=== PATIENT | female | born 1945 | race American Indian/Alaskan Native ===

== ENCOUNTER 2016-09-15 14:01 | Inpatient (IN) | payer MEDICARE, OTHER ==
[2016-09-15 14:50] VITALS: BMI 27.8
--- NOTE | 2016-09-15 14:58 | ED PDOC ---
Arrival/HPI - General Time Seen by Provider: 09/15/16 14:54 Historian: Patient, Family - History of Present Illness Narrative History of Present Illness (Text): 09/15/16 14:58 This 71 yo female, pmh including CHF, htn/hypercholestremia/hypothyroidism, on coumadin fro Hx. DVT, nkda, c/o wheezing x 2 months. Patient stated symptoms has worsen within last 2 weeks. Son stated patient appears tired. Patient denies cp, mathew, dizziness, abnormal gait, calf pain, recent travel, or sick contact. Time/Duration: Other (see HPI) Context: Home Past Medical History - Provider Review Nursing Documentation Reviewed: Yes - Infectious Disease Hx of Infectious Diseases: None - Tetanus Immunization Tetanus Immunization: Unknown - Cardiac Hx Pacemaker: No - Pulmonary Hx Respiratory Disorders: Yes Hx Asthma: Yes Hx Pneumonia: Yes Other/Comment: SMOKED CIGARETTES -SOCIALLY IN THE 70'S - Neurological Hx Neurological Disorder: No - HEENT Hx HEENT Disorder: No (WEARS RX GLASSES) - Renal Hx Renal Disorder: No - Endocrine/Metabolic Hx Endocrine Disorders: Yes Hx Diabetes Mellitus Type 2: Yes - Hematological/Oncological Hx Blood Transfusions: No Hx Blood Transfusion Reaction: No - Integumentary Hx Dermatological Disorder: No Hx Basal Cell Carcinoma: No Other/Comment: SPIDER VEINS MAINLY TO LEFT KNEE AREA - Musculoskeletal/Rheumatological Hx Musculoskeletal Disorders: Yes (HERNIATED DISCS) - Gastrointestinal Hx Gastrointestinal Disorders: No - Genitourinary/Gynecological Hx Genitourinary Disorders: Yes Other/Comment: HYSTERECTOMY,OOPHORECTOMY - Psychiatric Hx Emotional Abuse: No Hx Physical Abuse: No Hx Substance Use: No - Surgical History Hx Hysterectomy: Yes Hx Orthopedic Surgery: Yes (BILATERAL KNEE ARTHROSCOPY) Other/Comment: DISKECTOMY,OOPHORECTOMY - Anesthesia Hx Anesthesia: Yes - Suicidal Assessment Feels Threatened In Home Enviroment: No Family/Social History - Physician Review Nursing Documentation Reviewed: Yes Family/Social History: No Known Family HX Smoking Status: Former Smoker Hx Alcohol Use: No Hx Substance Use: No Hx Substance Use Treatment: No Allergies/Home Meds Allergies/Adverse Reactions: Allergies grass pollen Allergy (Verified 09/15/16 14:54) COUGH ASTHMA LIKE SYMPTOMS Home Medications: Home Meds Medication Instructions Recorded Confirmed Labetalol [Trandate] 100 mg PO BID 05/29/15 09/15/16 Nadolol [Corgard] 40 mg PO QAM 05/29/15 09/15/16 Pioglitazone [Actos] 45 mg PO QAM 05/29/15 09/15/16 Simvastatin [Simvastatin] 40 mg PO QAM 05/29/15 09/15/16 Warfarin [Coumadin] 5 mg PO DAILY 05/29/15 09/15/16 Albuterol HFA [Ventolin HFA 90 2 puff IH QID PRN 06/01/15 09/15/16 mcg/actuation (8 g)] Albuterol/Ipratropium [Duoneb 3 3 ml IH Q6 PRN 06/01/15 09/15/16 MG/3 Ml-0.5 MG/3 Ml 3 Ml] Cyanocobalamin [Vitamin B12 1000 1,000 mcg PO DAILY 06/01/15 09/15/16 mcg Tab] Ergocalciferol (Vitamin D2) 50,000 iu PO SUN 06/01/15 09/15/16 [Vitamin D] Furosemide [Lasix] 20 mg PO QAM 06/01/15 09/15/16 Lansoprazole [Prevacid] 30 mg PO QAM 06/01/15 09/15/16 Montelukast [Singulair] 10 mg PO QAM 06/01/15 09/15/16 Pregabalin [Lyrica] 150 mg PO QAM 06/01/15 09/15/16 Valsartan/Hydrochlorothiazide 1 tab PO QAM 06/01/15 09/15/16 [Valsartan and Hydrochlorothiazide 12.5 mg-160] Aspirin [Low Dose Aspirin EC] 81 mg PO DAILY 01/01/16 09/15/16 Ibuprofen [Motrin] 600 mg PO Q6 PRN 01/01/16 09/15/16 Review of Systems - Review of Systems Constitutional: Normal. absent: Fatigue, Weight Change, Fevers Eyes: Normal ENT: Normal Respiratory: SOB, Cough, Wheezing Cardiovascular: Normal. absent: Chest Pain, Palpitations Gastrointestinal: Normal. absent: Abdominal Pain, Nausea, Vomiting Genitourinary Female: Normal. absent: Dysuria, Frequency, Hematuria Musculoskeletal: Normal Skin: Normal Neurological: Normal Endocrine: Normal Hemo/Lymphatic: Normal Psychiatric: Normal Physical Exam Vital Signs Temp Pulse Resp BP Pulse Ox 09/15/16 21:15 128/88 09/15/16 16:43 76 18 125/68 96 09/15/16 15:10 16 09/15/16 15:08 97.9 F 88 16 110/71 95 09/15/16 14:53 97.9 F 88 16 110/71 95 Temperature: Afebrile Blood Pressure: Normal Pulse: Regular Respiratory Rate: Normal Appearance: Positive for: Well-Appearing, Non-Toxic, Comfortable Pain Distress: None Mental Status: Positive for: Alert and Oriented X 3 - Systems Exam Head: Present: Atraumatic, Normocephalic Pupils: Present: PERRL Extroacular Muscles: Present: EOMI Conjunctiva: Present: Normal Mouth: Present: Moist Mucous Membranes Neck: Present: Normal Range of Motion Respiratory/Chest: Present: Wheezes, Decreased Breath Sounds, Rhonchi. No: Respiratory Distress, Accessory Muscle Use, Rales, Retracting, Tachypneic Cardiovascular: Present: Regular Rate and Rhythm, Normal S1, S2. No: Murmurs Abdomen: Present: Normal Bowel Sounds. No: Tenderness, Distention, Peritoneal Signs Back: Present: Normal Inspection. No: CVA Tenderness Upper Extremity: Present: Normal Inspection, Normal ROM, NORMAL PULSES, Neurovascularly Intact, Capillary Refill < 2s. No: Cyanosis, Edema Lower Extremity: Present: Normal Inspection, NORMAL PULSES, Normal ROM, Capillary Refill < 2 s. No: Edema Neurological: Present: GCS=15, CN II-XII Intact, Speech Normal, Motor Func Grossly Intact, Normal Sensory Function, Normal Cerebellar Funct, Gait Normal, Memory Normal Skin: Present: Warm, Dry, Normal Color. No: Rashes Psychiatric: Present: Alert, Oriented x 3, Normal Insight, Normal Concentration Medical Decision Making ED Course and Treatment: 09/15/16 19:00 Patient presents to the emergency department complaining of shortness of breath and wheezing, cough. Patient was treated with Solu-Medrol IVP, DuoNeb. Chest x -ray was no infiltrate. Despite treatment, patient continued with symptoms. Dr. Duarte was contacted, and she agrees with the admission Re-evaluation Time: 19:00 Reassessment Condition: Re-examined, Improving,but remains with symptoms - Lab Interpretations Lab Results: 09/15/16 15:40 09/15/16 16:44 Lab Results 09/15/16 17:02: Urine Color Yellow, Urine Appearance Clear, Urine pH 6.0, Ur Specific [place] 1.010, Urine Protein Negative, Urine Glucose (UA) Negative, Urine Ketones Negative, Urine Blood Negative, Urine Nitrate Negative, Urine Bilirubin Negative, Urine Urobilinogen 0.2, Ur Leukocyte Esterase Negative 09/15/16 16:44: Sodium 139, Chloride 104, Potassium 5.5 H, Carbon Dioxide 28, Anion Gap 13, BUN 44 H, Creatinine 2.5 H, Est GFR ( Amer) 23, Est GFR ( Non-Af Amer) 19, Random Glucose 90, Calcium 9.6, Total Bilirubin 0.6, AST 21, ALT 28, Alkaline Phosphatase 81, Lactate Dehydrogenase 520, Total Creatine Kinase 117, Troponin I 0.03 D, NT-Pro-B Natriuret Pep 442, Total Protein 7.0, Albumin 4.1, Globulin 2.9, Albumin/Globulin Ratio 1.4 09/15/16 15:40: PT 15.7 H, INR 1.45 H, APTT 31.7 H 09/15/16 15:40: pO2 106 H, VBG pH 7.29 L, VBG pCO2 59.0, VBG HCO3 28.4 H, VBG Total CO2 30.2 H, VBG O2 Sat (Calc) 99.2 H, VBG Base Excess 0.5, VBG Potassium 6.0 H, Sodium 139.0, Chloride 107.0, Glucose 91, Lactate 1.1, FiO2 21.0, Venous Blood Potassium 6.0 H 09/15/16 15:40: WBC 6.2, RBC 3.69, Hgb 10.2 L, Hct 33.5 L, MCV 90.8, MCH 27.6, MCHC 30.4 L, RDW 15.7 H, Plt Count 89 L, Gran % 66.0, Lymph % (Auto) 20.5 L, S[place]th % (Auto) 9.0 H, Eos % (Auto) 4.0, Baso % (Auto) 0.5, Gran # 4.08, Lymph # 1.3, Smyth # 0.6, Eos # 0.3, Baso # 0.03 - RAD Interpretation Radiology Orders: 09/15/16 14:57 CHEST TWO VIEWS (PA/LAT) [RAD] Stat 09/15/16 18:56 CHEST W/O CONTRAST [CT] Stat - EKG Interpretation Interpreted by ED Physician: Yes (NSR @ [address] changes. Normal interval ) Type: 12 lead EKG Comparison: No previous EKG avail. - Medication Orders Current Medication Orders: Albuterol/Ipratropium (Duoneb 3 Mg/0.5 Mg (3 Ml) Ud) 3 ml IH Q6 [facility] Last Admin: 09/16/16 13:44 Dose: 3 ml Aspirin (Ecotrin) 81 mg PO DAILY [facility] Last Admin: 09/16/16 09:48 Dose: 81 mg Atorvastatin Calcium (Lipitor) 20 mg PO QAM [facility] Last Admin: 09/16/16 09:48 Dose: 20 mg Enoxaparin Sodium (Lovenox) 80 mg SC Q12H [facility] PRN Reason: Protocol Furosemide (Lasix) 40 mg IVP DAILY [facility] Last Admin: 09/16/16 09:49 Dose: 40 mg Insulin Human Lispro (Humalog High) 0 units SC ACHS [facility] PRN Reason: Protocol Last Admin: 09/16/16 18:07 Dose: Not Given Non-Admin Reason: Patient in Radiology Labetalol HCl (Trandate) 100 mg PO BID [facility] Last Admin: 09/16/16 18:04 Dose: 100 mg Methylprednisolone (Solu-Medrol) 40 mg IV Q12 [facility] Last Admin: 09/16/16 09:49 Dose: 40 mg Montelukast Sodium (Singulair) 10 mg PO QAM [facility] Last Admin: 09/16/16 09:48 Dose: 10 mg Nadolol (Corgard) 40 mg PO QAM [facility] Last Admin: 09/16/16 10:42 Dose: 40 mg Pantoprazole Sodium (Protonix Ec Tab) 40 mg PO 0630 [facility] Last Admin: 09/16/16 05:56 Dose: 40 mg Polyethylene Glycol (Miralax) 17 gm PO DAILY [facility] Last Admin: 09/16/16 16:01 Dose: Pregabalin (Lyrica) 150 mg PO QAM [facility] Last Admin: 09/16/16 09:48 Dose: 150 mg Warfarin Sodium (Coumadin) 5 mg PO 1800 [facility] PRN Reason: Protocol Discontinued Medications Albuterol Sulfate (Albuterol 0.083% Inhal [place] (2.5 Mg/3 Ml) Ud) 5 mg IH STAT STA Stop: 09/15/16 21:00 Last Admin: 09/15/16 21:15 Dose: 5 mg Albuterol Sulfate (Albuterol 0.083% Inhal [place] (2.5 Mg/3 Ml) Ud) 0 mg IH ONCE STA Stop: 09/16/16 14:52 Albuterol Sulfate (Albuterol 0.083% Inhal [place] (2.5 Mg/3 Ml) Ud) 2.5 mg IH ONCE STA Stop: 09/16/16 14:57 Albuterol/Ipratropium (Duoneb 3 Mg/0.5 Mg (3 Ml) Ud) 3 ml IH Q15M [facility] Stop: 09/15/16 15:31 Last Admin: 09/15/16 15:45 Dose: 3 ml Albuterol/Ipratropium (Duoneb 3 Mg/0.5 Mg (3 Ml) Ud) 3 ml IH Q6 PRN PRN Reason: Shortness of Breath Dextrose (Dextrose 50% Inj) 50 ml IVP STAT STA Stop: 09/15/16 21:01 Last Admin: 09/15/16 21:15 Dose: 50 ml Enoxaparin Sodium (Lovenox) 100 mg SC Q24H [facility] PRN Reason: Protocol Last Admin: 09/16/16 18:10 Dose: 100 mg Furosemide (Lasix) 20 mg IVP STAT STA Stop: 09/15/16 21:03 Last Admin: 09/15/16 21:15 Dose: 20 mg Insulin Human Regular (Humulin R) 10 units IVP ONCE ONE Stop: 09/15/16 21:01 Last Admin: 09/15/16 21:15 Dose: 10 units Methylprednisolone (Solu-Medrol) 125 mg IVP STAT STA Stop: 09/15/16 14:57 Last Admin: 09/15/16 15:32 Dose: 125 mg Sodium Polystyrene Sulfonate (Kayexalate Oral Susp) 30 gm PO ONCE ONE Stop: 09/16/16 09:44 Last Admin: 09/16/16 09:51 Dose: 30 gm Sodium Polystyrene Sulfonate (Kayexalate Oral Susp) 30 gm PO STAT STA Stop: 09/16/16 17:20 Last Admin: 09/16/16 18:07 Dose: 30 gm Warfarin Sodium (Coumadin) 5 mg PO DAILY [facility] PRN Reason: Protocol Warfarin Sodium (Coumadin) 10 mg PO STAT [facility] PRN Reason: Protocol Stop: 09/15/16 20:09 Last Admin: 09/15/16 21:22 Dose: 10 mg Warfarin Sodium (Coumadin) 10 mg PO 1800 [facility] PRN Reason: Protocol Stop: 09/16/16 19:28 Disposition/Present on Arrival - Present on Arrival Any Indicators Present on Arrival: No History of DVT/PE: Yes History of Uncontrolled Diabetes: No Urinary Catheter: No History Surgical Site Infection Following: None - Disposition Have Diagnosis and Disposition been Completed?: Yes Diagnosis: Asthma exacerbation Disposition: HOSPITALIZED Disposition Time: 19:04 Patient Plan: Admission Patient Problems: Current Active Problems Problem Status Onset Asthma exacerbation Acute Condition: STABLE
[2016-09-15] MEDS: Albuterol-Ipratrop 3 mg / 0.5 (3 ml) UD IH SCH ×3 (15:12→15:45)
[2016-09-15 15:48] LABS: ADD MANUAL DIFF? NO
[2016-09-15 16:11] LABS: VENOUS BLOOD GAS BASE EXCESS 0.5 mmol/L (0.0-2.0); VENOUS BLOOD PH 7.29 (7.32-7.43)
[2016-09-15 16:12] LABS: BASO # 0.03 K/mm3 (0.0-2.0); BASO % 0.5 % (0.0-3.0); EOS # 0.3 (0.0-0.7); GRAN # 4.08 (1.4-6.5); HEMATOCRIT 33.5 % (36.0-48.0); LYMPH # 1.3 (1.2-3.4); LYMPH % 20.5 % (22.0-35.0); MEAN CELL VOLUME 90.8 fL (80.0-105.0); MEAN CORPUSCULAR HEMOGLOBIN 27.6 pg (25.0-35.0); MEAN CORPUSCULAR HGB CONC 30.4 g/dl (31.0-37.0); MONO # 0.6 (0.1-0.6); PLATELET COUNT 89 10^3/uL (120.0-450.0); RED CELL DISTRIBUTION WIDTH 15.7 % (11.5-14.5); WHITE BLOOD COUNT 6.2 10^3/ul (4.5-11.0)
[2016-09-15 16:19] LABS: INR 1.45 (0.93-1.08); PARTIAL THROMBOPLASTIN TIME 31.7 Seconds (23.7-30.8)
[2016-09-15 16:46] LABS: TROPONIN I 0.03 ng/mL
[2016-09-15 17:01] LABS: ALB/GLOB RATIO 1.4 (1.1-1.8); BILIRUBIN,TOTAL 0.6 mg/dL (0.2-1.3); CALCIUM 9.6 mg/dL (8.4-10.5); POTASSIUM 5.5 mmol/L (3.6-5.0)
[2016-09-15 17:09] LABS: URINE BILIRUBIN NEGATIVE (NEGATIVE); URINE BLOOD NEGATIVE (NEGATIVE); URINE GLUCOSE (UA) NEGATIVE (NEGATIVE); URINE KETONE NEGATIVE (NEGATIVE); URINE LEUKOCYTE ESTERASE NEGATIVE Leu/uL (NEGATIVE); URINE PROTEIN NEGATIVE mg/dL (<30 mg/dL); URINE UROBILINOGEN 0.2 E.U./dL (<1 E.U./dL)
[2016-09-15 17:12] LABS: URINE APPEARANCE CLEAR (CLEAR); URINE COLOR YELLOW (YELLOW)
[2016-09-15] MEDS ORDERED: Albuterol-Ipratrop 3 mg / 0.5 (3 ml) UD IH PRN (20:04)
[2016-09-15] MEDS ORDERED: Albuterol 0.083% Inhal Sol (2.5 mg/3 mL) UD IH STA (20:59)
[2016-09-15] MEDS ORDERED: Insulin Regular 1 UNITS/0.01 ML ML IVP ONE (21:00)
[2016-09-15] MEDS ORDERED: Dextrose 50% SYRINGE Inj (50 ml) IVP STA (21:00)
[2016-09-15] MEDS: MethylPREDNISolone 40 mg Vial IV SCH (22:15)
[2016-09-15] MEDS: Insulin Lispro (HUMAlog) HIGH Coverage SC SCH (22:28)
[2016-09-16] MEDS: Albuterol-Ipratrop 3 mg / 0.5 (3 ml) UD IH SCH ×4 (02:12→20:30)
--- NOTE | 2016-09-16 02:57 | HP ---
HISTORY OF PRESENT ILLNESS: The patient is a 71-year-old known to me from office practice, came to E mergency Room because of increasing shortness of breath. The patient has been having off and on coug h, congestion with audible wheezing. Shortness of breath has gotten worse for the last few days, so sonolena brought her to Emergency Room. The patient has been complaining of generalized weakness. She d oes not have any chest pain; however, complained of feeling tired and easily gets short of breath on minimal exertion and denies any nausea, vomiting, no history of diarrhea. No fever. Does have scant y cough. PAST MEDICAL HISTORY: Significant for: 1. Hypertension. 2. Congestive heart failure. 3. Hyperlipidemia. 4. Hypothyroidism. 5. Coagulopathy, history of DVT in the past. 6. Chronic renal insufficiency. ALLERGIES: SHE IS ALLERGIC TO DUST AND POLLEN. MEDICATIONS AT HOME: She is on nadolol 40 mg daily for esophageal varices. Singulair 10 mg daily. Prevacid 30 mg daily. Labetalol 100 mg twice a day. Lasix 20 mg p.o. daily. B12 and vitamin D. Aspirin 81 daily. Nebulizer treatment as needed. Coumadin 5 mg daily. She is on valsartan 160/12.5 daily. Simvastatin 40 mg daily. Lyrica 150 twice a day. Actos 45 mg daily. SOCIAL HISTORY: Denies smoking or drinking. She used to be a heavy smoker in the past. REVIEW OF SYSTEMS: Significant for increasing shortness of breath and easy fatigability and feeling tired. PHYSICAL EXAMINATION: GENERAL: She appears tired, mild shortness of breath. VITAL SIGNS: She is afebrile, pulse 76, respirations 18, blood pressure 125/68. LUNGS: Bilateral few expiratory rhonchi. HEART: S1, S2 audible. ABDOMEN: Soft, obese, nontender, no rebound, no guarding. NEUROLOGIC: She is awake and alert, communicative. Moves all extremities. +1 bilateral leg edema. LABORATORY DATA: WBC 6.2, hemoglobin 10.4, hematocrit 33.5, platelets of 89. PT 15.7, INR 1.45. He r ABG: pH is 7.09, pO2 106, pCO2 59 and pulse ox 99%. Chemistry: Sodium 139, potassium 5.5, chlori de 104, CO2 of 28, BUN 44, creatinine 2.5, blood sugar of 90. LFTs are within normal limits. Urinal ysis is unremarkable. X-ray of the chest shows mild congestive heart failure changes. ASSESSMENT: 1. Congestive heart failure, acute on chronic systolic exacerbation. 2. Chronic obstructive pulmonary disease exacerbation. 3. Asthmatic bronchitis. 4. Chronic renal insufficiency. 5. Coagulopathy. 6. History of deep venous thrombosis. 7. Non-insulin dependent diabetes. 8. Diastolic dysfunction. 9. Mitral regurgitation. 10. Tricuspid regurgitation. PLAN: The patient will be admitted on telemetry. We will start IV diuretics, IV steroid, nebulizer treatment. CT scan of the chest is ordered. We will monitor blood sugar. Follow up electrolytes in the a.m. Follow up PT/INR. Will give Coumadin 10 mg stat for dose today. Reevaluate the patient i n a.m. Delta Duarte MD cc: [phone] TT: 09/16/2016 02:56:31 an
[2016-09-16] MEDS: Pantoprazole 40 mg EC Tab PO SCH (05:56)
[2016-09-16 07:40] LABS: ADD MANUAL DIFF? NO
[2016-09-16 07:48] LABS: GRAN % 83.1 % (50.0-68.0); HEMATOCRIT 30.8 % (36.0-48.0); LYMPH # 0.8 (1.2-3.4); LYMPH % 11.7 % (22.0-35.0); MEAN CELL VOLUME 89.5 fL (80.0-105.0); MEAN CORPUSCULAR HEMOGLOBIN 27.3 pg (25.0-35.0); MEAN CORPUSCULAR HGB CONC 30.5 g/dl (31.0-37.0); MONO # 0.4 (0.1-0.6); MONO % 5.2 % (1.0-6.0); PLATELET COUNT 81 10^3/uL (120.0-450.0); RED CELL DISTRIBUTION WIDTH 15.4 % (11.5-14.5); WHITE BLOOD COUNT 6.9 10^3/ul (4.5-11.0)
[2016-09-16 07:50] LABS: INR 1.49 (0.93-1.08)
[2016-09-16] MEDS: Insulin Lispro (HUMAlog) HIGH Coverage SC SCH ×4 (08:01→21:27)
[2016-09-16 08:03] LABS: ALB/GLOB RATIO 1.3 (1.1-1.8); BILIRUBIN,TOTAL 0.4 mg/dL (0.2-1.3); CALCIUM 9.5 mg/dL (8.4-10.5); TOTAL PROTEIN 6.7 g/dL (5.8-8.3)
[2016-09-16 09:02] LABS: POTASSIUM 5.6 mmol/L (3.6-5.0)
[2016-09-16] MEDS ORDERED: Sod Polystyrene Sulf 15 gm/60 ml Oral Susp PO ONE (09:43)
[2016-09-16] MEDS: MethylPREDNISolone 40 mg Vial IV SCH ×2 (09:49→21:30)
--- NOTE | 2016-09-16 09:49 | CT ---
PROCEDURE: HISTORY: sob COMPARISON: None TECHNIQUE: Noncontrast FINDINGS: The proximal tracheobronchial tree is patent. There is no significant mediastinal hilar lymphadenopathy. There is a small pericardial effusion. Elevation of the right hemidiaphragm is noted. There is bibasilar discoid/subsegmental atelectasis, right greater than left. The upper abdomen is unremarkable. No suspicious skeletal lesions are observed. IMPRESSION: Small pericardial effusion. Elevated right hemidiaphragm with bibasilar subsegmental discoid atelectasis.
--- NOTE | 2016-09-16 09:53 | RAD ---
HISTORY: wheezing COMPARISON: 05/20/2015 TECHNIQUE: Chest PA and lateral FINDINGS: LUNGS: No active pulmonary disease. PLEURA: No significant pleural effusion identified. No pneumothorax apparent. CARDIOVASCULAR: Normal. OSSEOUS STRUCTURES: No significant abnormalities. VISUALIZED UPPER ABDOMEN: Normal. OTHER FINDINGS: None. IMPRESSION: No active disease.
[2016-09-16] MEDS ORDERED: PREGABALIN 150 MG PO SCH (10:00)
--- NOTE | 2016-09-16 10:30 | CARD ---
APPROVED REPORT EKG Measurement Heart [id number] <Conclusion> Normal sinus rhythm with 1st degree AVB Inferior infarct, old NSSTW changes No change
[2016-09-16] MEDS ORDERED: Albuterol 0.083% Inhal Sol (2.5 mg/3 mL) UD IH STA ×2 (14:51→14:56)
[2016-09-16] MEDS: POLYETHYLENE GLYCOL 3350 17 GM/Dose PACKET PO SCH (16:01)
--- NOTE | 2016-09-16 16:19 | CON ---
DATE: 09/16/2016 REASON FOR CONSULTATION: Hyperkalemia, renal insufficiency. HISTORY OF PRESENTING ILLNESS: A 71-year-old lady previously unknown to me, admitted on 09/15/2016 w ith complaints of increasing cough, shortness of breath. Also, complaining of audible wheezing. The patient denied any fever, chills. She reported increased fatigue. Dyspnea with minimal exertion. No history of nausea, vomiting or diarrhea. In the Emergency Room, the patient is found to be hemody namically stable. She was found to have a potassium of 5.5, BUN of 44 and a creatinine of 2.5. Cons ultation is requested for acute kidney injury superimposed on chronic kidney disease, hyperkalemia. PAST MEDICAL AND SURGICAL HISTORY: NIDDM, hypertension, hyperlipidemia, CHF, DVT in the past, chroni c kidney disease stage III, baseline creatinine around 1.5(?). FAMILY HISTORY: Noncontributory. SOCIAL HISTORY: No smoking, no alcohol use, no IV drug abuse. ALLERGIES: Seasonal. MEDICATIONS AT HOME: Nadolol, Singulair, Prevacid, labetalol 100 b.i.d., Lasix, B12, aspirin, Coumad in, valsartan/hydrochlorothiazide 160/12.5, simvastatin, Lyrica, Actos. REVIEW OF SYSTEMS: All systems reviewed, pertinent positives as mentioned in history of presenting i llness, rest unremarkable. PHYSICAL EXAMINATION: GENERAL: Obese elderly lady sitting in bed in mild respiratory distress. VITAL SIGNS: Blood pressure 120/67, heart rate 89, respiratory rate 19, temperature 98.3. HEENT: Normocephalic, atraumatic, positive pallor. NECK: Supple, no JVD. LUNGS: Bilateral rhonchi. No rales, equal air entry, equal expansion. CARDIAC: S1, S2, regular rate and rhythm, no murmur, no rub. ABDOMEN: Obese, distended, soft, nontender, bowel sounds present. EXTREMITIES: Trace lower extremity edema. INTAKE AND OUTPUT: Not charted. LABORATORY DATA: Sodium 138, potassium 5.6, chloride 106, CO2 24, BUN 49, creatinine 2.4, glucose 11 6, calcium 9.5, total bili 0.4, AST 17, ALT 26, albumin 3.8. WBC 6.9, hemoglobin 9.4, hematocrit 30. 8, platelets 81. INR 1.4. Blood gas done yesterday. ABG: pH 7.2, lactate 1.1. Urinalysis: Yello w, clear, pH 6.0, specific gravity 1.010, protein negative, glucose negative, ketones negative. CT of the chest without contrast: Small pericardial effusion, elevated right hemidiaphragm, bibasilar subsegmental discoid atelectasis. Echocardiogram done last year, in May, showed normal left ventricular size with LVH and mildly d ecreased systolic function, diastolic dysfunction, left atrial enlargement, mild mitral regurgitation , trace tricuspid regurg. Myocardial stress test showed reversible anterior defect probably due to b reast position. EF was 62%. Cardiac catheterization done last year revealed mild intimal irregularit ies towards the coronary tree, no significant CAD. CURRENT MEDICATIONS: Corgard, DuoNeb, Ecotrin, Humalog insulin, Lasix 40 IV daily, Lipitor, Protonix , Singulair, Solu-Medrol, labetalol. ASSESSMENT: A 71-year-old lady with history of [id number] diabetes mellitus, hypertension , diastolic heart failure, reactive airway disease, admitted with cough, shortness of breath, dyspnea on exertion. She is found to have acute kidney injury superimposed on chronic kidney disease stage III. At this time, baseline creatinine is not available for review. Suspect it is around 1.5-1.7. She has acute kidney injury superimposed on her chronic kidney disease. Hyperkalemia secondary to ac [place] kidney injury. The etiology of her acute kidney injury is perhaps cardiorenal. There is no evid ence of proteinuria. Underlying chronic kidney disease is likely secondary to hypertensive nephroscl erosis, although in light of her anemia and renal insufficiency, need to consider and rule out hemogl obinopathy. 1. Acute kidney injury superimposed on chronic kidney disease stage III. 2. Hyperkalemia secondary to acute kidney injury. 3. Diastolic heart failure. 4. Anemia. 5. Thrombocytopenia. PLAN: 1. A 2 gram potassium diet. 2. Continue Lasix. 3. Albuterol 10 mg via nebulizer for hyperkalemia. 4. Stool occults x 3. 5. Check iron stores. 6. Serum protein electrophoresis and urine immunofixation. 7. Renal ultrasound for size and echotexture. Thank you for the courtesy of this consultation. We will follow this patient closely with you. Yulia Allan MD cc: [id number] TT: 09/16/2016 16:18:44 Confirmation # [id number] Dictation # [id number] ln
--- NOTE | 2016-09-16 16:23 | US ---
PROCEDURE: Ultrasound of the Kidneys HISTORY: LUI COMPARISON: None available. TECHNIQUE: Sonogram of the kidneys. FINDINGS: RIGHT KIDNEY: Measures: 4.8 x 9.4 cm. Increased echogenicity compatible with medical renal disease. No stone, solid mass lesion or hydronephrosis visualized. LEFT KIDNEY: Measures: 5.2 x 9.9 cm. Increased echogenicity compatible with medical renal disease. No stone, solid mass lesion or hydronephrosis visualized. OTHER FINDINGS: None. IMPRESSION: No acute findings related to/accounting for the clinical presentation. Findings suggestive of medical renal disease without focal abnormality.
[2016-09-16] MEDS ORDERED: Sod Polystyrene Sulf 15 gm/60 ml Oral Susp PO STA (17:19)
[2016-09-16] MEDS ORDERED: Enoxaparin 100 mg Syringe SC SCH (18:00)
--- NOTE | 2016-09-16 18:58 | PN ---
DATE: 09/16/2016 SUBJECTIVE: The patient is a 71-year-old, seen and examined, sitting in chair, complaining of genera lized weakness. She states her shortness of breath has definitely gotten better. No nausea or vomit ing. Eating and tolerating. PHYSICAL EXAMINATION: VITAL SIGNS: She is afebrile, pulse 69, respirations 19, blood pressure 120/67. LUNGS: Bilateral scattered rhonchi. HEART: S1, S2 audible. ABDOMEN: Soft, nontender, no rebound, no guarding. NEUROLOGIC: The patient is awake and alert, able to communicate. EXTREMITIES: Bilateral leg +1 edema. LABORATORY: WBC 6.9, hemoglobin 9.4, hematocrit 30.8, platelet of 81. PT 16.1, INR 1.49. Chemistry : Sodium 138, potassium 5.6, chloride 106, CO2 24, BUN 49, creatinine 2.4, blood sugar 153. First s et of cardiac enzyme is negative. Urinalysis is unremarkable. She had a renal ultrasound done that shows no acute findings except for medical renal disease and CT scan of the chest shows small pericar dial effusion, elevated right hemidiaphragm with bibasilar subsegmental discoid atelectasis. ASSESSMENT: 1. Chronic obstructive pulmonary disease exacerbation. 2. Diastolic dysfunction. 3. Renal insufficiency. 4. Coagulopathy. 5. Anemia. PLAN: Hyperkalemia. We will give another dose of Kayexalate. Continue diuretics. Continue her on mak roids. Encourage ambulation. Will reevaluate in a.m. Give Coumadin 10 mg today. Follow up PT/INR a nd if patient does not have significant exertional dyspnea or does not desaturate . Delta Duarte MD cc: [phone] TT: 09/16/2016 18:58:05 Confirmation # [id number] Dictation # [id number] ln
--- NOTE | 2016-09-16 21:59 | CON ---
DATE: 09/16/2016 The patient is in room 370, bed 2. REASON FOR CONSULTATION: Shortness of breath, history of hypertension. HISTORY OF PRESENT ILLNESS: The patient being seen at the request of the patient's son and Dr. Harry mcgovern. The patient is a 71-year-old female who has longstanding history of asthma. She has been having shortness of breath for the last several days prior to admission, but gradually got worse, which als o she got very fatigued and tired and she was getting shortness of breath worse. The patient denied any chest pain or palpitation. The patient also was having cough. The patient, as compared to james whipple, is now feeling better. She is lying flat in bed at this moment. PAST MEDICAL HISTORY: Positive for asthma, hypertension, hyperlipidemia, hypothyroidism, coagulopath y, history of DVT in the past, chronic renal insufficiency. She had surgery on both knees. She also had a herniated disk surgery in the back. PERSONAL HISTORY: The patient is an ex-heavy smoker. Denies smoking or drinking now. ALLERGIES: The patient denies any allergies to medication, but she says SHE IS ALLERGIC TO ____ LIK E ____ HOME MEDICATIONS: The patient's home medications consisted of Nadolol 40 mg daily, Singulair 10 josemanuel y, Prevacid 30 daily, labetalol 100 mg twice a day, Zestril 20 daily, aspirin 81 daily, Coumadin 5 mg daily, valsartan 160/12.5 daily, simvastatin 40 daily, Lyrica 150 twice a day, Actos 45 mg daily. REVIEW OF SYSTEMS: All the systems were reviewed, positive mentioned in the history. CARDIAC WORKUP HISTORY: The patient had echo on 05/21/2015 which showed RVSP 44 mmHg, diastolic dysf unction, mild mitral regurgitation, LV ejection fraction around 43%. The patient had a stress test 0 05/28/2015 which was equivocal, following that the patient had cardiac catheterization 06/02/2015, it showed mild intimal irregularities in the coronary arteries, but no distinct blockage was seen, eject ion fraction was normal 60%. PHYSICAL EXAMINATION: VITAL SIGNS: Blood pressure 120/67, respiration 19, pulse 89, temperature 98.3. HEENT: Head is normocephalic. Eyes: Pupils normal. Conjunctivae slightly pale. NECK: JVP low. Carotid equal. THORAX: AP diameter normal. LUNGS: Few expiratory wheezing, no rales. CARDIOVASCULAR: S1, S2. ABDOMEN: Soft, nontender, no organomegaly. EXTREMITIES: No clubbing, no cyanosis. LABORATORY DATA: WBC 6.9, hemoglobin 9.4, hematocrit 30.8, platelet 81. Sodium 138, potassium 5.6, BUN 49, creatinine 2.4, random sugar 153. AST, ALT normal. EKG showed regular sinus rhythm, nonspec ific ST-T changes, Q lead 3 and small Q in the aVF. Chest x-ray clear. CT of the chest showed some small amount of pericardial effusion with bibasilar subsegmental discoid atelectasis. DIAGNOSES: Shortness of breath, exacerbation of asthma, renal dysfunction, hypertension, hyperlipide power, hypothyroidism, coagulopathy, history of deep venous thrombosis, neuropathy. PLAN: The patient is getting albuterol nebulizer therapy, nadolol 40 daily. The patient received wa rfarin 10 mg yesterday, aspirin 81 mg p.o. daily. The patient also received sodium polystyrene sulfo chelsie 30 grams p.o. 1 dose today, furosemide 40 IV daily, Lipitor 20 mg p.o. daily, Lovenox 100 mg sub Q q. 24 hours, Lyrica 150 mg q.a.m., Protonix 40 daily, Singulair 10 mg daily, Solu-Medrol 40 mg IV q. 12 hours, labetalol 100 mg b.i.d. The patient's prothrombin time, INR is still not therapeutic. Will give warfarin 10 mg p.o. today, then daily. We will also order echocardiogram, there is a smal l pericardial effusion seen on the CT scan which is probably nonsignificant and will follow with you. Danyel Hurst MD cc: [id number] TT: 09/16/2016 21:58:14 Confirmation # [id number] Dictation # [id number] sergei
[2016-09-17] MEDS: Albuterol-Ipratrop 3 mg / 0.5 (3 ml) UD IH SCH ×4 (01:11→20:10)
[2016-09-17] MEDS: Pantoprazole 40 mg EC Tab PO SCH (06:29)
[2016-09-17 07:34] LABS: ADD MANUAL DIFF? NO
[2016-09-17 07:42] LABS: GRAN # 5.89 (1.4-6.5); GRAN % 81.8 % (50.0-68.0); HEMATOCRIT 31.7 % (36.0-48.0); LYMPH # 0.9 (1.2-3.4); LYMPH % 12.4 % (22.0-35.0); MEAN CELL VOLUME 88.8 fL (80.0-105.0); MEAN CORPUSCULAR HEMOGLOBIN 27.2 pg (25.0-35.0); MEAN CORPUSCULAR HGB CONC 30.6 g/dl (31.0-37.0); MONO # 0.4 (0.1-0.6); MONO % 5.8 % (1.0-6.0); PLATELET COUNT 95 10^3/uL (120.0-450.0); RED CELL DISTRIBUTION WIDTH 15.3 % (11.5-14.5); WHITE BLOOD COUNT 7.2 10^3/ul (4.5-11.0)
[2016-09-17 07:46] LABS: INR 1.85 (0.93-1.08)
[2016-09-17 07:50] LABS: ALB/GLOB RATIO 1.4 (1.1-1.8); BILIRUBIN,TOTAL 0.5 mg/dL (0.2-1.3); CALCIUM 9.3 mg/dL (8.4-10.5); POTASSIUM 4.1 mmol/L (3.6-5.0); TOTAL PROTEIN 7.1 g/dL (5.8-8.3)
[2016-09-17 08:04] LABS: FREE T4 1.41 ng/dL (0.78-2.19)
[2016-09-17] MEDS: Insulin Lispro (HUMAlog) HIGH Coverage SC SCH ×4 (08:06→21:30)
[2016-09-17 08:18] LABS: THYROID STIMULATING HORMONE 0.12 mIU/mL (0.46-4.68)
[2016-09-17] MEDS: MethylPREDNISolone 40 mg Vial IV SCH ×2 (08:59→22:11)
[2016-09-17] MEDS: POLYETHYLENE GLYCOL 3350 17 GM/Dose PACKET PO SCH (09:00)
[2016-09-17 09:16] LABS: IRON 94 ug/dL (45-180)
--- NOTE | 2016-09-17 09:29 | PN ---
DATE: 09/17/2016 SUBJECTIVE: The patient is currently seen on 3R. She is eating breakfast. No significant lower ext remity edema. She remains on Lasix therapy and steroid therapy. BUN and creatinine remain elevated above her baseline levels. MEDICATIONS: Medication list reviewed. The patient is currently on Corgard, Coumadin, DuoNeb, Ecotr in, insulin, Lasix IV, Lipitor, Lovenox, Lyrica, MiraLax, Protonix, Singulair, Solu-Medrol, and Trand ate. OBJECTIVE: INTAKE AND OUTPUT: Intake 960, output not charted. Weight not done today. VITAL SIGNS: Blood pressure 120/67, temperature 98.3, pulse 89, respiratory rate is 19. HEENT: Shows her to be normocephalic, atraumatic. Conjunctivae are pale. Sclerae are nonicteric. NECK: Supple, no neck vein distention. CHEST: Scattered rhonchi and wheezing. No rales. CARDIOVASCULAR: S1, S2 are normal. MR/TR. No S3, no S4, no rub. ABDOMEN: Soft. Mild obesity. No distention. Bowel sounds are normal. EXTREMITIES: Show trace nonpitting lower extremity edema. No cyanosis, no clubbing. LABORATORY DATA AND IMAGING: Renal ultrasound shows increased echogenicity consistent with chronic m edical renal disease. Otherwise, no focal abnormalities. Echocardiogram done previously showed andres tolic dysfunction. CT of the chest shows small pericardial effusion, elevated right hemidiaphragm, b ibasilar segmental discoid atelectasis. Labs: CBC: White blood cell count 7.2, hemoglobin 9.7 down from 10.2. Platelet count is 95,000. Coags show an INR of 1.85 with a PT of 20. Chemistries show normal electrolytes. BUN 58 with a creatinine of 2.6, her baseline BUN is in the low to mid 40 range with a baseline creatinine in the mid 1 range. Glucose is 153. Liver enzymes are normal. Calcium was 9.3. TSH level was low 0.12. Free T4 level was normal. Urinalysis was completely negative. ASSESSMENT: 1. Prerenal azotemia superimposed on chronic kidney disease stage III. This is in the setting of IV diuretic therapy and IV steroids. Given the fact that the patient requires these medications at thi s time, we will need to accept a mild degree of prerenal azotemia superimposed on chronic kidney dise ase. The patient had been using diuretics at home to prevent lower extremity edema in light of her d iastolic heart dysfunction. 2. Status post hyperkalemia. Potassium level is now normal, down from 5.8, down to 4.1. The patien t presently is not receiving any potassium supplements. 3. Diastolic heart failure. Continue diuretic therapy. 4. Hypertension. Blood pressure controlled on present medical therapy. 5. History of anemia and mild thrombocytopenia. 6. History of chronic obstructive pulmonary disease with mild exacerbation. The patient will contin ue steroid therapy, Singulair and inhalation therapy. PLAN: 1. Follow accurate I's and O's and daily weights. 2. Continue to monitor labs on a daily basis. 3. We will need to accept a mild to moderate degree of prerenal azotemia given the fact that the pat ient requires diuretic therapy and steroid therapy. 4. Cautioned not to over diurese patient. 5. The patient should continue a renal diet. 6. Obtain phosphorus level, PTH level and vitamin D25 hydroxy level. 7. Check iron saturations, supplement iron on a p.r.n. basis and p.r.n. start Aranesp if hemoglobin remains significantly below 10. Usman Bates MD cc: [id number] TT: 09/17/2016 09:28:29 Confirmation # [id number] Dictation # [id number] ga
[2016-09-17] MEDS: Enoxaparin 80 mg Syringe SC SCH ×2 (11:46→22:11)
--- NOTE | 2016-09-17 13:00 | PN ---
DATE: 09/17/2016 SUBJECTIVE: The patient is 71 years old, , seen and examined. Still has shortness of breath, cough and congestion with wheezing. No nausea, vomiting or diarrhea. PHYSICAL EXAMINATION: VITAL SIGNS: She is afebrile, pulse 96, respirations 20, blood pressure 127/86. LUNGS: Bilateral fair airflow, no rhonchi or crackle. HEART: S1 and S2 audible. ABDOMEN: Soft, obese, nontender, no rebound, no guarding. NEUROLOGIC: The patient is awake and alert. Able to communicate. EXTREMITIES: Bilateral leg, no edema. LABORATORY EXAMINATION: WBC 7.2, hemoglobin 9.7, hematocrit 31.7, platelet 95. PT is 20.0, INR 1.85 . Chemistry: Sodium 141, potassium 4.1, chloride 103, CO2 of 27, BUN 58, creatinine 2.6, blood suga r 148. TSH is 0.12. Her VQ scan is pending. Echocardiogram is pending. CT scan of the chest shows small pericardial effusion, elevated right hemidiaphragm. ASSESSMENT: 1. Chronic obstructive pulmonary disease exacerbation. 2. Acute on chronic renal insufficiency. 3. Chronic anemia. 4. Coagulopathy. PLAN: We will continue patient on nebulizer treatment. She will receive Coumadin 10 mg today. Out of bed to chair. Encourage physical therapy. Followup VQ scan. Requested for TCU eval. If patient agrees, can be transferred there. Delta Duarte MD cc: [phone] TT: 09/17/2016 12:59:52 Confirmation # [id number] Dictation # [id number] tn
[2016-09-18] MEDS: Albuterol-Ipratrop 3 mg / 0.5 (3 ml) UD IH SCH ×2 (01:10→07:49)
[2016-09-18] MEDS: Pantoprazole 40 mg EC Tab PO SCH (05:30)
[2016-09-18 07:52] LABS: HEMATOCRIT 31.9 % (36.0-48.0); MEAN CELL VOLUME 88.1 fL (80.0-105.0); MEAN CORPUSCULAR HEMOGLOBIN 27.6 pg (25.0-35.0); MEAN CORPUSCULAR HGB CONC 31.3 g/dl (31.0-37.0); MEAN PLATELET VOLUME 12.9 fl (7.0-11.0); RED CELL DISTRIBUTION WIDTH 15.1 % (11.5-14.5); WHITE BLOOD COUNT 7.1 10^3/ul (4.5-11.0)
[2016-09-18 08:00] LABS: INR 2.17 (0.93-1.08)
[2016-09-18] MEDS: Insulin Lispro (HUMAlog) HIGH Coverage SC SCH ×2 (08:04→12:17)
[2016-09-18 08:06] LABS: ALB/GLOB RATIO 1.4 (1.1-1.8); BILIRUBIN,TOTAL 0.4 mg/dL (0.2-1.3); CALCIUM 9.4 mg/dL (8.4-10.5); MAGNESIUM 1.7 mg/dL (1.7-2.2); PHOSPHOROUS 3.8 mg/dL (2.5-4.5); POTASSIUM 3.9 mmol/L (3.6-5.0); TOTAL PROTEIN 7.1 g/dL (5.8-8.3)
[2016-09-18 08:29] LABS: TOTAL PROTEIN, SERUM 6.7 g/dL (6.1-8.1)
[2016-09-18] MEDS: POLYETHYLENE GLYCOL 3350 17 GM/Dose PACKET PO SCH ×3 (09:44→13:14)
[2016-09-18] MEDS: MethylPREDNISolone 40 mg Vial IV SCH (09:44)
--- NOTE | 2016-09-18 09:53 | PN ---
DATE: 09/18/2016 SUBJECTIVE: The patient is currently seen sitting up in bed, eating breakfast. She continues to com plain of mild shortness of breath. She remains on Lasix therapy and steroid therapy. Her BUN and cr eatinine are above her baseline levels. MEDICATIONS: List reviewed. The patient is currently on Corgard, Coumadin, DuoNeb, Ecotrin, insulin , Lasix, Lipitor, Lovenox, Lyrica, MiraLax, Protonix, Singulair, Solu-Medrol and Trandate. OBJECTIVE: INTAKE AND OUTPUT: Intake 300, output not charted. VITAL SIGNS: Blood pressure 158/89, pulse of 60, temperature 98.1, respiratory rate 20 with a pulse ox of 90%. HEENT: Shows her to be normocephalic, atraumatic. Conjunctivae are pale. Sclerae are nonicteric. NECK: Supple, no neck vein distention. CHEST: Scattered rhonchi and wheezing bilaterally. No rales. CARDIOVASCULAR: S1, S2 are normal. MR/TR. No S3, no S4, no rub. ABDOMEN: Soft. Mild obesity. No distention. Bowel sounds are normal. No rebound, no guarding. EXTREMITIES: Show trace nonpitting lower extremity edema, no cyanosis, no clubbing. LABORATORY DATA AND IMAGING: CBC today, white blood cell count 7.1, hemoglobin stable at 10.0, plate let count is 104,000. Chemistries show normal electrolytes. BUN 63 with a creatinine of 2.6, glucos e 155. Calcium, phosphorus, magnesium are normal. Liver enzymes are normal. Albumin is 4.1. ASSESSMENT: 1. Prerenal azotemia superimposed on chronic kidney disease stage III. This is in the setting of di uretic therapy for diastolic heart dysfunction and IV steroid therapy for exacerbation of her chronic obstructive pulmonary disease. 2. Status post hyperkalemia. Potassium level is now normal. The patient is currently not receiving any potassium supplements. K level was 3.9 today. 3. Diastolic heart failure. Continue diuretic therapy for lower extremity edema prevention and to d ecrease shortness of breath. 3. Hypertension. Blood pressure controlled on present medical therapy. 4. History of anemia and mild thrombocytopenia, currently stable. 5. History of chronic obstructive pulmonary disease with exacerbation. The patient will continue Si ngulair inhalation therapy and IV steroid therapy as per Dr. Duarte. PLAN: 1. Need to monitor accurate I's and O's. This was discussed with staff on 3R. 2. Continue to monitor labs on a daily basis. 3. We will accept a mild to moderate degree of prerenal azotemia as patient remains on diuretic ther apy and steroid therapy. 4. The patient will continue a renal diet. 5. PTH and vitamin D level are pending. 6. Iron saturations are 33%. For any hemoglobin less than 10, patient may start on Aranesp therapy. Usman Bates MD cc: [phone] TT: 09/18/2016 09:52:18 Confirmation # [id number] Dictation # [id number] en
[2016-09-18 09:59] VITALS: O2SAT 93
[2016-09-18 11:07] VITALS: BP 150/86; PULSE 71; RESP 18; TEMP 97.8
--- NOTE | 2016-09-18 18:49 | CARD ---
APPROVED REPORT EXAM: Two-dimensional and M-mode echocardiogram with Doppler and color Doppler. INDICATION 2D DIMENSIONS IVSd1.6 (0.7-1.1cm)LVDd4.3 (3.9-5.9cm) PWd1.3 (0.7-1.1cm)LVDs3.1 (2.5-4.0cm) FS (%) 26.6 %LVEF (%)52.4 (>50%) M-Mode DIMENSIONS Left Atrium (MM)4.10 (2.5-4.0cm)Aortic Root3.60 (2.2-3.7cm) Aortic Cusp Exc.2.20 (1.5-2.0cm) Aortic Valve AoV Peak Pxdhgwht108.0cm/Seth Peak GR.7mmHg Mitral Valve MV E Gpbhpmvc37.8cm/sMV A Cebftnun81.2cm/sE/A ratio0.8 TDI Lateral E' Peak V7.51cm/sMedial E' Peak V5.36cm/sE/Lateral E'10.1 E/Medial E'14.1 Tricuspid Valve TR Peak Cqmnbzne078vi/sRAP [id number] Peak Gr.34mmHg [id number] LEFT VENTRICLE The left ventricle is normal size. There is mild concentric left ventricular hypertrophy. The left ventricular function is normal.EF-55% There is normal LV segmental wall motion. Transmitral Doppler flow pattern is Grade III-reversible restrictive diastolic dysfunction. No left ventricle thrombus noted on this study. There is no ventricular septal defect visualized. There is no left ventricular aneurysm. RIGHT VENTRICLE The right ventricle is normal size. There is normal right ventricular wall thickness. The right ventricular systolic function is normal. ATRIA The left atrium is mildly dilated. The right atrium size is normal. The interatrial septum is intact with no evidence for an atrial septal defect. AORTIC VALVE The aortic valve is thickened but opens well. There is trace aortic regurgitation. There is no aortic valvular stenosis. There is no aortic valvular vegetation. MITRAL VALVE The mitral valve is thickened but opens well. Mitral regurgitation is mild to moderate. There is no mitral valve stenosis. There is no evidence of mitral valve prolapse. TRICUSPID VALVE The tricuspid valve leaflets are thickened , but open well. There is mild tricuspid regurgitation.RVSP-44 mmogf Hg There is no tricuspid valve stenosis. There is no tricuspid valve prolapse or vegetation. PULMONIC VALVE The pulmonary valve is normal in structure. There is trace pulmonic valvular regurgitation. There is no pulmonic valvular stenosis. GREAT VESSELS The aortic root is normal in size. The ascending aorta is normal in size. The pulmonary artery is normal. The IVC is normal in size and collapses >50% with inspiration. PERICARDIAL EFFUSION There is no pleural effusion. There is a trace to small pericardial effusion. <Conclusion> The left ventricle is normal size. There is mild concentric left ventricular hypertrophy. The left ventricular function is normal.EF-55% There is trace aortic regurgitation. Mitral regurgitation is mild to moderate. There is mild tricuspid regurgitation.RVSP-44 mmogf Hg The IVC is normal in size and collapses >50% with inspiration. There is a trace to small pericardial effusion. No vegetation or thrombus noted.
--- NOTE | 2016-09-18 19:40 | DS ---
The patient has no complaints of any chest pain or shortness of breath. No headaches. She says her breathing is better. She initially had come into the hospital because of a COPD exacerbation. The p atient was given nebulizer treatments and her COPD is improved. She has no complaints of any headach es or dizziness. She is going to TCU for rehab. PHYSICAL EXAMINATION: VITAL SIGNS: Temperature is 98.1, pulse of 67, blood pressure 150/89, respirations 20, O2 saturation 90%. GENERAL: The patient comfortable, in no acute distress. HEENT: Anicteric sclerae. Moist mucosa. NECK: No JVD or adenopathy. CARDIAC: S1/S2. No murmurs. No rubs. Regular. RESPIRATORY: Clear to auscultation bilaterally. No wheezes, rales, or rhonchi. Good air entry. ABDOMEN: Bowel sounds are positive, soft, nontender, and nondistended. EXTREMITIES: No edema. Has 1+ pulses. ASSESSMENT: 1. Acute chronic obstructive pulmonary disease. 2. Chronic anemia. 3. Acute kidney injury. 4. Deep venous thrombosis, on anticoagulation. PLAN: The patient is going to be on Coumadin for DVT. The patient is receiving albuterol for nebuli zer treatments. She is on Lasix daily. She is on Lipitor for dyslipidemia. She is on Lovenox. Her INR is therapeutic. I will discontinue the patient's Lovenox. She is on Solu-Medrol for her COPD. She is going to continue with labetalol. Kirby Navarrete MD cc: [id number] TT: 09/18/2016 19:39:22 mo
--- NOTE | 2016-09-18 22:16 | CP.PCM.CON ---
History of Present Illness - History of Present Illness History of Present Illness: Ms. Sams is a 71 year old female , well known to me from office. She developed sudden shortness of breath yesterday. She has history of DVT in lower extremity and has been on coumadin . INR was subtherapeutic today . No pain in legs. No chest pain. CT chest did not show any lesions. She has chronic kidney disease with creatinine in 2.0 s. Review of Systems - Constitutional Constitutional: Fatigue, Malaise, Weakness - EENT Eyes: absent: As Per HPI, Blind Spots, Blurred Vision, Change in Vision, Decreased Night Vision, Diplopia, Discharge, Dry Eye, Exophthalmos, Floaters, Irritation, Itchy Eyes, Loss of Peripheral Vision, Pain, Photophobia, Requires Corrective Lenses, Sees Flashes, Spots in Vision, Tunnel Vision, Other Visual Disturbances, Loss of Vision, Other Ears: absent: As Per HPI, Decreased Hearing, Ear Discharge, Ear Pain, Tinnitus, Abnormal Hearing, Disequilibrium, Dizziness, Other Nose/Mouth/Throat: absent: As Per HPI, Epistaxis, Nasal Congestion, Nasal Discharge, Nasal Obstruction, Nasal Trauma, Nose Pain, Post Nasal Drip, Sinus Pain, Sinus Pressure, Bleeding Gums, Change in Voice, Dental Pain, Dry Mouth, Dysphagia, Halitosis, Hoarsness, Lip Swelling, Mouth Lesions, Mouth Pain, Odynophagia, Sore Throat, Throat Swelling, Tongue Swelling, Facial Pain, Neck Pain, Neck Mass, Other - Breasts Breasts: absent: As Per HPI, Change in Shape, Mass, Pain, Nipple Discharge, Nipple Inversion, Skin Changes, Swelling, Other - Cardiovascular Cardiovascular: absent: As Per HPI, Acrocyanosis, Chest Pain, Chest Pain at Rest , Chest Pain with Activity, Claudication, Diaphoresis, Dyspnea, Dyspnea on Exertion, Edema, Irregular Heart Rhythm, Pain Radiating to Arm/Neck/Jaw, Leg Edema, Leg Ulcers, Lightheadedness, Orthopnea, Palpitations, Paroxysmal Nocturnal Dyspnea, Pedal Edema, Radiating Pain, Rapid Heart Rate, Slow Heart Rate, Syncope, Other - Respiratory Respiratory: Dyspnea - Gastrointestinal Gastrointestinal: absent: As Per HPI, Abdominal Pain, Belching, Bloating, Change in Bowel Habits, Change in Stool Character, Coffee Ground Emesis, Constipation, Cramping, Diarrhea, Dyspepsia, Dysphagia, Early Satiety, Excessive Flatus, Fecal Incontinence, Heartburn, Hematemesis, Hematochezia, Loose Stools, Melena, Nausea, Odynophagia, Temesmus, Vomiting, Other - Genitourinary Genitourinary: absent: As Per HPI, Change in Urinary Stream, Difficulty Urinating, Dysuria, Flank Pain, Hematuria, Pyuria, Nocturia, Urinary Incontinence, Urinary Frequency, Urinary Hesitance, Urinary Urgency, Voiding Freq/Small Amts, Freq UTI, Hx Renal/Bladder Calculi, Hx /Renal Surgery, Bladder Distension, Other - Integumentary Integumentary: absent: As Per HPI, Acne, Alopecia, Bleeding Lesions, Change in Hair, Change in Nails, Change in Pigmentation, Changing Lesions, Dry Skin, Erythema, Furuncle, Hirsutism, Lesions, New Lesions, Non-Healing Lesions, Photosensitivity, Pruritus, Rash, Skin Pain, Skin Ulcer, Sores, Striae, Swelling , Unusual Bruising, Wounds, Jaundice, Other - Neurological Neurological: absent: As Per HPI, Abnormal Gait, Abnormal Hearing, Abnormal Movements, Abnormal Speech, Behavioral Changes, Burning Sensations, Confusion, Convulsions, Disequilibrium, Dizziness, Numbness, Focal Weakness, Frequent Falls , Headaches, Lack of Coordination, Loss of Vision, Memory Loss, Paresthesias, Radicular Pain, Restless Legs, Sensory Deficit, Syncope, Tingling, Tremor, Vertigo, Weakness, Other Visual Disturbances, Other - Psychiatric Psychiatric: As Per HPI - Endocrine Endocrine: absent: As Per HPI, Change in Body Appearance, Change in Libido, Cold Intolorance, Deepening of Voice, Excessive Sweating, Fatigue, Flushing, Heat Intolorance, Increase in Ring/Shoe/Hat Size, Palpitations, Polydipsia, Polyphagia, Polyuria, Other - Hematologic/Lymphatic Hematologic: As Per HPI Past Patient History - Infectious Disease Hx of Infectious Diseases: None - Tetanus Immunizations Tetanus Immunization: Unknown - Past Medical History & Family History Past Medical History?: Yes Past Family History: Reviewed and not pertinent - Past Social History Smoking Status: Former Smoker - CARDIAC Hx Pacemaker: No - PULMONARY Hx Respiratory Disorders: Yes Hx Asthma: Yes Hx Pneumonia: Yes Other/Comment: SMOKED CIGARETTES -SOCIALLY IN THE 70'S - NEUROLOGICAL Hx Neurological Disorder: No - HEENT Hx HEENT Problems: No (WEARS RX GLASSES) - RENAL Hx Chronic Kidney Disease: No - ENDOCRINE/METABOLIC Hx Endocrine Disorders: Yes Hx Diabetes Mellitus Type 2: Yes - HEMATOLOGICAL/ONCOLOGICAL Hx Blood Transfusions: No Hx Blood Transfusion Reaction: No - INTEGUMENTARY Hx Dermatological Problems: No Hx Basil Cell: No Other/Comment: SPIDER VEINS MAINLY TO LEFT KNEE AREA - MUSCULOSKELETAL/RHEUMATOLOGICAL Hx Musculoskeletal Disorders: Yes (HERNIATED DISCS) - GASTROINTESTINAL Hx Gastrointestinal Disorders: No - GENITOURINARY/GYNECOLOGICAL Hx Genitourinary Disorders: Yes Other/Comment: HYSTERECTOMY,OOPHORECTOMY - PSYCHIATRIC Hx Emotional Abuse: No Hx Physical Abuse: No Hx Substance Use: No - SURGICAL HISTORY Hx Hysterectomy: Yes Hx Orthopedic Surgery: Yes (BILATERAL KNEE ARTHROSCOPY) Other/Comment: DISKECTOMY,OOPHORECTOMY - ANESTHESIA Hx Anesthesia: Yes Meds Allergies/Adverse Reactions: Allergies Allergy/AdvReac Type Severity Reaction Status Date / Time grass pollen Allergy COUGH Verified 09/15/16 14:54 - Medications Medications: reviewed. Physical Exam - Constitutional Appears: Non-toxic - Head Exam Head Exam: ATRAUMATIC, NORMAL INSPECTION, NORMOCEPHALIC - Eye Exam Eye Exam: Normal appearance Pupil Exam: NORMAL ACCOMODATION - ENT Exam ENT Exam: Mucous Membranes Moist, Normal Exam - Neck Exam Neck exam: Positive for: Normal Inspection - Respiratory Exam Respiratory Exam: Clear to Auscultation Bilateral, NORMAL BREATHING PATTERN - Cardiovascular Exam Cardiovascular Exam: REGULAR RHYTHM, +S1, +S2 - GI/Abdominal Exam GI & Abdominal Exam: Normal Bowel Sounds, Soft - Extremities Exam Extremities exam: Positive for: normal inspection - Back Exam Back exam: NORMAL INSPECTION - Neurological Exam Neurological exam: Alert, CN II-XII Intact, Normal Gait, Oriented x3, Reflexes Normal - Psychiatric Exam Psychiatric exam: Normal Affect, Normal Mood - Skin Skin Exam: Normal Color, Warm Results - Vital Signs Recent Vital Signs: Last Vital Signs Temp 97.8 F 09/18/16 11:07 Pulse 71 09/18/16 11:07 Resp 18 09/18/16 11:07 BP 150/86 09/18/16 11:07 Pulse Ox 93 L 09/18/16 06:00 - Labs Result Diagrams: 09/18/16 07:05 09/18/16 07:05 Labs: Laboratory Results - last 24 hr 09/17/16 09/18/16 09/18/16 07:30 07:05 07:05 WBC 7.1 RBC 3.62 Hgb 10.0 L Hct 31.9 L MCV 88.1 MCH 27.6 MCHC 31.3 RDW 15.1 H Plt Count 104 L MPV 12.9 H PT INR Sodium 141 Potassium 3.9 Chloride 102 Carbon Dioxide 28 Anion Gap 15 BUN 63 H Creatinine 2.6 H Est GFR ( Amer) 22 Est GFR (Non-Af Amer) 18 POC Glucose (mg/dL) Random Glucose 155 H Calcium 9.4 Phosphorus 3.8 Magnesium 1.7 Total Bilirubin 0.4 AST 23 ALT 33 Alkaline Phosphatase 85 Total Protein 7.1 Total Protein (PEP) 6.7 Albumin 4.1 Globulin 3.0 Albumin/Globulin Ratio 1.4 25-OH Vitamin D Total 09/18/16 09/18/16 09/18/16 07:05 07:05 07:35 WBC RBC Hgb Hct MCV MCH MCHC RDW Plt Count MPV PT 23.4 H INR 2.17 H Sodium Potassium Chloride Carbon Dioxide Anion Gap BUN Creatinine Est GFR ( Amer) Est GFR (Non-Af Amer) POC Glucose (mg/dL) 175 H Random Glucose Calcium Phosphorus Magnesium Total Bilirubin AST ALT Alkaline Phosphatase Total Protein Total Protein (PEP) Albumin Globulin Albumin/Globulin Ratio 25-OH Vitamin D Total 65.6 09/18/16 09/18/16 11:54 17:57 WBC RBC Hgb Hct MCV MCH MCHC RDW Plt Count MPV PT INR Sodium Potassium Chloride Carbon Dioxide Anion Gap BUN Creatinine Est GFR ( Amer) Est GFR (Non-Af Amer) POC Glucose (mg/dL) 137 H 162 H Random Glucose Calcium Phosphorus Magnesium Total Bilirubin AST ALT Alkaline Phosphatase Total Protein Total Protein (PEP) Albumin Globulin Albumin/Globulin Ratio 25-OH Vitamin D Total Assessment & Plan (1) Asthma exacerbation Assessment and Plan: on solumedrol, broncholdilators. SOB improved. Status: Acute (2) Chronic kidney disease stage 3 Assessment and Plan: BUN, creatinine stable. Status: Chronic (3) Deep venous thrombosis of lower extremity Assessment and Plan: Recurrent DVT lower extremity. On coumadin. INR subtherapeutic. Lovenox 80 mg SQ BID. VQ scan ordered urgent to rule out PE. coumadin 7 mg daily. Status: Chronic (4) Diabetes mellitus type 2 Assessment and Plan: mgm as per Dr. Duarte. Status: Chronic
--- NOTE | 2016-09-19 08:43 | CON ---
DATE: 09/16/2016 REASON FOR CONSULTATION: Shortness of breath, history of deep venous thrombosis, hypercoagulable sta te. HISTORY OF PRESENT ILLNESS: The patient is a 71-year-old female who presented to the Emergency Depar tment with wheezing, which has progressively worsened. She was complaining of shortness of breath. She has a history of recurrent DVT in lower extremity and has been on Coumadin. INR has been therape utic. She also has chronic kidney disease stage III, creatinine is around 2. She also had severe ir on deficiency, recently completed 3 doses of IV iron as an outpatient. She is also on erythropoietin stimulating agent; Aranesp 200 mcg once a month. Hemoglobin has been maintained between 9 and 10 g/ dL with . She denies any nausea, vomiting, no chest pain. 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 PAST SURGICAL HISTORY: Hysterectomy, oophorectomy, diskectomy, bilateral knee arthroscopy. ALLERGIES: POLLEN. FAMILY HISTORY: No positive family history in mother or father. PERSONAL HISTORY: Former smoker. No history of alcohol abuse. SOCIAL HISTORY: Lives at home. HOME MEDICATIONS: Labetalol 100 mg b.i.d., nadolol 40 mg daily, Actos 40 mg daily, simvastatin 40 mg daily, Coumadin 5 mg daily, albuterol inhalations, cyanocobalamin 1 mcg daily, vitamin D, Lasix 20 m g daily, Prevacid 30 mg daily, Lyrica 150 mg daily, Losartan 1 tablet daily, aspirin 81 mg daily, Mot rin 600 q.6 hours p.r.n. for joint pain. REVIEW OF SYSTEMS: As per HPI. The rest of the 12-point review of systems is negative. PHYSICAL EXAMINATION: GENERAL: Comfortable, in mild respiratory distress. VITAL SIGNS: Respiratory rate 18 per minute, blood pressure 110/70, heart rate is 95 per minute, tem perature 98.7, heart rate is 88 per minute. HEENT: Pallor positive. The rest are normal. Lymphadenopathy none. CHEST: Air entry present, equal bilateral, rhonchi present, bilateral, crepitations at bases. CARDIOVASCULAR: S1, S2 normal. No murmur, no gallop. ABDOMEN: Soft, nontender, no hepatosplenomegaly. EXTREMITIES: No edema. BACK: Spine nontender. SKIN: No petechia, no rash, intact. CENTRAL NERVOUS SYSTEM: Alert, oriented x 3, no focal sensory or motor deficit. LABORATORY DATA: White count 6.2, hemoglobin 10.2, hematocrit 33.5, platelet count 89. Sodium 139, potassium 5.5, BUN 44, creatinine 2.5, glucose 90. ASSESSMENT: 1. Hypercoagulable state. 2. History of recurrent deep vein thrombosis lower extremity, on anticoagulation with Coumadin. 3. Shortness of breath. Rule out pulmonary embolism, rule out congestive heart failure. 4. Diabetes mellitus type 2. 5. Hypertension. PLAN: INR is 1.4, supratherapeutic. I will start a full dose of anticoagulation with Lovenox 100 mg subcutaneously q.12 hours. Will continue 10 mg of Coumadin daily. A CT chest scan without contrast is negative, no mass lesion identified. There is high suspicion for pulmonary embolism. I will ord er a VQ scan and she cannot get the CT chest with pulmonary embolus protocol because of elevated crea tinine. She has mild anemia. Hemoglobin and hematocrit are stable, now 10.2. She receives Aranesp monthly. She also received recently IV iron 3 doses. Renal functions have been stable, hyperkalemia with potassium of 5.5. Renal consultation requested by Dr. Duarte. Will continue to monitor blood counts and continue to monitor PT/INR. Nayeli Vela MD cc: [id number] TT: 09/16/2016 18:47:14 Confirmation # [id number] Dictation # [id number] ally
[2016-09-19 18:49] LABS: ABNORMAL PROTEIN BAND 1 0.31 g/dL (None Detected); BETA 1 GLOBULIN 0.4 g/dL (0.4-0.6); BETA 2 GLOBULIN 0.3 g/dL (0.2-0.5); GAMMA GLOBULIN 0.9 g/dL (0.8-1.7)
--- NOTE | 2016-09-27 18:58 | NM ---
COMPARISON: 09/15/2016. TECHNIQUE: 38.0 mCi technetium 99-m DTPA aerosol. 4.0 serrano mCI technetium 99-m MAA administered intravenously. FINDINGS: VENTILATION COMPONENT: Heterogeneous ventilation in the right lung in part related to elevation right hemidiaphragm, infiltrates right lower lobe. PERFUSION COMPONENT: Sean for geographic IMPRESSION: Lowprobability ventilation perfusion scan for pulmonary embolism.
== END 2016-09-18 14:01 | DRG 190 ==
LOC: ED 14:01 → ERH 19:01 → 3RSO 23:05
PROVIDERS: ADMIT Internal Medicine; ATTEND Internal Medicine
PROC: 3E0F7GC Introduction of Other Therapeutic Substance into Respiratory Tract, Via Natural or Artificial Opening (ICD-10-PCS; principal; 2016-09-16)
DX: J44.1 Chronic obstructive pulmonary disease with (acute) exacerbation (principal); I50.43 Acute on chronic combined systolic (congestive) and diastolic (congestive) heart failure; N17.9 Acute kidney failure, unspecified; E11.22 Type 2 diabetes mellitus with diabetic chronic kidney disease; I85.00 Esophageal varices without bleeding; N18.3 Chronic kidney disease, stage 3 (moderate); I13.0 Hypertensive heart and chronic kidney disease with heart failure and stage 1 through stage 4 chronic kidney disease, or unspecified chronic kidney disease; E03.9 Hypothyroidism, unspecified; E78.5 Hyperlipidemia, unspecified; D68.59 Other primary thrombophilia; D69.6 Thrombocytopenia, unspecified; E87.5 Hyperkalemia; D64.9 Anemia, unspecified; I08.1 Rheumatic disorders of both mitral and tricuspid valves; Z86.718 Personal history of other venous thrombosis and embolism; Z79.01 Long term (current) use of anticoagulants; Z79.84 Long term (current) use of oral hypoglycemic drugs; Z90.710 Acquired absence of both cervix and uterus; Z87.891 Personal history of nicotine dependence; Z79.82 Long term (current) use of aspirin

== ENCOUNTER 2016-09-18 14:07 | Inpatient (IN) | payer OTHER ==
[2016-09-18 14:48] VITALS: BMI 32.4
[2016-09-18] MEDS: Insulin Lispro (HUMAlog) HIGH Coverage SC SCH ×2 (19:24→22:15)
[2016-09-18] MEDS ORDERED: Albuterol-Ipratrop 3 mg / 0.5 (3 ml) UD IH SCH (20:00)
[2016-09-18] MEDS: Albuterol-Ipratrop 3 mg / 0.5 (3 ml) UD IH SCH (21:30)
[2016-09-18] MEDS ORDERED: MethylPREDNISolone 40 mg Vial IVP SCH (22:00)
[2016-09-18] MEDS: MethylPREDNISolone 40 mg Vial IVP SCH (22:16)
[2016-09-19] MEDS: Albuterol-Ipratrop 3 mg / 0.5 (3 ml) UD IH SCH ×4 (03:00→21:36)
[2016-09-19] MEDS: Pantoprazole 40 mg EC Tab PO SCH (05:35)
[2016-09-19] MEDS ORDERED: Pantoprazole 40 mg EC Tab PO SCH (06:30)
[2016-09-19] MEDS: Insulin Lispro (HUMAlog) HIGH Coverage SC SCH ×3 (06:39→17:47)
[2016-09-19 07:36] LABS: HEMATOCRIT 31.4 % (36.0-48.0); MEAN CELL VOLUME 87.5 fL (80.0-105.0); MEAN CORPUSCULAR HEMOGLOBIN 27.3 pg (25.0-35.0); MEAN CORPUSCULAR HGB CONC 31.2 g/dl (31.0-37.0); PLATELET COUNT 88 10^3/uL (120.0-450.0); RED CELL DISTRIBUTION WIDTH 14.8 % (11.5-14.5); WHITE BLOOD COUNT 7.6 10^3/ul (4.5-11.0)
[2016-09-19 07:41] LABS: ALB/GLOB RATIO 1.3 (1.1-1.8); BILIRUBIN,TOTAL 0.5 mg/dL (0.2-1.3); CALCIUM 9.4 mg/dL (8.4-10.5); MAGNESIUM 1.6 mg/dL (1.7-2.2); PHOSPHOROUS 3.7 mg/dL (2.5-4.5); POTASSIUM 4.5 mmol/L (3.6-5.0); TOTAL PROTEIN 6.8 g/dL (5.8-8.3)
[2016-09-19 07:46] LABS: INR 2.21 (0.93-1.08)
[2016-09-19] MEDS ORDERED: POLYETHYLENE GLYCOL 3350 17 GM/Dose PACKET PO SCH (10:00)
[2016-09-19] MEDS: MethylPREDNISolone 40 mg Vial IVP SCH ×2 (10:01→21:45)
[2016-09-19] MEDS: POLYETHYLENE GLYCOL 3350 17 GM/Dose PACKET PO SCH (10:01)
--- NOTE | 2016-09-19 14:06 | PN ---
DATE: 09/19/2016 SUBJECTIVE: The patient is seen sitting in bed. She is awake, she is alert, she is comfortable. Sh e reports some shortness of breath. She also reports some cough. PHYSICAL EXAMINATION: GENERAL: Elderly lady, sitting in bed. VITAL SIGNS: Blood pressure 147/87, heart rate 69, respiratory rate 16, temperature 97.5. HEENT: Normocephalic, atraumatic. NECK: Supple, no JVD. LUNGS: Bilateral equal air entry, no rales. CARDIAC: S1, S2, regular rate and rhythm, no murmur, no rub. ABDOMEN: Obese, distended, soft, nontender, bowel sounds present. EXTREMITIES: 1+ pitting edema of the lower extremities. INTAKE AND OUTPUT: Not charted. LABORATORY DATA: WBC 7.6, hemoglobin 9.8, hematocrit 31.4, platelets 88. Sodium 138, potassium 4.5, chloride 102, CO2 29, BUN 68, creatinine 2.3, glucose 165, calcium 9.4, phosphorus 3.7, magnesium 1. 6, albumin 3.9. CURRENT MEDICATIONS: Corgard, Coumadin, DuoNeb, Ecotrin, Lasix 40 IV daily, insulin, Lipitor, pregab cristhian, MiraLax, Protonix, Singulair, Solu-Medrol, Trandate. ASSESSMENT: 1. Prerenal azotemia superimposed on chronic kidney disease stage III, resolving acute kidney injury . 2. Resolved hyperkalemia. 3. Diastolic heart failure. 4. Hypertension. 5. Anemia, thrombocytopenia. 6. Chronic obstructive pulmonary disease. PLAN: 1. Continue to monitor daily weights. 2. Avoid nephrotoxins. 3. Continue anticoagulation. 4. Check intact PTH levels. Yulia Allan MD cc: [phone] TT: 09/19/2016 14:05:43 Confirmation # [id number] Dictation # [id number] en
--- NOTE | 2016-09-19 17:49 | HP ---
HISTORY OF PRESENT ILLNESS: The patient is a 71-year-old who was brought in by family because of inc reasing shortness of breath, easy fatigability. They said she was found to have cough, congestion, w heezing. She has been on IV steroids and nebulizer treatment, seems to be improving. Since she was deconditioned she was transferred to TCU for further rehab. PAST MEDICAL HISTORY: She has significant history of: 1. Hypertension. 2. Chronic kidney disease. 3. Chronic anemia. 4. Coagulopathy, history of DVT. 5. 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 ALLERGIES: DUST AND POLLEN. MEDICATIONS AT HOME: She is on: 1. Actos 45 daily. 2. Lyrica 150 twice a day. 3. Simvastatin 40 mg daily. 4. Valsartan 160/12.5 daily. 5. Coumadin 5 mg daily. 6. Nebulizer treatment. 7. Aspirin 81 daily. 8. Lasix 20 mg daily. 9. Labetalol 100 mg twice a day. 10. Prevacid 30 daily. 11. Singulair 10 mg daily. 12. Nadolol 40 mg daily. SOCIAL HISTORY: She is single, lives with her son. Denies smoking or drinking. REVIEW OF SYSTEMS: Significant for generalized weakness and mild shortness of breath. PHYSICAL EXAMINATION: VITAL SIGNS: She is afebrile, pulse 69, respirations 16, blood pressure 147/87. LUNGS: Bilateral few expiratory rhonchi, more so in the back. HEART: S1, S2 audible. ABDOMEN: Soft, nontender, no rebound, no guarding. NEUROLOGIC: The patient is awake and alert, able to communicate and ambulatory with the walker. ASSESSMENT: 1. Asthmatic bronchitis. 2. Coagulopathy. 3. Hypertension. 4. Hyperlipidemia. 5. History of deep venous thrombosis in the remote past. 6. Acute on chronic anemia. PLAN: We will continue patient on current medication including Adderall, Coumadin, nebulizer treatme nt, Lasix, statins, Protonix and . I ordered for incentive spirometry and chest CT. Delta Duarte MD cc: [phone] TT: 09/19/2016 17:48:34 mn
[2016-09-20] MEDS: Insulin Lispro (HUMAlog) HIGH Coverage SC SCH ×5 (00:48→21:44)
[2016-09-20] MEDS: Albuterol-Ipratrop 3 mg / 0.5 (3 ml) UD IH SCH ×4 (03:20→20:38)
[2016-09-20] MEDS: Pantoprazole 40 mg EC Tab PO SCH (05:56)
[2016-09-20 07:26] LABS: ALB/GLOB RATIO 1.3 (1.1-1.8); BILIRUBIN,TOTAL 0.5 mg/dL (0.2-1.3); CALCIUM 9.3 mg/dL (8.4-10.5); MAGNESIUM 1.6 mg/dL (1.7-2.2); PHOSPHOROUS 3.9 mg/dL (2.5-4.5); POTASSIUM 4.4 mmol/L (3.6-5.0); TOTAL PROTEIN 6.6 g/dL (5.8-8.3)
--- NOTE | 2016-09-20 08:13 | CON ---
DATE: 09/19/2016 REASON FOR CONSULTATION: Cardiac evaluation, admitted with shortness of breath. BRIEF CLINICAL HISTORY: This is a 71-year-old female with a past medical history of asthma, admitted with shortness of breath. Denies any chest pain or shortness of breath. PAST MEDICAL HISTORY: Is significant for hypertension, hyperlipidemia, hypothyroidism, coagulopathy, history of DVT, history of renal insufficiency. PAST SURGICAL HISTORY: Is significant for both knee surgery, history of herniated disk. SOCIAL HISTORY: The patient is a heavy smoker, ex-smoker, quit smoking. ALLERGIES: SHELLFISH AND GRASS POLLEN. PREVIOUS CARDIAC WORKUP: The patient had an echo, noninvasive workup. The patient's echo 05/21/2015 that shows ejection fraction 43%, RV systolic pressure 44. The patient had a stress test 05/28/2015 , . Cardiac catheterization on 05/30/2015 that shows no significant CAD, ejection fraction 60%. PHYSICAL EXAMINATION: VITAL SIGNS: Temperature afebrile, heart rate 65, blood pressure 138/86. HEENT: PERRLA. Extraocular muscles intact. NECK: Supple. No carotid bruits. No thyromegaly. CHEST: Clear to auscultation. HEART: S1, S2 regular. ABDOMEN: Soft. EXTREMITIES: Clubbing and cyanosis negative. BLOOD WORKUP: As follows: WBC , hemoglobin , hematocrit 31.4, platelet count 88. Assistant [employer] ry shows sodium 130, potassium , chloride 102, carbon dioxide 29, anion gap of 12, BUN , cr eatinine 2.3. IMPRESSION: Chronic renal insufficiency, hypertension, diabetes, hyperlipidemia, is status post card iac catheterization 06/02/2015, nonobstructive coronary artery by Dr. Berger. Echo 05/21/2015 shows ej ection fraction 43%. A stress test prior to the cath was abnormal. History of DVT, history of PE, h istory of COPD, hypertension, hyperlipidemia, chronic renal insufficiency. RECOMMENDATION: Continue anticoagulation. Goal is to keep INR 2. Continue , continue a torvastatin. Monitor renal function. CV status is stable. No further cardiac workup is planned. W ill follow with you. Thank you, Dr. Duarte, for providing me the opportunity in taking care of the patient. Danyel Steven MD cc: [phone] TT: 09/19/2016 21:32:03 Confirmation # [id number] Dictation # [id number] dn
[2016-09-20] MEDS: POLYETHYLENE GLYCOL 3350 17 GM/Dose PACKET PO SCH (09:58)
[2016-09-20] MEDS: MethylPREDNISolone 40 mg Vial IVP SCH ×2 (09:58→18:54)
[2016-09-20] MEDS ORDERED: MethylPREDNISolone 40 mg Vial IVP SCH (13:05)
--- NOTE | 2016-09-20 13:13 | PN ---
DATE: 09/20/2016 SUBJECTIVE: The patient is currently seen sitting in chair in the TCU. She is not complaining of any shortness of breath. She has no significant lower extremity edema. She remains on IV steroid therapy and IV Lasix with a slowly rising BUN and creatinine. MEDICATIONS: Medication list reviewed. The patient is currently on Corgard, Coumadin, DuoNeb, Ecotrin, insulin, IV Lasix, Lipitor, Lyrica, MiraLax, Protonix , Singulair, Solu-Medrol, and labetalol. OBJECTIVE: VITAL SIGNS: Blood pressure 135/73, pulse of 93, temperature is 98.7. Respiratory rate is 18. HEENT: Shows her to be normocephalic, atraumatic. Conjunctivae are pale. Sclerae are nonicteric. NECK: Supple, no neck vein distention. CHEST: Clear. No rales, no rhonchi or wheezing today. CARDIOVASCULAR: S1, S2 normal. MR/TR. No S3, no S4, no rub. ABDOMEN: Soft. Mild obesity. No distention. Bowel sounds are normal. No rebound, no guarding, no masses. EXTREMITIES: Show no pitting edema. No cyanosis or clubbing. LABORATORY DATA AND IMAGING: CBC from yesterday: White blood cell count 7.6, hemoglobin 9.8 with a platelet count of 88,000. Chemistries: Normal electrolytes. BUN 79 with a creatinine of 2.5. Glucose is 206. Magnesium 1.6 with a phosphorus of 3.9 and calcium of 9.3, albumin is 3.7. ASSESSMENT: 1. Prerenal azotemia superimposed on chronic kidney disease stage III. This is in the setting of diuretic therapy for diastolic heart dysfunction and prevention of lower extremity edema plus IV steroid therapy for exacerbation of chronic obstructive pulmonary disease. 2. Status post hyperkalemia. Potassium levels are now normal. Today's potassium is 4.4. The patient is not receiving any potassium supplements and does remain on diuretic therapy. 3. History of diastolic heart failure with mitral regurgitation/tricuspid regurgitation. The patient will likely need to continue chronic diuretic therapy, but I will change her over to oral Lasix therapy at 40 mg a day. 4. Hypertension. Blood pressure controlled on present medical therapy. 5. History of anemia and mild thrombocytopenia, currently stable. 6. History of chronic obstructive pulmonary disease with exacerbation. I would like to see IV steroid dose decreased as this will likely improve her BUN and creatinine. The patient will continue Singulair therapy and inhalation therapy. PLAN: 1. The patient to continue rehabilitation in the TCU. 2. Continue to monitor labs on a frequent basis in the TCU. I would like to see her BUN and creatinine plateau and fall back toward baseline levels. 3. Elevated PTH noted at 514. This is consistent with secondary hyperparathyroidism. Her vitamin D level is normal. Her phosphorus levels have been normal. The patient will continue a renal diet. 4. Anemia secondary to chronic kidney disease. Iron saturations were normal. P.r.n. start Aranesp therapy for any significant drop in her hemoglobin. Usman Bates MD cc: [phone] TT: 09/20/2016 13:12:44 Confirmation # [id number] Dictation # [id number] tn MTDD
--- NOTE | 2016-09-20 16:21 | PN ---
DATE: 09/20/2016 SUBJECTIVE: The patient is a 71-year-old, seen and examined, sitting in chair. Seems to be comforta ble. Still blood sugar is running high because of steroids. Her breathing is better, wants to go ho me. PHYSICAL EXAMINATION: VITAL SIGNS: She is afebrile, pulse 93, respirations 18, blood pressure 135/73. LUNGS: Bilateral fair airflow, few expiratory rhonchi posteriorly; better than yesterday. HEART: S1, S2 audible. No murmur. ABDOMEN: Soft, nontender, no rebound, no guarding. NEUROLOGIC: The patient is awake and alert, communicative, ambulatory. EXTREMITIES: Bilateral legs, no edema. LABORATORY DATA: PT , INR 2.21. Chemistry: Sodium 138, potassium 4.4, chloride 101, CO2 29, B UN 79, creatinine 2.5, blood sugar of 245. ASSESSMENT AND PLAN: 1. Acute on chronic renal insufficiency. 2. Asthmatic bronchitis. 3. Chronic obstructive pulmonary disease exacerbation. 4. Diastolic dysfunction. 5. History of deep venous thrombosis and pulmonary embolism. 6. Hypertension. PLAN: I will cut down her steroid to 20 twice a day. Monitor blood sugar closely. Will re-evaluate patient in a.m. Delta Duarte MD cc: [phone] TT: 09/20/2016 16:20:17 Confirmation # [id number] Dictation # [id number] dn
[2016-09-21] MEDS: Albuterol-Ipratrop 3 mg / 0.5 (3 ml) UD IH SCH ×4 (02:53→20:00)
[2016-09-21] MEDS: MethylPREDNISolone 40 mg Vial IVP SCH (05:36)
[2016-09-21] MEDS: Pantoprazole 40 mg EC Tab PO SCH (05:36)
[2016-09-21] MEDS: Insulin Lispro (HUMAlog) HIGH Coverage SC SCH ×4 (07:07→21:30)
[2016-09-21 07:13] LABS: HEMATOCRIT 31.5 % (36.0-48.0); MEAN CELL VOLUME 87.5 fL (80.0-105.0); MEAN CORPUSCULAR HEMOGLOBIN 27.5 pg (25.0-35.0); MEAN CORPUSCULAR HGB CONC 31.4 g/dl (31.0-37.0); PLATELET COUNT 107 10^3/uL (120.0-450.0); RED CELL DISTRIBUTION WIDTH 14.9 % (11.5-14.5); WHITE BLOOD COUNT 9.7 10^3/ul (4.5-11.0)
[2016-09-21 07:26] LABS: ALB/GLOB RATIO 1.2 (1.1-1.8); BILIRUBIN,TOTAL 0.4 mg/dL (0.2-1.3); CALCIUM 9.1 mg/dL (8.4-10.5); MAGNESIUM 1.7 mg/dL (1.7-2.2); POTASSIUM 4.2 mmol/L (3.6-5.0); TOTAL PROTEIN 6.4 g/dL (5.8-8.3)
[2016-09-21] MEDS: POLYETHYLENE GLYCOL 3350 17 GM/Dose PACKET PO SCH (11:06)
[2016-09-21] MEDS ORDERED: Darbepoetin Alfa 60 mcg/ml Inj SC ONE (12:10)
--- NOTE | 2016-09-21 14:26 | PN ---
DATE: 09/21/2016 SUBJECTIVE: The patient is seen sitting in bed. She is awake. She is alert. She is comfortable. PHYSICAL EXAMINATION: VITAL SIGNS: Blood pressure 116/68, heart rate 65, respiratory rate 14, temperature 97.9. NECK: Supple. No JVD. LUNGS: Bilateral rhonchi. CARDIAC: S1, S2, regular rate and rhythm. No murmur, no rub. ABDOMEN: Obese, distended, soft, nontender, bowel sounds present. EXTREMITIES: No lower extremity edema. LABORATORY DATA: WBC 9.7, hemoglobin 9.9, hematocrit 32, platelets 107. Sodium 138, potassium 4.2, chloride 101, CO2 of 27. BUN 91, creatinine 2.5. Glucose 200. Calcium 9.1, phosphorus 4.0, magnesi um 1.7. Stool occult negative. Iron 94, saturation 33%, total bili 139, PTH 514, vitamin D 66. CURRENT MEDICATIONS: Corgard, Coumadin, DuoNeb, aspirin, Lasix, Lipitor, pregabalin, MiraLax, Proton ix, Solu-Medrol, Trandate. ASSESSMENT: 1. Acute kidney injury superimposed on chronic kidney disease stage III. 2. Severe anemia, suspect anemia of chronic kidney disease. Iron stores are adequate. 3. Congestive heart failure. 4. Hypertension. 5. Secondary hyperparathyroidism, elevated PTH. 6. Chronic obstructive pulmonary disease. PLAN: 1. Aranesp 60 mcg. 2. Hectorol 0.5 mcg daily. 3. Continue Lasix. 4. We will require close outpatient followup. Yulia Allan MD cc: [phone] TT: 09/21/2016 14:25:02 Confirmation # [id number] Dictation # [id number] sergei
--- NOTE | 2016-09-21 14:55 | PN ---
DATE: 09/21/2016 SUBJECTIVE: The patient is 71 years old, seen and examined, ambulating with minimal shortness of shelbi ath, doing well. PHYSICAL EXAMINATION: VITAL SIGNS: She is afebrile, pulse 65, respirations 14, blood pressure 116/68. LUNGS: Bilateral fair airflow. No rhonchi or crackle. HEART: S1, S2 audible. No murmur. ABDOMEN: Soft, nontender. No rebound, no guarding. NEUROLOGIC: She is awake and alert, communicative. LABORATORY EXAMINATION: Sodium 138, potassium 4.2, chloride 101, CO2 of 27, BUN 91, creatinine 2.5, blood sugar of 216. ASSESSMENT: 1. Exertional dyspnea. 2. Chronic obstructive pulmonary disease exacerbation. 3. Coagulopathy. 4. Non-insulin dependent diabetes. 5. Hypertension. PLAN: We will continue on current medical treatment. All medications are reviewed and found to be a ppropriate. I will discontinue IV steroid and start her on p.o. prednisone. Will reevaluate the pat ient in a.m. Possible discharge on Monday. Delta Duarte MD cc: [phone] TT: 09/21/2016 14:54:49 Confirmation # [id number] Dictation # [id number] sergei
[2016-09-22] MEDS: Albuterol-Ipratrop 3 mg / 0.5 (3 ml) UD IH SCH ×4 (02:40→19:55)
[2016-09-22] MEDS: Pantoprazole 40 mg EC Tab PO SCH (05:54)
[2016-09-22] MEDS: Insulin Lispro (HUMAlog) HIGH Coverage SC SCH ×4 (06:53→21:40)
[2016-09-22 07:16] LABS: HEMATOCRIT 33.5 % (36.0-48.0); MEAN CELL VOLUME 88.2 fL (80.0-105.0); MEAN CORPUSCULAR HEMOGLOBIN 28.2 pg (25.0-35.0); MEAN CORPUSCULAR HGB CONC 31.9 g/dl (31.0-37.0); PLATELET COUNT 111 10^3/uL (120.0-450.0); RED CELL DISTRIBUTION WIDTH 15.1 % (11.5-14.5); WHITE BLOOD COUNT 9.8 10^3/ul (4.5-11.0)
[2016-09-22 07:30] LABS: ALB/GLOB RATIO 1.2 (1.1-1.8); BILIRUBIN,TOTAL 0.5 mg/dL (0.2-1.3); CALCIUM 9.1 mg/dL (8.4-10.5); MAGNESIUM 1.8 mg/dL (1.7-2.2); PHOSPHOROUS 4.1 mg/dL (2.5-4.5); POTASSIUM 4.3 mmol/L (3.6-5.0); TOTAL PROTEIN 6.7 g/dL (5.8-8.3)
[2016-09-22] MEDS: POLYETHYLENE GLYCOL 3350 17 GM/Dose PACKET PO SCH (11:29)
--- NOTE | 2016-09-22 12:42 | PN ---
DATE: 09/22/2016 SUBJECTIVE: The patient is seen sitting in chair. She is awake. She is alert. She is comfortable. PHYSICAL EXAMINATION: GENERAL: Elderly lady sitting in chair. VITAL SIGNS: Blood pressure 113/69, heart rate 74, respiratory rate 16, temperature 97. NECK: Supple, no JVD. LUNGS: Bilateral rhonchi. CARDIAC: S1, S2, regular rate and rhythm, no murmur, no rub. ABDOMEN: Obese, distended, soft, nontender, bowel sounds present. EXTREMITIES: No lower extremity edema. INTAKE AND OUTPUT: Not charted. LABORATORY DATA: Hemoglobin 10.7, sodium 135, potassium 4.3, chloride 102, CO2 24, BUN 99, creatinin e 2.6, glucose 149, calcium 9.1, phosphorus 4.1, magnesium 1.8. Stool occult negative x 1. CURRENT MEDICATIONS: Corgard, Coumadin, DuoNeb, Ecotrin, Hectorol, Lasix 40 p.o. daily, Lipitor, Lyr ica, MiraLax, prednisone, Protonix, labetalol. ASSESSMENT: 1. Non-insulin dependent diabetes mellitus. 2. Hypertension. 3. Chronic kidney disease stage IV. 4. Secondary hyperparathyroidism. 5. Anemia of chronic kidney disease. PLAN: 1. Status post IV Venofer. 2. Hemoglobin acceptable. 3. Status post EFA. 4. Continue Hectorol 0.5. 5. Continue to hold ARB since blood pressure is low. Yulia Allan MD cc: [phone] TT: 09/22/2016 12:42:25 Confirmation # [id number] Dictation # [id number] sergei
--- NOTE | 2016-09-22 13:43 | PN ---
DATE: 09/22/2016 SUBJECTIVE: The patient is a 71-year-old, seen and examined, sitting in chair, seems to be comfortab le. No cough, no congestion. No nausea, vomiting. No diarrhea. Eating and tolerating. PHYSICAL EXAMINATION: VITAL SIGNS: She is afebrile, pulse 74, respirations 16, blood pressure 113/69. LUNGS: Bilateral few ____ expiratory rhonchi. HEART: S1, S2 audible. ABDOMEN: Soft, nontender, no rebound, no guarding. NEUROLOGIC: The patient is awake and alert, able to communicate. LABORATORY: WBC is 9.8, hemoglobin 10.7, hematocrit 33.5, platelet of 111. Chemistry: Sodium 135, potassium 4.3, chloride 124, BUN 99, creatinine 2.6, blood sugar of 149. ASSESSMENT: 1. Chronic obstructive pulmonary disease exacerbation. 2. Worsening renal insufficiency. 3. Chronic anemia. 4. Coagulopathy. PLAN: Continue her on Coumadin 6 mg daily. We will order for PT/INR in a.m. If patient remains sta ble, discharge plan in a.m. and order for PT/INR in a.m. Delta Duarte MD cc: [phone] TT: 09/22/2016 13:43:01 Confirmation # [id number] Dictation # [id number] sergei
[2016-09-23] MEDS: Albuterol-Ipratrop 3 mg / 0.5 (3 ml) UD IH SCH ×3 (01:34→13:09)
[2016-09-23] MEDS: Pantoprazole 40 mg EC Tab PO SCH (05:30)
[2016-09-23] MEDS: Insulin Lispro (HUMAlog) HIGH Coverage SC SCH ×2 (06:41→13:15)
[2016-09-23 07:15] LABS: INR 1.8 (0.93-1.08)
[2016-09-23 10:45] VITALS: RESP 18; TEMP 97; O2SAT 96
[2016-09-23] MEDS: POLYETHYLENE GLYCOL 3350 17 GM/Dose PACKET PO SCH (10:48)
[2016-09-23 10:56] VITALS: BP 131/81; PULSE 63
--- NOTE | 2016-09-23 12:15 | PN ---
DATE: 09/23/2016 SUBJECTIVE: The patient is seen walking in the hallway. She is awake. She is alert. She is comfor table. PHYSICAL EXAMINATION: GENERAL: Elderly lady, walking in the hallway. VITAL SIGNS: Blood pressure 131/81, heart rate 63, respiratory rate 18, temperature 97. HEENT: Normocephalic, atraumatic. NECK: Supple, no JVD. LUNGS: Bilateral equal air entry, no rales. CARDIAC: S1, S2, regular rate and rhythm, no murmur, no rub. ABDOMEN: Obese, distended, soft, nontender, bowel sounds present. EXTREMITIES: Trace lower extremity edema. INTAKE AND OUTPUT: Not charted. LABORATORY DATA: No new labs. CURRENT MEDICATIONS: Corgard, Coumadin, DuoNeb, Ecotrin, Hectorol, Lasix 40 daily, Lipitor, Lyrica, MiraLax, prednisone, Protonix, Singulair and Trandate. ASSESSMENT: 1. Acute kidney injury superimposed on chronic kidney disease stage III. 2. Chronic obstructive pulmonary disease. 3. Non-insulin dependent diabetes mellitus. 4. Hypertension. 5. Secondary hyperparathyroidism. 6. Anemia of chronic kidney disease. PLAN: 1. Continue Hectorol. 2. Status post Aranesp. 3. Status post Venofer. 4. Will need close outpatient followup. 5. We will discontinue inpatient followup at this time. Yulia Allan MD cc: [phone] TT: 09/23/2016 12:14:37 Confirmation # [id number] Dictation # [id number] mn
--- NOTE | 2016-09-23 20:00 | DS ---
HISTORY OF PRESENT ILLNESS: The patient is a 71-year-old who came in with increasing shortness of br eath. She was found to have bilateral wheezing and was started on IV steroid, nebulizer treatment. She also had bilateral leg Doppler negative for DVT. She also had a VQ scan done that was unremarkab le. CT scan of the chest shows bilateral basilar atelectasis. The patient was treated but was still deconditioned, so transferred to TCU for rehab. Seen and examined, doing well. PHYSICAL EXAMINATION: VITAL SIGNS: The patient is afebrile, pulse 60, respirations 18, blood pressure 131/81. LUNGS: Bilateral good airflow, no rhonchi or crackle. HEART: S1, S2 audible. ABDOMEN: Soft, nontender, no rebound, no guarding. NEUROLOGIC: The patient is awake and alert, communicative, ambulatory. EXTREMITIES: Bilateral legs with no edema. LABORATORY EXAMINATION: PT 19.4, INR 1.80. Chemistry: Blood sugar is 151. Stool for Hemoccult is negative. ASSESSMENT: 1. Chronic obstructive pulmonary disease exacerbation. 2. Acute on chronic renal failure. 3. Chronic obstructive pulmonary disease. 4. Non-insulin dependent diabetes. 5. Coagulopathy. 6. Hyperlipidemia. PLAN: The patient is going to be discharged home today on prednisone 20 mg daily for 5 more days. S he has nebulizer machine at home. She will continue that. She will resume her usual medication as p rior to admission that includes Coumadin, valsartan, simvastatin, Lyrica, nadolol, Singulair, Prevaci d, labetalol, aspirin and she will follow up in office in 2 weeks to check her PT/INR. Delta Duarte MD cc: [phone] TT: 09/23/2016 20:00:11 ln
--- NOTE | 2016-09-24 13:38 | PN ---
DATE: 09/23/2016 REASON FOR CONSULTATION AND FOLLOWUP: Continued care in the transitional care unit, shortness of shelbi ath, cardiac evaluation. The patient denies any chest pain, shortness of breath or any palpitation. Wanted to go home today. PHYSICAL EXAMINATION: VITAL SIGNS: Temperature afebrile, heart rate 60, blood pressure 131/81. HEENT: PERRLA. Extraocular muscles intact. NECK: Supple. No carotid bruits. No thyromegaly. CHEST: Clear to auscultation. HEART: S1, S2 regular. ABDOMEN: Soft. EXTREMITIES: Clubbing and cyanosis negative. LABORATORY DATA: Blood workup as follows: WBC , hemoglobin , hematocrit 33.5, platelet co unt 111. Sodium , potassium , chloride , carbon dioxide 24, anion gap of 13, BUN ____ _, creatinine 2.6. IMPRESSION: Chronic renal insufficiency, hypertension, diabetes, hyperlipidemia, is status post card iac catheterization 06/02/2015, nonobstructive coronary artery disease. Echo on 05/21/2014: Ejectio n fraction 43%. was abnormal, history of deep venous thrombosis, history of hypercoagulopathy. RECOMMENDATION: Continue anticoagulation, goal is to keep INR between 2-2.5; today INR is 1.8. Poss ibly the patient could be discharged home today. Will follow. Thank you, Dr. Duarte, for providing me the opportunity in taking care of the patient. Danyel Steven MD cc: [phone] TT: 09/23/2016 18:36:40 Confirmation # [id number] Dictation # [id number] dn
== END 2016-09-23 14:25 | disposition home or self-care (01) | DRG 191 ==
LOC: TRCU 14:07
PROVIDERS: ADMIT Internal Medicine; ATTEND Internal Medicine
PROC: 3E0F7GC Introduction of Other Therapeutic Substance into Respiratory Tract, Via Natural or Artificial Opening (ICD-10-PCS; principal; 2016-09-18)
PROC: F07Z9FZ Gait Training/Functional Ambulation Treatment using Assistive, Adaptive, Supportive or Protective Equipment (ICD-10-PCS; 2016-09-19)
PROC: F08Z4FZ Home Management Treatment using Assistive, Adaptive, Supportive or Protective Equipment (ICD-10-PCS; 2016-09-19)
DX: J44.1 Chronic obstructive pulmonary disease with (acute) exacerbation (principal); N17.9 Acute kidney failure, unspecified; E11.22 Type 2 diabetes mellitus with diabetic chronic kidney disease; N18.4 Chronic kidney disease, stage 4 (severe); D69.6 Thrombocytopenia, unspecified; I50.32 Chronic diastolic (congestive) heart failure; I13.0 Hypertensive heart and chronic kidney disease with heart failure and stage 1 through stage 4 chronic kidney disease, or unspecified chronic kidney disease; N25.81 Secondary hyperparathyroidism of renal origin; E03.9 Hypothyroidism, unspecified; E78.5 Hyperlipidemia, unspecified; D63.1 Anemia in chronic kidney disease; I25.10 Atherosclerotic heart disease of native coronary artery without angina pectoris; I08.1 Rheumatic disorders of both mitral and tricuspid valves; Z86.718 Personal history of other venous thrombosis and embolism; Z79.84 Long term (current) use of oral hypoglycemic drugs; Z79.01 Long term (current) use of anticoagulants; Z86.711 Personal history of pulmonary embolism; Z79.82 Long term (current) use of aspirin; Z79.899 Other long term (current) drug therapy; Z87.891 Personal history of nicotine dependence

== ENCOUNTER 2017-10-13 06:32 | Emergency (ER) | payer MEDICARE, OTHER ==
[2017-10-13 06:32] VITALS: BMI 32.4
[2017-10-13] MEDS ORDERED: Albuterol-Ipratrop 3 mg / 0.5 (3 ml) UD ONE (06:43)
[2017-10-13] MEDS ORDERED: Albuterol-Ipratrop 3 mg / 0.5 (3 ml) UD IH STA ×3 (07:09→07:11)
--- NOTE | 2017-10-13 07:18 | ED PDOC ---
Arrival/HPI - General Chief Complaint: Shortness Of Breath Time Seen by Provider: 10/13/17 07:03 Historian: Patient - History of Present Illness Narrative History of Present Illness (Text): 10/13/17 07:10 72 year old female, whose PMH includes CHF, COPD, hypothyroidism, renal failure , DVT, and anemia, who presents to the emergency department complaining of intermittent wheezing for a couple of days. Patient reports she has been having difficulty breathing due to weather changes and associates the symptom with cough, phlegm, and chest congestion. Patient denies fever, chest pain, chills, nausea, vomiting, diarrhea, abdominal pain, or other complaints. PMD: Dr. Duarte Time/Duration: < week Symptom Onset: Sudden Symptom Course: Unchanged Context: Home Past Medical History - Provider Review Nursing Documentation Reviewed: Yes - Infectious Disease Hx of Infectious Diseases: None - Tetanus Immunization Tetanus Immunization: Unknown - Cardiac Hx Congestive Heart Failure: Yes - Pulmonary Hx Chronic Obstructive Pulmonary Disease (COPD): Yes - Neurological Hx Neurological Disorder: No - HEENT Hx HEENT Disorder: No (WEARS RX GLASSES) - Renal Hx Renal Failure: Yes (LUI) - Endocrine/Metabolic Hx Hypothyroidism: Yes - Hematological/Oncological Hx Blood Transfusions: No Hx Blood Transfusion Reaction: No - Integumentary Hx Dermatological Disorder: No Hx Basal Cell Carcinoma: No Other/Comment: SPIDER VEINS MAINLY TO LEFT KNEE AREA - Musculoskeletal/Rheumatological Hx Musculoskeletal Disorders: Yes (HERNIATED DISCS) - Gastrointestinal Hx Gastrointestinal Disorders: No - Genitourinary/Gynecological Hx Genitourinary Disorders: Yes Other/Comment: HYSTERECTOMY,OOPHORECTOMY - Psychiatric Hx Emotional Abuse: No Hx Physical Abuse: No Hx Substance Use: No - Surgical History Hx Hysterectomy: Yes Hx Orthopedic Surgery: Yes (BILATERAL KNEE ARTHROSCOPY) Other/Comment: DISKECTOMY,OOPHORECTOMY - Anesthesia Hx Anesthesia: Yes - Suicidal Assessment Feels Threatened In Home Enviroment: No Family/Social History - Physician Review Nursing Documentation Reviewed: Yes Family/Social History: Unknown Family HX Smoking Status: Never Smoked Hx Alcohol Use: No Hx Substance Use: No Hx Substance Use Treatment: No Allergies/Home Meds Allergies/Adverse Reactions: Allergies grass pollen Allergy (Verified 09/15/16 14:54) COUGH ASTHMA LIKE SYMPTOMS Penicillins Allergy (Verified 10/13/17 06:40) RASH Home Medications: Home Meds Medication Instructions Recorded Confirmed Simvastatin 40 mg PO QAM 05/29/15 10/13/17 Albuterol HFA [Ventolin HFA 90 2 puff IH QID PRN 06/01/15 10/13/17 mcg/actuation (8 g)] Albuterol/Ipratropium [Duoneb 3 3 ml IH Q6 PRN 06/01/15 10/13/17 mg/0.5 mg (3 ml) UD] Ergocalciferol (Vitamin D2) 50,000 iu PO SUN 06/01/15 10/13/17 [Vitamin D2] Furosemide [Lasix] 20 mg PO QAM 06/01/15 10/13/17 Lansoprazole [Prevacid] 30 mg PO QAM 06/01/15 10/13/17 Montelukast [Singulair] 10 mg PO QAM 06/01/15 10/13/17 Pregabalin [Lyrica] 150 mg PO QAM 06/01/15 10/13/17 Valsartan/Hydrochlorothiazide 1 tab PO QAM 06/01/15 10/13/17 [Valsartan-Hctz 160-12.5 mg Tab] Aranesp 300 mcg SQ Q30D 11/15/16 10/13/17 Warfarin [Coumadin] 9 mg PO DAILY 11/15/16 10/13/17 Review of Systems - Review of Systems Constitutional: absent: Fevers ENT: Sinus Congestion Respiratory: Cough, Sputum, Wheezing Cardiovascular: absent: Chest Pain Gastrointestinal: absent: Abdominal Pain, Vomiting Genitourinary Female: absent: Dysuria Musculoskeletal: absent: Back Pain Skin: absent: Rash Neurological: absent: Headache Endocrine: absent: Diaphoresis Physical Exam Vital Signs Reviewed: Yes Vital Signs Temp Pulse Resp BP Pulse Ox 10/13/17 09:31 97.6 F 112 H 19 144/76 97 10/13/17 07:50 115 H 18 148/75 95 10/13/17 07:05 20 95 10/13/17 06:42 98.7 F 124 H 19 154/85 H 95 Temperature: Afebrile Blood Pressure: Hypertensive Pulse: Tachycardic Respiratory Rate: Normal Appearance: Positive for: Well-Appearing, Non-Toxic, Comfortable Pain Distress: None Mental Status: Positive for: Alert and Oriented X 3 - Systems Exam Head: Present: Atraumatic, Normocephalic Pupils: Present: PERRL Extroacular Muscles: Present: EOMI Conjunctiva: Present: Normal Mouth: Present: Moist Mucous Membranes Respiratory/Chest: Present: Wheezes (trace wheezing), Rhonchi (bilateral). No: Clear to Auscultation, Good Air Exchange, Respiratory Distress, Accessory Muscle Use, Retracting Cardiovascular: Present: Tachycardic. No: Regular Rate and Rhythm, Murmurs Abdomen: Present: Normal Bowel Sounds. No: Tenderness, Distention, Peritoneal Signs, Rebound, Guarding Lower Extremity: Present: Edema, NORMAL PULSES, Normal ROM, Neurovascularly Intact. No: Deformity Neurological: Present: GCS=15, CN II-XII Intact, Speech Normal Skin: Present: Warm, Dry, Normal Color. No: Rashes Psychiatric: Present: Alert, Oriented x 3, Normal Insight, Normal Concentration Medical Decision Making ED Course and Treatment: 10/13/17 Impression: 72 year old female with trace wheezing, bilateral rhonchi, tachycardia, and lower extremity edema complaining of wheezing with cough. Differential Diagnosis included but are not limited to: asthma exacerbation r/ o pneumonia Plan: -- EKG -- Chest X-ray -- Labs -- Duoneb and Solumedrol -- Urinalysis -- Reassess and disposition Progress Notes: 10/13/17 08:07 EKG: Ordered, reviewed, and independently interpreted the EKG. Rate : 117 BPM Rhythm : sinus tachycardia Interpretation : LVH. Q wave. No ST-segment elevations or depressions, no T- wave inversions, normal intervals. No changes from previous Comparison : 09/18/2016 10/13/17 08:50 Chest X-ray: Creator : Joseph Cabello MD COMPARISON: 09/15/2016 FINDINGS: LUNGS: There is bibasilar linear scar/ atelectasis. No acute infiltrate. PLEURA: No significant pleural effusion identified, no pneumothorax apparent. CARDIOVASCULAR: Normal. OSSEOUS STRUCTURES: No significant abnormalities. VISUALIZED UPPER ABDOMEN: Normal. OTHER FINDINGS: None. IMPRESSION: Bibasilar linear scar/ atelectasis. Otherwise unremarkable. 10/13/17 09:34 On reevaluation, patient is feels much better. She no longer feels short of breathe. She is able to stand up and walk without shortness of breathe. Her lungs are clear. No w/r/r. CXR reviewed. Will treat with Azithromycin considering some atelectasis and symptoms. Explained to patient that she needs to make an appt to follow up with Dr. duarte in 1-2days and return to the ED if symptoms worsen or any other concern. Her prescriptions were explained to her as well. - Lab Interpretations Lab Results: 10/13/17 07:19 10/13/17 07:19 Lab Results 10/13/17 07:19: Sodium 141, Chloride 104, Potassium 4.0, Carbon Dioxide 27, Anion Gap 14, BUN 41 H, Creatinine 2.2 H, Est GFR ( Amer) 27, Est GFR ( Non-Af Amer) 22, Random Glucose 125 H, Calcium 9.9, Magnesium 1.8, Lactate Dehydrogenase 639, Total Creatine Kinase 196, Troponin I < 0.01 D, NT-Pro-B Natriuret Pep 314 10/13/17 07:19: pO2 146 H, VBG pH 7.38, VBG pCO2 49.0, VBG HCO3 29.0 H, VBG Total CO2 30.5 H, VBG O2 Sat (Calc) 100.4 H, VBG Base Excess 3.0 H, VBG Potassium 3.7, Sodium 140.0, Chloride 107.0, Glucose 127 H, Lactate 0.8, FiO2 21.0, Venous Blood Potassium 3.7 10/13/17 07:19: PT 17.1 H, INR 1.48 H, APTT 27.2 10/13/17 07:19: WBC 7.9, RBC 3.94, Hgb 10.8 L, Hct 34.1 L, MCV 86.5, MCH 27.4, MCHC 31.7, RDW 14.8 H, Plt Count 159, MPV 11.0, Gran % 61.5, Lymph % (Auto) 23.8 , Cataño % (Auto) 8.9 H, Eos % (Auto) 5.2 H, Baso % (Auto) 0.6, Gran # 4.88, Lymph # (Auto) 1.9, Cataño # (Auto) 0.7 H, Eos # (Auto) 0.4, Baso # (Auto) 0.05 I have reviewed the lab results: Yes - RAD Interpretation Radiology Orders: 10/13/17 07:10 CHEST PORTABLE [RAD] Stat Poundmaster: Radiologist - EKG Interpretation Interpreted by ED Physician: Yes Type: 12 lead EKG - Medication Orders Current Medication Orders: Discontinued Medications Albuterol/Ipratropium (Duoneb 3 Mg/0.5 Mg (3 Ml) Ud) 3 ml IH STAT STA Stop: 10/13/17 07:10 Last Admin: 10/13/17 07:18 Dose: Albuterol/Ipratropium (Duoneb 3 Mg/0.5 Mg (3 Ml) Ud) 3 ml IH STAT STA Stop: 10/13/17 07:12 Last Admin: 10/13/17 07:39 Dose: 3 ml Albuterol/Ipratropium (Duoneb 3 Mg/0.5 Mg (3 Ml) Ud) 3 ml IH STAT STA Stop: 10/13/17 07:12 Last Admin: 10/13/17 07:24 Dose: 3 ml Azithromycin (Zithromax) 500 mg PO STAT STA PRN Reason: Protocol Stop: 10/13/17 09:02 Last Admin: 10/13/17 09:27 Dose: 500 mg Methylprednisolone (Solu-Medrol) 125 mg IVP STAT STA Stop: 10/13/17 07:10 Last Admin: 10/13/17 07:35 Dose: 125 mg IVP Administration Document 10/13/17 07:35 [email or web address] (Rec: 10/13/17 07:39 [email or web address] [id number]) Charges for Administration # of IVP Administrations 1 - Scribe Statement The provider has reviewed the documentation as recorded by the Veronicaibolena Lutz Provider Scribe Attestation: All medical record entries made by the Scribe were at my direction and personally dictated by me. I have reviewed the chart and agree that the record accurately reflects my personal performance of the history, physical exam, medical decision making, and the department course for this patient. I have also personally directed, reviewed, and agree with the discharge instructions and disposition. Disposition/Present on Arrival - Present on Arrival Any Indicators Present on Arrival: Yes History of DVT/PE: Yes History of Uncontrolled Diabetes: No Urinary Catheter: No History of Decub. Ulcer: No History Surgical Site Infection Following: None - Disposition Have Diagnosis and Disposition been Completed?: Yes Diagnosis: Asthma exacerbation Disposition: HOME/ ROUTINE Disposition Time: 09:36 Patient Plan: Discharge Patient Problems: Current Active Problems Problem Status Onset Asthma exacerbation Acute Condition: IMPROVED Discharge Instructions (ExitCare): Asthma, Adult (DC) Additional Instructions: EMILY DONOVAN, thank you for letting us take care of you today. Your provider was Mikael Esquivel DO and you were treated for Asthma. The emergency medical care you received today was directed at your acute symptoms. If you were prescribed any medication, please fill it and take as directed. It may take several days for your symptoms to resolve. Return to the Emergency Department if your symptoms worsen, do not improve, or if you have any other problems. Please contact your doctor or call one of the physicians/clinics you have been referred to that are listed on the Patient Visit Information form that is included in your discharge packet. Bring any paperwork you were given at discharge with you along with any medications you are taking to your follow up visit. Our treatment cannot replace ongoing medical care by a primary care provider outside of the emergency department. Thank you for allowing the [facility] team to be part of your care today. If you had an X-Ray or CT scan: A Radiologist will review the ED reading if any change in treatment is needed we will contact you. If you had a blood, urine, or wound culture: It will take several days for the results, if any change in treatment is needed we will contact you. If you had an STI test: It will take 48 hours for the results. Please call after 1 week if you have not heard back. Prescriptions: Albuterol HFA [Ventolin HFA 90 mcg/actuation (8 g)] 2 puff IH Q4 #1 puff Azithromycin [Z-Luther] 250 mg PO DAILY #4 tab predniSONE [predniSONE Tab] 40 mg PO DAILY #8 tab Referrals: Delta Duarte MD [Primary Care Provider] - Follow up with primary Forms: [employer] (Jamaican)
[2017-10-13 07:48] LABS: VENOUS BLOOD GAS PO2 146 mm/Hg (30-55); VENOUS BLOOD PH 7.38 (7.32-7.43)
[2017-10-13 07:51] LABS: BASO # 0.05 K/mm3 (0.0-2.0); BASO % 0.6 % (0.0-3.0); EOS # 0.4 (0.0-0.7); EOS % 5.2 % (1.5-5.0); GRAN # 4.88 (1.4-6.5); GRAN % 61.5 % (50.0-68.0); HEMOGLOBIN 10.8 g/dL (12.0-16.0); LYMPH # 1.9 (1.2-3.4); LYMPH % 23.8 % (22.0-35.0); MEAN CELL VOLUME 86.5 fl (80.0-105.0); MEAN CORPUSCULAR HEMOGLOBIN 27.4 pg (25.0-35.0); MEAN CORPUSCULAR HGB CONC 31.7 g/dl (31.0-37.0); MONO # 0.7 (0.1-0.6); MONO % 8.9 % (1.0-6.0); RBC 3.94 10^6/uL (3.5-6.1); RED CELL DISTRIBUTION WIDTH 14.8 % (11.5-14.5); WHITE BLOOD COUNT 7.9 10^3/ul (4.5-11.0)
[2017-10-13 08:03] LABS: CALCIUM 9.9 mg/dL (8.4-10.5); GFR AFRICAN-AMERICAN 27; GFR NON-AFRICAN AMERICAN 22
[2017-10-13 08:04] LABS: INR 1.48 (0.93-1.08); PARTIAL THROMBOPLASTIN TIME 27.2 Seconds (25.1-36.5); PROTHROMBIN TIME 17.1 SECONDS (9.4-12.5)
[2017-10-13 08:15] LABS: B-TYPE NATRIURETIC PEPTIDE 314 pg/mL (0-450); TROPONIN I < 0.01 ng/mL
[2017-10-13 08:26] LABS: BLOOD UREA NITROGEN 41 mg/dL (7-21)
--- NOTE | 2017-10-13 08:50 | RAD ---
HISTORY: cough r/o pna COMPARISON: 09/15/2016 09/15/2016 FINDINGS: LUNGS: There is bibasilar linear scar/ atelectasis. No acute infiltrate. PLEURA: No significant pleural effusion identified, no pneumothorax apparent. CARDIOVASCULAR: Normal. OSSEOUS STRUCTURES: No significant abnormalities. VISUALIZED UPPER ABDOMEN: Normal. OTHER FINDINGS: None. IMPRESSION: Bibasilar linear scar/ atelectasis. Otherwise unremarkable.
[2017-10-13 09:32] VITALS: BP 144/76; O2SAT 97
--- NOTE | 2017-10-13 09:35 | CARD ---
APPROVED REPORT EKG Measurement Heart [id number] <Conclusion> Sinus tachycardia Moderate voltage criteria for LVH, may be normal variant Inferior infarct, old NSSTW changes No change
[2017-10-13 09:49] VITALS: PULSE 105; RESP 18; TEMP 97.8
[2017-10-13 10:08] LABS: PH,URINE 5.5 (4.7-8.0); URINE APPEARANCE CLEAR (CLEAR); URINE BILIRUBIN NEGATIVE (NEGATIVE); URINE BLOOD TRACE-INTACT (NEGATIVE); URINE COLOR YELLOW (YELLOW); URINE GLUCOSE (UA) NEGATIVE (NEGATIVE); URINE LEUKOCYTE ESTERASE LARGE Leu/uL (NEGATIVE); URINE PROTEIN NEGATIVE mg/dL (<30 mg/dL); URINE UROBILINOGEN 0.2 E.U./dL (<1 E.U./dL)
[2017-10-13 10:49] LABS: URINE BACTERIA MANY (NEG); URINE WBC TNTC /hpf (0-6)
== END 2017-10-13 09:49 | disposition home or self-care (01) ==
LOC: ED 06:32
DX: J45.901 Unspecified asthma with (acute) exacerbation (principal); E03.9 Hypothyroidism, unspecified; I50.9 Heart failure, unspecified
CPT/HCPCS: 71045; 80048; 81001; 82550; 82803; 83615; 83735; 83880; 84484; 85025; 85610; 85730; 87040; 87086; 87181; 93005; 96374; 99284; J2930

== ENCOUNTER 2018-04-16 00:22 | Inpatient (IN) | payer MEDICARE, OTHER ==
[2018-04-16] MEDS ORDERED: Albuterol-Ipratrop 3 mg / 0.5 (3 ml) UD ONE (00:45)
[2018-04-16] MEDS ORDERED: Albuterol 0.5% Inhal Sol (2.5 mg/0.5 ml) UD IH STA (00:59)
[2018-04-16] MEDS ORDERED: Magnesium Sulfate 2 gm/50 ml 2 GM/50 ML BAG IVPB ONE (00:59)
[2018-04-16] MEDS ORDERED: Albuterol 0.083% Inhal Sol (2.5 mg/3 mL) UD INH STA ×2 (01:01→02:48)
--- NOTE | 2018-04-16 01:07 | ED PDOC ---
Arrival/HPI - General Chief Complaint: Shortness Of Breath Time Seen by Provider: 04/16/18 00:23 Historian: Patient, Family (son) - History of Present Illness Narrative History of Present Illness (Text): 04/16/18 01:04 A 73 year old female, whose past medical history includes asthma, CHF (takes Warfarin), COPD, hypothyroidism, renal failure, DVT, and anemia, presents to the emergency department complaining of persistent cough and worsening shortness of breath. Per son, patient has had a persistent cough with yellow phlegm since September 2017. Shortness of breath has not gotten any better. States patient uses nebulizer treatment 3 times daily, which she receives no relief from, and at night uses pump. Mentions patient has become weaker and has not been herself, as well as experiencing chills and weight loss. Patient reports she last saw personnel coordinator Dr. Berger when she was last admitted here. Patient denies any fever, abdominal pain, vomiting, or any other complaints at this time. Patient has gotten flu shot, however has not gotten pneumococcal shot. Past Medical History - Provider Review Nursing Documentation Reviewed: Yes - Infectious Disease Hx of Infectious Diseases: None - Tetanus Immunization Tetanus Immunization: Unknown - Cardiac Hx Congestive Heart Failure: Yes - Pulmonary Hx Chronic Obstructive Pulmonary Disease (COPD): Yes - Neurological Hx Neurological Disorder: No - HEENT Hx HEENT Disorder: No (WEARS RX GLASSES) - Renal Hx Renal Failure: Yes (LUI) - Endocrine/Metabolic Hx Hypothyroidism: Yes - Hematological/Oncological Hx Blood Transfusions: No Hx Blood Transfusion Reaction: No - Integumentary Hx Dermatological Disorder: No Hx Basal Cell Carcinoma: No Other/Comment: SPIDER VEINS MAINLY TO LEFT KNEE AREA - Musculoskeletal/Rheumatological Hx Musculoskeletal Disorders: Yes (HERNIATED DISCS) - Gastrointestinal Hx Gastrointestinal Disorders: No - Genitourinary/Gynecological Hx Genitourinary Disorders: Yes Other/Comment: HYSTERECTOMY,OOPHORECTOMY - Psychiatric Hx Emotional Abuse: No Hx Physical Abuse: No Hx Substance Use: No - Surgical History Hx Hysterectomy: Yes Hx Orthopedic Surgery: Yes (BILATERAL KNEE ARTHROSCOPY) Other/Comment: DISKECTOMY,OOPHORECTOMY - Anesthesia Hx Anesthesia: Yes - Suicidal Assessment Feels Threatened In Home Enviroment: No Family/Social History - Physician Review Nursing Documentation Reviewed: Yes Family/Social History: No Known Family HX Smoking Status: Never Smoked Hx Alcohol Use: No Hx Substance Use: No Hx Substance Use Treatment: No Allergies/Home Meds Allergies/Adverse Reactions: Allergies grass pollen Allergy (Verified 09/15/16 14:54) COUGH ASTHMA LIKE SYMPTOMS Penicillins Allergy (Verified 10/13/17 06:40) RASH Home Medications: Home Meds Medication Instructions Recorded Confirmed Simvastatin 40 mg PO QAM 05/29/15 10/13/17 Albuterol HFA [Ventolin HFA 90 2 puff IH QID PRN 06/01/15 10/13/17 mcg/actuation (8 g)] Albuterol/Ipratropium [Duoneb 3 3 ml IH Q6 PRN 06/01/15 10/13/17 mg/0.5 mg (3 ml) UD] Ergocalciferol (Vitamin D2) 50,000 iu PO SUN 06/01/15 10/13/17 [Vitamin D2] Furosemide [Lasix] 20 mg PO QAM 06/01/15 10/13/17 Lansoprazole [Prevacid] 30 mg PO QAM 06/01/15 10/13/17 Montelukast [Singulair] 10 mg PO QAM 06/01/15 10/13/17 Pregabalin [Lyrica] 150 mg PO QAM 06/01/15 10/13/17 Valsartan/Hydrochlorothiazide 1 tab PO QAM 06/01/15 10/13/17 [Valsartan-Hctz 160-12.5 mg Tab] Aranesp 300 mcg SQ Q30D 11/15/16 10/13/17 Warfarin [Coumadin] 9 mg PO DAILY 11/15/16 10/13/17 Review of Systems - Physician Review All systems were reviewed & negative as marked: Yes - Review of Systems Constitutional: Weight Change (weight loss), Night Sweats, Other (weakness). absent: Fevers Respiratory: SOB (worsening), Cough (persistent cough with yellow phlegm) Gastrointestinal: absent: Abdominal Pain, Vomiting Physical Exam Vital Signs Reviewed: Yes Vital Signs Temp Pulse Resp BP Pulse Ox 04/16/18 00:37 98 F 114 H 30 H 135/83 100 Temperature: Afebrile Blood Pressure: Normal Pulse: Tachycardic Respiratory Rate: Tachypneic Appearance: Positive for: Well-Appearing, Non-Toxic, Comfortable Pain Distress: None Mental Status: Positive for: Alert and Oriented X 3 - Systems Exam Head: Present: Atraumatic, Normocephalic Pupils: Present: PERRL Extroacular Muscles: Present: EOMI Conjunctiva: Present: Normal Mouth: Present: Moist Mucous Membranes Neck: Present: Normal Range of Motion Respiratory/Chest: Present: Clear to Auscultation, Good Air Exchange, Wheezes (wheezing to anterior lung mayer), Rales, Tachypneic. No: Respiratory Distress, Accessory Muscle Use Cardiovascular: Present: Normal S1, S2, Tachycardic. No: Murmurs Abdomen: No: Tenderness, Distention, Peritoneal Signs Back: Present: Normal Inspection Upper Extremity: Present: Normal Inspection. No: Cyanosis, Edema Lower Extremity: Present: Edema (+1 pitting edema bilaterally) Neurological: Present: GCS=15, CN II-XII Intact, Speech Normal Skin: Present: Warm, Dry, Normal Color. No: Rashes Psychiatric: Present: Alert, Oriented x 3, Normal Insight, Normal Concentration Medical Decision Making ED Course and Treatment: 04/16/18 01:06 Impression: 73 year female with persistent cough and worsening shortness of breath. Plan: -- Venous Blood Gas -- Chest X-ray -- Labs -- Albuterol -- SOLU-Medrol -- Magnesium Sulfate Fluids -- Nasal Cannula O2 -- Rapid Flu A/B Influenza Test -- Reassess and disposition Prior Visits: Patient was last here in the emergency department on 10/13/2017 for intermittent wheezing. Patient was discharged. Progress Notes: - RAD Interpretation Radiology Orders: 04/16/18 01:00 CHEST PORTABLE [RAD] Stat - Medication Orders Current Medication Orders: Albuterol Sulfate (Albuterol 0.5% Inhal [place] (2.5 Mg/0.5 Ml) Ud) 2.5 mg IH STAT STA Stop: 04/16/18 01:00 Albuterol Sulfate (Albuterol 0.083% Inhal [place] (2.5 Mg/3 Ml) Ud) 2.5 mg INH STAT STA Stop: 04/16/18 01:02 Magnesium Sulfate 2 gm/ Sodium (Chloride) 104 mls @ 102 mls/hr IVPB ONCE ONE Stop: 04/16/18 02:00 Methylprednisolone (Solu-Medrol) 125 mg IVP STAT STA Stop: 04/16/18 01:00 - Scribe Statement The provider has reviewed the documentation as recorded by the Faina Feldman Provider Scribe Attestation: All medical record entries made by the Veronicaibolena were at my direction and personally dictated by me. I have reviewed the chart and agree that the record accurately reflects my personal performance of the history, physical exam, medical decision making, and the department course for this patient. I have also personally directed, reviewed, and agree with the discharge instructions and disposition. Disposition/Present on Arrival - Present on Arrival History of DVT/PE: Yes History of Uncontrolled Diabetes: No Urinary Catheter: No History of Decub. Ulcer: No History Surgical Site Infection Following: None - Disposition Forms: Hot Potato (Czech)
[2018-04-16 01:45] LABS: VENOUS BLOOD GAS BASE EXCESS 3.1 mmol/L (0.0-2.0); VENOUS BLOOD GAS PO2 122 mm/Hg (30-55); VENOUS BLOOD PH 7.37 (7.32-7.43)
[2018-04-16 01:52] LABS: ALB/GLOB RATIO 1.3 (1.1-1.8); ALBUMIN 4.5 g/dL (3.0-4.8); ALT/SGPT 28 U/L (7-56); AST/SGOT 40 U/L (14-36); BLOOD UREA NITROGEN 47 mg/dL (7-21); CALCIUM 9.5 mg/dL (8.4-10.5); GFR NON-AFRICAN AMERICAN 23
[2018-04-16 02:00] LABS: B-TYPE NATRIURETIC PEPTIDE 1200 pg/mL (0-450)
[2018-04-16 02:10] LABS: BASO # 0.07 K/mm3 (0.0-2.0); BASO % 0.5 % (0.0-3.0); EOS # 1.2 (0.0-0.7); EOS % 8.3 % (1.5-5.0); GRAN # 10.17 (1.4-6.5); GRAN % 68.3 % (50.0-68.0); HEMOGLOBIN 10.9 g/dL (12.0-16.0); LYMPH # 2.1 (1.2-3.4); LYMPH % 14.2 % (22.0-35.0); MEAN CELL VOLUME 87.3 fl (80.0-105.0); MEAN PLATELET VOLUME 11.8 fl (7.0-11.0); MONO # 1.3 (0.1-0.6); MONO % 8.7 % (1.0-6.0); RBC 4.03 10^6/uL (3.5-6.1); WHITE BLOOD COUNT 14.9 10^3/uL (4.5-11.0)
[2018-04-16 02:13] LABS: INR 1.83; PARTIAL THROMBOPLASTIN TIME 42.6 Seconds (25.1-36.5); PROTHROMBIN TIME 21.1 SECONDS (9.4-12.5)
[2018-04-16 03:10] LABS: TROPONIN I < 0.01 ng/mL
[2018-04-16] MEDS ORDERED: Azithromycin 500MG/NS 250ml 500 MG/250 ML BAG IVPB STA (03:20)
[2018-04-16] MEDS ORDERED: levoFLOXacin 500 mg in D5W 500 MG/100 ML BAG IVPB STA (03:20)
[2018-04-16 05:29] LABS: URINE BILIRUBIN NEGATIVE (NEGATIVE); URINE BLOOD NEGATIVE (NEGATIVE); URINE GLUCOSE (UA) NEGATIVE (NEGATIVE); URINE LEUKOCYTE ESTERASE NEGATIVE Leu/uL (NEGATIVE); URINE PROTEIN TRACE mg/dL (<30 mg/dL); URINE UROBILINOGEN 0.2 E.U./dL (<1 E.U./dL)
[2018-04-16 05:33] LABS: URINE APPEARANCE CLEAR (CLEAR); URINE COLOR YELLOW (YELLOW)
[2018-04-16] MEDS ORDERED: Albuterol-Ipratrop 3 mg / 0.5 (3 ml) UD IH PRN ×2 (05:46→07:21)
[2018-04-16 05:56] LABS: URINE EPITHELIAL CELLS 0 - 2 /hpf (0-5); URINE RBC 0 - 2 /hpf (0-2); URINE WBC 0 - 2 /hpf (0-6)
[2018-04-16] MEDS: Insulin Lispro (HUMAlog) HIGH Coverage SC SCH ×3 (08:00→18:09)
[2018-04-16] MEDS: Albuterol-Ipratrop 3 mg / 0.5 (3 ml) UD IH SCH ×3 (08:23→19:40)
--- NOTE | 2018-04-16 09:20 | CT ---
Date of service: 04/16/2018 PROCEDURE: CT Chest without contrast HISTORY: sob COMPARISON: None available. TECHNIQUE: Contiguous axial images were obtained through the chest without intravenous contrast enhancement. Sagittal and coronal reconstructions were performed. Radiation dose: Total exam DLP = 489.68 mGy-cm. This CT exam was performed using one or more of the following dose reduction techniques: Automated exposure control, adjustment of the mA and/or kV according to patient size, and/or use of iterative reconstruction technique. FINDINGS: LUNGS: Mild bilateral basilar linear fibrosis. MEDIASTINUM: Unremarkable thoracic aorta. No aneurysm. Normal sized heart. Main pulmonary artery unremarkable. No vascular congestion. No lymphadenopathy. No aortic atherosclerotic calcification. PLEURA: No pleural fluid. No pneumothorax. BONES: No fracture. No destructive lesion. UPPER ABDOMEN: Extensive colonic distension. OTHER FINDINGS: None. IMPRESSION: No acute pathology in chest. Extensive colonic distention.
--- NOTE | 2018-04-16 09:27 | RAD ---
Date of service: 04/16/2018 HISTORY: SOB COMPARISON: 10/13/2017 FINDINGS: LUNGS: No active pulmonary disease. PLEURA: No significant pleural effusion identified, no pneumothorax apparent. CARDIOVASCULAR: No aortic atherosclerotic calcification present. Normal cardiac size. No pulmonary vascular congestion. OSSEOUS STRUCTURES: No significant abnormalities. VISUALIZED UPPER ABDOMEN: Normal. OTHER FINDINGS: None. IMPRESSION: No active disease.
[2018-04-16] MEDS: MethylPREDNISolone 40 mg Vial IVP SCH ×2 (11:09→21:52)
--- NOTE | 2018-04-16 13:44 | CARD ---
APPROVED REPORT Date of service: 04/16/2018 EKG Measurement Heart [id number] <Conclusion> Sinus tachycardia with short runs of SVT and premature atrial/ventricular complexes Inferior infarct, age undetermined Nonspecific ST and T wave abnormality Abnormal ECG
--- NOTE | 2018-04-16 17:22 | CON ---
DATE: 04/16/2018 CARDIOLOGY CONSULTATION HISTORY: The patient is a 73-year-old woman, who presents with dyspnea as well as progressive cough. PAST MEDICAL HISTORY: The patient's past medical history is notable for chronic atrial fibrillation, for which the patient is on Coumadin. In addition, she suffers from hypertension, hypercholesterolemia. The patient denies previous myocardial infarction. No angina. Cardiac catheterization 2 years ago revealed nonobstructive CAD. SOCIAL HISTORY: The patient denies smoking. REVIEW OF SYSTEMS: Fourteen-point review of systems is noted. The patient complains of cough with progressive dyspnea. PHYSICAL EXAMINATION: VITAL SIGNS: Blood pressure is 138/83, heart rate is atrial fibrillation at 100. NECK: Negative JVD. LUNGS: Bilateral rhonchi. HEART: Reveals S1, S2. EXTREMITIES: Without edema. LABORATORY DATA: Laboratories include a CT scan, which revealed no lung pathology; however, the colon was noted to be dilated. The INR is 1.83. Chemistries, BUN and creatinine are 47 and 2.1 with a glucose of 245. Hemoglobin is 10 with a white count of 14.9. IMPRESSION: 1. Cough secondary to bronchitis. 2. Rule out viral syndrome. 3. Chronic atrial fibrillation. 4. Anemia. 5. Nonobstructive coronary artery disease. 6. Hypertension. 7. Diabetes mellitus. 8. Hypercholesterolemia. PLAN: Given these findings, we will continue her on her Coumadin. We will add Cardizem to help control her heart rate. Joseph Berger MD
[2018-04-17] MEDS: Albuterol-Ipratrop 3 mg / 0.5 (3 ml) UD IH SCH ×4 (01:15→19:37)
[2018-04-17] MEDS: Insulin Lispro (HUMAlog) HIGH Coverage SC SCH ×4 (07:36→21:25)
[2018-04-17 08:23] LABS: GRAN # 10.33 (1.4-6.5); GRAN % 90.4 % (50.0-68.0); HEMOGLOBIN 11.1 g/dL (12.0-16.0); LYMPH # 0.7 (1.2-3.4); LYMPH % 5.8 % (22.0-35.0); MEAN CELL VOLUME 88.1 fl (80.0-105.0); MEAN CORPUSCULAR HGB CONC 30.7 g/dl (31.0-37.0); MONO # 0.4 (0.1-0.6); MONO % 3.8 % (1.0-6.0); PLATELET COUNT 177 10^3/uL (120.0-450.0); RBC 4.11 10^6/uL (3.5-6.1); RED CELL DISTRIBUTION WIDTH 14.8 % (11.5-14.5); WHITE BLOOD COUNT 11.4 10^3/uL (4.5-11.0)
[2018-04-17 08:34] LABS: INR 2.06
[2018-04-17 08:40] LABS: ALB/GLOB RATIO 1.3 (1.1-1.8); ALBUMIN 4.2 g/dL (3.0-4.8); CALCIUM 10.3 mg/dL (8.4-10.5)
[2018-04-17 09:13] LABS: LYMPHOCYTE 3 % (22.0-35.0); MONOCYTE 4 % (1.0-6.0); NEUTROPHIL 93 % (50.0-70.0); PLATELET ESTIMATE NORMAL (NORMAL)
[2018-04-17] MEDS: MethylPREDNISolone 40 mg Vial IVP SCH ×2 (09:39→21:17)
--- NOTE | 2018-04-17 11:03 | CP.PCM.APN ---
Subjective - Date & Time of Evaluation Date of Evaluation: 04/17/18 Time of Evaluation: 10:10 - Subjective Subjective: Pt seen and examined at bedside. States that her cough is on and off. Shortness of breath improved. Denies chest pain. Objective - Vital Signs/Intake and Output Vital Signs (last 24 hours): Temp Pulse Resp BP Pulse Ox 98.1 F 99 H 18 120/85 100 04/17/18 06:00 04/17/18 09:40 04/17/18 06:00 04/17/18 09:40 04/17/18 06:00 Intake and Output: 04/17/18 04/17/18 06:59 18:59 Intake Total 600 Balance 600 - Medications Medications: Current Medications Albuterol/Ipratropium (Duoneb 3 Mg/0.5 Mg (3 Ml) Ud) 3 ml IH Q2H PRN PRN Reason: Shortness of Breath Last Admin: 04/16/18 09:27 Dose: 3 ml Albuterol/Ipratropium (Duoneb 3 Mg/0.5 Mg (3 Ml) Ud) 3 ml IH Q2H PRN PRN Reason: Shortness of Breath Albuterol/Ipratropium (Duoneb 3 Mg/0.5 Mg (3 Ml) Ud) 3 ml IH [id number] [facility] Last Admin: 04/17/18 08:24 Dose: 3 ml Atorvastatin Calcium (Lipitor) 20 mg PO DIN [facility] Last Admin: 04/16/18 18:09 Dose: 20 mg Diltiazem HCl (Cardizem) 60 mg PO TID [facility] Last Admin: 04/17/18 09:40 Dose: 60 mg Glipizide (Glucotrol) 5 mg PO ACBD [facility] Last Admin: 04/17/18 09:40 Dose: 5 mg Doxycycline Hyclate 100 mg/ (Sodium Chloride) 100 mls @ 100 mls/hr IVPB Q12 [facility]; Protocol Last Admin: 04/17/18 09:42 Dose: 100 mls/hr Insulin Human Lispro (Humalog High) 0 units SC ACHS [facility]; Protocol Last Admin: 04/17/18 07:36 Dose: Not Given Methylprednisolone (Solu-Medrol) 30 mg IVP Q12 [facility] Last Admin: 04/17/18 09:39 Dose: 30 mg Montelukast Sodium (Singulair) 10 mg PO QAM [facility] Last Admin: 04/17/18 09:40 Dose: 10 mg Pregabalin (Lyrica) 150 mg PO QAM [facility] Last Admin: 04/17/18 09:40 Dose: 150 mg Warfarin Sodium (Coumadin) 9 mg PO 1800 [facility]; Protocol Last Admin: 04/16/18 18:08 Dose: 9 mg - Labs Labs: 04/17/18 07:40 04/17/18 07:40 PT 24.0 SECONDS (9.4-12.5) H 04/17/18 07:40 INR 2.06 04/17/18 07:40 APTT 42.6 Seconds (25.1-36.5) H 04/16/18 01:20 - Constitutional Appears: Well, No Acute Distress - Head Exam Head Exam: ATRAUMATIC - Eye Exam Eye Exam: Normal appearance - ENT Exam ENT Exam: Normal Exam - Neck Exam Neck Exam: Full ROM - Respiratory Exam Respiratory Exam: Clear to Ausculation Bilateral, NORMAL BREATHING PATTERN - Cardiovascular Exam Cardiovascular Exam: Tachycardia, +S1, +S2 - GI/Abdominal Exam GI & Abdominal Exam: Soft, Normal Bowel Sounds - Rectal Exam Rectal Exam: Deferred - Extremities Exam Extremities Exam: Normal Inspection - Neurological Exam Neurological Exam: Alert, Awake, Oriented x3 Assessment and Plan - Assessment and Plan (Free Text) Assessment: Pt is a 73 y.o. female with pmhx of afib on coumadin, HTN, hypercholesterolemia, COPD, hypothyroid, renal failure, DVT, and anemia who presented in ED for pers istent cough and worsening shortness of breath. ITS Impressions Chest X-Ray 04/16/18 01:00 IMPRESSION: No active disease. Chest CT 04/16/18 07:19 IMPRESSION: No acute pathology in chest. Extensive colonic distention. Plan: On Doxy IV/Solumedrol 30 q12h Cardio on consult ECHO pending Physical therapy pending Meds per MAR Will continue to follow
--- NOTE | 2018-04-17 15:41 | PN ---
DATE: 04/17/2018 SUBJECTIVE: The patient's breathing is somewhat better. No chest pain noted. PHYSICAL EXAMINATION: VITAL SIGNS: Blood pressure 137/74, heart rate in the 80s. NECK: Negative JVD. LUNGS: Decreased breath sounds. HEART: Reveal S1, S2. EXTREMITIES: Without edema. LABORATORY: BUN and creatinine is 42 and 2.0, hemoglobin is 11. Preliminary echocardiogram reveals an ejection fraction of approximately 40%. IMPRESSION: 1. Upper respiratory infection. 2. Diabetes mellitus. 3. Cardiomyopathy of questionable etiology. 4. Dyspnea. 5. Mild congestive heart failure by elevated ProBNP. 6. Renal insufficiency. Given these findings, we will give the patient a trial of a dose of Lasix to see whether this improves her breathing. I have discussed with the patient's family. We will arrange for an outpatient stress test to evaluate coronary disease as a cause of her cardiomyopathy. We will do this after her upper respiratory infection is improved. Joseph Berger MD
--- NOTE | 2018-04-17 15:57 | HP ---
HISTORY OF PRESENT ILLNESS: The patient is 73-year-old black female, known to me from office , came to the emergency room because of increasing cough, congestion, shortness of breath. States she was unable to catch of breath and that has been going on for more than a week. Denies any fever at home. Does have shortness of breath and cough. No bloody sputum. No history of nausea or vomiting. No diarrhea. No fever, no chills. Complains of chest tightness, but no chest pain. PAST MEDICAL HISTORY: Significant for, 1. Hypertension. 2. Chronic kidney disease. 3. Chronic anemia. 4. History of coagulopathy. 5. History of DVT on anticoagulant. 6. Cavernous sinus clot while she was under the care in [facility]. ALLERGIES: SHE IS ALLERGIC TO DUST AND POLLEN. MEDICATIONS: At home she is on, 1. Coumadin 9 mg daily. 2. Simvastatin 40 mg daily. 3. Lyrica 150 daily. 4. Singulair 10 mg daily. 5. Prednisone 40 mg daily. 6. Valsartan 160 daily. 7. Lansoprazole 30 mg daily. 8. Lasix 20 mg daily. 9. Zithromax 250 daily. 10. She is on nebulizer treatment. SOCIAL HISTORY: She lives with her son. Denies smoking or drinking. PHYSICAL EXAMINATION: GENERAL: She is awake, alert, oriented, able to communicate. She states she feels little better today. VITAL SIGNS: She is afebrile, pulse 110, respirations 18, and blood pressure 138/83. LUNGS: Bilateral fair airflow. No rhonchi or crackle. HEART: S1 and S2 audible. ABDOMEN: Soft, nontender. No rebound, no guarding. NEUROLOGIC: The patient is awake, alert, oriented, able to communicate. EXTREMITIES: Bilateral legs +1 edema. LABORATORY EXAM: WBC 14.9, hemoglobin 10.9, hematocrit 35.2, and platelets 193. PT 21.1, INR 1.83. Chemistry; sodium 138, potassium 3.9, chloride 99, CO2 of 29, BUN 47, creatinine 2.1, and blood sugar 278. CT scan of the chest done. There is no acute pathology; however, extensive colonic distension is noted. X-ray chest is negative. ASSESSMENT: 1. Asthma exacerbation. 2. Bronchitis. 3. Chronic kidney disease. 4. Hypertension. 5. Hyperlipidemia. 6. Leukocytosis, etiology unclear. 7. Coagulopathy. 8. Chronic anemia. PLAN: We will continue the patient on IV steroid, nebulizer treatment. Coumadin has been ordered. Continue doxycycline. Resume her usual medication. Delta Duarte MD
--- NOTE | 2018-04-17 15:59 | CARD ---
APPROVED REPORT Date of service: 04/17/2018 EXAM: Two-dimensional and M-mode echocardiogram with Doppler and color Doppler. INDICATION Atrial Fibrillation 2D DIMENSIONS Left Atrium (2D)4.8 (1.6-4.0cm)IVSd1.2 (0.7-1.1cm) LVDd3.9 (3.9-5.9cm)PWd1.4 (0.7-1.1cm) M-Mode DIMENSIONS Aortic Root3.70 (2.2-3.7cm)Aortic Cusp Exc.1.90 (1.5-2.0cm) Aortic Valve AoV Peak Peykejmm484.0cm/Seth Peak GR.8mmHg Mitral Valve MV E Yqmmeznc24.7cm/sMV A Rftiwjqm582.0cm/sE/A ratio0.7 TDI Lateral E' Peak V11.70cm/sMedial E' Peak V4.58cm/sE/Lateral E'7.5 E/Medial E'19.1 Pulmonary Valve PV Peak Zjurwmag57.1cm/sPV Peak Grad.2mmHg Tricuspid Valve TR Peak [id number]/sRAP KDEBYHPF86ewRhVD Peak Gr.30mmHg [id number] LEFT VENTRICLE The left ventricle is normal size. There is mild concentric left ventricular hypertrophy. The systolic function is mildly impaired. Septal hypokinesis RIGHT VENTRICLE The right ventricle is normal size. There is normal right ventricular wall thickness. The right ventricular systolic function is normal. ATRIA The left atrium is moderately dilated. The right atrium size is normal. AORTIC VALVE The aortic valve is not well visualized. There is trace to mild aortic regurgitation. There is no aortic valvular stenosis. MITRAL VALVE The mitral valve is normal in structure. Mitral regurgitation is mild. There is no mitral valve stenosis. TRICUSPID VALVE There is trace tricuspid regurgitation. There is mild pulmonary hypertension. PULMONIC VALVE There is trace pulmonic valvular regurgitation. GREAT VESSELS The aortic root is normal in size. The IVC is normal in size and collapses >50% with inspiration. PERICARDIAL EFFUSION There is no pericardial effusion. <Conclusion> There is mild concentric left ventricular hypertrophy. The systolic function is mildly impaired. Septal hypokinesis The left atrium is moderately dilated. There is trace to mild aortic regurgitation. Mitral regurgitation is mild. There is mild pulmonary hypertension.
--- NOTE | 2018-04-17 22:07 | PN ---
DATE: 04/17/2018 SUBJECTIVE: The patient is 73-year-old, seen and examined. She states she is feeling a lot better. Cough and congestion is better. PHYSICAL EXAMINATION: VITAL SIGNS: She is afebrile, pulse 99, respirations 20, and blood pressure 152/95. LUNGS: Bilateral fair airflow. No rhonchi or crackles. HEART: S1 and S2 audible. ABDOMEN: Soft, obese, and nontender. No rebound. No guarding. NEUROLOGIC: Patient is awake, alert, and oriented,able to communicate. EXTREMITIES: Bilateral leg, no edema. LABORATORY DATA: WBC is 11.4, hemoglobin 11, hematocrit 36, and platelet 177. PT 2.06. Chemistry; sodium 140, potassium 4.2, chloride 103, CO2 of 28, BUN 42, creatinine 2.0, and blood sugar of 69. ASSESSMENT: 1. Chronic obstructive pulmonary disease exacerbation. 2. Mild renal insufficiency. 3. Hypertension. 4. Dzy-iiswylp-rcegnhhxg diabetes. 5. Chronic kidney disease. PLAN: Currently, the patient is on IV steroids. She is on IV antibiotics. We will taper down her steroids. She will receive 9 mg of Coumadin today. We will request Dr. Allan for evaluation to monitor her kidney function. We will follow her kidney function in the a.m. and then CBC in the a.m. Delta Duarte MD
[2018-04-18] MEDS: Albuterol-Ipratrop 3 mg / 0.5 (3 ml) UD IH SCH ×3 (01:01→13:46)
[2018-04-18 06:58] LABS: GRAN # 11.44 (1.4-6.5); GRAN % 92.2 % (50.0-68.0); HEMOGLOBIN 11.4 g/dL (12.0-16.0); LYMPH # 0.7 (1.2-3.4); MEAN CELL VOLUME 87.2 fl (80.0-105.0); MEAN PLATELET VOLUME 11.3 fl (7.0-11.0); MONO # 0.2 (0.1-0.6); MONO % 1.8 % (1.0-6.0); RBC 4.22 10^6/uL (3.5-6.1); RED CELL DISTRIBUTION WIDTH 15.2 % (11.5-14.5); WHITE BLOOD COUNT 12.4 10^3/uL (4.5-11.0)
[2018-04-18 07:43] LABS: ALB/GLOB RATIO 1.2 (1.1-1.8); ALBUMIN 3.9 g/dL (3.0-4.8); CALCIUM 10.2 mg/dL (8.4-10.5)
[2018-04-18] MEDS: Insulin Lispro (HUMAlog) HIGH Coverage SC SCH ×2 (07:57→11:26)
[2018-04-18] MEDS: MethylPREDNISolone 40 mg Vial IVP SCH (09:59)
--- NOTE | 2018-04-18 12:56 | PN ---
DATE: 04/18/2018 CARDIOLOGY FOLLOWUP SUBJECTIVE: The patient's breathing is stable. No shortness of breath noted. PHYSICAL EXAMINATION: VITAL SIGNS: Blood pressure 135/90, and heart rates in the 90s. NECK: Negative JVD. LUNGS: No rales noted. HEART: Reveal S1 and S2. EXTREMITIES: Without edema. LABORATORY DATA: Hemoglobin is 11.4. Chemistries, BUN and creatinine is 52 and 2.1. IMPRESSION: 1. Bronchitis. 2. Renal insufficiency. 3. Diabetes mellitus. 4. Hypertension. 5. Dilated cardiomyopathy. 6. Need to rule out coronary artery disease. Given these findings, I have discussed the findings on echocardiogram with the patient as well as the patient's son. We will need to rule out coronary artery disease. We will plan on doing a stress test next week once her upper respiratory infection is resolved. Joseph Berger MD
[2018-04-18 14:59] VITALS: BP 148/87; PULSE 100; RESP 20; TEMP 97.1; O2SAT 97
--- NOTE | 2018-04-18 19:43 | DS ---
HISTORY OF PRESENT ILLNESS: The patient is a 73-year-old came in because of cough, congestion, shortness of breath. The patient was given IV steroids, IV antibiotics and nebulizer treatment. She started to improve with the above mentioned treatment. The patient was also seen by Dr. Berger. The patient had echocardiogram, slight LV dysfunction, was given dose of Lasix with some improvement. The patient was seen and examined today, doing well. She states cough and congestion are much better. PHYSICAL EXAMINATION: VITAL SIGNS: She is afebrile, pulse 100, respirations 20, blood pressure 148/87. LUNGS: Bilateral few expiratory rhonchi. HEART: S1 and S2 audible. ABDOMEN: Soft, nontender. No rebound. No guarding. NEUROLOGIC: She is awake, alert, oriented, communicative, ambulatory. LABORATORY EXAM: WBC is 12.4, hemoglobin 11.4, hematocrit 36.8, platelet 200. PT 24, INR 2.06. Chemistry; sodium 141, potassium 4.2, chloride 106, CO2 of 28, BUN 52, creatinine 2.1, blood sugar of 64. CT scan of the chest negative for pneumonia. ASSESSMENT: 1. Chronic obstructive pulmonary disease exacerbation. 2. Mild congestive heart failure, acute systolic. 3. Chronic kidney disease. 4. Hypertension. 5. Ehd-qipynif-waqyrgtdy diabetes. PLAN: The patient will be discharged home today. We will give her doxycycline 100 twice a day. She will be given prednisone 20 mg twice a day for 5 days. She will resume her usual medications that include carvedilol, Uloric, simvastatin, Singulair, Lasix 40 twice a day. She is on Lyrica. We will follow up this patient as outpatient and she will get stress test done on Monday by Dr. Berger. Delta Duarte MD
--- NOTE | 2018-04-19 03:57 | CON ---
DATE: 04/18/2018 REASON FOR CONSULTATION: Acute kidney injury superimposed on chronic kidney disease, stage III/IV. HISTORY OF PRESENTING ILLNESS: A 73-year-old lady known to me from outpatient followup. The patient was admitted on 04/16/2018, with complaints of progressive shortness of breath, difficulty breathing, cough, congestion, increased dyspnea on exertion. No history of any fever. No history of nausea or vomiting. No history of any abdominal pain. Chest x-ray was negative. CT scan showed no acute pathology. The patient was thought to have asthma exacerbation along with bronchitis. The patient is being treated with IV steroids, nebulizer treatment. Also started on empiric antibiotics, doxycycline. Her creatinine was found to be 2.1. It is pretty much her baseline. Consultation is requested for management of her chronic kidney disease. PAST MEDICAL AND SURGICAL HISTORY: Hypertension; chronic kidney disease, stage III/IV; CHF; anemia of chronic kidney disease; coagulopathy; DVT; anticoagulation. FAMILY HISTORY: Noncontributory. SOCIAL HISTORY: No smoking, no alcohol use, no IV drug abuse. ALLERGIES: POLLEN. MEDICATIONS AT HOME: Coumadin, simvastatin, Lyrica, Singulair, valsartan hydrochlorothiazide, Procardia XL 90, Coreg CR 10 mg daily, Lasix 40 mg daily. REVIEW OF SYSTEMS: All systems are reviewed, pertinent positives as mentioned in the history of presenting illness, rest unremarkable. PHYSICAL EXAMINATION GENERAL: Elderly lady lying in bed. She is awake, she is alert, and she is comfortable. She reports feeling much better. VITAL SIGNS: Blood pressure 148/87, heart rate 100, respiratory rate 20, temperature 97.1. HEENT: Normocephalic, atraumatic, positive pallor. NECK: Supple, no JVD. LUNGS: Bilateral equal air entry, bilaterally equal expansion, no rales, no rhonchi. CARDIAC: S1 and S2, regular rate and rhythm, no murmur, no rub. ABDOMEN: Soft, nondistended, nontender, bowel sounds present. EXTREMITIES: No lower extremity edema. LABORATORY DATA: WBC 12, hemoglobin 11.4, hematocrit 37, platelets 200. Sodium 141, potassium 4.2, chloride 106, CO2 of 28, BUN 52, creatinine 2.1, glucose , calcium 10.2, AST 28, ALT 29, albumin 3.9. Urinalysis: Yellow, clear, pH 6.0, specific gravity 1.020, protein trace, glucose negative, ketones negative, blood negative. INR 2.0. Cultures negative. Echocardiogram showing mild left ventricular hypertrophy, mild pulmonary hypertension. ASSESSMENT 1. Stable chronic kidney disease stage III/IV. 2. Bronchitis. 3. Hypertension, uncontrolled. 4. Chronic anemia. 5. Leukocytosis. PLAN 1. Continue empiric antibiotics. 2. Continue Lasix 40 mg daily. 3. Avoid nephrotoxins. 4. The patient is advised to follow up in the office in 2 weeks. 5. The patient is advised to bring all her medications to next visit. Yulia Allan MD
--- NOTE | 2018-04-19 17:18 | PQF ---
PROVIDER RESPONSE TEXT: Mild intermittent, stage 3 kidney diseae REVIEWER QUERY TEXT: Asthma Specificity and Type Asthma is documented in the Medical Record. Please specify the type and severity of asthma and indic ate if this is associated with exacerbation or status asthmaticus. Such as: -- Mild intermittent -- Mild persistent -- Moderate persistent -- Severe persistent -- Exercise induced bronchospasm -- Cough variant asthma -- Other, please specify The patient's Clinical Indicators include: Please see query. Thank you. Query created by: Shaista Cummings on 04/19/2018 11:36 AM Electronically signed by: Delta Duarte MD 04/19/2018 5:15 PM
== END 2018-04-18 18:09 | disposition home or self-care (01) | DRG 190 ==
LOC: ED 00:22 → ERH 03:21 → 5RSO 05:19
PROVIDERS: ADMIT Internal Medicine; ATTEND Internal Medicine
DX: J44.1 Chronic obstructive pulmonary disease with (acute) exacerbation (principal); I50.21 Acute systolic (congestive) heart failure; I13.0 Hypertensive heart and chronic kidney disease with heart failure and stage 1 through stage 4 chronic kidney disease, or unspecified chronic kidney disease; I42.9 Cardiomyopathy, unspecified; D68.9 Coagulation defect, unspecified; I42.0 Dilated cardiomyopathy; N17.9 Acute kidney failure, unspecified; J45.21 Mild intermittent asthma with (acute) exacerbation; N18.3 Chronic kidney disease, stage 3 (moderate); J06.9 Acute upper respiratory infection, unspecified; E03.9 Hypothyroidism, unspecified; I48.2 Chronic atrial fibrillation; I25.10 Atherosclerotic heart disease of native coronary artery without angina pectoris; Z79.01 Long term (current) use of anticoagulants; E11.22 Type 2 diabetes mellitus with diabetic chronic kidney disease; Z86.718 Personal history of other venous thrombosis and embolism; D63.1 Anemia in chronic kidney disease; E78.00 Pure hypercholesterolemia, unspecified; E78.5 Hyperlipidemia, unspecified; Z90.710 Acquired absence of both cervix and uterus

== ENCOUNTER 2018-04-23 06:40 | Outpatient (CLI) | payer MEDICARE, OTHER | END 2018-04-23 06:41 | disposition home or self-care (01) | LOC: CARDIO 06:40 | DX: R06.02 Shortness of breath (principal) ==

== ENCOUNTER 2018-05-10 22:19 | Inpatient (IN) | payer MEDICARE, OTHER ==
[2018-05-10 22:19] VITALS: BMI 25.7
--- NOTE | 2018-05-10 22:42 | ED PDOC ---
Arrival/HPI - General Chief Complaint: Lower Extremity Problem/Injury Time Seen by Provider: 05/10/18 22:20 Historian: Patient - History of Present Illness Narrative History of Present Illness (Text): 05/10/18 22:39 73 year old female, whose past medical history includes asthma, CHF (takes Warfarin), COPD, hypothyroidism, renal failure, DVT, and anemia, presents to the emergency department complaining of leg swelling, for over a week. Patient informs it may be chronic, but is unsure. Patient states she has some shortness of breath when laying down. Patient denies any fevers, chills, headache, dizziness, chest pain, cough, abdominal pain, nausea, vomiting, diarrhea, back pain, neck pain, or any other complaint. PMD: Perveen Time/Duration: < month Symptom Onset: Gradual Symptom Course: Unchanged Activities at Onset: Light, Sleeping Context: Home Past Medical History - Provider Review Nursing Documentation Reviewed: Yes - Infectious Disease Hx of Infectious Diseases: None - Tetanus Immunization Tetanus Immunization: Unknown - Cardiac Hx Cardiac Disorders: Yes Hx Hypertension: Yes - Pulmonary Hx Respiratory Disorders: Yes Hx Chronic Obstructive Pulmonary Disease (COPD): Yes - Neurological Hx Neurological Disorder: No - HEENT Hx HEENT Disorder: No (WEARS RX GLASSES) - Renal Hx Renal Failure: Yes (LUI) - Endocrine/Metabolic Hx Endocrine Disorders: Yes Hx Diabetes Mellitus Type 2: Yes Hx Hypothyroidism: Yes - Hematological/Oncological Hx Blood Transfusions: No Hx Blood Transfusion Reaction: No - Integumentary Hx Dermatological Disorder: No Hx Basal Cell Carcinoma: No Other/Comment: SPIDER VEINS MAINLY TO LEFT KNEE AREA - Musculoskeletal/Rheumatological Hx Musculoskeletal Disorders: Yes (HERNIATED DISCS) - Gastrointestinal Hx Gastrointestinal Disorders: No - Genitourinary/Gynecological Hx Genitourinary Disorders: Yes Other/Comment: HYSTERECTOMY,OOPHORECTOMY - Psychiatric Hx Emotional Abuse: No Hx Physical Abuse: No Hx Substance Use: No - Surgical History Hx Hysterectomy: Yes Hx Orthopedic Surgery: Yes (BILATERAL KNEE ARTHROSCOPY) Other/Comment: DISKECTOMY,OOPHORECTOMY - Anesthesia Hx Anesthesia: Yes - Suicidal Assessment Feels Threatened In Home Enviroment: No Family/Social History - Physician Review Nursing Documentation Reviewed: Yes Family/Social History: No Known Family HX Smoking Status: Former Smoker Hx Alcohol Use: Yes Hx Substance Use: No Hx Substance Use Treatment: No Allergies/Home Meds Allergies/Adverse Reactions: Allergies grass pollen Allergy (Verified 09/15/16 14:54) COUGH ASTHMA LIKE SYMPTOMS Penicillins Allergy (Verified 10/13/17 06:40) RASH Home Medications: Home Meds Medication Instructions Recorded Confirmed RX: Lansoprazole [Prevacid] 30 mg PO QAM 06/01/15 05/11/18 RX: Montelukast [Singulair] 10 mg PO DAILY 06/01/15 05/10/18 RX: Warfarin [Coumadin] 9 mg PO DAILY 11/15/16 05/10/18 Carvedilol [Coreg CR] 10 mg PO DAILY 04/18/18 05/10/18 Febuxostat [Uloric] 40 mg PO DAILY 04/18/18 05/10/18 Furosemide [Lasix] 40 mg PO BID 04/18/18 05/10/18 Pregabalin [Lyrica] 50 mg PO BID 04/18/18 05/10/18 Simvastatin [Zocor] 40 mg PO DIN 04/18/18 05/10/18 Review of Systems - Physician Review All systems were reviewed & negative as marked: Yes - Review of Systems Constitutional: absent: Fevers, Night Sweats Respiratory: SOB. absent: Cough Cardiovascular: absent: Chest Pain Musculoskeletal: absent: Back Pain, Neck Pain Skin: Other (edema) Neurological: absent: Headache, Dizziness Physical Exam Vital Signs Reviewed: Yes Temperature: Afebrile Blood Pressure: Normal Pulse: Regular Respiratory Rate: Normal Appearance: Positive for: Well-Appearing, Non-Toxic, Comfortable Pain Distress: None Mental Status: Positive for: Alert and Oriented X 3 - Systems Exam Head: Present: Atraumatic, Normocephalic Pupils: Present: PERRL Extroacular Muscles: Present: EOMI Conjunctiva: Present: Normal Mouth: Present: Moist Mucous Membranes Neck: Present: Normal Range of Motion Respiratory/Chest: Present: Good Air Exchange, Rhonchi. No: Respiratory Distress, Accessory Muscle Use Cardiovascular: Present: Regular Rate and Rhythm, Normal S1, S2. No: Murmurs Abdomen: No: Tenderness, Distention, Peritoneal Signs Back: Present: Normal Inspection Upper Extremity: Present: Normal Inspection. No: Cyanosis, Edema Lower Extremity: Present: Edema (3+ to 4+ pitting lower leg edema) Neurological: Present: GCS=15, CN II-XII Intact, Speech Normal, Motor Func Gr ossly Intact, Normal Sensory Function Skin: Present: Warm, Dry, Normal Color. No: Rashes Psychiatric: Present: Alert, Oriented x 3, Normal Insight, Normal Concentration Medical Decision Making ED Course and Treatment: 05/10/18 22:57 Impression: 73 year old female presents with leg swelling Plan: -- EKG -- Cardiac iso, CMP, BNP -- CBC, Platelets -- Chest X-ray -- US lower ext -- Reassess and disposition Prior Visits: Notes and results from previous visits were reviewed. Progress Notes: 05/11/18 00:34 Venous Doppler lower extr.-Negative for DVT 05/11/18 00:[address] Duarte who accepts patient on consult. 05/11/18 00:30 EKG Reviewed by me, shows: Normal sinus rhythm @ 82bpm First degree AV block LVH,lateral infarct 05/11/18 01:41 CR Chest, 1 View. CLINICAL HISTORY: Leg edema/orthopnea COMPARISON: DX\SD - CHEST PORTABLE - 04/16/2018 01:26 AM EST FINDINGS: LUNGS: Platelike airspace opacity is now seen in the right midlung, most probably atelectasis. Less likely possibility includes early consolidation. Please correlate clinically. PLEURAL SPACES: No evidence of pleural effusion or pneumothorax. MEDIASTINUM: Cardiac size and mediastinal contours within normal limits. BONES: No aggressive appearing osseous lesion seen. MISCELLANEOUS: There is again elevation of both hemidiaphragms, similar to prior. Please cor relate clinically. Again seen are prominent gas filled loops of bowel underneath both hemidiaphragms. IMPRESSION: 1. There is again elevation of both hemidiaphragms, similar to prior. Please correlate clinically. 2. Again seen are prominent gas filled loops of bowel underneath both hemidiaphragms. 3. Platelike airspace opacity is now seen in the right midlung, most probably atelectasis. Less likely possibility includes early consolidation. Please correlate clinically. - Scribe Statement The provider has reviewed the documentation as recorded by the Veronicaibolena Lopez Provider Scribe Attestation: All medical record entries made by the Scribe were at my direction and personally dictated by me. I have reviewed the chart and agree that the record accurately reflects my personal performance of the history, physical exam, medical decision making, and the department course for this patient. I have also personally directed, reviewed, and agree with the discharge instructions and disposition. Disposition/Present on Arrival - Present on Arrival Any Indicators Present on Arrival: No History of DVT/PE: Yes History of Uncontrolled Diabetes: No Urinary Catheter: No History of Decub. Ulcer: No History Surgical Site Infection Following: None - Disposition Have Diagnosis and Disposition been Completed?: Yes Diagnosis: CHF (congestive heart failure), Elevated INR Disposition: HOSPITALIZED Disposition Time: 00:36 Patient Problems: Current Active Problems Problem Status Onset CHF (congestive heart failure) Acute Elevated INR Acute Condition: STABLE
[2018-05-10] MEDS ORDERED: Albuterol-Ipratrop 3 mg / 0.5 (3 ml) UD IH STA (23:38)
[2018-05-10] MEDS ORDERED: Albuterol-Ipratrop 3 mg / 0.5 (3 ml) UD ONE (23:39)
[2018-05-10 23:43] LABS: MEAN CORPUSCULAR HEMOGLOBIN 26.7 pg (25.0-35.0); MEAN CORPUSCULAR HGB CONC 31.9 g/dl (31.0-37.0); MEAN PLATELET VOLUME 11.4 fl (7.0-11.0); RBC 3.44 10^6/uL (3.5-6.1); RED CELL DISTRIBUTION WIDTH 15.7 % (11.5-14.5); WHITE BLOOD COUNT 7.2 10^3/uL (4.5-11.0)
[2018-05-10 23:51] LABS: PARTIAL THROMBOPLASTIN TIME 66.6 Seconds (26.9-38.3)
[2018-05-10 23:58] LABS: ALB/GLOB RATIO 1.3 (1.1-1.8); ALBUMIN 4.2 g/dL (3.0-4.8); ALT/SGPT 44 U/L (7-56); AST/SGOT 37 U/L (14-36); BLOOD UREA NITROGEN 103 mg/dL (7-21); CALCIUM 9.1 mg/dL (8.4-10.5); GFR NON-AFRICAN AMERICAN 9
[2018-05-10 23:59] LABS: B-TYPE NATRIURETIC PEPTIDE 7960 pg/mL (0-450); HEMOGLOBIN 9.2 g/dL (12.0-16.0); TROPONIN I < 0.01 ng/mL
[2018-05-11] LABS: MEAN CELL VOLUME 83.7 fl (80.0-105.0)
[2018-05-11 00:02] LABS: INR 9.57; PROTHROMBIN TIME 106.2 SECONDS (9.4-12.5)
[2018-05-11] MEDS ORDERED: Insulin Regular 1 UNITS/0.01 ML ML SC STA (01:51)
[2018-05-11] MEDS ORDERED: Insulin Regular 1 UNITS/0.01 ML ML ONE (02:00)
[2018-05-11] MEDS ORDERED: Levalbuterol 0.63 MG/3 ML Inhal Soln UD IH PRN (09:36)
[2018-05-11] MEDS ORDERED: CARVEDILOL 10 MG PO SCH (10:00)
[2018-05-11] MEDS: diltiaZEM 180 mg/24 Hours CD Cap PO SCH (10:05)
--- NOTE | 2018-05-11 10:48 | CP.PCM.APN ---
Subjective - Date & Time of Evaluation Date of Evaluation: 05/11/18 Time of Evaluation: 09:00 - Subjective Subjective: pt seen and examined at bedside, pt reports sob Review of Systems - Respiratory Additional comments: shortness of breath Objective - Vital Signs/Intake and Output Vital Signs (last 24 hours): Temp Pulse Resp BP Pulse Ox 97.8 F 99 H 20 124/65 98 05/11/18 06:00 05/11/18 10:05 05/11/18 06:00 05/11/18 10:05 05/11/18 06:00 Intake and Output: 05/11/18 05/11/18 06:59 18:59 Intake Total 120 Output Total 0 Balance 120 - Medications Medications: Current Medications Arformoterol Tartrate (Brovana) 15 mcg IH [id number] [facility] Carvedilol (Coreg) 3.125 mg PO BID [facility] Last Admin: 05/11/18 10:04 Dose: 3.125 mg Diltiazem HCl (Cardizem Cd) 180 mg PO DAILY [facility] Last Admin: 05/11/18 10:05 Dose: 180 mg Insulin Human Regular (Humulin R Low) 0 units SC [facility]; Protocol Levalbuterol HCl (Xopenex) 0.63 mg IH [id number] [facility] Montelukast Sodium (Singulair) 10 mg PO DAILY [facility] Last Admin: 05/11/18 10:05 Dose: 10 mg Pregabalin (Lyrica) 50 mg PO BID [facility] Last Admin: 05/11/18 10:04 Dose: 50 mg Sitagliptin Phosphate (Januvia) 50 mg PO DAILY [facility] Last Admin: 05/11/18 10:04 Dose: 50 mg - Labs Labs: 05/10/18 23:06 05/10/18 23:06 PT 106.2 SECONDS (9.4-12.5) H 05/10/18 23:06 INR 9.57 H* 05/10/18 23:06 APTT 66.6 Seconds (26.9-38.3) H 05/10/18 23:06 - Constitutional Appears: No Acute Distress, Chronically Ill - Eye Exam Eye Exam: Normal appearance - ENT Exam ENT Exam: Normal Exam - Respiratory Exam Respiratory Exam: Decreased Breath Sounds, Wheezes - Cardiovascular Exam Cardiovascular Exam: Irregular Rhythm, +S1, +S2 - GI/Abdominal Exam GI & Abdominal Exam: Normal Bowel Sounds - Extremities Exam Extremities Exam: Normal Capillary Refill, Pedal Edema - Neurological Exam Neurological Exam: Alert, Awake - Psychiatric Exam Psychiatric exam: Normal Affect - Skin Skin Exam: Dry, Intact Assessment and Plan - Assessment and Plan (Free Text) Plan: 73 yr old with pmh sig for chronic afib,worsening renal failure, copd, anemia admitted with worsening LE edema found to have elevated bnP of 7960, na 130, iNR 9.56 now admitted for further mgmt coalgulopathy Dr Vela consulted s/p vit k daily inr stool for OB LUI on CKD urine studies ordered Renal consult pending strict I/O ordered may need HD ? LE edema ? chf Elevated Bnp last stress and echo noted, EF 65% per stress test Copd brovana and inhaler therapy prescribed DM ISS regimen and januvia ordered discuss plan of care [facility] PMD and Dr Berger will continue to monitor addendum: called by radiology dr cole re ? loops of large bowel on xray concerning for ileus, will order decubitis films of abd left and right as recommended by radiologist Jaimie Garay
--- NOTE | 2018-05-11 10:56 | RAD ---
Date of service: 05/10/2018 HISTORY: Leg edema and orthopnea. COMPARISON: Comparison made with chest radiograph and CT chest both dated 04/16/2017. FINDINGS: LUNGS: Compressive type atelectatic changes are felt to be present in both lung bases. PLEURA: No significant pleural effusion identified, no pneumothorax apparent. CARDIOVASCULAR: Mild aortic atherosclerotic calcification present. Heart is mildly enlarged OSSEOUS STRUCTURES: No significant abnormalities. VISUALIZED UPPER ABDOMEN: Apparent markedly distended air-filled large bowel and distended loops of small bowel. Findings may represent ileus however the possibility of an obstruction not excluded. Note also that free intraperitoneal air under the right hemidiaphragmatic surface cannot be excluded. Recommend decubitus films of the abdomen. OTHER FINDINGS: None. IMPRESSION: Compressive type atelectatic changes are felt to be present in both lung bases. Markedly distended air-filled large bowel. Questionable free intraperitoneal air under the diaphragmatic surfaces versus bowel related artifact. Followup decubitus films of the abdomen recommended.. There is also distention the small bowel. Findings discussed with nurse practitioner Lino at approximately 10:52 a.m. with written down and read back verification.
--- NOTE | 2018-05-11 11:27 | CARD ---
APPROVED REPORT Date of service: 05/10/2018 EKG Measurement Heart [id number] <Conclusion> Sinus rhythm with 1st degree AV block Left ventricular hypertrophy with repolarization abnormality Lateral infarct, age Old? Abnormal ECG
[2018-05-11] MEDS: Insulin Reg-LOW-Coverage SC SCH ×2 (11:37→22:03)
--- NOTE | 2018-05-11 11:48 | CON ---
DATE: 05/11/2018 CARDIOLOGY CONSULTATION HISTORY: The patient is a 73-year-old woman, who presents with shortness of breath. She has had progressive renal insufficiency and looking at her creatinine, it has gone from 1.3 in 2016 to progressively increased in the 2's and presents this time with a creatinine of 4.8. She denies angina. PAST MEDICAL HISTORY: The patient's past medical history includes a cardiac workup that showed a normal ejection fraction of 60% with mild pulmonary hypertension. She does suffer from diabetes mellitus. In addition, the patient is on Coumadin for previous DVTs and paroxysmal atrial fibrillation. Currently, the patient is dyspneic without chest pain. REVIEW OF SYSTEMS: Review of systems is dominated by pedal edema as well as shortness of breath. PHYSICAL EXAMINATION: VITAL SIGNS: Blood pressure is 124/65, heart rate is in the 90s. NECK: Negative JVD. LUNGS: Decreased breath sounds bilaterally. HEART: Revealed S1, S2. EXTREMITIES: 2+ edema. LABORATORY DATA: EKG shows normal sinus rhythm with nonspecific ST-T changes. BUN is 103, creatinine is 4.8. Hemoglobin is 9.2. Her INR is greater than 9. IMPRESSION: 1. Acute diastolic congestive heart failure. 2. End-stage renal disease. 3. Coagulopathy secondary to her Coumadin. 4. Good left ventricular function. 5. Diabetes mellitus. PLAN: Given these findings, Renal consult has been called. The patient will need dialysis. We will give vitamin K today to correct her coagulopathy. Joseph Berger MD
[2018-05-11 11:59] LABS: PROTHROMBIN TIME 127.7 SECONDS (9.4-12.5)
[2018-05-11 12:04] LABS: INR 11.3
[2018-05-11 12:42] LABS: HEMOGLOBIN 8.7 g/dL (12.0-16.0); MEAN CELL VOLUME 83.7 fl (80.0-105.0); MEAN CORPUSCULAR HEMOGLOBIN 26.8 pg (25.0-35.0); MEAN PLATELET VOLUME 10.5 fl (7.0-11.0); RBC 3.25 10^6/uL (3.5-6.1); RED CELL DISTRIBUTION WIDTH 15.8 % (11.5-14.5)
--- NOTE | 2018-05-11 12:46 | CP.PCM.CON ---
<CarltonGabriele brofroilan - Last Filed: 05/11/18 13:22> History of Present Illness - History of Present Illness History of Present Illness: Olvin Brady, PGY1 ICU Consult Note ICU Consult Reason: SOB This is a 73 year old female with PMH of CHF (EF 65%) , asthma, renal failure, afib on coumadin, hypothyroidism, COPD, Hx of DVT, coagulopathy, and anemia who presented to the hospital for one week history of leg swelling and ICU team was consulted for labored breathing. Patient is poor historian at this time and response to questioning is limited. BNP on presentation noted to be 7960, INR 9.5 elevated to 11.3 today, BUN/Cr 103/4.8, LDH 751, and sodium of 130. CXR today showed elevation of both hemidiaphragms, similar to prior, prominent gas filled loops of bowel underneath both hemidiaphragms. Platelike airspace opacity is now seen in the right midlung, most probably atelectasis. 12 point ROS limited at this time due to patient status. PMD: Dr. Duarte PMH: CHF (EF 65%) , asthma, renal failure, afib on coumadin, hypothyroidism, COPD, Hx of DVT, coagulopathy, and anemia Al: PCN, pollen SH: lives with son Past Patient History - Infectious Disease Hx of Infectious Diseases: None - Tetanus Immunizations Tetanus Immunization: Unknown - Past Social History Smoking Status: Former Smoker - CARDIAC Hx Cardiac Disorders: Yes Hx Hypertension: Yes - PULMONARY Hx Respiratory Disorders: Yes Hx Chronic Obstructive Pulmonary Disease (COPD): Yes - NEUROLOGICAL Hx Neurological Disorder: No - HEENT Hx HEENT Problems: No (WEARS RX GLASSES) - RENAL Hx Renal Failure: Yes (LUI) - ENDOCRINE/METABOLIC Hx Endocrine Disorders: Yes Hx Diabetes Mellitus Type 2: Yes Hx Hypothyroidism: Yes - HEMATOLOGICAL/ONCOLOGICAL Hx Blood Transfusions: No Hx Blood Transfusion Reaction: No - INTEGUMENTARY Hx Dermatological Problems: No Hx Basil Cell: No Other/Comment: SPIDER VEINS MAINLY TO LEFT KNEE AREA - MUSCULOSKELETAL/RHEUMATOLOGICAL Hx Musculoskeletal Disorders: Yes (HERNIATED DISCS) - GASTROINTESTINAL Hx Gastrointestinal Disorders: No - GENITOURINARY/GYNECOLOGICAL Hx Genitourinary Disorders: Yes Other/Comment: HYSTERECTOMY,OOPHORECTOMY - PSYCHIATRIC Hx Emotional Abuse: No Hx Physical Abuse: No Hx Substance Use: No - SURGICAL HISTORY Hx Hysterectomy: Yes Hx Orthopedic Surgery: Yes (BILATERAL KNEE ARTHROSCOPY) Other/Comment: DISKECTOMY,OOPHORECTOMY - ANESTHESIA Hx Anesthesia: Yes Meds Allergies/Adverse Reactions: Allergies Allergy/AdvReac Type Severity Reaction Status Date / Time grass pollen Allergy COUGH Verified 09/15/16 14:54 Penicillins Allergy RASH Verified 10/13/17 06:40 - Medications Medications: Current Medications Arformoterol Tartrate (Brovana) 15 mcg IH [id number] [facility] Carvedilol (Coreg) 3.125 mg PO BID [facility] Last Admin: 05/11/18 10:04 Dose: 3.125 mg Diltiazem HCl (Cardizem Cd) 180 mg PO DAILY [facility] Last Admin: 05/11/18 10:05 Dose: 180 mg Insulin Human Regular (Humulin R Low) 0 units SC [facility]; Protocol Last Admin: 05/11/18 11:37 Dose: Not Given Levalbuterol HCl (Xopenex) 0.63 mg IH [id number] [facility] Montelukast Sodium (Singulair) 10 mg PO DAILY [facility] Last Admin: 05/11/18 10:05 Dose: 10 mg Pregabalin (Lyrica) 50 mg PO BID [facility] Last Admin: 05/11/18 10:04 Dose: 50 mg Sitagliptin Phosphate (Januvia) 50 mg PO DAILY [facility] Last Admin: 05/11/18 10:04 Dose: 50 mg Physical Exam - Constitutional Appears: No Acute Distress - Head Exam Head Exam: ATRAUMATIC, NORMAL INSPECTION - Eye Exam Eye Exam: EOMI, PERRL - ENT Exam ENT Exam: Mucous Membranes Moist - Respiratory Exam Respiratory Exam: absent: Accessory Muscle Use, Wheezes, Respiratory Distress Additional comments: decreased breath sounds in right lung base - Cardiovascular Exam Cardiovascular Exam: Irregular Rhythm, +S1, +S2 - GI/Abdominal Exam GI & Abdominal Exam: Normal Bowel Sounds, Soft. absent: Firm, Guarding, Tenderness - Extremities Exam Extremities exam: Positive for: pedal pulses present. Negative for: calf tenderness, tenderness Additional comments: +1 pitting edema B/L - Neurological Exam Neurological exam: Alert Additional comments: Patient is lethargic, does not follow commands and does not speak coherently. She moves his limbs spontaneously past midline B/L - Skin Skin Exam: Dry, Normal Color, Warm Results - Vital Signs Recent Vital Signs: Last Vital Signs Temp 97.8 F 05/11/18 06:00 Pulse 99 H 05/11/18 10:05 Resp 20 05/11/18 06:00 BP 124/65 05/11/18 10:05 Pulse Ox 98 05/11/18 06:00 - Labs Result Diagrams: 05/11/18 12:30 05/11/18 12:30 Labs: Laboratory Results - last 24 hr 05/10/18 05/10/18 05/10/18 23:06 23:06 23:06 WBC 7.2 D RBC 3.44 L Hgb 9.2 L D Hct 28.8 L MCV 83.7 D MCH 26.7 MCHC 31.9 RDW 15.7 H Plt Count 215 MPV 11.4 H PT 106.2 H INR 9.57 H* APTT 66.6 H Sodium 130 L Potassium 4.0 Chloride 92 L Carbon Dioxide 19 L Anion Gap 23 H BUN 103 H Creatinine 4.8 H Est GFR ( Amer) 11 Est GFR (Non-Af Amer) 9 POC Glucose (mg/dL) Random Glucose 321 H* D Calcium 9.1 Total Bilirubin 0.9 AST 37 H D ALT 44 Alkaline Phosphatase 99 Lactate Dehydrogenase 751 H Total Creatine Kinase 69 Troponin I < 0.01 NT-Pro-B Natriuret Pep 7960 H Total Protein 7.4 Albumin 4.2 Globulin 3.1 Albumin/Globulin Ratio 1.3 BBK History Checked 05/11/18 05/11/18 05/11/18 08:00 11:02 11:25 WBC RBC Hgb Hct MCV MCH MCHC RDW Plt Count MPV PT INR APTT Sodium Potassium Chloride Carbon Dioxide Anion Gap BUN Creatinine Est GFR ( Amer) Est GFR (Non-Af Amer) POC Glucose (mg/dL) 202 H 213 H Random Glucose Calcium Total Bilirubin AST ALT Alkaline Phosphatase Lactate Dehydrogenase Total Creatine Kinase Troponin I NT-Pro-B Natriuret Pep Total Protein Albumin Globulin Albumin/Globulin Ratio BBK History Checked No verified bt 05/11/18 05/11/18 11:30 12:30 WBC 7.0 RBC 3.25 L Hgb 8.7 L Hct 27.2 L MCV 83.7 MCH 26.8 MCHC 32.0 RDW 15.8 H Plt Count 187 MPV 10.5 PT 127.7 H INR 11.30 H* APTT Sodium Potassium Chloride Carbon Dioxide Anion Gap BUN Creatinine Est GFR ( Amer) Est GFR (Non-Af Amer) POC Glucose (mg/dL) Random Glucose Calcium Total Bilirubin AST ALT Alkaline Phosphatase Lactate Dehydrogenase Total Creatine Kinase Troponin I NT-Pro-B Natriuret Pep Total Protein Albumin Globulin Albumin/Globulin Ratio BBK History Checked Assessment & Plan - Assessment and Plan (Free Text) Assessment: This is a 73 year old female with PMH of CHF (EF 65%), asthma, renal failure, afib on coumadin, hypothyroidism, COPD, Hx of DVT, coagulopathy, and anemia who presented to the hospital for one week history of leg swelling and ICU team was consulted for labored breathing. ABG pending. CXR showed possible free air under diaphragm. Abd xray pending - general surgery on consult. May need hemodialysis. Plan: Neuro: -maintain normothermia -Alet, not oriented to person, place or time. Moving extremities spontaneously past midline Cardio/Heme Hx of afib on coumadin -supratherapeutic INR today -consent for FFP given by son, 2 units FFP ordered -will monitor INR -maintain MAP>65 -will monitor vitals including HR and BP closely -Hemoglobin is 8.7 from 9.2, will monitor -LE dopplers negative B/L for DVT -DVT ppx with SCD Hx of diastolic CHF -BNP elevated on admission -received lasix, did not seem to help with diuresis. Will await hemodialysis recommendations -continue cardizem 180mg PO, coreg 3.125mg PO BID -Cardiology on consult, Dr. Berger Hx of coagulopathy -Heme/onc on consult, Dr. Vela Lungs: Hx of COPD -SaO2 >90% -supplementary O2 PRN -CXR 05/11 showed elevation of both hemidiaphragms, similar to prior. prominent gas filled loops of bowel underneath both hemidiaphragms. Platelike airspace opacity is now seen in the right midlung, most probably atelectasis. -ABG pending -continue melchor arvizu xopenex GI: Free air under diaphragm -Abd flat plate pending -Gen surgery on consult, Dr. Leary -NPO for now -GI prophylaxis Renal: LUI on CKD -nephrology consult, Dr. Allan -BUN/Cr worsened today, may need hemodialysis. Awaiting nephrology recommendations -poor urine output -maintain euvolemia -avoid nephrotoxic agents, hypochloremia -replace electrolytes as needed -Na is 132 from 130 Endo: Hx of DM -continue insulin ACHS, januvia -maintain euglycemia ID: -WBC is WNL today, afebrile Patient seen and case discussed with attending, Dr. Reeves <Shu Reeves - Last Filed: 05/11/18 14:26> Meds - Medications Medications: Current Medications Arformoterol Tartrate (Brovana) 15 mcg IH [id number] [facility] Carvedilol (Coreg) 3.125 mg PO BID [facility] Last Admin: 05/11/18 10:04 Dose: 3.125 mg Diltiazem HCl (Cardizem Cd) 180 mg PO DAILY [facility] Last Admin: 05/11/18 10:05 Dose: 180 mg Insulin Human Regular (Humulin R Low) 0 units SC ACHS [facility]; Protocol Last Admin: 05/11/18 11:37 Dose: Not Given Levalbuterol HCl (Xopenex) 0.63 mg IH [id number] [facility] Last Admin: 05/11/18 14:22 Dose: 0.63 mg Montelukast Sodium (Singulair) 10 mg PO DAILY [facility] Last Admin: 05/11/18 10:05 Dose: 10 mg Pregabalin (Lyrica) 50 mg PO BID [facility] Last Admin: 05/11/18 10:04 Dose: 50 mg Sitagliptin Phosphate (Januvia) 50 mg PO DAILY [facility] Last Admin: 05/11/18 10:04 Dose: 50 mg Results - Vital Signs Recent Vital Signs: Last Vital Signs Temp 97.8 F 05/11/18 06:00 Pulse 99 H 05/11/18 10:05 Resp 20 05/11/18 06:00 BP 124/65 05/11/18 10:05 Pulse Ox 98 05/11/18 06:00 - Labs Result Diagrams: 05/11/18 12:30 05/11/18 12:30 Labs: Laboratory Results - last 24 hr 05/10/18 05/10/18 05/10/18 23:06 23:06 23:06 WBC 7.2 D RBC 3.44 L Hgb 9.2 L D Hct 28.8 L MCV 83.7 D MCH 26.7 MCHC 31.9 RDW 15.7 H Plt Count 215 MPV 11.4 H Neut % (Auto) Lymph % (Auto) [place] % (Auto) Eos % (Auto) Baso % (Auto) Lymph # (Auto) [place] # (Auto) Eos # (Auto) Baso # (Auto) Absolute Neuts (auto) ESR PT 106.2 H INR 9.57 H* APTT 66.6 H pCO2 pO2 HCO3 ABG pH ABG Total CO2 ABG O2 Saturation ABG Base Excess ABG Potassium Glucose Lactate FiO2 Sodium 130 L Potassium 4.0 Chloride 92 L Carbon Dioxide 19 L Anion Gap 23 H BUN 103 H Creatinine 4.8 H Est GFR ( Amer) 11 Est GFR (Non-Af Amer) 9 POC Glucose (mg/dL) Random Glucose 321 H* D Calcium 9.1 Phosphorus Magnesium Total Bilirubin 0.9 AST 37 H D ALT 44 Alkaline Phosphatase 99 Lactate Dehydrogenase 751 H Total Creatine Kinase 69 Troponin I < 0.01 NT-Pro-B Natriuret Pep 7960 H Total Protein 7.4 Albumin 4.2 Globulin 3.1 Albumin/Globulin Ratio 1.3 Arterial Blood Potassium Urine Osmolality Ur Random Sodium Blood Type Blood Type Confirm Antibody Screen BBK History Checked 05/11/18 05/11/18 05/11/18 08:00 11:02 11:25 WBC RBC Hgb Hct MCV MCH MCHC RDW Plt Count MPV Neut % (Auto) Lymph % (Auto) [place] % (Auto) Eos % (Auto) Baso % (Auto) Lymph # (Auto) [place] # (Auto) Eos # (Auto) Baso # (Auto) Absolute Neuts (auto) ESR PT INR APTT pCO2 pO2 HCO3 ABG pH ABG Total CO2 ABG O2 Saturation ABG Base Excess ABG Potassium Glucose Lactate FiO2 Sodium Potassium Chloride Carbon Dioxide Anion Gap BUN Creatinine Est GFR ( Amer) Est GFR (Non-Af Amer) POC Glucose (mg/dL) 202 H 213 H Random Glucose Calcium Phosphorus Magnesium Total Bilirubin AST ALT Alkaline Phosphatase Lactate Dehydrogenase Total Creatine Kinase Troponin I NT-Pro-B Natriuret Pep Total Protein Albumin Globulin Albumin/Globulin Ratio Arterial Blood Potassium Urine Osmolality Ur Random Sodium Blood Type B POSITIVE Blood Type Confirm Antibody Screen Negative BBK History Checked No verified bt 05/11/18 05/11/18 05/11/18 11:30 12:30 12:30 WBC 7.0 RBC 3.25 L Hgb 8.7 L Hct 27.2 L MCV 83.7 MCH 26.8 MCHC 32.0 RDW 15.8 H Plt Count 187 MPV 10.5 Neut % (Auto) 77.4 H Lymph % (Auto) 18.4 L [place] % (Auto) 4.1 Eos % (Auto) 0.0 L Baso % (Auto) 0.1 Lymph # (Auto) 1.3 [place] # (Auto) 0.3 Eos # (Auto) 0.0 Baso # (Auto) 0.01 Absolute Neuts (auto) 5.30 ESR 32 H PT 127.7 H INR 11.30 H* APTT pCO2 pO2 HCO3 ABG pH ABG Total CO2 ABG O2 Saturation ABG Base Excess ABG Potassium Glucose Lactate FiO2 Sodium 132 Potassium 4.2 Chloride 95 L Carbon Dioxide 23 Anion Gap 18 BUN 113 H Creatinine 4.7 H Est GFR ( Amer) 11 Est GFR (Non-Af Amer) 9 POC Glucose (mg/dL) Random Glucose 211 H Calcium 9.0 Phosphorus 6.0 H Magnesium 2.5 H Total Bilirubin 0.8 AST 34 ALT 35 Alkaline Phosphatase 90 Lactate Dehydrogenase Total Creatine Kinase Troponin I NT-Pro-B Natriuret Pep Total Protein 6.6 Albumin 3.7 Globulin 2.9 Albumin/Globulin Ratio 1.3 Arterial Blood Potassium Urine Osmolality Ur Random Sodium Blood Type Blood Type Confirm Antibody Screen BBK History Checked 05/11/18 05/11/18 05/11/18 13:00 13:49 13:49 WBC RBC Hgb Hct MCV MCH MCHC RDW Plt Count MPV Neut % (Auto) Lymph % (Auto) [place] % (Auto) Eos % (Auto) Baso % (Auto) Lymph # (Auto) [place] # (Auto) Eos # (Auto) Baso # (Auto) Absolute Neuts (auto) ESR PT INR APTT pCO2 pO2 HCO3 ABG pH ABG Total CO2 ABG O2 Saturation ABG Base Excess ABG Potassium Glucose Lactate FiO2 Sodium Potassium Chloride Carbon Dioxide Anion Gap BUN Creatinine Est GFR ( Amer) Est GFR (Non-Af Amer) POC Glucose (mg/dL) Random Glucose Calcium Phosphorus Magnesium Total Bilirubin AST ALT Alkaline Phosphatase Lactate Dehydrogenase Total Creatine Kinase Troponin I NT-Pro-B Natriuret Pep Total Protein Albumin Globulin Albumin/Globulin Ratio Arterial Blood Potassium Urine Osmolality 340 Ur Random Sodium < 5 Blood Type Blood Type Confirm B POSITIVE Antibody Screen BBK History Checked 05/11/18 13:55 WBC RBC Hgb Hct MCV MCH MCHC RDW Plt Count MPV Neut % (Auto) Lymph % (Auto) [place] % (Auto) Eos % (Auto) Baso % (Auto) Lymph # (Auto) [place] # (Auto) Eos # (Auto) Baso # (Auto) Absolute Neuts (auto) ESR PT INR APTT pCO2 39 pO2 74.0 L HCO3 22.5 ABG pH 7.37 ABG Total CO2 23.7 ABG O2 Saturation 96.9 ABG Base Excess -2.5 L ABG Potassium 3.9 Glucose 205 H Lactate 1.0 FiO2 32.0 Sodium 132.0 Potassium Chloride 98.0 Carbon Dioxide Anion Gap BUN Creatinine Est GFR ( Amer) Est GFR (Non-Af Amer) POC Glucose (mg/dL) Random Glucose Calcium Phosphorus Magnesium Total Bilirubin AST ALT Alkaline Phosphatase Lactate Dehydrogenase Total Creatine Kinase Troponin I NT-Pro-B Natriuret Pep Total Protein Albumin Globulin Albumin/Globulin Ratio Arterial Blood Potassium 3.9 Urine Osmolality Ur Random Sodium Blood Type Blood Type Confirm Antibody Screen BBK History Checked Addendum Addendum: 05/11/18 14:23 MICU Attending Addendum Patient seen and examined w/housestaff. Agree with nte above with the following add/exceptions: 73 F with PMH of CHF (EF 65%), asthma, renal failure, afib on coumadin, hypothyroidism, COPD, Hx of DVT admited yesteday night wit leg swelling now f ound to be in worsening renal failure, anuric, supratherpeutic INR and SOB. Unclear why her real function is worse but I question her ability to take in adequate nutrition given her bowel findings on XR. Her CXR does not look as fluid overloaded as I would expect as her BNP is slightly lower than 3 weeks ago. She may need a fluid challenge but will await nephro input. Overall her renal dysfuction needs to be addressed as she may require dialysis. Awaiting nephro consult to given recs on HD then patient will need temp HD catherter. INR supra therpeutic and will need to be decreased as well to safely insert if needed. -2 units FFP and repeat INR Her SOB is likely mechanical from her bowels pushing up on her diaphrams restricting her lungs. Does not look fluid overloaded on film lesser component of volume. I think it is likely bowel instead of free air noted underneath the right hemidiaphram however abd XR ordered to evaluate and surgery consulted. Transfer to ICU Repeat labs including coags reverse INR f/u nephro recs IR for HD catheter placement if indicated Rest of care as above Shu Reeves MD MICU Attending 05/11/18 14:26
[2018-05-11 12:51] LABS: ALB/GLOB RATIO 1.3 (1.1-1.8); ALBUMIN 3.7 g/dL (3.0-4.8)
[2018-05-11 14:00] LABS: ARTERIAL BLOOD GAS HCO3 22.5 mmol/L (21-28); ARTERIAL BLOOD GAS O2 SAT 96.9 % (95-98); ARTERIAL BLOOD GAS PCO2 39 mm/Hg (35-45); ARTERIAL BLOOD GAS PH 7.37 (7.35-7.45); ARTERIAL BLOOD GAS TCO2 23.7 mmol.L (22-28)
[2018-05-11 14:04] LABS: BASO # 0.01 K/mm3 (0.0-2.0); BASO % 0.1 % (0.0-3.0); LYMPH # 1.3 (1.2-3.4); LYMPH % 18.4 % (22.0-35.0); MONO # 0.3 (0.1-0.6); MONO % 4.1 % (1.0-6.0)
--- NOTE | 2018-05-11 14:16 | CP.PCM.CON ---
<Diana Steinberg - Last Filed: 05/11/18 15:07> History of Present Illness - History of Present Illness History of Present Illness: Resident Consult Note for Surgery: Dr. Leary Patient is a 73 year old female with past medical history CHF, asthma, COPD, afib on coumadin, DVT, hypothyroidism, CKD who was admitted for shortness of breath and bilateral leg swelling which began over a week prior. Patient was noted to be increasingly altered with worsening shortness of breath, renal failure, supratherapeutic INR and was admitted to ICU. Surgery was consulted for evaluation of possible free air under the diaphragm. History was obtained from prior records as patient is a poor historian due to altered mental status. Patient responds to painful stimuli but does not follow verbal commands. PMH: CHF (EF 65%), asthma, COPD, afib on coumadin, DVT, hypothyroidism, CKD PSH: hysterectomy, oophorectomy, bilateral knee arthroscopy, discectomy SHx: lives with son, previous tobacco and alcohol use, denies illicit drug use Allergies: penicillin, pollen PMD: Dr. Duarte Review of Systems - Review of Systems Systems not reviewed;Unavailable: Altered Mental Status Past Patient History - Infectious Disease Hx of Infectious Diseases: None - Tetanus Immunizations Tetanus Immunization: Unknown - Past Social History Smoking Status: Former Smoker - CARDIAC Hx Cardiac Disorders: Yes Hx Hypertension: Yes - PULMONARY Hx Respiratory Disorders: Yes Hx Chronic Obstructive Pulmonary Disease (COPD): Yes - NEUROLOGICAL Hx Neurological Disorder: No - HEENT Hx HEENT Problems: No (WEARS RX GLASSES) - RENAL Hx Renal Failure: Yes (LUI) - ENDOCRINE/METABOLIC Hx Endocrine Disorders: Yes Hx Diabetes Mellitus Type 2: Yes Hx Hypothyroidism: Yes - HEMATOLOGICAL/ONCOLOGICAL Hx Blood Transfusions: No Hx Blood Transfusion Reaction: No - INTEGUMENTARY Hx Dermatological Problems: No Hx Basil Cell: No Other/Comment: SPIDER VEINS MAINLY TO LEFT KNEE AREA - MUSCULOSKELETAL/RHEUMATOLOGICAL Hx Musculoskeletal Disorders: Yes (HERNIATED DISCS) - GASTROINTESTINAL Hx Gastrointestinal Disorders: No - GENITOURINARY/GYNECOLOGICAL Hx Genitourinary Disorders: Yes Other/Comment: HYSTERECTOMY,OOPHORECTOMY - PSYCHIATRIC Hx Emotional Abuse: No Hx Physical Abuse: No Hx Substance Use: No - SURGICAL HISTORY Hx Hysterectomy: Yes Hx Orthopedic Surgery: Yes (BILATERAL KNEE ARTHROSCOPY) Other/Comment: DISKECTOMY,OOPHORECTOMY - ANESTHESIA Hx Anesthesia: Yes Meds Allergies/Adverse Reactions: Allergies Allergy/AdvReac Type Severity Reaction Status Date / Time grass pollen Allergy COUGH Verified 09/15/16 14:54 Penicillins Allergy RASH Verified 10/13/17 06:40 - Medications Medications: Current Medications Arformoterol Tartrate (Brovana) 15 mcg [facility] [id number] [facility] Carvedilol (Coreg) 3.125 mg PO BID [facility] Last Admin: 05/11/18 10:04 Dose: 3.125 mg Diltiazem HCl (Cardizem Cd) 180 mg PO DAILY [facility] Last Admin: 05/11/18 10:05 Dose: 180 mg Insulin Human Regular (Humulin R Low) 0 units SC [facility]; Protocol Last Admin: 05/11/18 11:37 Dose: Not Given Levalbuterol HCl (Xopenex) 0.63 mg IH [id number] [facility] Montelukast Sodium (Singulair) 10 mg PO DAILY [facility] Last Admin: 05/11/18 10:05 Dose: 10 mg Pregabalin (Lyrica) 50 mg PO BID [facility] Last Admin: 05/11/18 10:04 Dose: 50 mg Sitagliptin Phosphate (Januvia) 50 mg PO DAILY [facility] Last Admin: 05/11/18 10:04 Dose: 50 mg Physical Exam - Constitutional Appears: No Acute Distress - Head Exam Head Exam: ATRAUMATIC, NORMOCEPHALIC - Eye Exam Eye Exam: EOMI, Normal appearance - Respiratory Exam Respiratory Exam: NORMAL BREATHING PATTERN. absent: Accessory Muscle Use, Respiratory Distress - Cardiovascular Exam Cardiovascular Exam: REGULAR RHYTHM, +S1, +S2 - GI/Abdominal Exam GI & Abdominal Exam: Distended, Soft, Tenderness. absent: Firm, Guarding, Rebound, Rigid - Extremities Exam Additional comments: +2 pitting edema lower extremities bilaterally - Neurological Exam Additional comments: moves all extremities spontaneously - Skin Skin Exam: Dry, Intact Results - Vital Signs Recent Vital Signs: Last Vital Signs Temp 97.8 F 05/11/18 06:00 Pulse 99 H 05/11/18 10:05 Resp 20 05/11/18 06:00 BP 124/65 05/11/18 10:05 Pulse Ox 98 05/11/18 06:00 - Labs Result Diagrams: 05/11/18 12:30 05/11/18 12:30 Labs: Laboratory Results - last 24 hr 05/10/18 05/10/18 05/10/18 23:06 23:06 23:06 WBC 7.2 D RBC 3.44 L Hgb 9.2 L D Hct 28.8 L MCV 83.7 D MCH 26.7 MCHC 31.9 RDW 15.7 H Plt Count 215 MPV 11.4 H Neut % (Auto) Lymph % (Auto) [place] % (Auto) Eos % (Auto) Baso % (Auto) Lymph # (Auto) [place] # (Auto) Eos # (Auto) Baso # (Auto) Absolute Neuts (auto) ESR PT 106.2 H INR 9.57 H* APTT 66.6 H pCO2 pO2 HCO3 ABG pH ABG Total CO2 ABG O2 Saturation ABG Base Excess ABG Potassium Glucose Lactate FiO2 Sodium 130 L Potassium 4.0 Chloride 92 L Carbon Dioxide 19 L Anion Gap 23 H BUN 103 H Creatinine 4.8 H Est GFR ( Amer) 11 Est GFR (Non-Af Amer) 9 POC Glucose (mg/dL) Random Glucose 321 H* D Calcium 9.1 Phosphorus Magnesium Total Bilirubin 0.9 AST 37 H D ALT 44 Alkaline Phosphatase 99 Lactate Dehydrogenase 751 H Total Creatine Kinase 69 Troponin I < 0.01 NT-Pro-B Natriuret Pep 7960 H Total Protein 7.4 Albumin 4.2 Globulin 3.1 Albumin/Globulin Ratio 1.3 Arterial Blood Potassium Urine Osmolality Blood Type Blood Type Confirm Antibody Screen BBK History Checked 05/11/18 05/11/18 05/11/18 08:00 11:02 11:25 WBC RBC Hgb Hct MCV MCH MCHC RDW Plt Count MPV Neut % (Auto) Lymph % (Auto) [place] % (Auto) Eos % (Auto) Baso % (Auto) Lymph # (Auto) [place] # (Auto) Eos # (Auto) Baso # (Auto) Absolute Neuts (auto) ESR PT INR APTT pCO2 pO2 HCO3 ABG pH ABG Total CO2 ABG O2 Saturation ABG Base Excess ABG Potassium Glucose Lactate FiO2 Sodium Potassium Chloride Carbon Dioxide Anion Gap BUN Creatinine Est GFR ( Amer) Est GFR (Non-Af Amer) POC Glucose (mg/dL) 202 H 213 H Random Glucose Calcium Phosphorus Magnesium Total Bilirubin AST ALT Alkaline Phosphatase Lactate Dehydrogenase Total Creatine Kinase Troponin I NT-Pro-B Natriuret Pep Total Protein Albumin Globulin Albumin/Globulin Ratio Arterial Blood Potassium Urine Osmolality Blood Type B POSITIVE Blood Type Confirm Antibody Screen Negative BBK History Checked No verified bt 05/11/18 05/11/18 05/11/18 11:30 12:30 12:30 WBC 7.0 RBC 3.25 L Hgb 8.7 L Hct 27.2 L MCV 83.7 MCH 26.8 MCHC 32.0 RDW 15.8 H Plt Count 187 MPV 10.5 Neut % (Auto) 77.4 H Lymph % (Auto) 18.[address] [place] % (Auto) 4.1 Eos % (Auto) 0.0 L Baso % (Auto) 0.1 Lymph # (Auto) 1.3 [place] # (Auto) 0.3 Eos # (Auto) 0.0 Baso # (Auto) 0.01 Absolute Neuts (auto) 5.30 ESR 32 H PT 127.7 H INR 11.30 H* APTT pCO2 pO2 HCO3 ABG pH ABG Total CO2 ABG O2 Saturation ABG Base Excess ABG Potassium Glucose Lactate FiO2 Sodium 132 Potassium 4.2 Chloride 95 L Carbon Dioxide 23 Anion Gap 18 BUN 113 H Creatinine 4.7 H Est GFR ( Amer) 11 Est GFR (Non-Af Amer) 9 POC Glucose (mg/dL) Random Glucose 211 H Calcium 9.0 Phosphorus 6.0 H Magnesium 2.5 H Total Bilirubin 0.8 AST 34 ALT 35 Alkaline Phosphatase 90 Lactate Dehydrogenase Total Creatine Kinase Troponin I NT-Pro-B Natriuret Pep Total Protein 6.6 Albumin 3.7 Globulin 2.9 Albumin/Globulin Ratio 1.3 Arterial Blood Potassium Urine Osmolality Blood Type Blood Type Confirm Antibody Screen BBK History Checked 05/11/18 05/11/18 05/11/18 13:00 13:49 13:55 WBC RBC Hgb Hct MCV MCH MCHC RDW Plt Count MPV Neut % (Auto) Lymph % (Auto) [place] % (Auto) Eos % (Auto) Baso % (Auto) Lymph # (Auto) [place] # (Auto) Eos # (Auto) Baso # (Auto) Absolute Neuts (auto) ESR PT INR APTT pCO2 39 pO2 74.0 L HCO3 22.5 ABG pH 7.37 ABG Total CO2 23.7 ABG O2 Saturation 96.9 ABG Base Excess -2.5 L ABG Potassium 3.9 Glucose 205 H Lactate 1.0 FiO2 32.0 Sodium 132.0 Potassium Chloride 98.0 Carbon Dioxide Anion Gap BUN Creatinine Est GFR ( Amer) Est GFR (Non-Af Amer) POC Glucose (mg/dL) Random Glucose Calcium Phosphorus Magnesium Total Bilirubin AST ALT Alkaline Phosphatase Lactate Dehydrogenase Total Creatine Kinase Troponin I NT-Pro-B Natriuret Pep Total Protein Albumin Globulin Albumin/Globulin Ratio Arterial Blood Potassium 3.9 Urine Osmolality 340 Blood Type Blood Type Confirm B POSITIVE Antibody Screen BBK History Checked Assessment & Plan - Assessment and Plan (Free Text) Assessment: Patient is a 73 year old female with past medical history CHF, asthma, COPD, af ib on coumadin, DVT, hypothyroidism, anemia who was admitted for shortness of breath and bilateral leg swelling, now admitted to ICU. Plan: - hemodynamically stable - xray show dilated loops of bowel - followup CT abd pelvis with PO contrast - further management per ICU - further recommendations per Dr. Gibran Steinberg PGY-1 - Date & Time Date: 05/11/18 Time: 14:54 <Jaswant Leary - Last Filed: 05/12/18 11:13> Meds - Medications Medications: Current Medications Albuterol/Ipratropium (Duoneb 3 Mg/0.5 Mg (3 Ml) Ud) 3 ml [facility] [id number] [facility] Last Admin: 05/12/18 08:01 Dose: 3 ml Carvedilol (Coreg) 3.125 mg PO BID [facility] Last Admin: 05/12/18 10:20 Dose: Not Given Diltiazem HCl (Cardizem Cd) 180 mg PO DAILY [facility] Last Admin: 05/12/18 10:17 Dose: Not Given Sodium Chloride (Sodium Chloride 0.45%) 1,000 mls @ 125 mls/hr IV .Q8H [facility] Potassium Chloride (Potassium Chloride 10 Meq/100 Ml) 10 meq in 100 mls @ 50 mls/hr IVPB Q2H [facility] Stop: 05/12/18 13:14 Last Admin: 05/12/18 10:23 Dose: 50 mls/hr Insulin Human Regular (Humulin R Low) 0 units SC [facility]; Protocol Last Admin: 05/12/18 08:21 Dose: Not Given Montelukast Sodium (Singulair) 10 mg PO DAILY [facility] Last Admin: 05/12/18 10:20 Dose: Not Given Pregabalin (Lyrica) 50 mg PO BID [facility] Last Admin: 05/12/18 10:20 Dose: Not Given Sitagliptin Phosphate (Januvia) 50 mg PO DAILY [facility] Last Admin: 05/12/18 10:20 Dose: Not Given Vitamin A (Vitamin A & D Oint Ud Foilpak) 1 ea TOP Q6H PRN PRN Reason: Dry skin Results - Vital Signs Recent Vital Signs: Last Vital Signs Temp 97.6 F 05/12/18 04:00 Pulse 82 05/12/18 10:20 Resp 17 05/12/18 06:40 BP 113/57 L 05/12/18 10:20 Pulse Ox 97 05/12/18 06:40 - Labs Result Diagrams: 05/12/18 05:30 05/12/18 05:30 Labs: Laboratory Results - last 24 hr 05/11/18 05/11/18 05/11/18 11:02 11:25 11:30 WBC RBC Hgb Hct MCV MCH MCHC RDW Plt Count MPV Neut % (Auto) Lymph % (Auto) [place] % (Auto) Eos % (Auto) Baso % (Auto) Lymph # (Auto) [place] # (Auto) Eos # (Auto) Baso # (Auto) Absolute Neuts (auto) ESR PT 127.7 H INR 11.30 H* APTT pCO2 pO2 HCO3 ABG pH ABG Total CO2 ABG O2 Saturation ABG Base Excess ABG Potassium Glucose Lactate FiO2 Sodium Potassium Chloride Carbon Dioxide Anion Gap BUN Creatinine Est GFR ( Amer) Est GFR (Non-Af Amer) POC Glucose (mg/dL) 213 H Random Glucose Lactic Acid Calcium Phosphorus Magnesium Iron TIBC % Saturation Ferritin Total Bilirubin AST ALT Alkaline Phosphatase Total Protein Albumin Globulin Albumin/Globulin Ratio Arterial Blood Potassium Urine Color Urine Appearance Urine pH Ur Specific [place] Urine Protein Urine Glucose (UA) Urine Ketones Urine Blood Urine Nitrate Urine Bilirubin Urine Urobilinogen Ur Leukocyte Esterase Urine Osmolality Ur Random Sodium Stool Occult Blood Blood Type B POSITIVE Blood Type Confirm Antibody Screen Negative Crossmatch See Detail BBK History Checked No verified bt 05/11/18 05/11/18 05/11/18 12:30 12:30 13:00 WBC 7.0 RBC 3.25 L Hgb 8.7 L Hct 27.2 L MCV 83.7 MCH 26.8 MCHC 32.0 RDW 15.8 H Plt Count 187 MPV 10.5 Neut % (Auto) 77.4 H Lymph % (Auto) 18.[address] [place] % (Auto) 4.1 Eos % (Auto) 0.0 L Baso % (Auto) 0.1 Lymph # (Auto) 1.3 [place] # (Auto) 0.3 Eos # (Auto) 0.0 Baso # (Auto) 0.01 Absolute Neuts (auto) 5.30 ESR 32 H PT INR APTT pCO2 pO2 HCO3 ABG pH ABG Total CO2 ABG O2 Saturation ABG Base Excess ABG Potassium Glucose Lactate FiO2 Sodium 132 Potassium 4.2 Chloride 95 L Carbon Dioxide 23 Anion Gap 18 BUN 113 H Creatinine 4.7 H Est GFR ( Amer) 11 Est GFR (Non-Af Amer) 9 POC Glucose (mg/dL) Random Glucose 211 H Lactic Acid Calcium 9.0 Phosphorus 6.0 H Magnesium 2.5 H Iron TIBC % Saturation Ferritin Total Bilirubin 0.8 AST 34 ALT 35 Alkaline Phosphatase 90 Total Protein 6.6 Albumin 3.7 Globulin 2.9 Albumin/Globulin Ratio 1.3 Arterial Blood Potassium Urine Color Urine Appearance Urine pH Ur Specific [place] Urine Protein Urine Glucose (UA) Urine Ketones Urine Blood Urine Nitrate Urine Bilirubin Urine Urobilinogen Ur Leukocyte Esterase Urine Osmolality Ur Random Sodium Stool Occult Blood Blood Type Blood Type Confirm B POSITIVE Antibody Screen Crossmatch BBK History Checked 05/11/18 05/11/18 05/11/18 13:49 13:49 13:55 WBC RBC Hgb Hct MCV MCH MCHC RDW Plt Count MPV Neut % (Auto) Lymph % (Auto) [place] % (Auto) Eos % (Auto) Baso % (Auto) Lymph # (Auto) [place] # (Auto) Eos # (Auto) Baso # (Auto) Absolute Neuts (auto) ESR PT INR APTT pCO2 39 pO2 74.0 L HCO3 22.5 ABG pH 7.37 ABG Total CO2 23.7 ABG O2 Saturation 96.9 ABG Base Excess -2.5 L ABG Potassium 3.9 Glucose 205 H Lactate 1.0 FiO2 32.0 Sodium 132.0 Potassium Chloride 98.0 Carbon Dioxide Anion Gap BUN Creatinine Est GFR ( Amer) Est GFR (Non-Af Amer) POC Glucose (mg/dL) Random Glucose Lactic Acid Calcium Phosphorus Magnesium Iron TIBC % Saturation Ferritin Total Bilirubin AST ALT Alkaline Phosphatase Total Protein Albumin Globulin Albumin/Globulin Ratio Arterial Blood Potassium 3.9 Urine Color Urine Appearance Urine pH Ur Specific [place] Urine Protein Urine Glucose (UA) Urine Ketones Urine Blood Urine Nitrate Urine Bilirubin Urine Urobilinogen Ur Leukocyte Esterase Urine Osmolality 340 Ur Random Sodium < 5 Stool Occult Blood Blood Type Blood Type Confirm Antibody Screen Crossmatch BBK History Checked 05/11/18 05/11/18 05/11/18 14:36 15:00 15:23 WBC RBC Hgb Hct MCV MCH MCHC RDW Plt Count MPV Neut % (Auto) Lymph % (Auto) [place] % (Auto) Eos % (Auto) Baso % (Auto) Lymph # (Auto) [place] # (Auto) Eos # (Auto) Baso # (Auto) Absolute Neuts (auto) ESR PT INR APTT pCO2 pO2 HCO3 ABG pH ABG Total CO2 ABG O2 Saturation ABG Base Excess ABG Potassium Glucose Lactate FiO2 Sodium Potassium Chloride Carbon Dioxide Anion Gap BUN Creatinine Est GFR ( Amer) Est GFR (Non-Af Amer) POC Glucose (mg/dL) Random Glucose Lactic Acid Calcium Phosphorus Magnesium Iron TIBC % Saturation Ferritin 48.1 Total Bilirubin AST ALT Alkaline Phosphatase Total Protein Albumin Globulin Albumin/Globulin Ratio Arterial Blood Potassium Urine Color Yellow Urine Appearance Clear Urine pH 5.5 Ur Specific [place] 1.020 Urine Protein Negative Urine Glucose (UA) Negative Urine Ketones Negative Urine Blood Negative Urine Nitrate Negative Urine Bilirubin Negative Urine Urobilinogen 0.2 Ur Leukocyte Esterase Negative Urine Osmolality Ur Random Sodium Stool Occult Blood Positive H Blood Type Blood Type Confirm Antibody Screen Crossmatch BBK History Checked 05/11/18 05/11/18 05/11/18 16:55 16:55 16:55 WBC 7.0 RBC 3.01 L Hgb 8.1 L Hct 25.1 L MCV 83.4 MCH 26.9 MCHC 32.3 RDW 16.1 H Plt Count 189 MPV 10.6 Neut % (Auto) 77.9 H Lymph % (Auto) 15.[address] [place] % (Auto) 6.6 H Eos % (Auto) 0.0 L Baso % (Auto) 0.0 Lymph # (Auto) 1.[address] [place] # (Auto) 0.5 Eos # (Auto) 0.0 Baso # (Auto) 0.00 Absolute Neuts (auto) 5.41 ESR PT 49.5 H INR 4.46 H* APTT pCO2 pO2 HCO3 ABG pH ABG Total CO2 ABG O2 Saturation ABG Base Excess ABG Potassium Glucose Lactate FiO2 Sodium Potassium Chloride Carbon Dioxide Anion Gap BUN Creatinine Est GFR ( Amer) Est GFR (Non-Af Amer) POC Glucose (mg/dL) Random Glucose Lactic Acid Calcium Phosphorus Magnesium Iron 32 L TIBC 327 % Saturation 10 L Ferritin Total Bilirubin AST ALT Alkaline Phosphatase Total Protein Albumin Globulin Albumin/Globulin Ratio Arterial Blood Potassium Urine Color Urine Appearance Urine pH Ur Specific [place] Urine Protein Urine Glucose (UA) Urine Ketones Urine Blood Urine Nitrate Urine Bilirubin Urine Urobilinogen Ur Leukocyte Esterase Urine Osmolality Ur Random Sodium Stool Occult Blood Blood Type Blood Type Confirm Antibody Screen Crossmatch BBK History Checked 05/11/18 05/11/18 05/11/18 16:55 19:30 19:30 WBC 6.9 RBC 2.89 L Hgb 7.8 L Hct 24.2 L MCV 83.7 MCH 27.0 MCHC 32.2 RDW 16.1 H Plt Count 195 MPV 10.8 Neut % (Auto) 77.8 H Lymph % (Auto) 7.[address] [place] % (Auto) 14.4 H Eos % (Auto) 0.0 L Baso % (Auto) 0.0 Lymph # (Auto) 0.[address] [place] # (Auto) 1.0 H Eos # (Auto) 0.0 Baso # (Auto) 0.00 Absolute Neuts (auto) 5.39 ESR PT INR APTT pCO2 pO2 HCO3 ABG pH ABG Total CO2 ABG O2 Saturation ABG Base Excess ABG Potassium Glucose Lactate FiO2 Sodium 132 Potassium 4.1 Chloride 95 L Carbon Dioxide 23 Anion Gap 17 BUN 113 H Creatinine 4.6 H Est GFR ( Amer) 11 Est GFR (Non-Af Amer) 9 POC Glucose (mg/dL) Random Glucose 206 H Lactic Acid 1.0 Calcium 8.9 Phosphorus Magnesium Iron TIBC % Saturation Ferritin Total Bilirubin 0.9 AST 35 ALT 49 Alkaline Phosphatase 89 Total Protein 6.2 Albumin 3.7 Globulin 2.5 Albumin/Globulin Ratio 1.5 Arterial Blood Potassium Urine Color Urine Appearance Urine pH Ur Specific [place] Urine Protein Urine Glucose (UA) Urine Ketones Urine Blood Urine Nitrate Urine Bilirubin Urine Urobilinogen Ur Leukocyte Esterase Urine Osmolality Ur Random Sodium Stool Occult Blood Blood Type Blood Type Confirm Antibody Screen Crossmatch BBK History Checked 05/11/18 05/11/18 05/12/18 22:00 22:00 05:30 WBC RBC Hgb Hct MCV MCH MCHC RDW Plt Count MPV Neut % (Auto) Lymph % (Auto) [place] % (Auto) Eos % (Auto) Baso % (Auto) Lymph # (Auto) [place] # (Auto) Eos # (Auto) Baso # (Auto) Absolute Neuts (auto) ESR PT 29.6 H INR 2.67 APTT pCO2 pO2 HCO3 ABG pH ABG Total CO2 ABG O2 Saturation ABG Base Excess ABG Potassium Glucose Lactate FiO2 Sodium 136 Potassium 3.4 L Chloride 98 Carbon Dioxide 29 Anion Gap 12 BUN 117 H Creatinine 4.6 H Est GFR ( Amer) 11 Est GFR (Non-Af Amer) 9 POC Glucose (mg/dL) 208 H Random Glucose 143 H Lactic Acid Calcium 8.9 Phosphorus 5.7 H Magnesium 2.6 H Iron TIBC % Saturation Ferritin Total Bilirubin 1.0 AST 43 H D ALT 45 Alkaline Phosphatase 86 Total Protein 6.2 Albumin 3.5 Globulin 2.7 Albumin/Globulin Ratio 1.3 Arterial Blood Potassium Urine Color Urine Appearance Urine pH Ur Specific [place] Urine Protein Urine Glucose (UA) Urine Ketones Urine Blood Urine Nitrate Urine Bilirubin Urine Urobilinogen Ur Leukocyte Esterase Urine Osmolality Ur Random Sodium Stool Occult Blood Blood Type Blood Type Confirm Antibody Screen Crossmatch BBK History Checked 05/12/18 05/12/18 05/12/18 05:30 05:30 08:15 WBC 6.6 RBC 2.80 L Hgb 7.3 L Hct 23.5 L MCV 83.9 MCH 26.1 MCHC 31.1 RDW 16.3 H Plt Count 202 MPV 11.8 H Neut % (Auto) Lymph % (Auto) [place] % (Auto) Eos % (Auto) Baso % (Auto) Lymph # (Auto) [place] # (Auto) Eos # (Auto) Baso # (Auto) Absolute Neuts (auto) ESR PT 28.3 H INR 2.50 APTT 39.4 H pCO2 pO2 HCO3 ABG pH ABG Total CO2 ABG O2 Saturation ABG Base Excess ABG Potassium Glucose Lactate FiO2 Sodium Potassium Chloride Carbon Dioxide Anion Gap BUN Creatinine Est GFR ( Amer) Est GFR (Non-Af Amer) POC Glucose (mg/dL) 170 H Random Glucose Lactic Acid Calcium Phosphorus Magnesium Iron TIBC % Saturation Ferritin Total Bilirubin AST ALT Alkaline Phosphatase Total Protein Albumin Globulin Albumin/Globulin Ratio Arterial Blood Potassium Urine Color Urine Appearance Urine pH Ur Specific [place] Urine Protein Urine Glucose (UA) Urine Ketones Urine Blood Urine Nitrate Urine Bilirubin Urine Urobilinogen Ur Leukocyte Esterase Urine Osmolality Ur Random Sodium Stool Occult Blood Blood Type Blood Type Confirm Antibody Screen Crossmatch BBK History Checked Assessment & Plan - Assessment and Plan (Free Text) Plan: Dx Overanticoagulated/Chr Renal FAILURE/CHF/R/O PERF COLON Needs FFP/NGT-NPO/CT r/o freeair(Neg 05/11/2018) No surgery recommended -? dialysis catheter needed This consult done under my direct supervisirvingon Felice Leary MD FACS
[2018-05-11] MEDS: Levalbuterol 0.63 MG/3 ML Inhal Soln UD IH SCH ×2 (14:22→19:40)
[2018-05-11] MEDS ORDERED: Sodium Chloride 0.9% 500 ML IV STA (14:35)
[2018-05-11] MEDS ORDERED: Barium Sulfate Susp 2.1% w/v, 2.0% w/w 450 mL Bottle PO ONE (14:36)
[2018-05-11] MEDS ORDERED: Darbepoetin Alfa 100 mcg/ml Inj SC ONE (15:20)
[2018-05-11 15:30] LABS: PH,URINE 5.5 (4.7-8.0); URINE BILIRUBIN NEGATIVE (NEGATIVE); URINE BLOOD NEGATIVE (NEGATIVE); URINE GLUCOSE (UA) NEGATIVE (NEGATIVE); URINE LEUKOCYTE ESTERASE NEGATIVE Leu/uL (NEGATIVE); URINE PROTEIN NEGATIVE mg/dL (<30 mg/dL); URINE UROBILINOGEN 0.2 E.U./dL (<1 E.U./dL)
[2018-05-11 15:33] LABS: URINE APPEARANCE CLEAR (CLEAR); URINE COLOR YELLOW (YELLOW)
--- NOTE | 2018-05-11 16:25 | RAD ---
Date of service: 05/11/2018 HISTORY: ? loops of large bowel ? ileus COMPARISON: With the chest radiograph obtained earlier same day FINDINGS: BOWEL: Distended air-filled loops of large and to a lesser degree small bowel however no evidence of free intraperitoneal air. BONES: Normal. OTHER FINDINGS: None. IMPRESSION: Distended air-filled loops of large and to a lesser degree small bowel however no evidence of free intraperitoneal air
[2018-05-11 17:08] LABS: HEMOGLOBIN 8.1 g/dL (12.0-16.0); LYMPH # 1.1 (1.2-3.4); LYMPH % 15.5 % (22.0-35.0); MEAN CELL VOLUME 83.4 fl (80.0-105.0); MEAN CORPUSCULAR HEMOGLOBIN 26.9 pg (25.0-35.0); MEAN CORPUSCULAR HGB CONC 32.3 g/dl (31.0-37.0); MEAN PLATELET VOLUME 10.6 fl (7.0-11.0); MONO # 0.5 (0.1-0.6); MONO % 6.6 % (1.0-6.0); RBC 3.01 10^6/uL (3.5-6.1); RED CELL DISTRIBUTION WIDTH 16.1 % (11.5-14.5)
[2018-05-11] MEDS ORDERED: Phytonadione 10 mg/ml Inj (Adult) SC ONE (17:10)
--- NOTE | 2018-05-11 17:11 | CT ---
Date of service: 05/11/2018 PROCEDURE: CT Abdomen and Pelvis. HISTORY: Abdominal pain; questionable free air COMPARISON: Comparison made with plain film radiographs of the abdomen obtained earlier same day TECHNIQUE: Contiguous axial images of the abdomen and pelvis. Oral contrast was administered. No IV contrast given. Coronal and Sagittal reformats generated. Radiation dose: Total exam DLP = 1337.97 mGy-cm. This CT exam was performed using one or more of the following dose reduction techniques: Automated exposure control, adjustment of the mA and/or kV according to patient size, and/or use of iterative reconstruction technique. FINDINGS: This examination is limited due to the lack of oral and intravenous contrast material. Study is further limited by streak and beam hardening artifact arising from the lower extremities which have not been moved from the field of view and motion artifact. LOWER THORAX: Study is further there are patchy bilateral ground-glass opacities seen upper and lower lobes bilaterally. Additionally, more dense atelectatic changes with air bronchograms seen in both lung bases right greater than left. Heart size is borderline/mildly enlarged. No significant pericardial effusion. Ascending thoracic aorta measures approximately 3.0 cm and descending thoracic aorta measures approximately 2.45 cm. Pulmonary trunk is dilated measuring nearly 3.6 cm; rule out underlying pulmonary arterial hypertension. The trachea is midline and patent with no large central endoluminal lesions. There is in situ and T2 with tip in the gastric lumen. LIVER: Liver exhibits normal size and attenuation pattern without mass collection or calcification.. No evidence of pneumobilia or portal venous air GALLBLADDER AND BILE DUCTS: Gallbladder is physiologically distended. No evidence of intraluminal gallbladder calculi. PANCREAS: Pancreas is poorly seen due to aforementioned technical factors SPLEEN: Spleen is diminutive in size. ADRENALS: No gross adrenal masses KIDNEYS AND URETERS: Kidneys demonstrate relatively symmetric size. No evidence of nephrolithiasis hydronephrosis. BLADDER: The urinary bladder is collapsed about an in situ unclamped Molina catheter which in part accounts for thick-walled appearance. There is small amount of air present within the urinary bladder felt to be due to recent instrumentation. Note that the possibility of concomitant cystitis not excluded. Clinical correlation recommended. REPRODUCTIVE: Hysterectomy. APPENDIX: Appendix is not seen with complete certainty on this study BOWEL: Evaluation of the bowel is limited due to the lack of oral contrast material. Stomach contains debris liquid and air. Multiple distended fluid-filled loops of small bowel present consistent with ileus. The right colon is distended with air and fluid with adherent stool about the periphery. Findings are not felt to represent pneumatosis coli. Distended air-filled transverse and proximal descending colon present. PERITONEUM: Unremarkable. No fluid collection. No free air. LYMPH NODES: Unremarkable. No enlarged lymph nodes. VASCULATURE: Unremarkable. No aortic aneurysm. Minor aortic atherosclerotic calcification or mural plaque present. BONES: Mild multilevel degenerative spondylosis of the thoracic and lumbar spine. Very slight anterior subluxation L4 over L5. OTHER FINDINGS: None. IMPRESSION: Limited study as described. There is a distended air-filled right colon containing air and fluid with peripheral adherent stool along the huffman. Findings are not felt to represent pneumatosis coli. No evidence of portal venous air The transverse and proximal descending colon are also distended with air. Multiple mildly distended fluid-filled loops of small bowel present suggesting ileus. There are patchy ground-glass opacities seen throughout the upper and lower lobes. More dense consolidation/atelectatic changes present both lung bases left larger than right. Dilated pulmonary trunk; rule out underlying pulmonary arterial hypertension.
[2018-05-11 17:35] LABS: PROTHROMBIN TIME 49.5 SECONDS (9.4-12.5)
[2018-05-11 17:39] LABS: INR 4.46
[2018-05-11 18:01] LABS: IRON 32 ug/dL (45-180)
[2018-05-11 18:06] LABS: ALB/GLOB RATIO 1.5 (1.1-1.8); ALBUMIN 3.7 g/dL (3.0-4.8); CALCIUM 8.9 mg/dL (8.4-10.5)
[2018-05-11 18:10] LABS: % IRON SATURATION 10 % (20-55); TOTAL IRON BINDING CAPACITY 327 ug/dL (265-497)
--- NOTE | 2018-05-11 18:10 | CP.PCM.PCO ---
Physician Communication Note - Physician Communication Note Physician Communication Note: Severe renal failure(needs Dialysis)/No surgery needed now
[2018-05-11] MEDS ORDERED: Lactated Ringer's 1,000 ML IV SCH (19:00)
[2018-05-11] MEDS: Arformoterol 15 mcg/2 ml Inh Sol IH SCH (19:39)
[2018-05-11 19:44] LABS: HEMOGLOBIN 7.8 g/dL (12.0-16.0); LYMPH # 0.5 (1.2-3.4); LYMPH % 7.8 % (22.0-35.0); MEAN CELL VOLUME 83.7 fl (80.0-105.0); MEAN CORPUSCULAR HGB CONC 32.2 g/dl (31.0-37.0); MEAN PLATELET VOLUME 10.8 fl (7.0-11.0); MONO % 14.4 % (1.0-6.0); RBC 2.89 10^6/uL (3.5-6.1); RED CELL DISTRIBUTION WIDTH 16.1 % (11.5-14.5); WHITE BLOOD COUNT 6.9 10^3/uL (4.5-11.0)
--- NOTE | 2018-05-11 20:46 | HP ---
DATE OF EXAM: 05/11/2018 HISTORY OF PRESENT ILLNESS: The patient is a 73-year-old black female who was brought to emergency room because of confusion and because of increasing shortness of breath. The patient was recently admitted, had CHF, was diuresed, and also was found to have bronchitis, so she was given antibiotics. Since her discharge on 04/16/2018, she has been well, but she was brought in after family called ambulance because of increasing confusion and shortness of breath. They also noted her legs have been swollen. No history of fever or chills noted at home. Upon examination, the patient seems to be somewhat confused. PAST MEDICAL HISTORY: Significant for: 1. Hypertension. 2. Congestive heart failure. 3. History of COPD. 4. Hypothyroidism. 5. Ndw-iitifyk-pliikjfjg diabetes. 6. Chronic kidney disease. 7. History of DVT. 8. History of cavernous sinus thrombosis and coagulopathy. ALLERGIES: SHE IS ALLERGIC TO , POLLEN, AND PENICILLIN. MEDICATIONS AT HOME: She is on: 1. Prevacid 30 mg daily. 2. Coumadin 9 mg daily. 3. Singulair 10 mg daily. 4. Cardizem 180 daily. 5. Zocor 40 mg daily. 6. Januvia 50 mg daily. 7. Lyrica 50 mg twice a day. 8. Prednisone 20 mg daily for five days was given. 9. Lasix 40 twice a day. 10. Uloric 40 mg daily. 11. Carvedilol 10 mg daily. SOCIAL HISTORY: She lives with her and used to be heavy smoker in the past. PHYSICAL EXAMINATION: GENERAL: She seem to be confused and short of breath. VITAL SIGNS: She is afebrile, pulse 77, respirations 20, and blood pressure 124/65. LUNGS: Bilateral decreased breath sounds at bases. HEART: S1 and S2 audible. ABDOMEN: Soft and nontender. No rebound. No guarding. NEUROLOGIC: The patient is confused, disoriented, and agitated. EXTREMITIES: Bilateral leg +2 edema. LABORATORY DATA: WBC 7.2, hemoglobin 9.2, hematocrit 28.8, and platelet 215. PT 106 and INR 9.57. Chemistry; sodium 130, potassium 4, chloride 92, CO2 of 19, BUN 103, creatinine 4.8, and blood sugar of 321. BNP 7960. X-ray of chest shows compressive atelectasis in both lung markedly distended air-filled bowel, questionable free intraperitoneal air in the diaphragm versus bowel related artifact. ASSESSMENT: 1. Congestive heart failure exacerbation, altered mental status secondary to acute renal failure especially free air in the diaphragm. 2. Coagulopathy. 3. Hxc-kblyahu-punceidcv diabetes. PLAN: Currently, the patient is on nebulizer treatment. She is being given FFP. She is being transferred to ICU and monitor her blood sugar. Consult surgical team to evaluate for questionable visceral perforation. We will monitor her electrolyte, blood sugar, and followup. Delta Duarte MD
--- NOTE | 2018-05-11 20:57 | US ---
HISTORY: Leg pain and swelling. Evaluate for DVT PHYSICIAN(S): Joseph Espinoza MD. TECHNIQUE: Duplex sonography and color-flow Doppler with graded compression were used to evaluate the deep venous systems of both lower extremities. The exam is somewhat limited by body habitus and edema FINDINGS: The visualized deep venous systems of both lower extremities are sonographically normal and compressible. Normal wave forms and augmentation are seen. There is no sonographic evidence for deep venous thrombosis in the visualized segments of both lower extremities. IMPRESSION: No sonographic evidence for deep venous thrombosis in the visualized segments of both lower extremities.
[2018-05-11 22:20] LABS: INR 2.67; PROTHROMBIN TIME 29.6 SECONDS (9.4-12.5)
[2018-05-12] MEDS: Levalbuterol 0.63 MG/3 ML Inhal Soln UD IH SCH (01:27)
[2018-05-12 06:05] LABS: ALB/GLOB RATIO 1.3 (1.1-1.8); ALBUMIN 3.5 g/dL (3.0-4.8); CALCIUM 8.9 mg/dL (8.4-10.5)
[2018-05-12 06:15] LABS: INR 2.5; PARTIAL THROMBOPLASTIN TIME 39.4 Seconds (26.9-38.3); PROTHROMBIN TIME 28.3 SECONDS (9.4-12.5)
[2018-05-12 07:24] LABS: HEMOGLOBIN 7.3 g/dL (12.0-16.0); MEAN CELL VOLUME 83.9 fl (80.0-105.0); MEAN CORPUSCULAR HEMOGLOBIN 26.1 pg (25.0-35.0); MEAN CORPUSCULAR HGB CONC 31.1 g/dl (31.0-37.0); MEAN PLATELET VOLUME 11.8 fl (7.0-11.0); RBC 2.8 10^6/uL (3.5-6.1); RED CELL DISTRIBUTION WIDTH 16.3 % (11.5-14.5); WHITE BLOOD COUNT 6.6 10^3/uL (4.5-11.0)
[2018-05-12] MEDS: Arformoterol 15 mcg/2 ml Inh Sol IH SCH (08:01)
[2018-05-12] MEDS: Albuterol-Ipratrop 3 mg / 0.5 (3 ml) UD IH SCH ×2 (08:01→13:43)
[2018-05-12] MEDS: Insulin Reg-LOW-Coverage SC SCH ×4 (08:21→22:25)
--- NOTE | 2018-05-12 08:27 | CP.PCM.PCO ---
Physician Communication Note - Physician Communication Note Physician Communication Note: Needs Dialysis catheter/More FFP/.PRBC?
--- NOTE | 2018-05-12 09:04 | PN ---
DATE: 05/12/2018 SUBJECTIVE: The patient is currently seen in ICU bed 6. She is not responding to verbal communication. She does remain comfortable. She has an NG tube in place. She is having diarrhea. Her stools have been quite positive. She has had received 4 units of FFP for correction of her coagulopathy. She has red blood cells available for transfusion as necessary. The patient is mildly hypokalemic this morning, she is not acidotic. Her BUN and creatinine are two times her baseline levels. MEDICATIONS: Medication list reviewed. The patient is currently on Brovana, Cardizem, Coreg, DuoNeb, sliding scale insulin, Januvia, Lyrica, and Singulair. The patient received IV Lasix yesterday x1 dose. She had received Aranesp yesterday 100 mcg. Her iron saturations are low at 10%. OBJECTIVE: INTAKE AND OUTPUT. Intake 1409, output 1950. VITAL SIGNS: Blood pressure is 118/58 with a pulse of 91, respiratory rate of 17, pulse ox of 97% on 2 liters of oxygen. HEENT: Shows her eyes to be closed. NG tube is in place. NECK: Supple. No neck vein distention. CHEST: Scattered rhonchi bilaterally. No rales or wheezing. CARDIOVASCULAR: Shows a regular rate and rhythm with no S3, no S4, no rub. Positive AI/MR/TR. ABDOMEN: Soft. Bowel sounds normal. No rebound, guarding, or masses. BACK: No CVAT. No spinal tenderness. EXTREMITIES: Show trace to 1+ pitting lower extremity edema. No cyanosis or clubbing. Diminished lower extremity pulses bilaterally. NEUROLOGIC: Difficult to assess as the patient's eyes are closed and she is unresponsive to verbal stimuli. LABORATORY DATA AND IMAGING STUDIES: Admitting chest x-ray showed no acute pulmonary disease. Admitting abdominal CT scan show no abnormalities with the kidneys positive ileus. Labs; CBC, white blood cell count 6.6, hemoglobin is down from 9.2-7.3. The patient should be transfused appropriately. Platelet count is 202,000. Coags; INR was 9.57 on admission, it is currently 2.5, status post FFP and Vitamin K. Blood gas yesterday showed a pH of 7.37 with a pO2 of 74 and pCO2 of 39. Chemistries; potassium this morning is 3.4. This should be supplemented. BUN 170 with a creatinine of 4.6. This is similar to yesterday's values and as twice her baseline. Glucose 170. Lactic acid 1.0. Iron saturations were 10%. Calcium 8.9 with a phosphorus of 5.7, magnesium of 2.6. Mild elevation of her AST of 43. Albumin level is 3.5. Urine showed a fractional excretion of sodium of less than 1% with a urine sodium of less than 5 indicative of renal hypoperfusion. Stool occult blood is positive. Microbiology, no cultures available for comment. Urine eosinophil stain is pending. ASSESSMENT: 1. Acute renal failure superimposed on chronic kidney disease stage IV. This is in the setting of gastrointestinal bleed and renal hypoperfusion. Patient's fractional excretion of sodium was less than 1%. It is unlikely that she has acute interstitial nephritis and there is no evidence for obstructive uropathy. The patient received one dose of IV Lasix yesterday with excellent urine output. The patient should be started on IV fluid hydration cautiously. Her echocardiogram from previous time showed an ejection fraction of 52% with septal hypokinesis. She should be able to tolerate IV fluid hydration. 2. History of hypertension. Blood pressure is in the low normal range. The patient is currently on Cardizem and Coreg. 3. History of hypothyroidism. Check her T4 and TSH. 4. Gastrointestinal bleed. Ileus seen on CT scan. Positive diarrhea. Stool for Clostridium difficile is pending. Suggest gastrointestinal evaluation. 5. History of non-insulin dependent diabetes mellitus. The patient remains on oral agents and sliding scale insulin. 6. History of deep venous thrombosis with cavernous sinus thrombosis and a coagulopathy. With FFP her coagulopathy has improved. 7. History of mild to moderate pulmonary hypertension appears to be stable. History of chronic obstructive pulmonary disease appears to be stable on inhalation therapy. 8. Mild hypokalemia suggest cautiously supplementing potassium. 9. Elevated phosphorus level secondary to acute renal failure. Once the patient starts a diet binder therapy should be started. PLAN: 1. Discussed with ICU, house staff, and nursing staff. No plans for any dialysis today. The patient should cautiously be started on IV fluid hydration. The patient should receive blood transfusions to keep her hemoglobin in the 9-10 range, as she is having GI bleeding. Iron supplements may be started afterwards. 2. In light of her hypothyroidism, check her thyroid levels. 3. Await urine Lucius stain, but this is likely not to be positive as the patient has no white blood cells in her urine. 4. We would hold further Lasix therapy at this point in time though she does have mild lower extremity edema. 5. If the patient's BUN and creatinine continue to rise and she does not respond to conservative therapy, dialysis can be considered. Greater than 35 minutes spent in the care of this patient. Usman Bates MD
--- NOTE | 2018-05-12 09:06 | CP.PCM.PN ---
Subjective - Date & Time of Evaluation Date of Evaluation: 05/12/18 Time of Evaluation: 09:04 - Subjective Subjective: Surgery PT seen and examined. No acute events. FOBT showed occult blood. Per nursing had regular BM. NGT in place: gastric contents. Objective - Vital Signs/Intake and Output Vital Signs (last 24 hours): Temp Pulse Resp BP Pulse Ox 97.6 F 91 H 17 118/58 L 97 05/12/18 04:00 05/12/18 06:40 05/12/18 06:40 05/12/18 06:00 05/12/18 06:40 Intake and Output: 05/12/18 05/12/18 06:59 18:59 Intake Total 609 Output Total 1150 Balance -541 - Medications Medications: Current Medications Albuterol/Ipratropium (Duoneb 3 Mg/0.5 Mg (3 Ml) Ud) 3 ml IH [id number] [facility] Last Admin: 05/12/18 08:01 Dose: 3 ml Carvedilol (Coreg) 3.125 mg PO BID [facility] Last Admin: 05/11/18 10:04 Dose: 3.125 mg Diltiazem HCl (Cardizem Cd) 180 mg PO DAILY [facility] Last Admin: 05/11/18 10:05 Dose: 180 mg Sodium Chloride (Sodium Chloride 0.45%) 1,000 mls @ 125 mls/hr IV .Q8H [facility] Potassium Chloride (Potassium Chloride 10 Meq/100 Ml) 10 meq in 100 mls @ 50 mls/hr IVPB Q2H [facility] Stop: 05/12/18 13:14 Insulin Human Regular (Humulin R Low) 0 units SC [facility]; Protocol Last Admin: 05/12/18 08:21 Dose: Not Given Montelukast Sodium (Singulair) 10 mg PO DAILY [facility] Last Admin: 05/11/18 10:05 Dose: 10 mg Pregabalin (Lyrica) 50 mg PO BID [facility] Last Admin: 05/11/18 10:04 Dose: 50 mg Sitagliptin Phosphate (Januvia) 50 mg PO DAILY [facility] Last Admin: 05/11/18 10:04 Dose: 50 mg - Labs Labs: 05/12/18 05:30 05/12/18 05:30 PT 28.3 SECONDS (9.4-12.5) H 05/12/18 05:30 INR 2.50 05/12/18 05:30 APTT 39.4 Seconds (26.9-38.3) H 05/12/18 05:30 - Constitutional Appears: Non-toxic - Head Exam Head Exam: ATRAUMATIC, NORMAL INSPECTION, NORMOCEPHALIC - Eye Exam Eye Exam: EOMI, Normal appearance, PERRL Pupil Exam: NORMAL ACCOMODATION, PERRL - ENT Exam ENT Exam: Mucous Membranes Moist, Normal Exam - Neck Exam Neck Exam: Normal Inspection - Respiratory Exam Respiratory Exam: NORMAL BREATHING PATTERN - Cardiovascular Exam Cardiovascular Exam: Irregular Rhythm. absent: Tachycardia - GI/Abdominal Exam GI & Abdominal Exam: Soft, Tenderness. absent: Distended, Firm, Guarding, Rigid, Hernia Additional comments: R abd TTP - Exam Exam: NORMAL INSPECTION - Extremities Exam Extremities Exam: Normal Inspection - Back Exam Back Exam: NORMAL INSPECTION - Neurological Exam Neurological Exam: Awake - Psychiatric Exam Psychiatric exam: Normal Mood - Skin Skin Exam: Dry, Intact, Normal Color, Warm Assessment and Plan - Assessment and Plan (Free Text) Assessment: Patient is a 73 year old female with past medical history CHF, asthma, COPD, afib on coumadin, DVT, hypothyroidism, anemia who was admitted for AMS, shortness of breath and bilateral leg swelling, now admitted to ICU. Abd pain possibly 2/2 mesenteric ischemia w h/o Afib - xray show dilated loops of bowel -CT shows possible ileus , no free air , Possible pneumatosis coli but difficult to see bc non contrast study. With h/o COPD pneumatosis coli is not uncommon finding. -Lactate 1 Acute Anemia FOBT + INR 11--> 2.5 s/p 4 FFP and Vit K Acute on chronic kidney disease Cr 4.5 hemodynamically stable Plan: -Will likely need HD -Will place HD catheter when INR below 2 -Transfuse PRN -CTA A/P w PO contrast would be helpful to r/o mesenteric ischemia, however with LUI, recommend pre-hydrtion and getting HD immediately after IV contrast administration. - further management per ICU - further recommendations per Dr. Leary
[2018-05-12] MEDS: diltiaZEM 180 mg/24 Hours CD Cap PO SCH (10:17)
[2018-05-12] MEDS ORDERED: Vitamins A & D Oint UD Foilpak TOP PRN ×2 (10:30→10:37)
[2018-05-12] MEDS ORDERED: Sodium Chloride 0.45% 1,000 ML IV SCH ×2 (11:00→13:02)
[2018-05-12 11:43] LABS: ARTERIAL BLOOD GAS HCO3 26.6 mmol/L (21-28); ARTERIAL BLOOD GAS O2 SAT 91.2 % (95-98); ARTERIAL BLOOD GAS PCO2 42 mm/Hg (35-45); ARTERIAL BLOOD GAS PH 7.41 (7.35-7.45); ARTERIAL BLOOD GAS TCO2 27.9 mmol.L (22-28)
[2018-05-12] MEDS ORDERED: Vancomycin 2 GM in Sodium Chloride 0.9% 500 ML IVPB ONE (12:58)
[2018-05-12 13:05] LABS: HEMOGLOBIN 8.7 g/dL (12.0-16.0); MEAN CELL VOLUME 84.7 fl (80.0-105.0); MEAN CORPUSCULAR HEMOGLOBIN 26.7 pg (25.0-35.0); MEAN CORPUSCULAR HGB CONC 31.5 g/dl (31.0-37.0); MEAN PLATELET VOLUME 11.2 fl (7.0-11.0); RBC 3.26 10^6/uL (3.5-6.1); RED CELL DISTRIBUTION WIDTH 16.1 % (11.5-14.5); WHITE BLOOD COUNT 6.9 10^3/uL (4.5-11.0)
[2018-05-12] MEDS ORDERED: Aztreonam 1 Gm in NS 100mL 100 ML IVPB SCH (14:00)
[2018-05-12] MEDS: metroNIDAZOLE IV 500 mg/100 ml 500 MG/100 ML BAG IVPB SCH ×2 (14:17→22:23)
--- NOTE | 2018-05-12 14:24 | CP.PCM.PN ---
Subjective - Date & Time of Evaluation Date of Evaluation: 05/12/18 Time of Evaluation: 08:45 - Subjective Subjective: Patient seen and examined, remains lethargic. Objective - Vital Signs/Intake and Output Vital Signs (last 24 hours): Temp Pulse Resp BP Pulse Ox 97.5 F L 94 H 14 118/55 L 97 05/12/18 12:00 05/12/18 13:40 05/12/18 13:40 05/12/18 13:30 05/12/18 13:40 Intake and Output: 05/12/18 05/12/18 06:59 18:59 Intake Total 609 Output Total 1150 Balance -541 - Medications Medications: Current Medications Albuterol/Ipratropium (Duoneb 3 Mg/0.5 Mg (3 Ml) Ud) 3 ml IH [id number] [facility] Last Admin: 05/12/18 13:43 Dose: 3 ml Carvedilol (Coreg) 3.125 mg PO BID [facility] Last Admin: 05/12/18 10:20 Dose: Not Given Diltiazem HCl (Cardizem Cd) 180 mg PO DAILY [facility] Last Admin: 05/12/18 10:17 Dose: Not Given Aztreonam (Azactam 1 Gm) 100 mls @ 100 mls/hr IVPB Q12 [facility]; Protocol Stop: 05/19/18 22:01 Metronidazole (Flagyl) 500 mg in 100 mls @ 100 mls/hr IVPB Q8 [facility]; Protocol Vancomycin HCl 2 gm/ Sodium (Chloride) 500 mls @ 170 mls/hr IVPB ONCE ONE; Protocol Stop: 05/12/18 15:54 Sodium Chloride (Sodium Chloride 0.45%) 1,000 mls @ 60 mls/hr IV .[id number] [facility] Insulin Human Regular (Humulin R Low) 0 units SC ACHS [facility]; Protocol Last Admin: 05/12/18 13:10 Dose: Not Given Montelukast Sodium (Singulair) 10 mg PO DAILY [facility] Last Admin: 05/12/18 10:20 Dose: Not Given Pantoprazole Sodium (Protonix Inj) 40 mg IVP Q12 [facility] Pregabalin (Lyrica) 50 mg PO BID [facility] Last Admin: 05/12/18 10:20 Dose: Not Given Sitagliptin Phosphate (Januvia) 50 mg PO DAILY [facility] Last Admin: 05/12/18 10:20 Dose: Not Given Vitamin A (Vitamin A & D Oint Ud Foilpak) 1 ea TOP Q6H PRN PRN Reason: Dry skin - Labs Labs: 05/12/18 12:30 05/12/18 05:30 PT 28.3 SECONDS (9.4-12.5) H 05/12/18 05:30 INR 2.50 05/12/18 05:30 APTT 39.4 Seconds (26.9-38.3) H 05/12/18 05:30 - Constitutional Appears: Toxic, No Acute Distress, Older Than Stated Age, Chronically Ill - Head Exam Head Exam: NORMAL INSPECTION - Eye Exam Eye Exam: Normal appearance - Respiratory Exam Respiratory Exam: Clear to Ausculation Bilateral, NORMAL BREATHING PATTERN - Cardiovascular Exam Cardiovascular Exam: REGULAR RHYTHM, +S1, +S2 - GI/Abdominal Exam GI & Abdominal Exam: Soft, Normal Bowel Sounds - Extremities Exam Extremities Exam: Pedal Edema - Neurological Exam Neurological Exam: Altered - Skin Skin Exam: Normal Color, Warm Assessment and Plan - Assessment and Plan (Free Text) Assessment: Patient is 73yo female with PMHx CHF (EF 65%) , asthma, renal failure, afib on coumadin, hypothyroidism, COPD, Hx of DVT, coagulopathy, and anemia anemia a/w coagulopathy, worsening renal function, GIB, and SOB, and abd pneumatosis - currently afebrile, BP stable, comfortable, yet lethargic, ABG don with no evidence of CO2 retention, or acedemia - adequate UOP, renal following, no plans for HD as of now - CT ABD Pelvis done, results noted, surgery following - appropriate response of HH post 1u PRBC Recommend: - supp o2 as needed, duonebs PRN, IS - Abx as per ID< follow up ID, and cultures - follow up surgery - NPO - transfuse HH>9 - GI consult - PPI - Monitor I/Os, Cr, K+ - HD as per renal, if needed - would give VitK 5mg IV x 1 - GI ppx - DVT ppx - Monitor in MICU FULL CODE Patient remains at high risk for morbidity and mortality Critical care time 35 minutes
--- NOTE | 2018-05-12 15:03 | CP.PCM.CON ---
History of Present Illness - History of Present Illness History of Present Illness: 73 year old female with PMH of chronic CHF, COPD, chronic atrial fibrillation on anticoagulation, DVT, hypothyroidism, chronic renal failure not on dialysis, S/P hysterectomy and oophorectomy, bilateral knee arthroscopy, S/P disectomy was brought in to [facility] because of worsening shortness of breath and lethargy. She was noted to have worsening renal failure in the ED as well as coagulopathy. Further work up was done such as CXR which showed possible air under the diaphragm and possible patchy opacities. CT A/P is possibly suggesting intra-abdominal infection. Infectious diseases consult is requested to further evaluate and manage. There is no note of fevers or chills, no diarrhea but patient occasionally coughs. Full review of systems is unobtainable because the patient is lethargic. Review of Systems - Review of Systems All systems: reviewed and no additional remarkable complaints except (as per HPI) Past Patient History - Infectious Disease Hx of Infectious Diseases: None - Tetanus Immunizations Tetanus Immunization: Unknown - Past Social History Smoking Status: Former Smoker - CARDIAC Hx Cardiac Disorders: Yes Hx Hypertension: Yes - PULMONARY Hx Respiratory Disorders: Yes Hx Chronic Obstructive Pulmonary Disease (COPD): Yes - NEUROLOGICAL Hx Neurological Disorder: No - HEENT Hx HEENT Problems: No (WEARS RX GLASSES) - RENAL Hx Renal Failure: Yes (LUI) - ENDOCRINE/METABOLIC Hx Endocrine Disorders: Yes Hx Diabetes Mellitus Type 2: Yes Hx Hypothyroidism: Yes - HEMATOLOGICAL/ONCOLOGICAL Hx Blood Transfusions: No Hx Blood Transfusion Reaction: No - INTEGUMENTARY Hx Dermatological Problems: No Hx Basil Cell: No Other/Comment: SPIDER VEINS MAINLY TO LEFT KNEE AREA - MUSCULOSKELETAL/RHEUMATOLOGICAL Hx Musculoskeletal Disorders: Yes (HERNIATED DISCS) - GASTROINTESTINAL Hx Gastrointestinal Disorders: No - GENITOURINARY/GYNECOLOGICAL Hx Genitourinary Disorders: Yes Other/Comment: HYSTERECTOMY,OOPHORECTOMY - PSYCHIATRIC Hx Emotional Abuse: No Hx Physical Abuse: No Hx Substance Use: No - SURGICAL HISTORY Hx Hysterectomy: Yes Hx Orthopedic Surgery: Yes (BILATERAL KNEE ARTHROSCOPY) Other/Comment: DISKECTOMY,OOPHORECTOMY - ANESTHESIA Hx Anesthesia: Yes Meds Allergies/Adverse Reactions: Allergies Allergy/AdvReac Type Severity Reaction Status Date / Time grass pollen Allergy COUGH Verified 09/15/16 14:54 Penicillins Allergy RASH Verified 10/13/17 06:40 - Medications Medications: Current Medications Albuterol/Ipratropium (Duoneb 3 Mg/0.5 Mg (3 Ml) Ud) 3 ml IH [id number] [facility] Last Admin: 05/12/18 08:01 Dose: 3 ml Carvedilol (Coreg) 3.125 mg PO BID [facility] Last Admin: 05/12/18 10:20 Dose: Not Given Diltiazem HCl (Cardizem Cd) 180 mg PO DAILY [facility] Last Admin: 05/12/18 10:17 Dose: Not Given Sodium Chloride (Sodium Chloride 0.45%) 1,000 mls @ 125 mls/hr IV .Q8H [facility] Potassium Chloride (Potassium Chloride 10 Meq/100 Ml) 10 meq in 100 mls @ 50 mls/hr IVPB Q2H [facility] Stop: 05/12/18 13:14 Last Admin: 05/12/18 10:23 Dose: 50 mls/hr Aztreonam (Azactam 1 Gm) 100 mls @ 100 mls/hr IVPB Q8 [facility]; Protocol Stop: 05/12/18 22:59 Insulin Human Regular (Humulin R Low) 0 units SC ACHS [facility]; Protocol Last Admin: 05/12/18 08:21 Dose: Not Given Montelukast Sodium (Singulair) 10 mg PO DAILY [facility] Last Admin: 05/12/18 10:20 Dose: Not Given Pregabalin (Lyrica) 50 mg PO BID [facility] Last Admin: 05/12/18 10:20 Dose: Not Given Sitagliptin Phosphate (Januvia) 50 mg PO DAILY [facility] Last Admin: 05/12/18 10:20 Dose: Not Given Vitamin A (Vitamin A & D Oint Ud Foilpak) 1 ea TOP Q6H PRN PRN Reason: Dry skin Physical Exam - Constitutional Appears: Chronically Ill, Other (lethargic) - Head Exam Head Exam: NORMAL INSPECTION - ENT Exam Additional comments: NGT in place - Respiratory Exam Respiratory Exam: Decreased Breath Sounds - Cardiovascular Exam Cardiovascular Exam: +S1, +S2 - GI/Abdominal Exam GI & Abdominal Exam: Soft. absent: Tenderness Results - Vital Signs Recent Vital Signs: Last Vital Signs Temp 97.6 F 05/12/18 04:00 Pulse 82 05/12/18 10:20 Resp 17 05/12/18 06:40 BP 113/57 L 05/12/18 10:20 Pulse Ox 97 05/12/18 06:40 - Labs Result Diagrams: 05/12/18 12:30 05/12/18 05:30 Labs: Laboratory Results - last 24 hr 05/11/18 05/11/18 05/11/18 11:25 12:30 13:00 WBC 7.0 RBC 3.25 L Hgb 8.7 L Hct 27.2 L MCV 83.7 MCH 26.8 MCHC 32.0 RDW 15.8 H Plt Count 187 MPV 10.5 Neut % (Auto) 77.4 H Lymph % (Auto) 18.4 L Lamar % (Auto) 4.1 Eos % (Auto) 0.0 L Baso % (Auto) 0.1 Lymph # (Auto) 1.3 Lamar # (Auto) 0.3 Eos # (Auto) 0.0 Baso # (Auto) 0.01 Absolute Neuts (auto) 5.30 ESR 32 H PT INR APTT pCO2 pO2 HCO3 ABG pH ABG Total CO2 ABG O2 Saturation ABG Base Excess ABG Potassium Sodium Chloride Glucose Lactate FiO2 Potassium Carbon Dioxide Anion Gap BUN Creatinine Est GFR ( Amer) Est GFR (Non-Af Amer) POC Glucose (mg/dL) Random Glucose Lactic Acid Calcium Phosphorus Magnesium Iron TIBC % Saturation Ferritin Total Bilirubin AST ALT Alkaline Phosphatase Total Protein Albumin Globulin Albumin/Globulin Ratio Arterial Blood Potassium Urine Color Urine Appearance Urine pH Ur Specific Harwood Urine Protein Urine Glucose (UA) Urine Ketones Urine Blood Urine Nitrate Urine Bilirubin Urine Urobilinogen Ur Leukocyte Esterase Urine Osmolality Ur Random Sodium Stool Occult Blood Blood Type B POSITIVE Blood Type Confirm B POSITIVE Antibody Screen Negative Crossmatch See Detail BBK History Checked No verified bt 05/11/18 05/11/18 05/11/18 13:49 13:49 13:55 WBC RBC Hgb Hct MCV MCH MCHC RDW Plt Count MPV Neut % (Auto) Lymph % (Auto) Lamar % (Auto) Eos % (Auto) Baso % (Auto) Lymph # (Auto) Lamar # (Auto) Eos # (Auto) Baso # (Auto) Absolute Neuts (auto) ESR PT INR APTT pCO2 39 pO2 74.0 L HCO3 22.5 ABG pH 7.37 ABG Total CO2 23.7 ABG O2 Saturation 96.9 ABG Base Excess -2.5 L ABG Potassium 3.9 Sodium 132.0 Chloride 98.0 Glucose 205 H Lactate 1.0 FiO2 32.0 Potassium Carbon Dioxide Anion Gap BUN Creatinine Est GFR ( Amer) Est GFR (Non-Af Amer) POC Glucose (mg/dL) Random Glucose Lactic Acid Calcium Phosphorus Magnesium Iron TIBC % Saturation Ferritin Total Bilirubin AST ALT Alkaline Phosphatase Total Protein Albumin Globulin Albumin/Globulin Ratio Arterial Blood Potassium 3.9 Urine Color Urine Appearance Urine pH Ur Specific Harwood Urine Protein Urine Glucose (UA) Urine Ketones Urine Blood Urine Nitrate Urine Bilirubin Urine Urobilinogen Ur Leukocyte Esterase Urine Osmolality 340 Ur Random Sodium < 5 Stool Occult Blood Blood Type Blood Type Confirm Antibody Screen Crossmatch BBK History Checked 05/11/18 05/11/18 05/11/18 14:36 15:00 15:23 WBC RBC Hgb Hct MCV MCH MCHC RDW Plt Count MPV Neut % (Auto) Lymph % (Auto) Lamar % (Auto) Eos % (Auto) Baso % (Auto) Lymph # (Auto) Lamar # (Auto) Eos # (Auto) Baso # (Auto) Absolute Neuts (auto) ESR PT INR APTT pCO2 pO2 HCO3 ABG pH ABG Total CO2 ABG O2 Saturation ABG Base Excess ABG Potassium Sodium Chloride Glucose Lactate FiO2 Potassium Carbon Dioxide Anion Gap BUN Creatinine Est GFR ( Amer) Est GFR (Non-Af Amer) POC Glucose (mg/dL) Random Glucose Lactic Acid Calcium Phosphorus Magnesium Iron TIBC % Saturation Ferritin 48.1 Total Bilirubin AST ALT Alkaline Phosphatase Total Protein Albumin Globulin Albumin/Globulin Ratio Arterial Blood Potassium Urine Color Yellow Urine Appearance Clear Urine pH 5.5 Ur Specific Harwood 1.020 Urine Protein Negative Urine Glucose (UA) Negative Urine Ketones Negative Urine Blood Negative Urine Nitrate Negative Urine Bilirubin Negative Urine Urobilinogen 0.2 Ur Leukocyte Esterase Negative Urine Osmolality Ur Random Sodium Stool Occult Blood Positive H Blood Type Blood Type Confirm Antibody Screen Crossmatch BBK History Checked 05/11/18 05/11/18 05/11/18 16:55 16:55 16:55 WBC 7.0 RBC 3.01 L Hgb 8.1 L Hct 25.1 L MCV 83.4 MCH 26.9 MCHC 32.3 RDW 16.1 H Plt Count 189 MPV 10.6 Neut % (Auto) 77.9 H Lymph % (Auto) 15.5 L Lamar % (Auto) 6.6 H Eos % (Auto) 0.0 L Baso % (Auto) 0.0 Lymph # (Auto) 1.1 L Lamar # (Auto) 0.5 Eos # (Auto) 0.0 Baso # (Auto) 0.00 Absolute Neuts (auto) 5.41 ESR PT 49.5 H INR 4.46 H* APTT pCO2 pO2 HCO3 ABG pH ABG Total CO2 ABG O2 Saturation ABG Base Excess ABG Potassium Sodium Chloride Glucose Lactate FiO2 Potassium Carbon Dioxide Anion Gap BUN Creatinine Est GFR ( Amer) Est GFR (Non-Af Amer) POC Glucose (mg/dL) Random Glucose Lactic Acid Calcium Phosphorus Magnesium Iron 32 L TIBC 327 % Saturation 10 L Ferritin Total Bilirubin AST ALT Alkaline Phosphatase Total Protein Albumin Globulin Albumin/Globulin Ratio Arterial Blood Potassium Urine Color Urine Appearance Urine pH Ur Specific Harwood Urine Protein Urine Glucose (UA) Urine Ketones Urine Blood Urine Nitrate Urine Bilirubin Urine Urobilinogen Ur Leukocyte Esterase Urine Osmolality Ur Random Sodium Stool Occult Blood Blood Type Blood Type Confirm Antibody Screen Crossmatch BBK History Checked 05/11/18 05/11/18 05/11/18 16:55 19:30 19:30 WBC 6.9 RBC 2.89 L Hgb 7.8 L Hct 24.2 L MCV 83.7 MCH 27.0 MCHC 32.2 RDW 16.1 H Plt Count 195 MPV 10.8 Neut % (Auto) 77.8 H Lymph % (Auto) 7.8 L Lamar % (Auto) 14.4 H Eos % (Auto) 0.0 L Baso % (Auto) 0.0 Lymph # (Auto) 0.5 L Lamar # (Auto) 1.0 H Eos # (Auto) 0.0 Baso # (Auto) 0.00 Absolute Neuts (auto) 5.39 ESR PT INR APTT pCO2 pO2 HCO3 ABG pH ABG Total CO2 ABG O2 Saturation ABG Base Excess ABG Potassium Sodium 132 Chloride 95 L Glucose Lactate FiO2 Potassium 4.1 Carbon Dioxide 23 Anion Gap 17 BUN 113 H Creatinine 4.6 H Est GFR ( Amer) 11 Est GFR (Non-Af Amer) 9 POC Glucose (mg/dL) Random Glucose 206 H Lactic Acid 1.0 Calcium 8.9 Phosphorus Magnesium Iron TIBC % Saturation Ferritin Total Bilirubin 0.9 AST 35 ALT 49 Alkaline Phosphatase 89 Total Protein 6.2 Albumin 3.7 Globulin 2.5 Albumin/Globulin Ratio 1.5 Arterial Blood Potassium Urine Color Urine Appearance Urine pH Ur Specific Harwood Urine Protein Urine Glucose (UA) Urine Ketones Urine Blood Urine Nitrate Urine Bilirubin Urine Urobilinogen Ur Leukocyte Esterase Urine Osmolality Ur Random Sodium Stool Occult Blood Blood Type Blood Type Confirm Antibody Screen Crossmatch BBK History Checked 05/11/18 05/11/18 05/12/18 22:00 22:00 05:30 WBC RBC Hgb Hct MCV MCH MCHC RDW Plt Count MPV Neut % (Auto) Lymph % (Auto) Lamar % (Auto) Eos % (Auto) Baso % (Auto) Lymph # (Auto) Lamar # (Auto) Eos # (Auto) Baso # (Auto) Absolute Neuts (auto) ESR PT 29.6 H INR 2.67 APTT pCO2 pO2 HCO3 ABG pH ABG Total CO2 ABG O2 Saturation ABG Base Excess ABG Potassium Sodium 136 Chloride 98 Glucose Lactate FiO2 Potassium 3.4 L Carbon Dioxide 29 Anion Gap 12 BUN 117 H Creatinine 4.6 H Est GFR ( Amer) 11 Est GFR (Non-Af Amer) 9 POC Glucose (mg/dL) 208 H Random Glucose 143 H Lactic Acid Calcium 8.9 Phosphorus 5.7 H Magnesium 2.6 H Iron TIBC % Saturation Ferritin Total Bilirubin 1.0 AST 43 H D ALT 45 Alkaline Phosphatase 86 Total Protein 6.2 Albumin 3.5 Globulin 2.7 Albumin/Globulin Ratio 1.3 Arterial Blood Potassium Urine Color Urine Appearance Urine pH Ur Specific Harwood Urine Protein Urine Glucose (UA) Urine Ketones Urine Blood Urine Nitrate Urine Bilirubin Urine Urobilinogen Ur Leukocyte Esterase Urine Osmolality Ur Random Sodium Stool Occult Blood Blood Type Blood Type Confirm Antibody Screen Crossmatch BBK History Checked 05/12/18 05/12/18 05/12/18 05:30 05:30 08:15 WBC 6.6 RBC 2.80 L Hgb 7.3 L Hct 23.5 L MCV 83.9 MCH 26.1 MCHC 31.1 RDW 16.3 H Plt Count 202 MPV 11.8 H Neut % (Auto) Lymph % (Auto) Lamar % (Auto) Eos % (Auto) Baso % (Auto) Lymph # (Auto) Lamar # (Auto) Eos # (Auto) Baso # (Auto) Absolute Neuts (auto) ESR PT 28.3 H INR 2.50 APTT 39.4 H pCO2 pO2 HCO3 ABG pH ABG Total CO2 ABG O2 Saturation ABG Base Excess ABG Potassium Sodium Chloride Glucose Lactate FiO2 Potassium Carbon Dioxide Anion Gap BUN Creatinine Est GFR ( Amer) Est GFR (Non-Af Amer) POC Glucose (mg/dL) 170 H Random Glucose Lactic Acid Calcium Phosphorus Magnesium Iron TIBC % Saturation Ferritin Total Bilirubin AST ALT Alkaline Phosphatase Total Protein Albumin Globulin Albumin/Globulin Ratio Arterial Blood Potassium Urine Color Urine Appearance Urine pH Ur Specific [place] Urine Protein Urine Glucose (UA) Urine Ketones Urine Blood Urine Nitrate Urine Bilirubin Urine Urobilinogen Ur Leukocyte Esterase Urine Osmolality Ur Random Sodium Stool Occult Blood Blood Type Blood Type Confirm Antibody Screen Crossmatch BBK History Checked 05/12/18 05/12/18 11:00 11:35 WBC RBC Hgb Hct MCV MCH MCHC RDW Plt Count MPV Neut % (Auto) Lymph % (Auto) Lamar % (Auto) Eos % (Auto) Baso % (Auto) Lymph # (Auto) Lamar # (Auto) Eos # (Auto) Baso # (Auto) Absolute Neuts (auto) ESR PT INR APTT pCO2 42 pO2 51.0 L HCO3 26.6 ABG pH 7.41 ABG Total CO2 27.9 ABG O2 Saturation 91.2 L ABG Base Excess 1.7 ABG Potassium 3.0 L Sodium 137.0 Chloride 102.0 Glucose 170 H Lactate 0.7 FiO2 28.0 Potassium Carbon Dioxide Anion Gap BUN Creatinine Est GFR ( Amer) Est GFR (Non-Af Amer) POC Glucose (mg/dL) 188 H Random Glucose Lactic Acid Calcium Phosphorus Magnesium Iron TIBC % Saturation Ferritin Total Bilirubin AST ALT Alkaline Phosphatase Total Protein Albumin Globulin Albumin/Globulin Ratio Arterial Blood Potassium 3.0 L Urine Color Urine Appearance Urine pH Ur Specific Harwood Urine Protein Urine Glucose (UA) Urine Ketones Urine Blood Urine Nitrate Urine Bilirubin Urine Urobilinogen Ur Leukocyte Esterase Urine Osmolality Ur Random Sodium Stool Occult Blood Blood Type Blood Type Confirm Antibody Screen Crossmatch BBK History Checked Assessment & Plan - Assessment and Plan (Free Text) Plan: Assessment consider severe sepsis with acute on chronic renal failure due to bilateral HCAP R/O intra-abdominal infection consider uremic encephalopathy chronic CHF COPD chronic atrial fibrillation on anticoagulation DVT hypothyroidism chronic renal failure not on dialysis S/P hysterectomy and oophorectomy bilateral knee arthroscopy S/P disectomy Plan started with a dose of IV Vancomycin, started Azactam, Flagyl and Doxycycline pending blood cx, urine Legionella Ag, PCT; reviewed CXR and CT A/P follow up further plans of Surgery follow up further plans of Renal in terms of dialysis which the patient may need will continue to monitor clinically discussed with family at bedside
--- NOTE | 2018-05-12 16:53 | PN ---
DATE: 05/12/2018 SUBJECTIVE: The patient is 73 years old, seen and examined, seemed to be minimally responsive, short of breath, nasogastric suction in place, draining greenish bile blood tinge. PHYSICAL EXAMINATION: VITAL SIGNS: She is afebrile. Pulse 82, respirations 17, blood pressure 113/57. LUNGS: Bilateral fair airflow. Shows soft crackle in upper lung region. HEART: S1 and S2, audible and tachycardic. ABDOMEN: Soft and nontender. No rebound. No guarding. NEUROLOGIC: The patient is lethargic and minimal responsive. EXTREMITIES: Bilateral legs, +1 edema. LABORATORY DATA: WBC 6.6, hemoglobin 7.3, hematocrit 23.5, platelet 202. PT 28.3, INR 2.50. Chemistry: Sodium 136, potassium 3.4, chloride 98, CO2 of 29, BUN 117, creatinine 4.6, blood sugar 188. Stool Hemoccult is positive. Urine cultures are negative. ASSESSMENT: 1. Acute renal failure. 2. Coagulopathy. 3. Anemia. 4. Bilateral consolidative process in the lungs. PLAN: We will continue the patient on IV fluids. She is on Cardizem. She is on carvedilol. Her electrolyte is being monitored. We will keep her NPO. I will request for ID evaluation. We will follow up electrolyte and CBC in a.m. Discussed with the patient's sister, Yoli by the bedside. Delta Duarte MD
--- NOTE | 2018-05-12 18:18 | RAD ---
Date of service: 05/12/2018 HISTORY: Abd pain. ?Pneumatosis COMPARISON: Comparison made with prior plain film radiographs of the abdomen and CT scan abdomen pelvis 05/11/2018 FINDINGS: BOWEL: Interval improvement previously noted distended air-filled large and to a lesser degree small bowel. Moderate amount of stool felt to be present within the right colon BONES: Normal. OTHER FINDINGS: None. IMPRESSION: Interval improvement previously noted distended air-filled loops of large and to a lesser degree small bowel. Moderate amount stool felt to be present within the right colon. No gross free intraperitoneal air seen under the diaphragmatic surfaces
[2018-05-12] MEDS: Aztreonam 1 Gm in NS 100mL 100 ML IVPB SCH (22:23)
[2018-05-13] MEDS ORDERED: Morphine 2 mg/ml ISec IVP STA (04:36)
[2018-05-13] MEDS ORDERED: Levalbuterol 1.25 MG/3 ML Inhal Soln UD IH ONE (04:45)
[2018-05-13] MEDS ORDERED: Nitroglycerin 2% Ointment Foilpak UD TOP STA (04:50)
[2018-05-13 04:59] LABS: ARTERIAL BLOOD GAS HCO3 24.1 mmol/L (21-28); ARTERIAL BLOOD GAS HEMOGLOBIN 10.6 g/dL (11.7-17.4); ARTERIAL BLOOD GAS O2 CAPACITY 14.3 mL/dl (16-24); ARTERIAL BLOOD GAS O2 CONTENT 12.7 ML/dl (15-23); ARTERIAL BLOOD GAS O2 SAT 88.8 % (95-98); ARTERIAL BLOOD GAS PCO2 38 mm/Hg (35-45); ARTERIAL BLOOD GAS PH 7.41 (7.35-7.45); ARTERIAL BLOOD GAS TCO2 25.3 mmol.L (22-28)
[2018-05-13 05:00] LABS: BASO # 0.01 K/mm3 (0.0-2.0); BASO % 0.1 % (0.0-3.0); EOS % 0.2 % (1.5-5.0); HEMOGLOBIN 11.4 g/dL (12.0-16.0); LYMPH # 1.2 (1.2-3.4); LYMPH % 12.4 % (22.0-35.0); MEAN CELL VOLUME 85.1 fl (80.0-105.0); MEAN CORPUSCULAR HEMOGLOBIN 27.4 pg (25.0-35.0); MEAN CORPUSCULAR HGB CONC 32.2 g/dl (31.0-37.0); MEAN PLATELET VOLUME 11.1 fl (7.0-11.0); MONO # 0.4 (0.1-0.6); MONO % 3.9 % (1.0-6.0); RBC 4.16 10^6/uL (3.5-6.1); RED CELL DISTRIBUTION WIDTH 16.2 % (11.5-14.5); WHITE BLOOD COUNT 9.6 10^3/uL (4.5-11.0)
[2018-05-13 05:01] LABS: INR 1.7; PROTHROMBIN TIME 18.9 SECONDS (9.4-12.5)
[2018-05-13] MEDS ORDERED: Morphine 4 mg/ml ISec IVP STA (05:03)
[2018-05-13 05:43] LABS: ALB/GLOB RATIO 1.2 (1.1-1.8); ALBUMIN 3.8 g/dL (3.0-4.8); CALCIUM 8.6 mg/dL (8.4-10.5)
[2018-05-13] MEDS ORDERED: Propofol 10 mg/ml Inj (20 ML) IVP ONE (07:17)
[2018-05-13] MEDS ORDERED: Etomidate 20 mg/10ml Inj IVP STA (07:17)
[2018-05-13] MEDS ORDERED: Etomidate 20 mg/10ml Inj IV ONE (07:23)
[2018-05-13] MEDS ORDERED: Propofol 10 mg/ml 1,000 MG/100 ML VIAL ONE (07:24)
[2018-05-13] MEDS: metroNIDAZOLE IV 500 mg/100 ml 500 MG/100 ML BAG IVPB SCH ×3 (08:00→21:46)
[2018-05-13] MEDS: Propofol 10 mg/ml 1,000 MG/100 ML VIAL IV PRN ×4 (08:01→21:49)
[2018-05-13] MEDS: Albuterol-Ipratrop 3 mg / 0.5 (3 ml) UD IH SCH ×3 (08:02→20:15)
[2018-05-13 08:27] LABS: URINE BILIRUBIN NEGATIVE (NEGATIVE); URINE BLOOD LARGE (NEGATIVE); URINE GLUCOSE (UA) NEGATIVE (NEGATIVE); URINE LEUKOCYTE ESTERASE TRACE Leu/uL (NEGATIVE); URINE PROTEIN NEGATIVE mg/dL (<30 mg/dL); URINE UROBILINOGEN 0.2 E.U./dL (<1 E.U./dL)
[2018-05-13 08:29] LABS: URINE APPEARANCE CLEAR (CLEAR); URINE COLOR YELLOW (YELLOW)
[2018-05-13 08:36] LABS: URINE AMORPHOUS SEDIMENT FEW /hpf; URINE BACTERIA MANY /hpf; URINE FINE GRANULAR CAST 0 - 2 /hpf; URINE RBC 25 - 30 /hpf (0-2)
[2018-05-13] MEDS: Insulin Reg-LOW-Coverage SC SCH ×4 (08:46→23:55)
[2018-05-13 08:56] LABS: ARTERIAL BLOOD GAS HCO3 24.3 mmol/L (21-28); ARTERIAL BLOOD GAS O2 SAT 94.1 % (95-98); ARTERIAL BLOOD GAS PCO2 45 mm/Hg (35-45); ARTERIAL BLOOD GAS PH 7.34 (7.35-7.45); ARTERIAL BLOOD GAS TCO2 25.7 mmol.L (22-28)
[2018-05-13] MEDS: Aztreonam 1 Gm in NS 100mL 100 ML IVPB SCH ×2 (09:22→21:46)
[2018-05-13] MEDS: diltiaZEM 180 mg/24 Hours CD Cap PO SCH (09:39)
--- NOTE | 2018-05-13 11:28 | PN ---
DATE: 05/13/2018 SUBJECTIVE: The patient is currently seen in ICU bed 6. The patient apparently had possible difficulty with respirations earlier this morning with the thought that she might not be able to protector her airway because of her altered mental status and she was intubated. The patient currently remains intubated and sedated. Her BUN and creatinine remained stable. Her urine output is excellent. Her potassium level is low and she is receiving potassium supplements. She had received 2 units of blood yesterday. Hemoglobin is stable at 11.4 despite guaiac positive stools and possible GI bleeding. MEDICATIONS: Medications reviewed; the patient is on Azactam, Cardizem, Coreg, Diprivan, DuoNeb, Flagyl, insulin, Januvia, Lyrica, IV fluids with potassium chloride, Rashmi Ciel riders, Protonix, Singulair, vitamin A and D ointment. OBJECTIVE: INTAKE/OUTPUT: Intake is 1400, output is 3120. VITAL SIGNS: Blood pressure 134/64, heart rate of 110, temperature of 97.4, respiratory rate of 18. Oxygen saturation is 96%. HEENT: Shows her eyes to be closed. NG tube is in place. The patient is intubated. NECK: No neck vein distention. CHEST: Scattered rhonchi and wheezes bilaterally. Decreased breath sounds at the bases. No rales. CARDIOVASCULAR: Shows a regular rate and rhythm with no S3, no S4, no rub. Positive AI/MR/TR. ABDOMEN: Soft. Bowel sounds normal. No rebound, guarding or masses. BACK: No appreciable edema. EXTREMITIES: Show trace to 1+ lower extremity edema. No cyanosis or clubbing. Diminished lower extremity pulses. NEUROLOGIC: Difficult to assess as the patient is intubated and sedated on the ventilator. LABORATORY DATA AND IMAGING: CBC; white blood cell count today 9.6, hemoglobin 11.4 with a platelet count of 205,000. Coags; PT of 18.0 with an INR of 1.7. Blood gas today; pH 7.34, pO2 of 62 with a pCO2 of 45 and a bicarbonate level of 24.3. She does not have a metabolic acidosis. Chemistries show potassium level low at 2.9, perhaps secondary to diuresis. Electrolytes otherwise normal. BUN stable at 114 with a creatinine of 4.0, it is twice her baseline levels. Glucose is 207. Calcium 8.6. Last phosphorus level was 5.7 with a magnesium level of 2.4. Bilirubin mildly elevated at 1.7. Albumin level is 3.8. Urine show red blood cells and white blood cells. Bacteria. Urine eosinophils were negative. Fractional secretion of sodium was less than 1% indicative of renal hypoperfusion. Stools were positive for blood x1. Chest x-ray done today shows an under penetrated film with bilateral interstitial markings. Cannot rule out pneumonia. Cannot rule out CHF. Perhaps atelectasis from elevated diaphragms bilaterally. Her admitting abdominal CT scan showed no abnormalities of the kidneys and possible ileus. Microbiology; stools are negative for C. diff, urine cultures were negative. ASSESSMENT: 1. Acute renal failure superimposed on chronic kidney disease stage IV. Her BUN and creatinine are twice her baseline levels. No evidence for acute interstitial nephritis. No evidence for obstructive uropathy. Positive renal hypoperfusion as evidenced by low fractional secretion of sodium. The patient is responding nicely to IV Lasix therapy with excellent urine output. The patient's previous echocardiogram showed ejection fraction of 52% with septal hypokinesis. The patient remains on low-volume IV fluid hydration. There is question about whether or not dialysis needs to be initiated in this patient. From an absolute standpoint, she is not hyperkalemic of anything, she is hypokalemic, she is not acidotic, she is not volume overloaded. She does have some mild gastrointestinal bleeding. It is unclear whether this is uremic in nature. Perhaps a Gastroenterology evaluation. The patient's mental status was also altered. Perhaps in Neuro evaluation. No head CT scans were done. If it is felt that she has uremic encephalopathy then dialysis can be initiated. I would not do it for any other reason. 2. History of hypertension. Blood pressure is in the acceptable range. Patient remains on Cardizem and Coreg. 3. History of hypothyroidism. Her TSH level was low at 0.18. Her T4 level was normal at 6.0. She is not hypothyroid. 4. History of gastrointestinal bleed, possible ileus ? Pneumocystis coli seen on CT scan. The patient had mild diarrhea. She has a rectal tube in place. Stool for Clostridium difficile is negative. I do suggest a Gastroenterology evaluation. 5. History of non-insulin dependent diabetes mellitus. The patient remains on oral agents sliding scale insulin. Glucose control is acceptable. 6. 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 7. History of mild to moderate pulmonary hypertension appears to be stable. History of chronic obstructive pulmonary disease appears to be stable on inhalation therapy. 8. Acute respiratory distress. The patient was intubated earlier this morning for protection of her airway. 9. Hypokalemia. Agree with cautious replacement of potassium. Would hold any IV diuretic therapy until potassium level was corrected. 10. Elevated phosphorus level secondary to secondary hyperparathyroidism secondary to acute renal failure superimposed on chronic kidney disease. PLAN: 1. Discussed with ICU nursing staff and house staff. From my standpoint, if a central line is being placed, we cannot place a Trialysis catheter. This would allow us the opportunity to initiate dialysis when appropriate. I do suggest a Neuro evaluation for assessment of her mental status. I do suggest a GI evaluation for her GI bleeding. 2. There is no absolute indication for doing dialysis today. Will follow the patient over the next 24-48 hours. I will make a decision about dialysis tomorrow, should it be felt that she has uremic encephalopathy or should her BUN and creatinine significantly rise. 3. No further blood transfusions necessary as her hemoglobin appears to be appropriately stable at 11.4, so unlikely that she has any acute active GI bleeding at this point in time. Greater than 35 minutes spent the care of this patient. Usman Bates MD MTDRim[facility]
[2018-05-13] MEDS ORDERED: Vancomycin 1gm in NS 250ml 1 GM/250 ML BAG IVPB STA (12:27)
--- NOTE | 2018-05-13 12:51 | RAD ---
Date of service: 05/13/2018 HISTORY: confirm placement of central line and et tube COMPARISON: No prior. FINDINGS: In situ ETT, tip of which lies approximately 5 cm above vira. NGT is present tip of which remains in good position in the region of the fundus of the stomach LUNGS: Mild central pulmonary vascular congestive changes with bilateral atelectatic and or infiltrates. Bilateral effusions right greater than left PLEURA: No significant pleural effusion identified, no pneumothorax apparent. CARDIOVASCULAR: . Mild aortic atherosclerotic calcification present. Heart size unchanged. OSSEOUS STRUCTURES: No significant abnormalities. VISUALIZED UPPER ABDOMEN: Normal. OTHER FINDINGS: None. IMPRESSION: ETT and NGT as above. Mild central pulmonary vascular congestive changes with bilateral atelectatic and or infiltrates. Bilateral effusions right greater than left
--- NOTE | 2018-05-13 13:03 | CP.PCM.PN ---
Subjective - Date & Time of Evaluation Date of Evaluation: 05/13/18 Time of Evaluation: 07:35 - Subjective Subjective: Pt seen and examined, intubated this morning for worsening mental status. HD catheter placed, R femoral. Objective - Vital Signs/Intake and Output Vital Signs (last 24 hours): Temp Pulse Resp BP Pulse Ox 97.4 F L 98 H 18 134/64 96 05/12/18 18:00 05/13/18 11:01 05/13/18 08:17 05/13/18 09:40 05/13/18 08:17 Intake and Output: 05/13/18 05/13/18 06:59 18:59 Intake Total 1000 100 Output Total 1960 Balance -960 100 - Medications Medications: Current Medications Albuterol/Ipratropium (Duoneb 3 Mg/0.5 Mg (3 Ml) Ud) 3 ml IH [id number] [facility] Last Admin: 05/13/18 08:02 Dose: 3 ml Carvedilol (Coreg) 3.125 mg PO BID [facility] Last Admin: 05/13/18 09:40 Dose: 3.125 mg Diltiazem HCl (Cardizem Cd) 180 mg PO DAILY [facility] Last Admin: 05/13/18 09:39 Dose: 180 mg Aztreonam (Azactam 1 Gm) 100 mls @ 100 mls/hr IVPB Q12 [facility]; Protocol Stop: 05/19/18 22:01 Last Admin: 05/13/18 09:22 Dose: 100 mls/hr Metronidazole (Flagyl) 500 mg in 100 mls @ 100 mls/hr IVPB Q8 [facility]; Protocol Last Admin: 05/13/18 08:00 Dose: 100 mls/hr Potassium Chloride (Potassium Chloride 10 Meq/100 Ml) 10 meq in 100 mls @ 50 mls/hr IVPB Q2H [facility] Stop: 05/13/18 13:44 Last Admin: 05/13/18 12:13 Dose: Not Given Propofol (Diprivan) 1,000 mg in 100 mls @ 2.844 mls/hr IV .Q24H PRN; Protocol PRN Reason: TITRATE PER MD ORDER Last Admin: 05/13/18 12:14 Dose: 35 mcg/kg/min, 19.908 mls/hr Doxycycline Hyclate 100 mg/ (Sodium Chloride) 100 mls @ 100 mls/hr IVPB Q12 [facility]; Protocol Stop: 05/22/18 12:31 Vancomycin HCl (Vancomycin 1gm) 1 gm in 250 mls @ 167 mls/hr IVPB STAT STA; Protocol Stop: 05/13/18 13:56 Insulin Human Regular (Humulin R Low) 0 units SC ACHS [facility]; Protocol Last Admin: 05/13/18 08:46 Dose: 2 u Montelukast Sodium (Singulair) 10 mg PO DAILY [facility] Last Admin: 05/13/18 09:40 Dose: 10 mg Pantoprazole Sodium (Protonix Inj) 40 mg IVP Q12 [facility] Last Admin: 05/13/18 09:22 Dose: 40 mg Pregabalin (Lyrica) 50 mg PO BID [facility] Last Admin: 05/13/18 09:40 Dose: 50 mg Sitagliptin Phosphate (Januvia) 50 mg PO DAILY [facility] Last Admin: 05/13/18 09:40 Dose: 50 mg Vitamin A (Vitamin A & D Oint Ud Foilpak) 1 ea TOP Q6H PRN PRN Reason: Dry skin - Labs Labs: 05/13/18 04:45 05/13/18 04:45 PT 18.9 SECONDS (9.4-12.5) H 05/13/18 04:45 INR 1.70 05/13/18 04:45 APTT 39.4 Seconds (26.9-38.3) H 05/12/18 05:30 - Constitutional Appears: Non-toxic, Toxic, Older Than Stated Age, Chronically Ill - Head Exam Head Exam: NORMAL INSPECTION - Eye Exam Eye Exam: Normal appearance - ENT Exam ENT Exam: Mucous Membranes Moist - Respiratory Exam Respiratory Exam: Decreased Breath Sounds, NORMAL BREATHING PATTERN - Cardiovascular Exam Cardiovascular Exam: REGULAR RHYTHM, +S1, +S2 - GI/Abdominal Exam GI & Abdominal Exam: Soft, Normal Bowel Sounds - Extremities Exam Extremities Exam: Normal Inspection - Neurological Exam Neurological Exam: Altered - Skin Skin Exam: Normal Color, Warm Assessment and Plan - Assessment and Plan (Free Text) Assessment: Patient is 73yo female with PMHx CHF (EF 65%) , asthma, renal failure, afib on coumadin, hypothyroidism, COPD, Hx of DVT, coagulopathy, and anemia anemia a/w coagulopathy, worsening renal function, GIB, and SOB, and abd pneumatosis - this morning patient noted to have worsening mental status, unable to protect airway, subsequently intubated for airway protection, NGT replaced - currently afebrile, BP stable, comfortable, intubated, sedated, ABG done with no evidence of CO2 retention, or acedemia - adequate UOP, renal following, no plans for HD as of now; HD catheter placed - CT ABD Pelvis done, results noted, surgery following - appropriate response of HH, stable Recommend: - scont with vent support, low tidal vol ventilation, daily sedation vacation, DUonebs - Abx as per ID, follow up ID, and cultures - follow up surgery - NPO - transfuse HH>9 - GI consult - PPI - NGT to suction - Monitor I/Os, Cr, K+ - HD as per renal, HD catheter placed; no plans for HD right now, possibly tomorrow - obtain ammonia level, CT head, VEEG - GI ppx - DVT ppx - Monitor in MICU FULL CODE Patient remains at high risk for morbidity and mortality Critical care time 55 minutes
--- NOTE | 2018-05-13 13:24 | RAD ---
Date of service: 05/13/2018 HISTORY: abnormal lung sounds COMPARISON: Comparison chest dated 05/10/2018. Comparison also made with CT scan abdomen pelvis dated 05/11/2018 which image the lung bases. FINDINGS: In situ NGT, tip of which lies left parasagittal upper/mid abdomen LUNGS: Bibasilar atelectasis and/or infiltrates. Questionable small bilateral effusions PLEURA: No significant pleural effusion identified, no pneumothorax apparent. CARDIOVASCULAR: No aortic atherosclerotic calcification present. Normal cardiac size. No pulmonary vascular congestion. OSSEOUS STRUCTURES: No significant abnormalities. VISUALIZED UPPER ABDOMEN: Normal. OTHER FINDINGS: None. IMPRESSION: Bibasilar atelectasis and/or infiltrates with questionable small bilateral effusions.
--- NOTE | 2018-05-13 13:43 | CP.PCM.PN ---
<Rick Gonzalez - Last Filed: 05/13/18 13:39> Subjective - Date & Time of Evaluation Date of Evaluation: 05/13/18 Time of Evaluation: 13:39 - Subjective Subjective: General Surgery Progress Note for Dr. Leary This 73F was seen and examined this AM at bedside. No acute events reported overnight. Pt this AM with stable vitals however appears lethargic, not following commands, labored breathing. Objective - Vital Signs/Intake and Output Vital Signs (last 24 hours): Temp Pulse Resp BP Pulse Ox 97.4 F L 98 H 18 134/64 96 05/12/18 18:00 05/13/18 11:01 05/13/18 08:17 05/13/18 09:40 05/13/18 08:17 Intake and Output: 05/13/18 05/13/18 06:59 18:59 Intake Total 1000 100 Output Total 1960 Balance -960 100 - Medications Medications: Current Medications Albuterol/Ipratropium (Duoneb 3 Mg/0.5 Mg (3 Ml) Ud) 3 ml IH [id number] [facility] Last Admin: 05/13/18 13:18 Dose: 3 ml Carvedilol (Coreg) 3.125 mg PO BID [facility] Last Admin: 05/13/18 09:40 Dose: 3.125 mg Diltiazem HCl (Cardizem Cd) 180 mg PO DAILY [facility] Last Admin: 05/13/18 09:39 Dose: 180 mg Aztreonam (Azactam 1 Gm) 100 mls @ 100 mls/hr IVPB Q12 [facility]; Protocol Stop: 05/19/18 22:01 Last Admin: 05/13/18 09:22 Dose: 100 mls/hr Metronidazole (Flagyl) 500 mg in 100 mls @ 100 mls/hr IVPB Q8 [facility]; Protocol Last Admin: 05/13/18 13:16 Dose: 100 mls/hr Potassium Chloride (Potassium Chloride 10 Meq/100 Ml) 10 meq in 100 mls @ 50 mls/hr IVPB Q2H [facility] Stop: 05/13/18 13:44 Last Admin: 05/13/18 12:13 Dose: Not Given Propofol (Diprivan) 1,000 mg in 100 mls @ 2.844 mls/hr IV .Q24H PRN; Protocol PRN Reason: TITRATE PER MD ORDER Last Admin: 05/13/18 12:14 Dose: 35 mcg/kg/min, 19.908 mls/hr Doxycycline Hyclate 100 mg/ (Sodium Chloride) 100 mls @ 100 mls/hr IVPB Q12 [facility]; Protocol Stop: 05/22/18 12:31 Last Admin: 05/13/18 13:26 Dose: 100 mls/hr Vancomycin HCl (Vancomycin 1gm) 1 gm in 250 mls @ 167 mls/hr IVPB STAT STA; Protocol Stop: 05/13/18 13:56 Last Admin: 05/13/18 13:21 Dose: 167 mls/hr Insulin Human Regular (Humulin R Low) 0 units SC ACHS [facility]; Protocol Last Admin: 05/13/18 13:14 Dose: 1 u Montelukast Sodium (Singulair) 10 mg PO DAILY [facility] Last Admin: 05/13/18 09:40 Dose: 10 mg Pantoprazole Sodium (Protonix Inj) 40 mg IVP Q12 [facility] Last Admin: 05/13/18 09:22 Dose: 40 mg Pregabalin (Lyrica) 50 mg PO BID [facility] Last Admin: 05/13/18 09:40 Dose: 50 mg Sitagliptin Phosphate (Januvia) 50 mg PO DAILY [facility] Last Admin: 05/13/18 09:40 Dose: 50 mg Vitamin A (Vitamin A & D Oint Ud Foilpak) 1 ea TOP Q6H PRN PRN Reason: Dry skin - Labs Labs: 05/13/18 04:45 05/13/18 04:45 PT 18.9 SECONDS (9.4-12.5) H 05/13/18 04:45 INR 1.70 05/13/18 04:45 APTT 39.4 Seconds (26.9-38.3) H 05/12/18 05:30 - Constitutional Appears: Toxic - Head Exam Head Exam: ATRAUMATIC, NORMOCEPHALIC - Eye Exam Eye Exam: EOMI - ENT Exam ENT Exam: Mucous Membranes Moist - Respiratory Exam Respiratory Exam: Accessory Muscle Use. absent: Wheezes, NORMAL BREATHING PAT TERN - Cardiovascular Exam Cardiovascular Exam: absent: +S1, +S2 - GI/Abdominal Exam GI & Abdominal Exam: Distended, Soft - Neurological Exam Neurological Exam: Altered - Skin Skin Exam: Dry, Intact Assessment and Plan - Assessment and Plan (Free Text) Assessment: Patient is a 73 year old female with past medical history CHF, asthma, COPD, afib on coumadin, DVT, hypothyroidism, anemia who was admitted for AMS, shortness of breath and bilateral leg swelling, now admitted to ICU. CT: No pnumatosis Abdomen softer Urin output improved further recommendations per Dr. Leary [phone] <Jaswant Leary - Last Filed: 05/14/18 06:58> Objective - Vital Signs/Intake and Output Vital Signs (last 24 hours): Temp Pulse Resp BP Pulse Ox 98.4 F 105 H 18 123/68 100 05/14/18 05:00 05/14/18 05:00 05/13/18 08:17 05/14/18 05:00 05/14/18 05:00 Intake and Output: 05/13/18 05/14/18 18:59 06:59 Intake Total 200 2478 Output Total 3630 Balance 200 -1152 - Medications Medications: Current Medications Albuterol/Ipratropium (Duoneb 3 Mg/0.5 Mg (3 Ml) Ud) 3 ml IH [id number] [facility] Last Admin: 05/13/18 20:15 Dose: 3 ml Carvedilol (Coreg) 3.125 mg PO BID [facility] Last Admin: 05/13/18 18:43 Dose: 3.125 mg Diltiazem HCl (Cardizem Cd) 180 mg PO DAILY [facility] Last Admin: 05/13/18 09:39 Dose: 180 mg Aztreonam (Azactam 1 Gm) 100 mls @ 100 mls/hr IVPB Q12 [facility]; Protocol Stop: 05/19/18 22:01 Last Admin: 05/13/18 21:46 Dose: 100 mls/hr Metronidazole (Flagyl) 500 mg in 100 mls @ 100 mls/hr IVPB Q8 [facility]; Protocol Last Admin: 05/14/18 05:28 Dose: 100 mls/hr Propofol (Diprivan) 1,000 mg in 100 mls @ 2.844 mls/hr IV .Q24H PRN; Protocol PRN Reason: TITRATE PER MD ORDER Last Admin: 05/14/18 06:34 Dose: 35 mcg/kg/min, 19.908 mls/hr Doxycycline Hyclate 100 mg/ (Sodium Chloride) 100 mls @ 100 mls/hr IVPB Q12 [facility]; Protocol Stop: 05/22/18 12:31 Last Admin: 05/13/18 21:47 Dose: 100 mls/hr Insulin Human Regular (Humulin R Low) 0 units SC ACHS [facility]; Protocol Last Admin: 05/13/18 23:55 Dose: Not Given Montelukast Sodium (Singulair) 10 mg PO DAILY [facility] Last Admin: 05/13/18 09:40 Dose: 10 mg Pantoprazole Sodium (Protonix Inj) 40 mg IVP Q12 [facility] Last Admin: 05/13/18 21:46 Dose: 40 mg Pregabalin (Lyrica) 50 mg PO BID [facility] Last Admin: 05/13/18 18:43 Dose: 50 mg Sitagliptin Phosphate (Januvia) 50 mg PO DAILY [facility] Last Admin: 05/13/18 09:40 Dose: 50 mg Vitamin A (Vitamin A & D Oint Ud Foilpak) 1 ea TOP Q6H PRN PRN Reason: Dry skin - Labs Labs: 05/13/18 04:45 05/13/18 18:58 PT 18.9 SECONDS (9.4-12.5) H 05/13/18 04:45 INR 1.70 05/13/18 04:45 APTT 39.4 Seconds (26.9-38.3) H 05/12/18 05:30 Assessment and Plan - Assessment and Plan (Free Text) Plan: Pt intubated 2/3 am Renal -cardiac functions improving Sister aware of continuing critical state Prognosis George Leary MD FACS
--- NOTE | 2018-05-13 13:47 | PCM.PROC ---
Procedures Attestation:: I certify that I have explained the specified Operation(s) or Procedure(s), risks, benefits and reasonable alternatives to the Patient and/or other person responsible. The opportunity was given to ask questions and all questions answered - Intubation Time Out Performed: Yes Sedative: Etomidate, Other Laryngoscope: Tonya ET Tube Size: 7.5 ET Tube Secured at Depth: 22 ET Tube Secured Locarion: Teeth ET Tube Placement Confirmation: Visualized Passing Through Cords, Breath Sounds Equal Bilaterally, No Breath Sounds Over Epigastrum, Confirmation w/Capnometry Patient Tolerated Procedure: Well Procedure Immediate Complications: None Additional comments: INTUBATED AT 730AM
--- NOTE | 2018-05-13 17:11 | PN ---
DATE: 05/13/2018 SUBJECTIVE: The patient is in bed in 128 bed 6. The patient was seen earlier this morning. The patient intubated on a ventilator. No fevers reported. PHYSICAL EXAMINATION: VITAL SIGNS: Temperature is 97, heart rate of 110, respiratory rate on the vent. HEENT: Reveals the ET tube is in place. NECK: Supple. LUNGS: Decreased breath sounds. HEART: Normal S1, S2. ABDOMEN: Soft and nontender. LABORATORY DATA: Reveals the white count of 9.6, hemoglobin of 11, platelets of 205. Chemistry reveals the BUN of 114, creatinine of 4, BMP 7410. Urinalysis is noted. Microbiology; the stool C. diff is negative antigen and toxin. Urine cultures no growth. MRSA not detected. Review of orders reveals the patient to be on aztreonam, Flagyl, and intermittent vancomycin. The patient had a chest x-ray today results are not available. ASSESSMENT AND PLAN: This is a 73-year-old female seen earlier today in 128, bed 6 with chronic congestive heart failure, chronic obstructive lung disease, chronic atrial fibrillation, anticoagulation, deep venous thrombosis, hypothyroidism, renal failure, history of hysterectomy, oophorectomy with severe sepsis, acute on chronic renal failure, bilateral healthcare-associated pneumonia, respiratory failure, intubated on a ventilator with chronic congestive heart failure, chronic obstructive lung disease on vancomycin, Azactam, Flagyl, doxycycline. Blood cultures are pending. Urine legionella is pending. Review of orders . The patient is currently not on doxycycline. We will give a order of vancomycin and we will start doxycycline. We will order a Vanco random level for a.m. and we will follow closely with you, overall prognosis is quite poor. We will check on the Vanco random level in a.m. Gavin Alvarez MD
--- NOTE | 2018-05-13 17:33 | PCM.PROC ---
Procedures Attestation:: I certify that I have explained the specified Operation(s) or Procedure(s), risks, benefits and reasonable alternatives to the Patient and/or other person responsible. The opportunity was given to ask questions and all questions answered - Central Line Placement Right Femoral Hemodialysis Access Aseptic technique was employed throughout the procedure: Hand Hygiene done prior to procedure, Full sterile barriers (mask, hair cover, sterile gown, sterile gloves), Full body sterile drape, Chloraprep Antiseptic: 2 minute prep for Femoral CVP Time Out Performed: Yes Pt. Placed on Pulse Ox Monitor: Yes Central Line Prep: Chlorhexidine-Alcohol Combination Ultrasound Used for Placement: Yes Central Line Lumen Inserted: triple Central Line Length: 16 cm Post Procedure: Sutured in Place, Good Blood Return, All Ports Aspirated, Flushed, Capped, Sterile Dressing Applied Secured by: Securement device Post procedure dressing: Clear vapor permeable, Chlorhexidine disc (Biopatch) Patient Tolerated Procedure: Well, No Complications Immediate Complications: None Additional Comments: Assisted by Dr. Catina Mercado D.O. PGY-1
[2018-05-13 19:14] LABS: ALB/GLOB RATIO 1.1 (1.1-1.8); ALBUMIN 3.2 g/dL (3.0-4.8); CALCIUM 8.7 mg/dL (8.4-10.5)
--- NOTE | 2018-05-13 19:20 | CP.PCM.CON ---
History of Present Illness - History of Present Illness History of Present Illness: Patient is a 73 year old female, well known to me from office. She presented with altered mental status, acute on chronic renal failure. B/L lung infiltrates. 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 her baseline creatinine has been between 2-3 . She has required procrit for an emia related to CKD for a short period of time about a year ago. her hemoglobin has been around 11 gm/dl for past one year,being monitored in office. CT abdomen showed dilated colon. INR is supratherapeutic. Stool occult blood positive. Sensorium is altered. Her sister Ms. Flores called me asking for update on her medical status. Review of Systems - Constitutional Constitutional: As Per HPI - EENT Eyes: absent: As Per HPI, Blind Spots, Blurred Vision, Change in Vision, Decreased Night Vision, Diplopia, Discharge, Dry Eye, Exophthalmos, Floaters, Irritation, Itchy Eyes, Loss of Peripheral Vision, Pain, Photophobia, Requires Corrective Lenses, Sees Flashes, Spots in Vision, Tunnel Vision, Other Visual Disturbances, Loss of Vision, Other Nose/Mouth/Throat: absent: As Per HPI, Epistaxis, Nasal Congestion, Nasal Discharge, Nasal Obstruction, Nasal Trauma, Nose Pain, Post Nasal Drip, Sinus Pain, Sinus Pressure, Bleeding Gums, Change in Voice, Dental Pain, Dry Mouth, Dysphagia, Halitosis, Hoarsness, Lip Swelling, Mouth Lesions, Mouth Pain, Odynophagia, Sore Throat, Throat Swelling, Tongue Swelling, Facial Pain, Neck Pain, Neck Mass, Other - Breasts Breasts: absent: As Per HPI, Change in Shape, Mass, Pain, Nipple Discharge, Nipple Inversion, Skin Changes, Swelling, Other - Cardiovascular Cardiovascular: absent: As Per HPI, Acrocyanosis, Chest Pain, Chest Pain at Rest, Chest Pain with Activity, Claudication, Diaphoresis, Dyspnea, Dyspnea on Exertion, Edema, Irregular Heart Rhythm, Pain Radiating to Arm/Neck/Jaw, Leg Edema, Leg Ulcers, Lightheadedness, Orthopnea, Palpitations, Paroxysmal Nocturnal Dyspnea, Pedal Edema, Radiating Pain, Rapid Heart Rate, Slow Heart Ra te, Syncope, Other - Respiratory Respiratory: As Per HPI - Gastrointestinal Gastrointestinal: As Per HPI - Genitourinary Genitourinary: As Per HPI - Musculoskeletal Musculoskeletal: absent: As Per HPI, Abnormal Gait, Arthralgias, Atrophy, Back Pain, Deformity, Joint Swelling, Limited Range of Motion, Loss of Height, Muscle Cramps, Muscle Weakness, Myalgias, Neck Pain, Numbness, Radiating Pain into Limb, Stiffness, Tingling, Other - Neurological Neurological: As Per HPI - Endocrine Endocrine: absent: As Per HPI, Change in Body Appearance, Change in Libido, Cold Intolorance, Deepening of Voice, Excessive Sweating, Fatigue, Flushing, Heat Intolorance, Increase in Ring/Shoe/Hat Size, Palpitations, Polydipsia, Polyphagia, Polyuria, Other - Hematologic/Lymphatic Hematologic: As Per HPI Past Patient History - Infectious Disease Hx of Infectious Diseases: None - Tetanus Immunizations Tetanus Immunization: Unknown - Past Social History Smoking Status: Former Smoker - CARDIAC Hx Cardiac Disorders: Yes Hx Hypertension: Yes - PULMONARY Hx Respiratory Disorders: Yes Hx Chronic Obstructive Pulmonary Disease (COPD): Yes - NEUROLOGICAL Hx Neurological Disorder: No - HEENT Hx HEENT Problems: No (WEARS RX GLASSES) - RENAL Hx Renal Failure: Yes (LUI) - ENDOCRINE/METABOLIC Hx Endocrine Disorders: Yes Hx Diabetes Mellitus Type 2: Yes Hx Hypothyroidism: Yes - HEMATOLOGICAL/ONCOLOGICAL Hx Blood Transfusions: No Hx Blood Transfusion Reaction: No - INTEGUMENTARY Hx Dermatological Problems: No Hx Basil Cell: No Other/Comment: SPIDER VEINS MAINLY TO LEFT KNEE AREA - MUSCULOSKELETAL/RHEUMATOLOGICAL Hx Musculoskeletal Disorders: Yes (HERNIATED DISCS) - GASTROINTESTINAL Hx Gastrointestinal Disorders: No - GENITOURINARY/GYNECOLOGICAL Hx Genitourinary Disorders: Yes Other/Comment: HYSTERECTOMY,OOPHORECTOMY - PSYCHIATRIC Hx Emotional Abuse: No Hx Physical Abuse: No Hx Substance Use: No - SURGICAL HISTORY Hx Hysterectomy: Yes Hx Orthopedic Surgery: Yes (BILATERAL KNEE ARTHROSCOPY) Other/Comment: DISKECTOMY,OOPHORECTOMY - ANESTHESIA Hx Anesthesia: Yes Meds Allergies/Adverse Reactions: Allergies Allergy/AdvReac Type Severity Reaction Status Date / Time grass pollen Allergy COUGH Verified 09/15/16 14:54 Penicillins Allergy RASH Verified 10/13/17 06:40 - Medications Medications: Current Medications Albuterol/Ipratropium (Duoneb 3 Mg/0.5 Mg (3 Ml) Ud) 3 ml [id number] Last Admin: 05/13/18 13:18 Dose: 3 ml Carvedilol (Coreg) 3.125 mg PO BID [facility] Last Admin: 05/13/18 18:43 Dose: 3.125 mg Diltiazem HCl (Cardizem Cd) 180 mg PO DAILY [facility] Last Admin: 05/13/18 09:39 Dose: 180 mg Aztreonam (Azactam 1 Gm) 100 mls @ 100 mls/hr IVPB Q12 [facility]; Protocol Stop: 05/19/18 22:01 Last Admin: 05/13/18 09:22 Dose: 100 mls/hr Metronidazole (Flagyl) 500 mg in 100 mls @ 100 mls/hr IVPB Q8 [facility]; Protocol Last Admin: 05/13/18 13:16 Dose: 100 mls/hr Propofol (Diprivan) 1,000 mg in 100 mls @ 2.844 mls/hr IV .Q24H PRN; Protocol PRN Reason: TITRATE PER MD ORDER Last Admin: 05/13/18 16:15 Dose: 35 mcg/kg/min, 19.908 mls/hr Doxycycline Hyclate 100 mg/ (Sodium Chloride) 100 mls @ 100 mls/hr IVPB Q12 [facility]; Protocol Stop: 05/22/18 12:31 Last Admin: 05/13/18 13:26 Dose: 100 mls/hr Insulin Human Regular (Humulin R Low) 0 units SC ACHS [facility]; Protocol Last Admin: 05/13/18 18:15 Dose: Not Given Montelukast Sodium (Singulair) 10 mg PO DAILY [facility] Last Admin: 05/13/18 09:40 Dose: 10 mg Pantoprazole Sodium (Protonix Inj) 40 mg IVP Q12 [facility] Last Admin: 05/13/18 09:22 Dose: 40 mg Pregabalin (Lyrica) 50 mg PO BID [facility] Last Admin: 05/13/18 18:43 Dose: 50 mg Sitagliptin Phosphate (Januvia) 50 mg PO DAILY [facility] Last Admin: 05/13/18 09:40 Dose: 50 mg Vitamin A (Vitamin A & D Oint Ud Foilpak) 1 ea TOP Q6H PRN PRN Reason: Dry skin Physical Exam - Constitutional Appears: Confused - Head Exam Head Exam: ATRAUMATIC, NORMAL INSPECTION, NORMOCEPHALIC - Eye Exam Eye Exam: Normal appearance, PERRL Pupil Exam: NORMAL ACCOMODATION - ENT Exam ENT Exam: Mucous Membranes Moist, Normal Exam - Neck Exam Neck exam: Positive for: Normal Inspection - Respiratory Exam Respiratory Exam: Decreased Breath Sounds, Clear to Auscultation Bilateral - Cardiovascular Exam Cardiovascular Exam: Tachycardia, REGULAR RHYTHM, +S1, +S2 - GI/Abdominal Exam GI & Abdominal Exam: Hypoactive Bowel Sounds, Soft - Extremities Exam Extremities exam: Positive for: pedal edema - Neurological Exam Neurological exam: Altered, CN II-XII Intact - Skin Skin Exam: Pallor, Warm Results - Vital Signs Recent Vital Signs: Last Vital Signs Temp 96.6 F L 05/13/18 16:00 Pulse 102 H 05/13/18 18:43 Resp 18 05/13/18 08:17 BP 122/67 05/13/18 18:43 Pulse Ox 100 05/13/18 16:00 - Labs Result Diagrams: 05/13/18 04:45 05/13/18 04:45 Labs: Laboratory Results - last 24 hr 05/11/18 05/12/18 05/12/18 11:25 15:07 22:05 WBC RBC Hgb Hct MCV MCH MCHC RDW Plt Count MPV Neut % (Auto) Lymph % (Auto) [place] % (Auto) Eos % (Auto) Baso % (Auto) Lymph # (Auto) [place] # (Auto) Eos # (Auto) Baso # (Auto) Absolute Neuts (auto) PT INR pCO2 pO2 HCO3 ABG pH ABG Total CO2 ABG O2 Saturation ABG O2 Content ABG Base Excess ABG Hemoglobin ABG Carboxyhemoglobin POC ABG HHb (Measured) ABG Methemoglobin ABG O2 Capacity ABG Potassium Hgb O2 Saturation Glucose Lactate Mechanical Rate FiO2 Tidal Volume PEEP Sodium Potassium Chloride Carbon Dioxide Anion Gap BUN Creatinine Est GFR ( Amer) Est GFR (Non-Af Amer) POC Glucose (mg/dL) 173 H Random Glucose Calcium Magnesium Total Bilirubin AST ALT Alkaline Phosphatase Ammonia NT-Pro-B Natriuret Pep Total Protein Albumin Globulin Albumin/Globulin Ratio Procalcitonin 0.78 H Arterial Blood Potassium Urine Color Urine Appearance Urine pH Ur Specific [place] Urine Protein Urine Glucose (UA) Urine Ketones Urine Blood Urine Nitrate Urine Bilirubin Urine Urobilinogen Ur Leukocyte Esterase Urine RBC Urine WBC Ur Epithelial Cells Amorphous Sediment Urine Bacteria Fine Granular Casts Urine Eosinophils Ur L.pneumophila Ag Blood Type B POSITIVE Antibody Screen Negative Crossmatch See Detail BBK History Checked No verified bt 05/13/18 05/13/18 05/13/18 04:45 04:45 04:45 WBC 9.6 D RBC 4.16 Hgb 11.4 L D Hct 35.4 L MCV 85.1 MCH 27.4 MCHC 32.2 RDW 16.2 H Plt Count 205 MPV 11.1 H Neut % (Auto) 83.4 H Lymph % (Auto) 12.4 L [place] % (Auto) 3.9 Eos % (Auto) 0.2 L Baso % (Auto) 0.1 Lymph # (Auto) 1.2 [place] # (Auto) 0.4 Eos # (Auto) 0.0 Baso # (Auto) 0.01 Absolute Neuts (auto) 8.01 H PT 18.9 H INR 1.70 pCO2 pO2 HCO3 ABG pH ABG Total CO2 ABG O2 Saturation ABG O2 Content ABG Base Excess ABG Hemoglobin ABG Carboxyhemoglobin POC ABG HHb (Measured) ABG Methemoglobin ABG O2 Capacity ABG Potassium Hgb O2 Saturation Glucose Lactate Mechanical Rate FiO2 Tidal Volume PEEP Sodium 139 Potassium 2.9 L* Chloride 100 Carbon Dioxide 25 Anion Gap 18 BUN 114 H Creatinine 4.0 H Est GFR ( Amer) 13 Est GFR (Non-Af Amer) 11 POC Glucose (mg/dL) Random Glucose 166 H Calcium 8.6 Magnesium Total Bilirubin 1.7 H AST 41 H ALT 37 Alkaline Phosphatase 92 Ammonia NT-Pro-B Natriuret Pep 7410 H Total Protein 7.0 Albumin 3.8 Globulin 3.2 Albumin/Globulin Ratio 1.2 Procalcitonin Arterial Blood Potassium Urine Color Urine Appearance Urine pH Ur Specific [place] Urine Protein Urine Glucose (UA) Urine Ketones Urine Blood Urine Nitrate Urine Bilirubin Urine Urobilinogen Ur Leukocyte Esterase Urine RBC Urine WBC Ur Epithelial Cells Amorphous Sediment Urine Bacteria Fine Granular Casts Urine Eosinophils Ur L.pneumophila Ag Blood Type Antibody Screen Crossmatch BBK History Checked 05/13/18 05/13/18 05/13/18 04:50 07:05 07:05 WBC RBC Hgb Hct MCV MCH MCHC RDW Plt Count MPV Neut % (Auto) Lymph % (Auto) [place] % (Auto) Eos % (Auto) Baso % (Auto) Lymph # (Auto) [place] # (Auto) Eos # (Auto) Baso # (Auto) Absolute Neuts (auto) PT INR pCO2 38 pO2 49.0 L HCO3 24.1 ABG pH 7.41 ABG Total CO2 25.3 ABG O2 Saturation 88.8 L ABG O2 Content 12.7 L ABG Base Excess -0.4 ABG Hemoglobin 10.6 L ABG Carboxyhemoglobin 3.2 H POC ABG HHb (Measured) 10.7 H ABG Methemoglobin 1.1 ABG O2 Capacity 14.3 L ABG Potassium Hgb O2 Saturation 85.1 L Glucose Lactate Mechanical Rate FiO2 32.0 Tidal Volume PEEP Sodium Potassium Chloride Carbon Dioxide Anion Gap BUN Creatinine Est GFR ( Amer) Est GFR (Non-Af Amer) POC Glucose (mg/dL) Random Glucose Calcium Magnesium Total Bilirubin AST ALT Alkaline Phosphatase Ammonia NT-Pro-B Natriuret Pep Total Protein Albumin Globulin Albumin/Globulin Ratio Procalcitonin Arterial Blood Potassium Urine Color Yellow Urine Appearance Clear Urine pH 5.0 Ur Specific [place] 1.015 Urine Protein Negative Urine Glucose (UA) Negative Urine Ketones Negative Urine Blood Large H Urine Nitrate Negative Urine Bilirubin Negative Urine Urobilinogen 0.2 Ur Leukocyte Esterase Trace H Urine RBC 25 - 30 H Urine WBC 5 - 10 H Ur Epithelial Cells 3 - 4 Amorphous Sediment Few Urine Bacteria Many Fine Granular Casts 0 - 2 Urine Eosinophils Negative Ur L.pneumophila Ag Blood Type Antibody Screen Crossmatch BBK History Checked 05/13/18 05/13/18 05/13/18 07:05 08:24 08:50 WBC RBC Hgb Hct MCV MCH MCHC RDW Plt Count MPV Neut % (Auto) Lymph % (Auto) [place] % (Auto) Eos % (Auto) Baso % (Auto) Lymph # (Auto) [place] # (Auto) Eos # (Auto) Baso # (Auto) Absolute Neuts (auto) PT INR pCO2 45 pO2 62.0 L HCO3 24.3 ABG pH 7.34 L ABG Total CO2 25.7 ABG O2 Saturation 94.1 L ABG O2 Content ABG Base Excess -1.7 ABG Hemoglobin ABG Carboxyhemoglobin POC ABG HHb (Measured) ABG Methemoglobin ABG O2 Capacity ABG Potassium 2.7 L Hgb O2 Saturation Glucose 183 H Lactate 0.8 Mechanical Rate 16 FiO2 50.0 Tidal Volume 450 PEEP 5 Sodium 141.0 Potassium Chloride 105.0 Carbon Dioxide Anion Gap BUN Creatinine Est GFR ( Amer) Est GFR (Non-Af Amer) POC Glucose (mg/dL) 207 H Random Glucose Calcium Magnesium Total Bilirubin AST ALT Alkaline Phosphatase Ammonia NT-Pro-B Natriuret Pep Total Protein Albumin Globulin Albumin/Globulin Ratio Procalcitonin Arterial Blood Potassium 2.7 L Urine Color Urine Appearance Urine pH Ur Specific [place] Urine Protein Urine Glucose (UA) Urine Ketones Urine Blood Urine Nitrate Urine Bilirubin Urine Urobilinogen Ur Leukocyte Esterase Urine RBC Urine WBC Ur Epithelial Cells Amorphous Sediment Urine Bacteria Fine Granular Casts Urine Eosinophils Ur L.pneumophila Ag Negative Blood Type Antibody Screen Crossmatch BBK History Checked 05/13/18 05/13/18 05/13/18 09:29 12:00 12:23 WBC RBC Hgb Hct MCV MCH MCHC RDW Plt Count MPV Neut % (Auto) Lymph % (Auto) [place] % (Auto) Eos % (Auto) Baso % (Auto) Lymph # (Auto) [place] # (Auto) Eos # (Auto) Baso # (Auto) Absolute Neuts (auto) PT INR pCO2 pO2 HCO3 ABG pH ABG Total CO2 ABG O2 Saturation ABG O2 Content ABG Base Excess ABG Hemoglobin ABG Carboxyhemoglobin POC ABG HHb (Measured) ABG Methemoglobin ABG O2 Capacity ABG Potassium Hgb O2 Saturation Glucose Lactate Mechanical Rate FiO2 Tidal Volume PEEP Sodium Potassium Chloride Carbon Dioxide Anion Gap BUN Creatinine Est GFR ( Amer) Est GFR (Non-Af Amer) POC Glucose (mg/dL) 179 H Random Glucose Calcium Magnesium 2.4 H Total Bilirubin AST ALT Alkaline Phosphatase Ammonia < 9 L NT-Pro-B Natriuret Pep Total Protein Albumin Globulin Albumin/Globulin Ratio Procalcitonin Arterial Blood Potassium Urine Color Urine Appearance Urine pH Ur Specific [place] Urine Protein Urine Glucose (UA) Urine Ketones Urine Blood Urine Nitrate Urine Bilirubin Urine Urobilinogen Ur Leukocyte Esterase Urine RBC Urine WBC Ur Epithelial Cells Amorphous Sediment Urine Bacteria Fine Granular Casts Urine Eosinophils Ur L.pneumophila Ag Blood Type Antibody Screen Crossmatch BBK History Checked Assessment & Plan - Assessment and Plan (Free Text) Assessment: 1. Coagulopathy : INR elevated to more than 10. Coumadin on hold. I unit of FFP. 10 mg SQ Vit K stat. Discussed with staff nurse. vice president quality improvement bedside. Discussed with them plan. She might need surgery for dilated colon. etiology uncertain. If INR still elevated after FFP and Vit k then second Unit of FFP to be given. PT, INR after first unit of FFP ordered. H/O of PE, DVT. hypercoaguable state. 2. anemia : related to CKD, acute renal failure, possible GI bleed. Her baseline Hb is 11 gm/dl. PRBC transfusion if Hb declined below 8 gm/dl . 3. acute on chronic renal failure : She sees Jerrell tirado in office. Consult requested. 4. Sepsis : ID consulted. 5. altered sensorium. multifactorial. Discussed with surgery team, Discussed with staff Nurse. Discussed with the sister Ms. Kent. Family is well known to me from office. Explained critical condition. - Date & Time Date: 05/11/18 Time: 18:00
--- NOTE | 2018-05-13 20:25 | PN ---
DATE: 05/13/2018 SUBJECTIVE: The patient is 73 years old. Seen and examined. Got into bed this morning because of respiratory difficulty. She is on vent. Had a lot of suction done. taking care of the patient, states she was suctioned three times. PHYSICAL EXAMINATION: GENERAL: She looks more comfortable. She is on vent. VITAL SIGNS: She is afebrile. Pulse 90, respirations 20, blood pressure 134/64. LUNGS: Bilateral air flow. Still has bilateral soft crackles in the upper lung region. HEART: S1 and S2, audible. ABDOMEN: Soft and nontender. No rebound. No guarding. NEUROLOGIC: She is sedated, on vent. EXTREMITIES: Bilateral legs, +2 edema. LABORATORY EXAMINATION: WBC is 9.6, hemoglobin 11.4, hematocrit 35.4, platelets 204. PT 18.9, INR 1.7. Sodium 139, potassium 2.9, chloride 100, CO2 of 25, BUN 114, creatinine 4, blood sugar 179. Stool Hemoccult is positive. ASSESSMENT: 1. Respiratory failure. 2. Acute renal failure. 3. Bilateral infiltrates. 4. Coagulopathy. 5. History of cavernous sinus thrombosis. 6. Fluid overload. PLAN: Continue vent support. She is on GI prophylaxis. She is on Azactam. She is on Coreg. She is on doxycycline. She is on nebulizer treatment. She is given vancomycin. We will follow up the patient in the a.m. Delta Duarte MD
[2018-05-13] MEDS ORDERED: Potassium Chloride 20 mEq ER Tab PO STA ×2 (20:56)
[2018-05-14] MEDS: Propofol 10 mg/ml 1,000 MG/100 ML VIAL IV PRN ×2 (01:41→06:34)
[2018-05-14] MEDS: Albuterol-Ipratrop 3 mg / 0.5 (3 ml) UD IH SCH ×5 (01:50→20:00)
[2018-05-14] MEDS: metroNIDAZOLE IV 500 mg/100 ml 500 MG/100 ML BAG IVPB SCH ×3 (05:28→22:37)
[2018-05-14 07:12] LABS: ARTERIAL BLOOD GAS HCO3 26.5 mmol/L (21-28); ARTERIAL BLOOD GAS O2 CAPACITY 16.3 mL/dl (16-24); ARTERIAL BLOOD GAS O2 CONTENT 15.4 ML/dl (15-23); ARTERIAL BLOOD GAS O2 SAT 94.6 % (95-98); ARTERIAL BLOOD GAS PCO2 39 mm/Hg (35-45); ARTERIAL BLOOD GAS PH 7.44 (7.35-7.45); ARTERIAL BLOOD GAS TCO2 27.7 mmol.L (22-28)
[2018-05-14 07:20] LABS: HEMOGLOBIN 9.9 g/dL (12.0-16.0); MEAN CELL VOLUME 86.6 fl (80.0-105.0); MEAN CORPUSCULAR HGB CONC 31.2 g/dl (31.0-37.0); MEAN PLATELET VOLUME 10.9 fl (7.0-11.0); RBC 3.66 10^6/uL (3.5-6.1); RED CELL DISTRIBUTION WIDTH 16.9 % (11.5-14.5); WHITE BLOOD COUNT 9.4 10^3/uL (4.5-11.0)
[2018-05-14 07:42] LABS: ALBUMIN 2.8 g/dL (3.0-4.8); CALCIUM 8.6 mg/dL (8.4-10.5)
--- NOTE | 2018-05-14 08:40 | CT ---
Date of service: 05/14/2018 PROCEDURE: CT HEAD WITHOUT CONTRAST. HISTORY: altered mental status COMPARISON: None available. TECHNIQUE: Axial computed tomography images were obtained through the head/brain without intravenous contrast. Radiation dose: Total exam DLP = 955.66 mGy-cm. This CT exam was performed using one or more of the following dose reduction techniques: Automated exposure control, adjustment of the mA and/or kV according to patient size, and/or use of iterative reconstruction technique. FINDINGS: HEMORRHAGE: No intracranial hemorrhage. BRAIN: No mass effect or edema. Chronic microvascular ischemic changes. VENTRICLES: Unremarkable. No hydrocephalus. CALVARIUM: Unremarkable. PARANASAL SINUSES: Unremarkable as visualized. No significant inflammatory changes. MASTOID AIR CELLS: Unremarkable as visualized. No inflammatory changes. OTHER FINDINGS: OG tube in place. IMPRESSION: No intracranial hemorrhage..
--- NOTE | 2018-05-14 09:19 | CP.PCM.PN ---
Subjective - Date & Time of Evaluation Date of Evaluation: 05/14/18 Time of Evaluation: 06:45 - Subjective Subjective: Surgery Progress note. Dr. Leary Pt seen and examined at bedside. Right HD access placed by ICU team yesterday. Patient was intubated yesterday to protect airway. Currently intubated and sedated on propofol. Opens eyes to command. Objective - Vital Signs/Intake and Output Vital Signs (last 24 hours): Temp Pulse Resp BP Pulse Ox 98.4 F 105 H 18 123/68 100 05/14/18 05:00 05/14/18 05:00 05/13/18 08:17 05/14/18 05:00 05/14/18 05:00 Intake and Output: 05/14/18 05/14/18 06:59 18:59 Intake Total 2478 Output Total 3630 Balance -1152 - Medications Medications: Current Medications Albuterol/Ipratropium (Duoneb 3 Mg/0.5 Mg (3 Ml) Ud) 3 ml IH [id number] [facility] Last Admin: 05/14/18 07:20 Dose: 3 ml Carvedilol (Coreg) 3.125 mg PO BID [facility] Last Admin: 05/13/18 18:43 Dose: 3.125 mg Diltiazem HCl (Cardizem Cd) 180 mg PO DAILY [facility] Last Admin: 05/13/18 09:39 Dose: 180 mg Aztreonam (Azactam 1 Gm) 100 mls @ 100 mls/hr IVPB Q12 [facility]; Protocol Stop: 05/19/18 22:01 Last Admin: 05/13/18 21:46 Dose: 100 mls/hr Metronidazole (Flagyl) 500 mg in 100 mls @ 100 mls/hr IVPB Q8 [facility]; Protocol Last Admin: 05/14/18 05:28 Dose: 100 mls/hr Propofol (Diprivan) 1,000 mg in 100 mls @ 2.844 mls/hr IV .Q24H PRN; Protocol PRN Reason: TITRATE PER MD ORDER Last Admin: 05/14/18 06:34 Dose: 35 mcg/kg/min, 19.908 mls/hr Doxycycline Hyclate 100 mg/ (Sodium Chloride) 100 mls @ 100 mls/hr IVPB Q12 [facility]; Protocol Stop: 05/22/18 12:31 Last Admin: 05/13/18 21:47 Dose: 100 mls/hr Insulin Human Regular (Humulin R Low) 0 units SC ACHS [facility]; Protocol Last Admin: 05/13/18 23:55 Dose: Not Given Montelukast Sodium (Singulair) 10 mg PO DAILY [facility] Last Admin: 05/13/18 09:40 Dose: 10 mg Pantoprazole Sodium (Protonix Inj) 40 mg IVP Q12 [facility] Last Admin: 05/13/18 21:46 Dose: 40 mg Pregabalin (Lyrica) 50 mg PO BID [facility] Last Admin: 05/13/18 18:43 Dose: 50 mg Sitagliptin Phosphate (Januvia) 50 mg PO DAILY [facility] Last Admin: 05/13/18 09:40 Dose: 50 mg Vitamin A (Vitamin A & D Oint Ud Foilpak) 1 ea TOP Q6H PRN PRN Reason: Dry skin - Labs Labs: 05/14/18 06:30 05/14/18 06:30 PT 18.9 SECONDS (9.4-12.5) H 05/13/18 04:45 INR 1.70 05/13/18 04:45 APTT 39.4 Seconds (26.9-38.3) H 05/12/18 05:30 - Constitutional Appears: Older Than Stated Age - Head Exam Head Exam: ATRAUMATIC, NORMAL INSPECTION, NORMOCEPHALIC - Eye Exam Eye Exam: EOMI, Normal appearance. absent: Scleral icterus - ENT Exam ENT Exam: Mucous Membranes Moist - Respiratory Exam Additional comments: Intubated and sedated - Cardiovascular Exam Cardiovascular Exam: absent: JVD - GI/Abdominal Exam GI & Abdominal Exam: absent: Distended, Firm, Guarding, Rigid, Soft, Rebound - Extremities Exam Extremities Exam: Normal Inspection. absent: Calf Tenderness - Neurological Exam Additional comments: Opens eyes to verbal command. Intubated and sedated - Psychiatric Exam Psychiatric exam: Normal Affect, Normal Mood - Skin Skin Exam: Dry, Intact, Normal Color, Warm Assessment and Plan - Assessment and Plan (Free Text) Assessment: 73yo F w CHF, asthma, COPD, afib on coumadin, DVT, hypothyroidism, anemia; Admitted to ICU for AMS, shortness of breath and bilateral leg swelling. Surgery consulted for possible abdominal pain. Plan: - CT scan with no evidence of pneumatosis - Medical management as per ICU team - Urine Output Improved. Consider HD decision as per Nephrology team - No surgical intervention warranted at this time - f/u GI recs Further recs as per Dr. Gibran Vee PGY2 surgery
--- NOTE | 2018-05-14 09:50 | PN ---
DATE: 05/14/2018 SUBJECTIVE: She is intubated and sedated. She has dialysis catheter placed. She came with coagulopathy status post FFP transfusion and vitamin K. INR was 1.7 yesterday. She has history of bilateral PE and history of DVT, hypercoagulable state. Currently on IV antibiotics for sepsis. system could not be obtained, sedated and intubated. PHYSICAL EXAMINATION: GENERAL: Comfortable in bed. VITAL SIGNS: Heart rate is 105, temperature 98.4, blood pressure 123/68, and oxygen saturation 100% on ventilation. HEENT: No lymphadenopathy. CHEST: Bilateral conducted sound. CARDIOVASCULAR: Tachycardia present. S1 and S2 normal. ABDOMEN: Soft and nontender. No hepatosplenomegaly. EXTREMITIES: No edema. CENTRAL NERVOUS SYSTEM: Sedated and intubated. MEDICATIONS: DuoNeb every 6 hours p.r.n., Azactam every 12 hours, Coreg 3.125 mg p.o. twice a day, diltiazem 180 mg daily, doxycycline, insulin, Flagyl every 8 hours, Singulair 10 mg daily, Protonix 40 mg every 12 hours, Lyrica 50 mg p.o. twice a day, propofol, Januvia, and vitamin A. ASSESSMENT AND PLAN: 1. Hypercoagulable state, coagulopathy on admission. Currently INR normalized, 1.7 as of yesterday. Coumadin was on hold. Would recommend starting prophylactic heparin 5000 twice a day. Acute abdomen issue resolved; she is stable. 2. Anemia related to chronic kidney disease. Hemoglobin 9.9, it was 11.4 yesterday. One dose of Aranesp given on 05/11/2018. We will continue Aranesp 100 mcg subcu weekly. 3. Acute on chronic renal failure. Nephrology following. Has a dialysis catheter in place. Sepsis followed by Infectious Disease currently on IV antibiotics; Azactam, doxycycline, and Flagyl. 4. Acute abdomen, resolving. Surgery, Dr. Leary following. Thank you Dr. Duarte for allowing us to participate in Ms. Hunt's care. Discussed with the staff nurse; discussed with Dr. Fermin. Nayeli Vela MD
[2018-05-14] MEDS: Insulin Reg-LOW-Coverage SC SCH ×4 (10:03→22:37)
[2018-05-14] MEDS: Aztreonam 1 Gm in NS 100mL 100 ML IVPB SCH ×2 (10:05→22:36)
[2018-05-14] MEDS: diltiaZEM 180 mg/24 Hours CD Cap PO SCH (10:09)
--- NOTE | 2018-05-14 10:17 | PN ---
DATE: 05/13/2018 CARDIOLOGY FOLLOWUP SUBJECTIVE: The patient is now intubated. Although she is making urine, her uremia is persistent. PHYSICAL EXAMINATION: VITAL SIGNS: Blood pressure is 134/64, heart rate is atrial fibrillation in the 120. NECK: Negative JVD. LUNGS: Decreased breath sounds. HEART: S1, S2. EXTREMITIES: Without change. LABORATORY DATA: Hemoglobin is 11.4. Chemistries: BUN and creatinine 114 and 4, glucose is 166. IMPRESSION: 1. Respiratory failure. 2. End-stage renal disease. 3. Preserved left ventricular function. 4. Diabetes mellitus. 5. Atrial fibrillation. Given these findings, the patient needs to be on dialysis to help uremia. Still awaiting for Renal to consider dialysis on the patient. Joseph Berger MD
--- NOTE | 2018-05-14 10:23 | CP.CCUPN ---
<Olvin Brady - Last Filed: 05/14/18 11:45> CCU Subjective - Physician Review Subjective (Free Text): 05/14/18 10:23 Olvin Brady PGY1 Critical Care Progress Note Patient seen and examined at bedside this morning. No acute events reported overnight. S/p intubation on 05/13/18 due to inability to protect airway and currently sedated on propofol. HD catheter placed yesterday. Patient unresponsive at time of examination and 12 point ROS unobtainable. Will try sedation vacation. CCU Objective - Vital Signs / Intake & Output Vital Signs (Last 4 hours): Vital Signs Pulse BP 05/14/18 10:10 100 H 125/72 05/14/18 10:09 100 H 125/72 Intake and Output (Last 8hrs): Intake & Output 05/13/18 05/14/18 05/14/18 22:59 06:59 14:59 Intake Total 1678 900 Output Total 2330 1300 Balance -652 -400 Intake: IV 1278 900 Left Forearm 700 Right Upper arm 1078 Oral 400 0 Output: Gastric Amount 0 Right Nares 0 Urine 2100 1200 Urethral ([place]) 2100 1200 Urine, Voided 0 Stool 230 100 - Physical Exam Head: Positive for: Atraumatic, Normocephalic Pupils: Positive for: PERRL Extroacular Muscles: Positive for: EOMI Conjunctiva: Positive for: Normal Mouth: Positive for: Moist Mucous Membranes Neck: Positive for: Normal Range of Motion Respiratory/Chest: Positive for: Rhonchi, Other (intubated ). Negative for: Respiratory Distress, Accessory Muscle Use Cardiovascular: Positive for: Regular Rate and Rhythm, Normal S1, S2. Negative for: Murmurs Abdomen: Positive for: Normal Bowel Sounds. Negative for: Tenderness, Distention, Peritoneal Signs Back: Positive for: Normal Inspection Upper Extremity: Positive for: Normal Inspection. Negative for: Cyanosis, Edema Lower Extremity: Positive for: Edema (3+ to 4+ pitting lower leg edema) Neurological: Positive for: Other (intubated and sedated ) Skin: Positive for: Warm, Dry, Normal Color. Negative for: Rashes - Medications Active Medications: Active Medications Generic Name Dose Route Start Last Admin Trade Name Freq PRN Reason Stop Dose Admin Albuterol/Ipratropium 3 ml 05/12/18 02:00 05/14/18 07:20 Duoneb 3 Mg/0.5 Mg (3 Ml) Ud IH 3 ml [id number] ADRIANA Administration Carvedilol 3.125 mg 05/11/18 10:00 05/14/18 10:10 Coreg PO 3.125 mg BID ADRIANA Administration Diltiazem HCl 180 mg 05/11/18 10:00 05/14/18 10:09 Cardizem Cd PO 180 mg DAILY ADRIANA Administration Aztreonam 100 mls @ 100 mls/hr 05/12/18 22:00 05/14/18 10:05 Azactam 1 Gm IVPB 05/19/18 22:01 100 mls/hr Q12 ADRIANA Administration Protocol Metronidazole 500 mg in 100 mls @ 100 mls/hr 05/12/18 14:00 05/14/18 05:28 Flagyl IVPB 100 mls/hr Q8 ADRIANA Administration Protocol Propofol 1,000 mg in 100 mls @ 2.844 mls/hr 05/13/18 07:17 05/14/18 06:34 Diprivan IV 35 mcg/kg/min .Q24H PRN 19.908 mls/hr TITRATE PER MD ORDER Administration Protocol 5 MCG/KG/MIN Doxycycline Hyclate 100 mg/ 100 mls @ 100 mls/hr 05/13/18 12:30 05/14/18 10:11 Sodium Chloride IVPB 05/22/18 12:31 100 mls/hr Q12 ADRIANA Administration Protocol Insulin Human Regular 0 units 05/11/18 11:30 05/14/18 10:03 Humulin R Low SC Not Given ACHS ADRIANA Protocol Montelukast Sodium 10 mg 05/11/18 10:00 05/14/18 10:09 Singulair PO 10 mg DAILY ADRIANA Administration Pantoprazole Sodium 40 mg 05/12/18 14:00 05/14/18 10:11 Protonix Inj IVP 40 mg Q12 ADRIANA Administration Pregabalin 50 mg 05/11/18 10:00 05/14/18 10:20 Lyrica PO 50 mg BID ADRIANA Administration Sitagliptin Phosphate 50 mg 05/11/18 10:00 05/14/18 10:11 Januvia PO Not Given DAILY ADRIANA Vancomycin HCl 500 mg 05/14/18 10:00 Vancomycin Inj NV QID ADRIANA Protocol Vitamin A 1 ea 05/12/18 10:37 Vitamin A & D Oint Ud Foilpak TOP Q6H PRN Dry skin - Patient Studies Lab Studies: Microbiology Studies 05/12/18 12:30 Blood Culture - Preliminary Blood-Venous NO GROWTH AFTER 24 HOURS 05/12/18 12:00 Blood Culture - Preliminary Blood-Venous NO GROWTH AFTER 24 HOURS Lab Studies 05/14/18 05/14/18 05/14/18 Range/Units 07:00 06:30 06:30 WBC 9.4 (4.5-11.0) 10^3/uL RBC 3.66 (3.5-6.1) 10^6/uL Hgb 9.9 L (12.0-16.0) g/dL Hct 31.7 L (36.0-48.0) % MCV 86.6 (80.0-105.0) fl MCH 27.0 (25.0-35.0) pg MCHC 31.2 (31.0-37.0) g/dl RDW 16.9 H (11.5-14.5) % Plt Count 165 (120.0-450.0) 10^3/uL MPV 10.9 (7.0-11.0) fl pCO2 39 (35-45) mm/Hg pO2 64.0 L (80-100) mm/Hg HCO3 26.5 (21-28) mmol/L ABG pH 7.44 (7.35-7.45) ABG Total CO2 27.7 (22-28) mmol.L ABG O2 Saturation 94.6 L (95-98) % ABG O2 Content 15.4 (15-23) ML/dl ABG Base Excess 2.2 (-2.0-3.0) mmol/L ABG Hemoglobin 12.0 (11.7-17.4) g/dL ABG Carboxyhemoglobin 2.7 H (0.5-1.5) % POC ABG HHb (Measured) 5.2 H (0-5) % ABG Methemoglobin 1.1 (0.0-3.0) % ABG O2 Capacity 16.3 (16-24) mL/dl Hgb O2 Saturation 91.0 L (95.0-98.0) % FiO2 50.0 % Sodium (132-148) mmol/L Potassium (3.6-5.0) mmol/L Chloride (98-107) mmol/L Carbon Dioxide (21-33) mmol/L Anion Gap (10-20) BUN (7-21) mg/dL Creatinine (0.7-1.2) mg/dl Est GFR ( Amer) Est GFR (Non-Af Amer) POC Glucose (mg/dL) (65-110) mg/dL Random Glucose (70-110) mg/dL Calcium (8.4-10.5) mg/dL Phosphorus (2.5-4.5) mg/dL Magnesium (1.7-2.2) mg/dL Total Bilirubin (0.2-1.3) mg/dL AST (14-36) U/L ALT (7-56) U/L Alkaline Phosphatase (38-126) U/L Ammonia (9-33) umol/L Total Protein (5.8-8.3) g/dL Albumin (3.0-4.8) g/dL Globulin gm/dL Albumin/Globulin Ratio (1.1-1.8) Random Vancomycin 19.3 ug/mL Ur L.pneumophila Ag (NEGATIVE) 05/14/18 05/13/18 05/13/18 Range/Units 06:30 22:15 18:58 WBC (4.5-11.0) 10^3/uL RBC (3.5-6.1) 10^6/uL Hgb (12.0-16.0) g/dL Hct (36.0-48.0) % MCV (80.0-105.0) fl MCH (25.0-35.0) pg MCHC (31.0-37.0) g/dl RDW (11.5-14.5) % Plt Count (120.0-450.0) 10^3/uL MPV (7.0-11.0) fl pCO2 (35-45) mm/Hg pO2 (80-100) mm/Hg HCO3 (21-28) mmol/L ABG pH (7.35-7.45) ABG Total CO2 (22-28) mmol.L ABG O2 Saturation (95-98) % ABG O2 Content (15-23) ML/dl ABG Base Excess (-2.0-3.0) mmol/L ABG Hemoglobin (11.7-17.4) g/dL ABG Carboxyhemoglobin (0.5-1.5) % POC ABG HHb (Measured) (0-5) % ABG Methemoglobin (0.0-3.0) % ABG O2 Capacity (16-24) mL/dl Hgb O2 Saturation (95.0-98.0) % FiO2 % Sodium 141 137 (132-148) mmol/L Potassium 3.7 3.1 L (3.6-5.0) mmol/L Chloride 105 101 (98-107) mmol/L Carbon Dioxide 30 31 (21-33) mmol/L Anion Gap 10 8 L (10-20) BUN 108 H 116 H (7-21) mg/dL Creatinine 3.1 H 3.1 H (0.7-1.2) mg/dl Est GFR ( Amer) 18 18 Est GFR (Non-Af Amer) 15 15 POC Glucose (mg/dL) 103 (65-110) mg/dL Random Glucose 93 96 (70-110) mg/dL Calcium 8.6 8.7 (8.4-10.5) mg/dL Phosphorus 3.0 (2.5-4.5) mg/dL Magnesium 2.1 (1.7-2.2) mg/dL Total Bilirubin 1.0 1.3 (0.2-1.3) mg/dL AST 34 46 H (14-36) U/L ALT 31 31 (7-56) U/L Alkaline Phosphatase 72 71 (38-126) U/L Ammonia (9-33) umol/L Total Protein 5.5 L 6.0 (5.8-8.3) g/dL Albumin 2.8 L 3.2 (3.0-4.8) g/dL Globulin 2.7 2.8 gm/dL Albumin/Globulin Ratio 1.0 L 1.1 (1.1-1.8) Random Vancomycin ug/mL Ur L.pneumophila Ag (NEGATIVE) 05/13/18 05/13/18 05/13/18 Range/Units 16:31 12:23 12:00 WBC (4.5-11.0) 10^3/uL RBC (3.5-6.1) 10^6/uL Hgb (12.0-16.0) g/dL Hct (36.0-48.0) % MCV (80.0-105.0) fl MCH (25.0-35.0) pg MCHC (31.0-37.0) g/dl RDW (11.5-14.5) % Plt Count (120.0-450.0) 10^3/uL MPV (7.0-11.0) fl pCO2 (35-45) mm/Hg pO2 (80-100) mm/Hg HCO3 (21-28) mmol/L ABG pH (7.35-7.45) ABG Total CO2 (22-28) mmol.L ABG O2 Saturation (95-98) % ABG O2 Content (15-23) ML/dl ABG Base Excess (-2.0-3.0) mmol/L ABG Hemoglobin (11.7-17.4) g/dL ABG Carboxyhemoglobin (0.5-1.5) % POC ABG HHb (Measured) (0-5) % ABG Methemoglobin (0.0-3.0) % ABG O2 Capacity (16-24) mL/dl Hgb O2 Saturation (95.0-98.0) % FiO2 % Sodium (132-148) mmol/L Potassium (3.6-5.0) mmol/L Chloride (98-107) mmol/L Carbon Dioxide (21-33) mmol/L Anion Gap (10-20) BUN (7-21) mg/dL Creatinine (0.7-1.2) mg/dl Est GFR ( Amer) Est GFR (Non-Af Amer) POC Glucose (mg/dL) 124 H 179 H (65-110) mg/dL Random Glucose (70-110) mg/dL Calcium (8.4-10.5) mg/dL Phosphorus (2.5-4.5) mg/dL Magnesium (1.7-2.2) mg/dL Total Bilirubin (0.2-1.3) mg/dL AST (14-36) U/L ALT (7-56) U/L Alkaline Phosphatase (38-126) U/L Ammonia < 9 L (9-33) umol/L Total Protein (5.8-8.3) g/dL Albumin (3.0-4.8) g/dL Globulin gm/dL Albumin/Globulin Ratio (1.1-1.8) Random Vancomycin ug/mL Ur L.pneumophila Ag (NEGATIVE) 05/13/18 Range/Units 07:05 WBC (4.5-11.0) 10^3/uL RBC (3.5-6.1) 10^6/uL Hgb (12.0-16.0) g/dL Hct (36.0-48.0) % MCV (80.0-105.0) fl MCH (25.0-35.0) pg MCHC (31.0-37.0) g/dl RDW (11.5-14.5) % Plt Count (120.0-450.0) 10^3/uL MPV (7.0-11.0) fl pCO2 (35-45) mm/Hg pO2 (80-100) mm/Hg HCO3 (21-28) mmol/L ABG pH (7.35-7.45) ABG Total CO2 (22-28) mmol.L ABG O2 Saturation (95-98) % ABG O2 Content (15-23) ML/dl ABG Base Excess (-2.0-3.0) mmol/L ABG Hemoglobin (11.7-17.4) g/dL ABG Carboxyhemoglobin (0.5-1.5) % POC ABG HHb (Measured) (0-5) % ABG Methemoglobin (0.0-3.0) % ABG O2 Capacity (16-24) mL/dl Hgb O2 Saturation (95.0-98.0) % FiO2 % Sodium (132-148) mmol/L Potassium (3.6-5.0) mmol/L Chloride (98-107) mmol/L Carbon Dioxide (21-33) mmol/L Anion Gap (10-20) BUN (7-21) mg/dL Creatinine (0.7-1.2) mg/dl Est GFR ( Amer) Est GFR (Non-Af Amer) POC Glucose (mg/dL) (65-110) mg/dL Random Glucose (70-110) mg/dL Calcium (8.4-10.5) mg/dL Phosphorus (2.5-4.5) mg/dL Magnesium (1.7-2.2) mg/dL Total Bilirubin (0.2-1.3) mg/dL AST (14-36) U/L ALT (7-56) U/L Alkaline Phosphatase (38-126) U/L Ammonia (9-33) umol/L Total Protein (5.8-8.3) g/dL Albumin (3.0-4.8) g/dL Globulin gm/dL Albumin/Globulin Ratio (1.1-1.8) Random Vancomycin ug/mL Ur L.pneumophila Ag Negative (NEGATIVE) Laboratory Results - last 24 hr 05/13/18 05/13/18 05/13/18 07:05 12:00 12:23 WBC RBC Hgb Hct MCV MCH MCHC RDW Plt Count MPV pCO2 pO2 HCO3 ABG pH ABG Total CO2 ABG O2 Saturation ABG O2 Content ABG Base Excess ABG Hemoglobin ABG Carboxyhemoglobin POC ABG HHb (Measured) ABG Methemoglobin ABG O2 Capacity Hgb O2 Saturation FiO2 Sodium Potassium Chloride Carbon Dioxide Anion Gap BUN Creatinine Est GFR ( Amer) Est GFR (Non-Af Amer) POC Glucose (mg/dL) 179 H Random Glucose Calcium Phosphorus Magnesium Total Bilirubin AST ALT Alkaline Phosphatase Ammonia < 9 L Total Protein Albumin Globulin Albumin/Globulin Ratio Random Vancomycin Ur L.pneumophila Ag Negative 05/13/18 05/13/18 05/13/18 16:31 18:58 22:15 WBC RBC Hgb Hct MCV MCH MCHC RDW Plt Count MPV pCO2 pO2 HCO3 ABG pH ABG Total CO2 ABG O2 Saturation ABG O2 Content ABG Base Excess ABG Hemoglobin ABG Carboxyhemoglobin POC ABG HHb (Measured) ABG Methemoglobin ABG O2 Capacity Hgb O2 Saturation FiO2 Sodium 137 Potassium 3.1 L Chloride 101 Carbon Dioxide 31 Anion Gap 8 L BUN 116 H Creatinine 3.1 H Est GFR ( Amer) 18 Est GFR (Non-Af Amer) 15 POC Glucose (mg/dL) 124 H 103 Random Glucose 96 Calcium 8.7 Phosphorus Magnesium Total Bilirubin 1.3 AST 46 H ALT 31 Alkaline Phosphatase 71 Ammonia Total Protein 6.0 Albumin 3.2 Globulin 2.8 Albumin/Globulin Ratio 1.1 Random Vancomycin Ur L.pneumophila Ag 05/14/18 05/14/18 05/14/18 06:30 06:30 06:30 WBC 9.4 RBC 3.66 Hgb 9.9 L Hct 31.7 L MCV 86.6 MCH 27.0 MCHC 31.2 RDW 16.9 H Plt Count 165 MPV 10.9 pCO2 pO2 HCO3 ABG pH ABG Total CO2 ABG O2 Saturation ABG O2 Content ABG Base Excess ABG Hemoglobin ABG Carboxyhemoglobin POC ABG HHb (Measured) ABG Methemoglobin ABG O2 Capacity Hgb O2 Saturation FiO2 Sodium 141 Potassium 3.7 Chloride 105 Carbon Dioxide 30 Anion Gap 10 BUN 108 H Creatinine 3.1 H Est GFR ( Amer) 18 Est GFR (Non-Af Amer) 15 POC Glucose (mg/dL) Random Glucose 93 Calcium 8.6 Phosphorus 3.0 Magnesium 2.1 Total Bilirubin 1.0 AST 34 ALT 31 Alkaline Phosphatase 72 Ammonia Total Protein 5.5 L Albumin 2.8 L Globulin 2.7 Albumin/Globulin Ratio 1.0 L Random Vancomycin 19.3 Ur L.pneumophila Ag 05/14/18 07:00 WBC RBC Hgb Hct MCV MCH MCHC RDW Plt Count MPV pCO2 39 pO2 64.0 L HCO3 26.5 ABG pH 7.44 ABG Total CO2 27.7 ABG O2 Saturation 94.6 L ABG O2 Content 15.4 ABG Base Excess 2.2 ABG Hemoglobin 12.0 ABG Carboxyhemoglobin 2.7 H POC ABG HHb (Measured) 5.2 H ABG Methemoglobin 1.1 ABG O2 Capacity 16.3 Hgb O2 Saturation 91.0 L FiO2 50.0 Sodium Potassium Chloride Carbon Dioxide Anion Gap BUN Creatinine Est GFR ( Amer) Est GFR (Non-Af Amer) POC Glucose (mg/dL) Random Glucose Calcium Phosphorus Magnesium Total Bilirubin AST ALT Alkaline Phosphatase Ammonia Total Protein Albumin Globulin Albumin/Globulin Ratio Random Vancomycin Ur L.pneumophila Ag Radiology Impressions: Radiology Impressions Chest X-Ray 05/13/18 01:13 IMPRESSION: Bibasilar atelectasis and/or infiltrates with questionable small bilateral effusions. Chest X-Ray 05/13/18 09:08 IMPRESSION: ETT and NGT as above. Mild central pulmonary vascular congestive changes with bilateral atelectatic and or infiltrates. Bilateral effusions right greater than left Head CT 05/13/18 11:16 IMPRESSION: No intracranial hemorrhage.. Fingerstick Blood Sugar Results: 101 Critical Care Progress Note - Nutrition Nutrition: Nutrition Category Date Time Status NPO Diet [DIET] Diets 05/11/18 Lunch Ordered Assessment/Plan - Assessment and Plan (Free Text) Assessment: This is a 73 year old female with PMH of CHF (EF 65%), asthma, renal failure, afib on coumadin, hypothyroidism, COPD, Hx of DVT, coagulopathy, and anemia who presented to the hospital for one week history of leg swelling and ICU team was consulted for labored breathing. Patient admitted to ICU for ventilator dependent hypoxic respiratory failure 2/2 cardiogenic vs non cardiogenic pulmonary edema. Plan: Neuro: -maintain normothermia -intubated and sedated on propofol -CT head w/o contrast on 05/13/18 shows no intracranial hemorrhage -EEG pending Lungs: Ventilator Dependent Hypoxic respiratory failure 2/2 pulmonary edema -Ventilar settings FiO2 50%, PEEP 5, RR 18, TV 450 -weaning trials, sedation vacation -conservative fluid management, HOB 30 degrees, oral hygiene -echo 04/17/18 shows systolic function mildly impaired, septal hypokinesis, left atrium is moderately dilated Hx of COPD -SaO2 >90% -CXR 05/14/18 shows infiltrate in the right upper lobe unchanged, improvement in lower lobe infiltrates, ET tube in satisfactory tube -per ID, concern for B/L HAP, on triple antibiotics therapy, day 3 Cardio/Heme Hx of afib on coumadin -INR improved today -s/p 4 units FFP -maintain MAP>65 -will monitor vitals including HR and BP closely -Hemoglobin is 9.9 from 11.4, will monitor -LE dopplers negative B/L for DVT -DVT ppx with SCD GI Bleed -2/2 ileus vs pneumotosis -s/p 2 units PRBC -rectal tube in place Hx of diastolic CHF -BNP elevated on admission -no HD at this time -continue cardizem 180mg PO, coreg 3.125mg PO BID -echo 04/17/18 shows systolic function mildly impaired, septal hypokinesis, left atrium is moderately dilated, MR is mild, mild pulm hypertension -Cardiology on consult, Dr. Berger Hx of coagulopathy -Heme/onc on consult, Dr. Vela GI: Possible Free air under diaphragm -Abd xray 05/12/18 showed interval improvement previously noted distended air filled loops, no gross free intraperitoneal air seen under diaphragm -no surgical intervention at this time -Gen surgery on consult, Dr. Leary -NPO for now -GI prophylaxis Renal: LUI on CKD -nephrology consult, Dr. Allan -per Urology, may need HD if uremic encephalopathy present -BUN/Cr is 108/3.1 today -good urine output, 3.6L today -maintain euvolemia -avoid nephrotoxic agents, hypochloremia -replace electrolytes as needed Endo: Hx of DM -continue insulin ACHS, januvia -maintain euglycemia ID: -WBC is WNL today, afebrile -continue antibiotics as per ID Patient seen and case discussed with attending, Dr. Fermin <Reagan Fermin - Last Filed: 05/14/18 15:02> CCU Objective - Vital Signs / Intake & Output Vital Signs (Last 4 hours): Vital Signs Temp Pulse BP Pulse Ox 05/14/18 13:00 111 H 05/14/18 12:50 98.4 F 124 H 98 05/14/18 12:49 98.4 F 126 H 95 05/14/18 12:48 98.4 F 127 H 97 05/14/18 12:47 98.4 F 113 H 99 05/14/18 12:28 98.4 F 116 H 130/69 100 05/14/18 12:15 98.4 F 112 H 119/56 L 100 05/14/18 12:00 98.2 F 111 H 116/65 100 05/14/18 11:45 98.1 F 118 H 130/62 99 05/14/18 11:30 97.9 F 118 H 127/78 100 05/14/18 11:15 97.3 F L 112 H 100/56 L 99 Intake and Output (Last 8hrs): Intake & Output 05/14/18 05/14/18 05/14/18 06:59 14:59 22:59 Intake Total 900 Output Total 1300 Balance -400 Intake: IV 900 Left Forearm 700 Oral 0 Output: Gastric Amount 0 Right Nares 0 Urine 1200 Urethral ([place]) 1200 Urine, Voided 0 Stool 100 - Medications Active Medications: Active Medications Generic Name Dose Route Start Last Admin Trade Name Freq PRN Reason Stop Dose Admin Albuterol/Ipratropium 3 ml 05/12/18 02:00 05/14/18 13:00 Duoneb 3 Mg/0.5 Mg (3 Ml) Ud IH 3 ml [id number] ADRIANA Administration Carvedilol 3.125 mg 05/11/18 10:00 05/14/18 10:10 Coreg PO 3.125 mg BID ADRIANA Administration Diltiazem HCl 180 mg 05/11/18 10:00 05/14/18 10:09 Cardizem Cd PO 180 mg DAILY ADRIANA Administration Aztreonam 100 mls @ 100 mls/hr 05/12/18 22:00 05/14/18 10:05 Azactam 1 Gm IVPB 05/19/18 22:01 100 mls/hr Q12 ADRIANA Administration Protocol Metronidazole 500 mg in 100 mls @ 100 mls/hr 05/12/18 14:00 05/14/18 14:35 Flagyl IVPB 100 mls/hr Q8 ADRIANA Administration Protocol Propofol 1,000 mg in 100 mls @ 2.844 mls/hr 05/13/18 07:17 05/14/18 06:34 Diprivan IV 35 mcg/kg/min .Q24H PRN 19.908 mls/hr TITRATE PER MD ORDER Administration Protocol 5 MCG/KG/MIN Doxycycline Hyclate 100 mg/ 100 mls @ 100 mls/hr 05/13/18 12:30 05/14/18 10:11 Sodium Chloride IVPB 05/22/18 12:31 100 mls/hr Q12 ADRIANA Administration Protocol Dexmedetomidine HCl 400 mcg in 100 mls @ 4.74 mls/hr 05/14/18 12:22 Precedex 400mcg/100ml IV .Q21H6M PRN Agitation Protocol 0.2 MCG/KG/HR Insulin Human Regular 0 units 05/11/18 11:30 05/14/18 14:37 Humulin R Low SC Not Given ACHS ADRIANA Protocol Montelukast Sodium 10 mg 05/11/18 10:00 05/14/18 10:09 Singulair PO 10 mg DAILY ADRIANA Administration Pantoprazole Sodium 40 mg 05/12/18 14:00 05/14/18 10:11 Protonix Inj IVP 40 mg Q12 ADRIANA Administration Pregabalin 50 mg 05/11/18 10:00 05/14/18 10:20 Lyrica PO 50 mg BID ADRIANA Administration Sitagliptin Phosphate 50 mg 05/11/18 10:00 05/14/18 10:11 Januvia PO Not Given DAILY [facility] Vancomycin HCl 500 mg 05/14/18 10:00 05/14/18 14:37 Vancomycin Inj NV Not Given QID [facility] Protocol Vancomycin HCl 125 mg 05/14/18 14:00 05/14/18 14:36 Vancocin 25 Mg/Ml (Oral Use) PO 125 mg QID [facility] Administration Protocol Vitamin A 1 ea 05/12/18 10:37 Vitamin A & D Oint Ud Foilpak TOP Q6H PRN Dry skin - Patient Studies Lab Studies: Microbiology Studies 05/12/18 12:30 Blood Culture - Preliminary Blood-Venous NO GROWTH AFTER 48 HOURS 05/12/18 12:00 Blood Culture - Preliminary Blood-Venous NO GROWTH AFTER 48 HOURS Lab Studies 05/14/18 05/14/18 05/14/18 Range/Units 13:50 11:30 07:53 WBC (4.5-11.0) 10^3/uL RBC (3.5-6.1) 10^6/uL Hgb (12.0-16.0) g/dL Hct (36.0-48.0) % MCV (80.0-105.0) fl MCH (25.0-35.0) pg MCHC (31.0-37.0) g/dl RDW (11.5-14.5) % Plt Count (120.0-450.0) 10^3/uL MPV (7.0-11.0) fl pCO2 36 (35-45) mm/Hg pO2 62.0 L (80-100) mm/Hg HCO3 25.6 (21-28) mmol/L ABG pH 7.46 H (7.35-7.45) ABG Total CO2 26.7 (22-28) mmol.L ABG O2 Saturation 95.6 (95-98) % ABG O2 Content 13.6 L (15-23) ML/dl ABG Base Excess 1.8 (-2.0-3.0) mmol/L ABG Hemoglobin 10.5 L (11.7-17.4) g/dL ABG Carboxyhemoglobin 2.8 H (0.5-1.5) % POC ABG HHb (Measured) 4.2 (0-5) % ABG Methemoglobin 1.0 (0.0-3.0) % ABG O2 Capacity 14.2 L (16-24) mL/dl Hgb O2 Saturation 92.0 L (95.0-98.0) % FiO2 50.0 % Sodium (132-148) mmol/L Potassium (3.6-5.0) mmol/L Chloride (98-107) mmol/L Carbon Dioxide (21-33) mmol/L Anion Gap (10-20) BUN (7-21) mg/dL Creatinine (0.7-1.2) mg/dl Est GFR ( Amer) Est GFR (Non-Af Amer) POC Glucose (mg/dL) 107 102 (65-110) mg/dL Random Glucose (70-110) mg/dL Calcium (8.4-10.5) mg/dL Phosphorus (2.5-4.5) mg/dL Magnesium (1.7-2.2) mg/dL Total Bilirubin (0.2-1.3) mg/dL AST (14-36) U/L ALT (7-56) U/L Alkaline Phosphatase (38-126) U/L Total Protein (5.8-8.3) g/dL Albumin (3.0-4.8) g/dL Globulin gm/dL Albumin/Globulin Ratio (1.1-1.8) Random Vancomycin ug/mL 05/14/18 05/14/18 05/14/18 Range/Units 07:00 06:30 06:30 WBC 9.4 (4.5-11.0) 10^3/uL RBC 3.66 (3.5-6.1) 10^6/uL Hgb 9.9 L (12.0-16.0) g/dL Hct 31.7 L (36.0-48.0) % MCV 86.6 (80.0-105.0) fl MCH 27.0 (25.0-35.0) pg MCHC 31.2 (31.0-37.0) g/dl RDW 16.9 H (11.5-14.5) % Plt Count 165 (120.0-450.0) 10^3/uL MPV 10.9 (7.0-11.0) fl pCO2 39 (35-45) mm/Hg pO2 64.0 L (80-100) mm/Hg HCO3 26.5 (21-28) mmol/L ABG pH 7.44 (7.35-7.45) ABG Total CO2 27.7 (22-28) mmol.L ABG O2 Saturation 94.6 L (95-98) % ABG O2 Content 15.4 (15-23) ML/dl ABG Base Excess 2.2 (-2.0-3.0) mmol/L ABG Hemoglobin 12.0 (11.7-17.4) g/dL ABG Carboxyhemoglobin 2.7 H (0.5-1.5) % POC ABG HHb (Measured) 5.2 H (0-5) % ABG Methemoglobin 1.1 (0.0-3.0) % ABG O2 Capacity 16.3 (16-24) mL/dl Hgb O2 Saturation 91.0 L (95.0-98.0) % FiO2 50.0 % Sodium (132-148) mmol/L Potassium (3.6-5.0) mmol/L Chloride (98-107) mmol/L Carbon Dioxide (21-33) mmol/L Anion Gap (10-20) BUN (7-21) mg/dL Creatinine (0.7-1.2) mg/dl Est GFR ( Amer) Est GFR (Non-Af Amer) POC Glucose (mg/dL) (65-110) mg/dL Random Glucose (70-110) mg/dL Calcium (8.4-10.5) mg/dL Phosphorus (2.5-4.5) mg/dL Magnesium (1.7-2.2) mg/dL Total Bilirubin (0.2-1.3) mg/dL AST (14-36) U/L ALT (7-56) U/L Alkaline Phosphatase (38-126) U/L Total Protein (5.8-8.3) g/dL Albumin (3.0-4.8) g/dL Globulin gm/dL Albumin/Globulin Ratio (1.1-1.8) Random Vancomycin 19.3 ug/mL 05/14/18 05/13/18 05/13/18 Range/Units 06:30 22:15 18:58 WBC (4.5-11.0) 10^3/uL RBC (3.5-6.1) 10^6/uL Hgb (12.0-16.0) g/dL Hct (36.0-48.0) % MCV (80.0-105.0) fl MCH (25.0-35.0) pg MCHC (31.0-37.0) g/dl RDW (11.5-14.5) % Plt Count (120.0-450.0) 10^3/uL MPV (7.0-11.0) fl pCO2 (35-45) mm/Hg pO2 (80-100) mm/Hg HCO3 (21-28) mmol/L ABG pH (7.35-7.45) ABG Total CO2 (22-28) mmol.L ABG O2 Saturation (95-98) % ABG O2 Content (15-23) ML/dl ABG Base Excess (-2.0-3.0) mmol/L ABG Hemoglobin (11.7-17.4) g/dL ABG Carboxyhemoglobin (0.5-1.5) % POC ABG HHb (Measured) (0-5) % ABG Methemoglobin (0.0-3.0) % ABG O2 Capacity (16-24) mL/dl Hgb O2 Saturation (95.0-98.0) % FiO2 % Sodium 141 137 (132-148) mmol/L Potassium 3.7 3.1 L (3.6-5.0) mmol/L Chloride 105 101 (98-107) mmol/L Carbon Dioxide 30 31 (21-33) mmol/L Anion Gap 10 8 L (10-20) BUN 108 H 116 H (7-21) mg/dL Creatinine 3.1 H 3.1 H (0.7-1.2) mg/dl Est GFR ( Amer) 18 18 Est GFR (Non-Af Amer) 15 15 POC Glucose (mg/dL) 103 (65-110) mg/dL Random Glucose 93 96 (70-110) mg/dL Calcium 8.6 8.7 (8.4-10.5) mg/dL Phosphorus 3.0 (2.5-4.5) mg/dL Magnesium 2.1 (1.7-2.2) mg/dL Total Bilirubin 1.0 1.3 (0.2-1.3) mg/dL AST 34 46 H (14-36) U/L ALT 31 31 (7-56) U/L Alkaline Phosphatase 72 71 (38-126) U/L Total Protein 5.5 L 6.0 (5.8-8.3) g/dL Albumin 2.8 L 3.2 (3.0-4.8) g/dL Globulin 2.7 2.8 gm/dL Albumin/Globulin Ratio 1.0 L 1.1 (1.1-1.8) Random Vancomycin ug/mL 05/13/18 Range/Units 16:31 WBC (4.5-11.0) 10^3/uL RBC (3.5-6.1) 10^6/uL Hgb (12.0-16.0) g/dL Hct (36.0-48.0) % MCV (80.0-105.0) fl MCH (25.0-35.0) pg MCHC (31.0-37.0) g/dl RDW (11.5-14.5) % Plt Count (120.0-450.0) 10^3/uL MPV (7.0-11.0) fl pCO2 (35-45) mm/Hg pO2 (80-100) mm/Hg HCO3 (21-28) mmol/L ABG pH (7.35-7.45) ABG Total CO2 (22-28) mmol.L ABG O2 Saturation (95-98) % ABG O2 Content (15-23) ML/dl ABG Base Excess (-2.0-3.0) mmol/L ABG Hemoglobin (11.7-17.4) g/dL ABG Carboxyhemoglobin (0.5-1.5) % POC ABG HHb (Measured) (0-5) % ABG Methemoglobin (0.0-3.0) % ABG O2 Capacity (16-24) mL/dl Hgb O2 Saturation (95.0-98.0) % FiO2 % Sodium (132-148) mmol/L Potassium (3.6-5.0) mmol/L Chloride (98-107) mmol/L Carbon Dioxide (21-33) mmol/L Anion Gap (10-20) BUN (7-21) mg/dL Creatinine (0.7-1.2) mg/dl Est GFR ( Amer) Est GFR (Non-Af Amer) POC Glucose (mg/dL) 124 H (65-110) mg/dL Random Glucose (70-110) mg/dL Calcium (8.4-10.5) mg/dL Phosphorus (2.5-4.5) mg/dL Magnesium (1.7-2.2) mg/dL Total Bilirubin (0.2-1.3) mg/dL AST (14-36) U/L ALT (7-56) U/L Alkaline Phosphatase (38-126) U/L Total Protein (5.8-8.3) g/dL Albumin (3.0-4.8) g/dL Globulin gm/dL Albumin/Globulin Ratio (1.1-1.8) Random Vancomycin ug/mL Laboratory Results - last 24 hr 05/13/18 05/13/18 05/13/18 16:31 18:58 22:15 WBC RBC Hgb Hct MCV MCH MCHC RDW Plt Count MPV pCO2 pO2 HCO3 ABG pH ABG Total CO2 ABG O2 Saturation ABG O2 Content ABG Base Excess ABG Hemoglobin ABG Carboxyhemoglobin POC ABG HHb (Measured) ABG Methemoglobin ABG O2 Capacity Hgb O2 Saturation FiO2 Sodium 137 Potassium 3.1 L Chloride 101 Carbon Dioxide 31 Anion Gap 8 L BUN 116 H Creatinine 3.1 H Est GFR ( Amer) 18 Est GFR (Non-Af Amer) 15 POC Glucose (mg/dL) 124 H 103 Random Glucose 96 Calcium 8.7 Phosphorus Magnesium Total Bilirubin 1.3 AST 46 H ALT 31 Alkaline Phosphatase 71 Total Protein 6.0 Albumin 3.2 Globulin 2.8 Albumin/Globulin Ratio 1.1 Random Vancomycin 05/14/18 05/14/18 05/14/18 06:30 06:30 06:30 WBC 9.4 RBC 3.66 Hgb 9.9 L Hct 31.7 L MCV 86.6 MCH 27.0 MCHC 31.2 RDW 16.9 H Plt Count 165 MPV 10.9 pCO2 pO2 HCO3 ABG pH ABG Total CO2 ABG O2 Saturation ABG O2 Content ABG Base Excess ABG Hemoglobin ABG Carboxyhemoglobin POC ABG HHb (Measured) ABG Methemoglobin ABG O2 Capacity Hgb O2 Saturation FiO2 Sodium 141 Potassium 3.7 Chloride 105 Carbon Dioxide 30 Anion Gap 10 BUN 108 H Creatinine 3.1 H Est GFR ( Amer) 18 Est GFR (Non-Af Amer) 15 POC Glucose (mg/dL) Random Glucose 93 Calcium 8.6 Phosphorus 3.0 Magnesium 2.1 Total Bilirubin 1.0 AST 34 ALT 31 Alkaline Phosphatase 72 Total Protein 5.5 L Albumin 2.8 L Globulin 2.7 Albumin/Globulin Ratio 1.0 L Random Vancomycin 19.3 05/14/18 05/14/18 05/14/18 07:00 07:53 11:30 WBC RBC Hgb Hct MCV MCH MCHC RDW Plt Count MPV pCO2 39 pO2 64.0 L HCO3 26.5 ABG pH 7.44 ABG Total CO2 27.7 ABG O2 Saturation 94.6 L ABG O2 Content 15.4 ABG Base Excess 2.2 ABG Hemoglobin 12.0 ABG Carboxyhemoglobin 2.7 H POC ABG HHb (Measured) 5.2 H ABG Methemoglobin 1.1 ABG O2 Capacity 16.3 Hgb O2 Saturation 91.0 L FiO2 50.0 Sodium Potassium Chloride Carbon Dioxide Anion Gap BUN Creatinine Est GFR ( Amer) Est GFR (Non-Af Amer) POC Glucose (mg/dL) 102 107 Random Glucose Calcium Phosphorus Magnesium Total Bilirubin AST ALT Alkaline Phosphatase Total Protein Albumin Globulin Albumin/Globulin Ratio Random Vancomycin 05/14/18 13:50 WBC RBC Hgb Hct MCV MCH MCHC RDW Plt Count MPV pCO2 36 pO2 62.0 L HCO3 25.6 ABG pH 7.46 H ABG Total CO2 26.7 ABG O2 Saturation 95.6 ABG O2 Content 13.6 L ABG Base Excess 1.8 ABG Hemoglobin 10.5 L ABG Carboxyhemoglobin 2.8 H POC ABG HHb (Measured) 4.2 ABG Methemoglobin 1.0 ABG O2 Capacity 14.2 L Hgb O2 Saturation 92.0 L FiO2 50.0 Sodium Potassium Chloride Carbon Dioxide Anion Gap BUN Creatinine Est GFR ( Amer) Est GFR (Non-Af Amer) POC Glucose (mg/dL) Random Glucose Calcium Phosphorus Magnesium Total Bilirubin AST ALT Alkaline Phosphatase Total Protein Albumin Globulin Albumin/Globulin Ratio Random Vancomycin Radiology Impressions: Radiology Impressions Head CT 05/13/18 11:16 IMPRESSION: No intracranial hemorrhage.. Chest X-Ray 05/14/18 05:11 IMPRESSION: There is an infiltrate in the right upper lobe unchanged. Improvement in lower lobe infiltrates. Endotracheal tube in satisfactory position Critical Care Progress Note - Nutrition Nutrition: Nutrition Category Date Time Status NPO Diet [DIET] Diets 05/11/18 Lunch Ordered Attending/Attestation - Attestation I have personally seen and examined this patient.: Yes I have fully participated in the care of the patient.: Yes I have reviewed all pertinent clinical information: Yes Notes (Text): 05/14/18 15:[address] Fermin note
--- NOTE | 2018-05-14 10:34 | RAD ---
Date of service: 05/14/2018 HISTORY: intubated COMPARISON: 05/13/2018 FINDINGS: LUNGS: There is an infiltrate in the right upper lobe unchanged. Improvement in lower lobe infiltrates. Endotracheal tube in satisfactory position PLEURA: No significant pleural effusion identified, no pneumothorax apparent. CARDIOVASCULAR: Aortic calcification Normal cardiac size. No pulmonary vascular congestion. OSSEOUS STRUCTURES: No significant abnormalities. VISUALIZED UPPER ABDOMEN: Normal. OTHER FINDINGS: None. IMPRESSION: There is an infiltrate in the right upper lobe unchanged. Improvement in lower lobe infiltrates. Endotracheal tube in satisfactory position
--- NOTE | 2018-05-14 12:50 | CP.PCM.PCO ---
Physician Communication Note - Physician Communication Note Physician Communication Note: currently intubated, rectal tube, continue IV antibiotics
--- NOTE | 2018-05-14 12:55 | CP.PCM.PN ---
Subjective - Date & Time of Evaluation Date of Evaluation: 05/14/18 Time of Evaluation: 11:10 - Subjective Subjective: Patient intubated on Monday, continues to be on the ventilator, no fevers, sedated. Objective - Vital Signs/Intake and Output Vital Signs (last 24 hours): Temp Pulse Resp BP Pulse Ox 98.4 F 100 H 18 125/72 100 05/14/18 05:00 05/14/18 10:10 05/13/18 08:17 05/14/18 10:10 05/14/18 05:00 Intake and Output: 05/14/18 05/14/18 06:59 18:59 Intake Total 2478 Output Total 3630 Balance -1152 - Medications Medications: Current Medications Albuterol/Ipratropium (Duoneb 3 Mg/0.5 Mg (3 Ml) Ud) 3 ml IH [id number] [facility] Last Admin: 05/14/18 07:20 Dose: 3 ml Carvedilol (Coreg) 3.125 mg PO BID [facility] Last Admin: 05/14/18 10:10 Dose: 3.125 mg Diltiazem HCl (Cardizem Cd) 180 mg PO DAILY [facility] Last Admin: 05/14/18 10:09 Dose: 180 mg Aztreonam (Azactam 1 Gm) 100 mls @ 100 mls/hr IVPB Q12 [facility]; Protocol Stop: 05/19/18 22:01 Last Admin: 05/14/18 10:05 Dose: 100 mls/hr Metronidazole (Flagyl) 500 mg in 100 mls @ 100 mls/hr IVPB Q8 [facility]; Protocol Last Admin: 05/14/18 05:28 Dose: 100 mls/hr Propofol (Diprivan) 1,000 mg in 100 mls @ 2.844 mls/hr IV .Q24H PRN; Protocol PRN Reason: TITRATE PER MD ORDER Last Admin: 05/14/18 06:34 Dose: 35 mcg/kg/min, 19.908 mls/hr Doxycycline Hyclate 100 mg/ (Sodium Chloride) 100 mls @ 100 mls/hr IVPB Q12 [facility]; Protocol Stop: 05/22/18 12:31 Last Admin: 05/14/18 10:11 Dose: 100 mls/hr Dexmedetomidine HCl (Precedex 400mcg/100ml) 400 mcg in 100 mls @ 4.74 mls/hr IV .Q21H6M PRN; Protocol PRN Reason: Agitation Insulin Human Regular (Humulin R Low) 0 units SC ACHS [facility]; Protocol Last Admin: 05/14/18 10:03 Dose: Not Given Montelukast Sodium (Singulair) 10 mg PO DAILY [facility] Last Admin: 05/14/18 10:09 Dose: 10 mg Pantoprazole Sodium (Protonix Inj) 40 mg IVP Q12 [facility] Last Admin: 05/14/18 10:11 Dose: 40 mg Pregabalin (Lyrica) 50 mg PO BID [facility] Last Admin: 05/14/18 10:20 Dose: 50 mg Sitagliptin Phosphate (Januvia) 50 mg PO DAILY [facility] Last Admin: 05/14/18 10:11 Dose: Not Given Vancomycin HCl (Vancomycin Inj) 500 mg IN QID [facility]; Protocol Vancomycin HCl (Vancocin 25 Mg/Ml (Oral Use)) 125 mg PO QID [facility]; Protocol Vitamin A (Vitamin A & D Oint Ud Foilpak) 1 ea TOP Q6H PRN PRN Reason: Dry skin - Labs Labs: 05/14/18 06:30 05/14/18 06:30 PT 18.9 SECONDS (9.4-12.5) H 05/13/18 04:45 INR 1.70 05/13/18 04:45 APTT 39.4 Seconds (26.9-38.3) H 05/12/18 05:30 - Constitutional Appears: Chronically Ill - Head Exam Head Exam: NORMAL INSPECTION - ENT Exam Additional comments: ET tube in place - Neck Exam Neck Exam: absent: Meningismus - Respiratory Exam Respiratory Exam: Decreased Breath Sounds - Cardiovascular Exam Cardiovascular Exam: +S1, +S2 - GI/Abdominal Exam GI & Abdominal Exam: Soft. absent: Tenderness Assessment and Plan - Assessment and Plan (Free Text) Plan: Assessment severe sepsis with acute on chronic renal failure and VRDF due to bilateral HCAP; no evidence of intra-abdominal infection noted on CT A/P consider uremic encephalopathy chronic CHF COPD chronic atrial fibrillation on anticoagulation DVT hypothyroidism chronic renal failure not on dialysis S/P hysterectomy and oophorectomy bilateral knee arthroscopy S/P disectomy Plan continue intermittent IV Vancomycin,Azactam, Flagyl day 3 and Doxycycline; cultures have been negative, urine Legionella is negative; reviewed CXR and CT A/P; Vanco random level today is 19.3 and will get another one tomorrow to see when we need to dose IV Vancomycin again follow up further plans of Surgery follow up further plans of Renal in terms of dialysis which the patient may need will continue to monitor clinically discussed with family at bedside
[2018-05-14 13:53] LABS: ARTERIAL BLOOD GAS HCO3 25.6 mmol/L (21-28); ARTERIAL BLOOD GAS HEMOGLOBIN 10.5 g/dL (11.7-17.4); ARTERIAL BLOOD GAS O2 CAPACITY 14.2 mL/dl (16-24); ARTERIAL BLOOD GAS O2 CONTENT 13.6 ML/dl (15-23); ARTERIAL BLOOD GAS O2 SAT 95.6 % (95-98); ARTERIAL BLOOD GAS PCO2 36 mm/Hg (35-45); ARTERIAL BLOOD GAS PH 7.46 (7.35-7.45); ARTERIAL BLOOD GAS TCO2 26.7 mmol.L (22-28)
[2018-05-14] MEDS: Dexmedetomidine 400mcg/100mL 400 MCG/100 ML BOTTLE IV PRN ×3 (14:15→21:10)
--- NOTE | 2018-05-14 14:24 | PN ---
DATE: 05/14/2018 SUBJECTIVE: The patient is seen and examined at bedside. She is comfortable. She is on Precedex 0.2 mcg/kg per hour. She is tolerating pressure support trial very well (5/5 with 50% FIO2). Her rapid shallow breathing index is 39. She is pulling more than 500 of tidal volume. OBJECTIVE: VITAL SIGNS: Heart rate 109, blood pressure 130/69, oxygen saturation 100%, temperature 98.4, end-tidal CO2 monitor shows 29, respiratory rate 20. HEENT: The patient is intubated. HEART: Irregular rate and rhythm. S1, S2 distant. ABDOMEN: Soft, nontender, nondistended. MUSCULOSKELETAL: No C/C/E. NEUROLOGIC:. The patient moves all extremities spontaneously. SKIN: Moist. PSYCHIATRIC: The patient following commands. LABORATORY DATA: WBC 9.4, hemoglobin 9.9, platelet count 165. Sodium 141, potassium 3.7, chloride 105, carbon dioxide 30, BUN 108, creatinine 3.1, glucose 107, AST 34, ALT 31. Chest x-ray showed improved bilateral vascular congestion. MEDICATIONS: DuoNeb every 6, aztreonam, Coreg, Precedex Cardizem, , doxycycline, Flagyl, regular insulin sliding scale low protocol, Singulair, Protonix, Lyrica, propofol drip, Januvia, vancomycin, vitamin A and D topical. ASSESSMENT AND PLAN: This is a 73-year-old lady with hypoxemic respiratory failure secondary to diastolic congestive heart failure. At present time, the patient makes very good urine and diuresing very well. She is minus 3 liters and that helps to optimize her respiratory status as well. She is intubated, however, tolerated pressure support trial very well. We will continue with head of bed elevated more than 35 degrees. Oral hygiene. Daily sedation vacation and weaning trials. Conservative fluid and oxygen management. Cardiovascular-arriola, the patient does have atrial fibrillation with rapid ventricular rate. The patient is currently on Precedex that would help to eliminate anxiety component to her uncontrolled heart rate. The patient is on Coreg and Cardizem. The patient is n.p.o. for now. I spoke with surgical team about radiographic findings and they are adamant that there is no pneumatosis intestinalis contrary to radiology report. In any case, abdominal exam is very benign, she is doing very well on PST and no surgical procedure is planned as of now. We will continue target euvolemia, euglycemia, normothermia and oxygen saturation more than 90%. I also spoke with Nephrology service. No hemodialysis plan at present time. We will continue to avoid hyperchloremia and maintain euvolemia, euglycemia, normothermia and oxygen saturation more than 90%. We will continue to maintain blood glucose over 140-180 range according to [employer] trial. We will continue with DVT, GI prophylaxis. Addendum: patient was successfully extubated to BPAP. will monitor ccm time 40 min Reagan Fermin MD MTDD
[2018-05-14] MEDS: Vancomycin 25 MG/ML PO SCH ×2 (14:36→22:38)
[2018-05-14] MEDS: Vancomycin 500 mg Inj PR SCH ×4 (14:37→22:57)
--- NOTE | 2018-05-14 15:48 | PN ---
DATE: 05/14/2018 SUBJECTIVE: The patient is seen in the ICU. She is on mechanical ventilation. She was intubated yesterday because of worsening mental status, respiratory distress. She is awake. Eyes are open. She seems to be following my movements. She is nodding yes to recognizing me, but cannot be entirely sure. She is currently on Azactam 1 g every 12 hours and doxycycline 100 every 12 hours. She is not on any pressors. PHYSICAL EXAMINATION: GENERAL: Elderly lady, lying in bed in the ICU, on mechanical ventilation. VITAL SIGNS: Blood pressure 125/72, heart rate 100, respiratory rate 18, temperature 98.4. HEENT: Normocephalic, atraumatic, positive pallor. NECK: Supple, no JVD. LUNGS: Bilateral rhonchi, bilateral equal air entry, no rales appreciated. CARDIAC: S1 and S2, regular rate and rhythm, no murmur, no rub. ABDOMEN: Distended, soft, nontender, bowel sounds present. EXTREMITIES: 2+ pitting edema of the lower extremities. INTAKE AND OUTPUT: 2678/3650. LABORATORY DATA: WBC 9.4, hemoglobin 9.9, hematocrit 32, platelets 165. Sodium 141, potassium 3.7, chloride 105, CO2 of 30, BUN 108, creatinine 3.1, glucose 93, calcium 8.6, phosphorus 3, magnesium 2.1, AST 34, ALT 31, albumin 2.8, ammonia level less than 9. Blood cultures, no growth. C. diff toxin negative. Urine culture, no growth. Chest x-ray showing an infiltrate in the right upper lobe which is unchanged and improvement in the lower lobe infiltrates. CT of the abdomen and pelvis done on 05/11/2018, distended right colon containing air-fluid levels and peripheral adherent stool, patchy ground-glass opacities seen throughout the upper and lower lobes, dense consolidation, both lung bases. CURRENT MEDICATIONS: Azactam 1 g every 12 hours, Cardizem CD 180, Coreg 3.125 b.i.d., Diprivan 35 mcg per kilogram per minute, doxycycline 100 every 12 hours, DuoNeb, Flagyl 500 every 8 hours, insulin, Januvia 50 not given, Lyrica 50 b.i.d., Protonix 40 every 12 hours, Singulair, vancomycin 500 p.o. 4 times a day, potassium supplementation given yesterday, vancomycin 1 g given yesterday. ASSESSMENT: 1. Acute kidney injury superimposed on chronic kidney disease stage 3. 2. Coagulopathy, now corrected. 3. Gastrointestinal blood loss. 4. Severe anemia secondary to gastrointestinal blood loss plus chronic kidney disease, status post 2 units of packed red blood cells. 5. History of hypertension. 6. Multilobar pneumonia? 7. Respiratory failure. 8. Altered mental status. 9. History of deep vein thrombosis. 10. History of atrial fibrillation. 11. Chronic obstructive pulmonary disease. 12. Congestive heart failure/cardiomyopathy. PLAN: 1. Currently renal parameters steadily improving, urine output is more than 6 liters in the last 48 hours. 2. No indication for renal replacement therapy. 3. Continue empiric antibiotics. 4. No objection to p.o. vancomycin. 5. Avoid nephrotoxins. 6. Continue ventilator management as per ICU team. 7. Monitor H and H. 8. Continue PPI. 9. Monitor daily electrolytes. Case discussed with family member at bedside, case discussed with ICU team including meat cutter and residents during rounds, case discussed with ICU nursing staff. More than 35 minutes spent in the care of this critically ill patient. Yulia Allan MD
--- NOTE | 2018-05-14 15:54 | PN ---
DATE: 05/14/2018 SUBJECTIVE: The patient is a 73-year-old, seen and examined, remain intubated, still making urine. Minimally responsive. PHYSICAL EXAMINATION VITAL SIGNS: She is afebrile, pulse 70, respirations 20 and blood pressure 125/72. LUNGS: Bilateral soft crackles in the upper lung region, otherwise lung mayer are better. HEART: S1 and S2 audible. ABDOMEN: Soft and nontender. No rebound. No guarding. NEUROLOGIC: The patient is on vent. EXTREMITIES: Bilateral legs +2 edema. LABORATORY DATA: WBC 9.4, hemoglobin 9.9, hematocrit 31.7 and platelets 165. PT 18.9, and INR 1.70. Chemistry; sodium 141, potassium 3.7, chloride 105, CO2 of 30, BUN 108, creatinine 3.1 and blood sugar 107. Stool Hemoccult is positive. ASSESSMENT: 1. Respiratory failure, currently on ventilator. 2. Acute on chronic renal failure, improving. 3. Coagulopathy has been reversed. 4. History of cavernous sinus thrombosis. 5. Non-insulin dependent diabetes. 6. History of hypertension. PLAN: Currently, the patient is on Azactam, Cardizem CD. She is on doxycycline. She is getting nebulizer treatment. She is on Flagyl. Her blood sugar is being monitored. Followup her electrolytes, CBC and CMP closely. Delta Duarte MD
[2018-05-14 18:09] LABS: ARTERIAL BLOOD GAS HCO3 25.1 mmol/L (21-28); ARTERIAL BLOOD GAS O2 SAT 92.7 % (95-98); ARTERIAL BLOOD GAS PCO2 37 mm/Hg (35-45); ARTERIAL BLOOD GAS PH 7.44 (7.35-7.45); ARTERIAL BLOOD GAS TCO2 26.2 mmol.L (22-28)
--- NOTE | 2018-05-14 23:40 | CP.PCM.PN ---
Subjective - Date & Time of Evaluation Date of Evaluation: 05/14/18 Time of Evaluation: 19:30 - Subjective Subjective: patient was extubated. Not in acute distress Objective - Vital Signs/Intake and Output Vital Signs (last 24 hours): Temp Pulse Resp BP Pulse Ox 76.1 F L 97 H 17 130/88 98 05/14/18 15:09 05/14/18 20:00 05/14/18 19:45 05/14/18 19:45 05/14/18 19:45 Intake and Output: 05/14/18 05/15/18 18:59 06:59 Intake Total 652 Output Total 1300 Balance -648 - Medications Medications: Current Medications Albuterol/Ipratropium (Duoneb 3 Mg/0.5 Mg (3 Ml) Ud) 3 ml IH [id number] [facility] Last Admin: 05/14/18 20:00 Dose: 3 ml Carvedilol (Coreg) 3.125 mg PO BID [facility] Last Admin: 05/14/18 17:50 Dose: Not Given Diltiazem HCl (Cardizem Cd) 180 mg PO DAILY [facility] Last Admin: 05/14/18 10:09 Dose: 180 mg Aztreonam (Azactam 1 Gm) 100 mls @ 100 mls/hr IVPB Q12 [facility]; Protocol Stop: 05/19/18 22:01 Last Admin: 05/14/18 22:36 Dose: 100 mls/hr Metronidazole (Flagyl) 500 mg in 100 mls @ 100 mls/hr IVPB Q8 [facility]; Protocol Last Admin: 05/14/18 22:37 Dose: 100 mls/hr Propofol (Diprivan) 1,000 mg in 100 mls @ 2.844 mls/hr IV .Q24H PRN; Protocol PRN Reason: TITRATE PER MD ORDER Last Titration: 05/14/18 08:00 Dose: 0 mcg/kg/min, 0 mls/hr Doxycycline Hyclate 100 mg/ (Sodium Chloride) 100 mls @ 100 mls/hr IVPB Q12 [facility]; Protocol Stop: 05/22/18 12:31 Last Admin: 05/14/18 22:35 Dose: 100 mls/hr Dexmedetomidine HCl (Precedex 400mcg/100ml) 400 mcg in 100 mls @ 4.74 mls/hr IV .Q21H6M PRN; Protocol PRN Reason: Agitation Last Titration: 05/14/18 17:51 Dose: 1 mcg/kg/hr, 23.7 mls/hr Insulin Human Regular (Humulin R Low) 0 units SC ACHS [facility]; Protocol Last Admin: 05/14/18 22:37 Dose: Not Given Montelukast Sodium (Singulair) 10 mg PO DAILY [facility] Last Admin: 05/14/18 10:09 Dose: 10 mg Pantoprazole Sodium (Protonix Inj) 40 mg IVP Q12 [facility] Last Admin: 05/14/18 22:37 Dose: 40 mg Pregabalin (Lyrica) 50 mg PO BID [facility] Last Admin: 05/14/18 17:51 Dose: Not Given Sitagliptin Phosphate (Januvia) 50 mg PO DAILY [facility] Last Admin: 05/14/18 10:11 Dose: Not Given Vancomycin HCl (Vancomycin Inj) 500 mg RI QID [facility]; Protocol Last Admin: 05/14/18 22:57 Dose: Not Given Vancomycin HCl (Vancocin 25 Mg/Ml (Oral Use)) 125 mg PO QID [facility]; Protocol Last Admin: 05/14/18 22:38 Dose: 125 mg Vitamin A (Vitamin A & D Oint Ud Foilpak) 1 ea TOP Q6H PRN PRN Reason: Dry skin - Labs Labs: 05/14/18 06:30 05/14/18 06:30 PT 18.9 SECONDS (9.4-12.5) H 05/13/18 04:45 INR 1.70 05/13/18 04:45 APTT 39.4 Seconds (26.9-38.3) H 05/12/18 05:30 - Head Exam Head Exam: ATRAUMATIC, NORMOCEPHALIC - Eye Exam Eye Exam: PERRL. absent: Scleral icterus Pupil Exam: PERRL - ENT Exam ENT Exam: Mucous Membranes Moist - Neck Exam Neck Exam: Lymphadenopathy - Respiratory Exam Respiratory Exam: NORMAL BREATHING PATTERN. absent: Respiratory Distress, Stridor - GI/Abdominal Exam GI & Abdominal Exam: Soft, Normal Bowel Sounds. absent: Tenderness Assessment and Plan - Assessment and Plan (Free Text) Assessment: 1. Sepsis 2. Bilateral pneumonia 3. Distended right colon with the pneumatosis quizzes ischemia versus pseudomembranous colitis 4. A. fib 5. Coagulopathy improved Other: Include hypothyroidism chronic kidney disease, history of DVT Plan: continue the antibiotics has greatly 2. Will empirically start the patient by mouth vancomycin in view of the CT findings which were reviewed even though stool for C. difficile is negative 3. Continue antibiotics as per ID 4. Follow PT/INR
[2018-05-15] MEDS: Dexmedetomidine 400mcg/100mL 400 MCG/100 ML BOTTLE IV PRN
[2018-05-15] MEDS: Albuterol-Ipratrop 3 mg / 0.5 (3 ml) UD IH SCH ×4 (02:10→20:19)
[2018-05-15 07:59] LABS: BASO # 0.03 K/mm3 (0.0-2.0); BASO % 0.2 % (0.0-3.0); EOS % 0.1 % (1.5-5.0); HEMOGLOBIN 10.9 g/dL (12.0-16.0); LYMPH # 1.3 (1.2-3.4); LYMPH % 9.1 % (22.0-35.0); MEAN CELL VOLUME 88.3 fl (80.0-105.0); MEAN CORPUSCULAR HGB CONC 30.6 g/dl (31.0-37.0); MEAN PLATELET VOLUME 12.3 fl (7.0-11.0); MONO # 0.5 (0.1-0.6); MONO % 3.6 % (1.0-6.0); RBC 4.03 10^6/uL (3.5-6.1); RED CELL DISTRIBUTION WIDTH 17.3 % (11.5-14.5)
[2018-05-15 08:10] LABS: ALB/GLOB RATIO 1.1 (1.1-1.8); ALBUMIN 3.1 g/dL (3.0-4.8); CALCIUM 9.3 mg/dL (8.4-10.5)
--- NOTE | 2018-05-15 08:11 | PN ---
DATE: 05/14/2018 CARDIOLOGY FOLLOWUP. SUBJECTIVE: The patient remains on a ventilator. PHYSICAL EXAMINATION: VITAL SIGNS: Blood pressure 125/72, the heart rate is 100. NECK: Negative JVD. LUNGS: Bilateral rhonchi. HEART: S1 and S2. EXTREMITIES: Without change. LABORATORY DATA: BUN and creatinine are 108 and 3.1. Hemoglobin is 9.9. IMPRESSION: 1. Respiratory failure. 2. Congestive heart failure. 3. End-stage renal disease. 4. Diabetes mellitus. 5. Atrial fibrillation. PLAN: Given these findings, awaiting for Renal decision on dialysis. Joseph Berger MD
--- NOTE | 2018-05-15 08:25 | RAD ---
Date of service: 05/15/2018 HISTORY: evaluate chest COMPARISON: 05/14/2018 FINDINGS: LUNGS: Evaluation limited due to poor inspiratory effort. No pulmonary infiltrate. PLEURA: Possible small left pleural effusion. No right pleural effusion. No pneumothorax. CARDIOVASCULAR: No aortic atherosclerotic calcification present. Normal cardiac size. No congestive change. Nasogastric tube extends to the left upper quadrant of the abdomen as on prior examination. OSSEOUS STRUCTURES: No significant abnormalities. VISUALIZED UPPER ABDOMEN: Normal. OTHER FINDINGS: None. IMPRESSION: Possible small left pleural effusion. Limited examination. Nasogastric tube.
--- NOTE | 2018-05-15 08:53 | RAD ---
Date of service: 05/14/2018 HISTORY: NGT placement COMPARISON: Earlier same day FINDINGS: LUNGS: Improving right upper lobe infiltrate. Persistent perihilar infiltrates. PLEURA: Small left effusion CARDIOVASCULAR: No aortic atherosclerotic calcification present. Mild cardiomegaly no pulmonary vascular congestion. OSSEOUS STRUCTURES: No significant abnormalities. VISUALIZED UPPER ABDOMEN: NG tube in satisfactory position OTHER FINDINGS: None. IMPRESSION: NG tube in satisfactory position
[2018-05-15] MEDS: Insulin Reg-LOW-Coverage SC SCH ×4 (10:26→22:22)
[2018-05-15] MEDS: Aztreonam 1 Gm in NS 100mL 100 ML IVPB SCH ×2 (10:32→21:24)
[2018-05-15] MEDS: diltiaZEM 180 mg/24 Hours CD Cap PO SCH (10:33)
[2018-05-15] MEDS: metroNIDAZOLE IV 500 mg/100 ml 500 MG/100 ML BAG IVPB SCH ×3 (10:34→21:24)
[2018-05-15] MEDS: Vancomycin 25 MG/ML PO SCH ×4 (10:44→21:30)
[2018-05-15 11:34] LABS: ARTERIAL BLOOD GAS HEMOGLOBIN 10.6 g/dL (11.7-17.4); ARTERIAL BLOOD GAS O2 CAPACITY 14.3 mL/dl (16-24); ARTERIAL BLOOD GAS O2 CONTENT 13.7 ML/dl (15-23); ARTERIAL BLOOD GAS O2 SAT 95.9 % (95-98); ARTERIAL BLOOD GAS PCO2 33 mm/Hg (35-45); ARTERIAL BLOOD GAS PH 7.47 (7.35-7.45)
--- NOTE | 2018-05-15 13:33 | CP.CCUPN ---
<Olvin Brady - Last Filed: 05/15/18 13:30> CCU Subjective - Physician Review Subjective (Free Text): Olvin Brady PGY1 Critical Care Progress Note Patient seen and examined at bedside this morning. No acute events reported overnight. S/p extubation yesterday and currently off of precedex drip. Patient is more alert today and able to follow commands but is still lethargic. Denies CP, SOB, nausea, vomiting and headaches. Transfer to [facility]. CCU Objective - Vital Signs / Intake & Output Vital Signs (Last 4 hours): Vital Signs Pulse Resp BP Pulse Ox 05/15/18 13:00 118 H 21 121/79 100 05/15/18 12:45 118 H 22 117/69 99 05/15/18 12:30 112 H 22 104/67 99 05/15/18 12:15 116 H 21 135/68 100 05/15/18 12:00 111 H 21 126/68 98 05/15/18 11:45 117 H 22 126/70 99 05/15/18 11:30 116 H 23 104/58 L 98 05/15/18 11:15 113 H 20 127/50 L 99 05/15/18 11:00 116 H 19 128/70 100 05/15/18 10:45 126 H 26 H 134/82 100 05/15/18 10:33 122 H 136/71 05/15/18 10:31 123 H 125/82 05/15/18 10:30 123 H 22 136/71 100 05/15/18 10:15 119 H 19 125/82 100 05/15/18 10:00 122 H 20 132/62 100 05/15/18 09:45 124 H 24 126/101 H 100 Intake and Output (Last 8hrs): Intake & Output 05/14/18 05/15/18 05/15/18 22:59 06:59 14:59 Intake Total 650 100 550 Output Total 1300 2600 Balance -650 100 -2050 Weight 93 lb Intake: IV 650 100 550 Left Forearm 450 450 Oral 0 Output: Gastric Amount 0 Right Nares 0 Urine 1000 2500 Urethral ([place]) 1500 Urine, Voided 1000 1000 Stool 300 100 Other: # Bowel Movements 2 - Physical Exam Head: Positive for: Atraumatic, Normocephalic Pupils: Positive for: PERRL Extroacular Muscles: Positive for: EOMI Conjunctiva: Positive for: Normal Mouth: Positive for: Moist Mucous Membranes Neck: Positive for: Normal Range of Motion Respiratory/Chest: Positive for: Clear to Auscultation. Negative for: Respiratory Distress, Accessory Muscle Use Cardiovascular: Positive for: Regular Rate and Rhythm, Normal S1, S2. Negative for: Murmurs Abdomen: Positive for: Normal Bowel Sounds. Negative for: Tenderness, Distention, Peritoneal Signs Back: Positive for: Normal Inspection Upper Extremity: Positive for: Normal Inspection. Negative for: Cyanosis, Edema Lower Extremity: Positive for: Edema (3+ pitting lower leg edema) Neurological: Positive for: GCS=15 Skin: Positive for: Warm, Dry, Normal Color. Negative for: Rashes Psychiatric: Positive for: Alert, Oriented x 3, Normal Insight, Normal Co ncentration - Medications Active Medications: Active Medications Generic Name Dose Route Start Last Admin Trade Name Freq PRN Reason Stop Dose Admin Albuterol/Ipratropium 3 ml 05/12/18 02:00 05/15/18 08:08 Duoneb 3 Mg/0.5 Mg (3 Ml) Ud IH 3 ml [id number] ADRIANA Administration Carvedilol 3.125 mg 05/11/18 10:00 05/15/18 10:31 Coreg PO 3.125 mg BID ADRIANA Administration Diltiazem HCl 180 mg 05/11/18 10:00 05/15/18 10:33 Cardizem Cd PO 180 mg DAILY ADRIANA Administration Heparin Sodium (Porcine) 5,000 units 05/15/18 10:00 05/15/18 10:32 Heparin SC 5,000 units Q12 ADRIANA Administration Protocol Aztreonam 100 mls @ 100 mls/hr 05/12/18 22:00 05/15/18 10:32 Azactam 1 Gm IVPB 05/19/18 22:01 100 mls/hr Q12 ADRIANA Administration Protocol Metronidazole 500 mg in 100 mls @ 100 mls/hr 05/12/18 14:00 05/15/18 10:34 Flagyl IVPB 100 mls/hr Q8 ADRIANA Administration Protocol Propofol 1,000 mg in 100 mls @ 2.844 mls/hr 05/13/18 07:17 05/14/18 08:00 Diprivan IV 0 mcg/kg/min .Q24H PRN 0 mls/hr TITRATE PER MD ORDER Titration Protocol 5 MCG/KG/MIN Doxycycline Hyclate 100 mg/ 100 mls @ 100 mls/hr 05/13/18 12:30 05/15/18 10:30 Sodium Chloride IVPB 05/22/18 12:31 100 mls/hr Q12 ADRIANA Administration Protocol Dexmedetomidine HCl 400 mcg in 100 mls @ 4.74 mls/hr 05/14/18 12:22 05/15/18 10:26 Precedex 400mcg/100ml IV Infused .[id number] PRN Titration Agitation Protocol 0.2 MCG/KG/HR Insulin Human Regular 0 units 05/11/18 11:30 05/15/18 11:36 Humulin R Low SC Not Given ACHS ADRIANA Protocol Montelukast Sodium 10 mg 05/11/18 10:00 05/15/18 10:32 Singulair PO 10 mg DAILY ADRIANA Administration Pantoprazole Sodium 40 mg 05/12/18 14:00 05/15/18 10:30 Protonix Inj IVP 40 mg Q12 ADRIANA Administration Pregabalin 50 mg 05/11/18 10:00 05/15/18 10:32 Lyrica PO 50 mg BID ADRIANA Administration Sitagliptin Phosphate 50 mg 05/11/18 10:00 05/15/18 10:35 Januvia PO Not Given DAILY ADRIANA Vancomycin HCl 125 mg 05/14/18 14:00 05/15/18 10:44 Vancocin 25 Mg/Ml (Oral Use) PO 125 mg QID ADRIANA Administration Protocol Vitamin A 1 ea 05/12/18 10:37 Vitamin A & D Oint Ud Foilpak TOP Q6H PRN Dry skin - Patient Studies Lab Studies: Microbiology Studies 05/12/18 12:30 Blood Culture - Preliminary Blood-Venous NO GROWTH AFTER 3 DAYS 05/12/18 12:00 Blood Culture - Preliminary Blood-Venous NO GROWTH AFTER 3 DAYS Lab Studies 05/15/18 05/15/18 05/15/18 Range/Units 11:23 07:30 07:30 WBC 14.0 H D (4.5-11.0) 10^3/uL RBC 4.03 (3.5-6.1) 10^6/uL Hgb 10.9 L (12.0-16.0) g/dL Hct 35.6 L (36.0-48.0) % MCV 88.3 (80.0-105.0) fl MCH 27.0 (25.0-35.0) pg MCHC 30.6 L (31.0-37.0) g/dl RDW 17.3 H (11.5-14.5) % Plt Count 192 (120.0-450.0) 10^3/uL MPV 12.3 H (7.0-11.0) fl Neut % (Auto) 87.0 H (50.0-68.0) % Lymph % (Auto) 9.1 L (22.0-35.0) % [place] % (Auto) 3.6 (1.0-6.0) % Eos % (Auto) 0.1 L (1.5-5.0) % Baso % (Auto) 0.2 (0.0-3.0) % Lymph # (Auto) 1.3 (1.2-3.4) [place] # (Auto) 0.5 (0.1-0.6) Eos # (Auto) 0.0 (0.0-0.7) Baso # (Auto) 0.03 (0.0-2.0) K/mm3 Absolute Neuts (auto) 12.17 H (1.4-6.5) pCO2 33 L (35-45) mm/Hg pO2 62.0 L (80-100) mm/Hg HCO3 24.0 (21-28) mmol/L ABG pH 7.47 H (7.35-7.45) ABG Total CO2 25.0 (22-28) mmol.L ABG O2 Saturation 95.9 (95-98) % ABG O2 Content 13.7 L (15-23) ML/dl ABG Base Excess 0.7 (-2.0-3.0) mmol/L ABG Hemoglobin 10.6 L (11.7-17.4) g/dL ABG Carboxyhemoglobin 2.9 H (0.5-1.5) % POC ABG HHb (Measured) 3.9 (0-5) % ABG Methemoglobin 1.3 (0.0-3.0) % ABG O2 Capacity 14.3 L (16-24) mL/dl ABG Potassium (3.6-5.2) mmol/L Hgb O2 Saturation 92.0 L (95.0-98.0) % Sodium 145 (132-148) mmol/L Chloride 108 H (98-107) mmol/L Glucose (65-105) mg/dl Lactate (0.7-2.1) mmol/L FiO2 28.0 % Inspiratory BiPAP Potassium 3.6 (3.6-5.0) mmol/L Carbon Dioxide 25 (21-33) mmol/L Anion Gap 15 (10-20) BUN 92 H (7-21) mg/dL Creatinine 2.6 H (0.7-1.2) mg/dl Est GFR ( Amer) 22 Est GFR (Non-Af Amer) 18 POC Glucose (mg/dL) (65-110) mg/dL Random Glucose 177 H (70-110) mg/dL Calcium 9.3 (8.4-10.5) mg/dL Magnesium 2.1 (1.7-2.2) mg/dL Total Bilirubin 0.9 (0.2-1.3) mg/dL AST 35 (14-36) U/L ALT 26 (7-56) U/L Alkaline Phosphatase 78 (38-126) U/L Total Protein 5.9 (5.8-8.3) g/dL Albumin 3.1 (3.0-4.8) g/dL Globulin 2.7 gm/dL Albumin/Globulin Ratio 1.1 (1.1-1.8) Arterial Blood Potassium (3.6-5.2) mmol/L 05/15/18 05/14/18 05/14/18 Range/Units 07:27 21:45 18:07 WBC (4.5-11.0) 10^3/uL RBC (3.5-6.1) 10^6/uL Hgb (12.0-16.0) g/dL Hct (36.0-48.0) % MCV (80.0-105.0) fl MCH (25.0-35.0) pg MCHC (31.0-37.0) g/dl RDW (11.5-14.5) % Plt Count (120.0-450.0) 10^3/uL MPV (7.0-11.0) fl Neut % (Auto) (50.0-68.0) % Lymph % (Auto) (22.0-35.0) % [place] % (Auto) (1.0-6.0) % Eos % (Auto) (1.5-5.0) % Baso % (Auto) (0.0-3.0) % Lymph # (Auto) (1.2-3.4) [place] # (Auto) (0.1-0.6) Eos # (Auto) (0.0-0.7) Baso # (Auto) (0.0-2.0) K/mm3 Absolute Neuts (auto) (1.4-6.5) pCO2 37 (35-45) mm/Hg pO2 55.0 L (80-100) mm/Hg HCO3 25.1 (21-28) mmol/L ABG pH 7.44 (7.35-7.45) ABG Total CO2 26.2 (22-28) mmol.L ABG O2 Saturation 92.7 L (95-98) % ABG O2 Content (15-23) ML/dl ABG Base Excess 1.1 (-2.0-3.0) mmol/L ABG Hemoglobin (11.7-17.4) g/dL ABG Carboxyhemoglobin (0.5-1.5) % POC ABG HHb (Measured) (0-5) % ABG Methemoglobin (0.0-3.0) % ABG O2 Capacity (16-24) mL/dl ABG Potassium 3.0 L (3.6-5.2) mmol/L Hgb O2 Saturation (95.0-98.0) % Sodium 145.0 (132-148) mmol/L Chloride 112.0 H (98-107) mmol/L Glucose 118 H (65-105) mg/dl Lactate 0.8 (0.7-2.1) mmol/L FiO2 35.0 % Inspiratory BiPAP 12 Potassium (3.6-5.0) mmol/L Carbon Dioxide (21-33) mmol/L Anion Gap (10-20) BUN (7-21) mg/dL Creatinine (0.7-1.2) mg/dl Est GFR ( Amer) Est GFR (Non-Af Amer) POC Glucose (mg/dL) 196 H 148 H (65-110) mg/dL Random Glucose (70-110) mg/dL Calcium (8.4-10.5) mg/dL Magnesium (1.7-2.2) mg/dL Total Bilirubin (0.2-1.3) mg/dL AST (14-36) U/L ALT (7-56) U/L Alkaline Phosphatase (38-126) U/L Total Protein (5.8-8.3) g/dL Albumin (3.0-4.8) g/dL Globulin gm/dL Albumin/Globulin Ratio (1.1-1.8) Arterial Blood Potassium 3.0 L (3.6-5.2) mmol/L 05/14/18 05/14/18 Range/Units 16:19 13:50 WBC (4.5-11.0) 10^3/uL RBC (3.5-6.1) 10^6/uL Hgb (12.0-16.0) g/dL Hct (36.0-48.0) % MCV (80.0-105.0) fl MCH (25.0-35.0) pg MCHC (31.0-37.0) g/dl RDW (11.5-14.5) % Plt Count (120.0-450.0) 10^3/uL MPV (7.0-11.0) fl Neut % (Auto) (50.0-68.0) % Lymph % (Auto) (22.0-35.0) % [place] % (Auto) (1.0-6.0) % Eos % (Auto) (1.5-5.0) % Baso % (Auto) (0.0-3.0) % Lymph # (Auto) (1.2-3.4) [place] # (Auto) (0.1-0.6) Eos # (Auto) (0.0-0.7) Baso # (Auto) (0.0-2.0) K/mm3 Absolute Neuts (auto) (1.4-6.5) pCO2 36 (35-45) mm/Hg pO2 62.0 L (80-100) mm/Hg HCO3 25.6 (21-28) mmol/L ABG pH 7.46 H (7.35-7.45) ABG Total CO2 26.7 (22-28) mmol.L ABG O2 Saturation 95.6 (95-98) % ABG O2 Content 13.6 L (15-23) ML/dl ABG Base Excess 1.8 (-2.0-3.0) mmol/L ABG Hemoglobin 10.5 L (11.7-17.4) g/dL ABG Carboxyhemoglobin 2.8 H (0.5-1.5) % POC ABG HHb (Measured) 4.2 (0-5) % ABG Methemoglobin 1.0 (0.0-3.0) % ABG O2 Capacity 14.2 L (16-24) mL/dl ABG Potassium (3.6-5.2) mmol/L Hgb O2 Saturation 92.0 L (95.0-98.0) % Sodium (132-148) mmol/L Chloride (98-107) mmol/L Glucose (65-105) mg/dl Lactate (0.7-2.1) mmol/L FiO2 50.0 % Inspiratory BiPAP Potassium (3.6-5.0) mmol/L Carbon Dioxide (21-33) mmol/L Anion Gap (10-20) BUN (7-21) mg/dL Creatinine (0.7-1.2) mg/dl Est GFR ( Amer) Est GFR (Non-Af Amer) POC Glucose (mg/dL) 132 H (65-110) mg/dL Random Glucose (70-110) mg/dL Calcium (8.4-10.5) mg/dL Magnesium (1.7-2.2) mg/dL Total Bilirubin (0.2-1.3) mg/dL AST (14-36) U/L ALT (7-56) U/L Alkaline Phosphatase (38-126) U/L Total Protein (5.8-8.3) g/dL Albumin (3.0-4.8) g/dL Globulin gm/dL Albumin/Globulin Ratio (1.1-1.8) Arterial Blood Potassium (3.6-5.2) mmol/L Laboratory Results - last 24 hr 05/14/18 05/14/18 05/14/18 13:50 16:19 18:07 WBC RBC Hgb Hct MCV MCH MCHC RDW Plt Count MPV Neut % (Auto) Lymph % (Auto) [place] % (Auto) Eos % (Auto) Baso % (Auto) Lymph # (Auto) [place] # (Auto) Eos # (Auto) Baso # (Auto) Absolute Neuts (auto) pCO2 36 37 pO2 62.0 L 55.0 L HCO3 25.6 25.1 ABG pH 7.46 H 7.44 ABG Total CO2 26.7 26.2 ABG O2 Saturation 95.6 92.7 L ABG O2 Content 13.6 L ABG Base Excess 1.8 1.1 ABG Hemoglobin 10.5 L ABG Carboxyhemoglobin 2.8 H POC ABG HHb (Measured) 4.2 ABG Methemoglobin 1.0 ABG O2 Capacity 14.2 L ABG Potassium 3.0 L Hgb O2 Saturation 92.0 L Sodium 145.0 Chloride 112.0 H Glucose 118 H Lactate 0.8 FiO2 50.0 35.0 Inspiratory BiPAP 12 Potassium Carbon Dioxide Anion Gap BUN Creatinine Est GFR ( Amer) Est GFR (Non-Af Amer) POC Glucose (mg/dL) 132 H Random Glucose Calcium Magnesium Total Bilirubin AST ALT Alkaline Phosphatase Total Protein Albumin Globulin Albumin/Globulin Ratio Arterial Blood Potassium 3.0 L 05/14/18 05/15/18 05/15/18 21:45 07:27 07:30 WBC RBC Hgb Hct MCV MCH MCHC RDW Plt Count MPV Neut % (Auto) Lymph % (Auto) [place] % (Auto) Eos % (Auto) Baso % (Auto) Lymph # (Auto) [place] # (Auto) Eos # (Auto) Baso # (Auto) Absolute Neuts (auto) pCO2 pO2 HCO3 ABG pH ABG Total CO2 ABG O2 Saturation ABG O2 Content ABG Base Excess ABG Hemoglobin ABG Carboxyhemoglobin POC ABG HHb (Measured) ABG Methemoglobin ABG O2 Capacity ABG Potassium Hgb O2 Saturation Sodium 145 Chloride 108 H Glucose Lactate FiO2 Inspiratory BiPAP Potassium 3.6 Carbon Dioxide 25 Anion Gap 15 BUN 92 H Creatinine 2.6 H Est GFR ( Amer) 22 Est GFR (Non-Af Amer) 18 POC Glucose (mg/dL) 148 H 196 H Random Glucose 177 H Calcium 9.3 Magnesium 2.1 Total Bilirubin 0.9 AST 35 ALT 26 Alkaline Phosphatase 78 Total Protein 5.9 Albumin 3.1 Globulin 2.7 Albumin/Globulin Ratio 1.1 Arterial Blood Potassium 05/15/18 05/15/18 07:30 11:23 WBC 14.0 H D RBC 4.03 Hgb 10.9 L Hct 35.6 L MCV 88.3 MCH 27.0 MCHC 30.6 L RDW 17.3 H Plt Count 192 MPV 12.3 H Neut % (Auto) 87.0 H Lymph % (Auto) 9.1 L [place] % (Auto) 3.6 Eos % (Auto) 0.1 L Baso % (Auto) 0.2 Lymph # (Auto) 1.3 [place] # (Auto) 0.5 Eos # (Auto) 0.0 Baso # (Auto) 0.03 Absolute Neuts (auto) 12.17 H pCO2 33 L pO2 62.0 L HCO3 24.0 ABG pH 7.47 H ABG Total CO2 25.0 ABG O2 Saturation 95.9 ABG O2 Content 13.7 L ABG Base Excess 0.7 ABG Hemoglobin 10.6 L ABG Carboxyhemoglobin 2.9 H POC ABG HHb (Measured) 3.9 ABG Methemoglobin 1.3 ABG O2 Capacity 14.3 L ABG Potassium Hgb O2 Saturation 92.0 L Sodium Chloride Glucose Lactate FiO2 28.0 Inspiratory BiPAP Potassium Carbon Dioxide Anion Gap BUN Creatinine Est GFR ( Amer) Est GFR (Non-Af Amer) POC Glucose (mg/dL) Random Glucose Calcium Magnesium Total Bilirubin AST ALT Alkaline Phosphatase Total Protein Albumin Globulin Albumin/Globulin Ratio Arterial Blood Potassium Radiology Impressions: Radiology Impressions Chest X-Ray 05/14/18 20:26 IMPRESSION: NG tube in satisfactory position Chest X-Ray 05/15/18 07:12 IMPRESSION: Possible small left pleural effusion. Limited examination. Nasogastric tube. Fingerstick Blood Sugar Results: 176 Critical Care Progress Note - Nutrition Nutrition: Nutrition Category Date Time Status NPO Diet [DIET] Diets 05/11/18 Lunch Ordered Assessment/Plan - Assessment and Plan (Free Text) Assessment: This is a 73 year old female with PMH of CHF (EF 65%), asthma, renal failure, afib on coumadin, hypothyroidism, COPD, Hx of DVT, coagulopathy, and anemia who presented to the hospital for one week history of leg swelling and ICU team was consulted for labored breathing. Patient admitted to ICU for ventilator dependent hypoxic respiratory failure 22 diastolic CHF. Hemodynamically stable and no cardiopulmonary acute process present. Transfer to [facility]. Plan: Neuro: -maintain normothermia -AOx2 -off of precedex drip -CT head w/o contrast on 05/13/18 shows no intracranial hemorrhage Lungs: Ventilator Dependent Hypoxic respiratory failure 2/2 diastolic CHF- resolved -extubated on 05/14/18 -echo 04/17/18 shows systolic function mildly impaired, septal hypokinesis, left atrium is moderately dilated Hx of COPD -SaO2 >90% -CXR 05/15/18 shows small left pleural effusin -per ID, concern for B/L HAP, on antibiotic therapy Cardio/Heme Hx of afib on coumadin -INR 1.7 on 05/13/18 -s/p 4 units FFP -maintain MAP>65 -Hemoglobin is 10.9 from 9.9 -LE dopplers negative B/L for DVT -DVT ppx with SCD GI Bleed -05/12 ileus vs pneumotosis -s/p 2 units PRBC -rectal tube in place Hx of diastolic CHF -BNP elevated on admission -no HD at this time -continue cardizem 180mg PO, coreg 3.125mg PO BID -echo 04/17/18 shows systolic function mildly impaired, septal hypokinesis, left atrium is moderately dilated, MR is mild, mild pulm hypertension -Cardiology on consult, Dr. Berger Hx of coagulopathy -Heme/onc on consult, Dr. Vela -DVT ppx with heparin GI: -Abd xray 05/12/18 showed interval improvement previously noted distended air filled loops, no gross free intraperitoneal air seen under diaphragm -no surgical intervention at this time -Gen surgery on consult, Dr. Leary -GI prophylaxis with protonix Renal: LUI on CKD - improving -nephrology consult, Dr. Allan -per Urology, may need HD if uremic encephalopathy present -BUN/Cr is downtrending today -good urine output, 2.6L today -maintain euvolemia -avoid nephrotoxic agents, hypochloremia -replace electrolytes as needed Endo: Hx of DM -continue insulin ACHS, januvia -maintain euglycemia ID: -WBC is14 from 9.4, afebrile -continue antibiotics as per ID, vancomycin, doxycycline, aztreonam, flagyl Patient seen and case discussed with attending, Dr. Fermin <Reagan Fermin - Last Filed: 05/15/18 15:47> CCU Objective - Vital Signs / Intake & Output Vital Signs (Last 4 hours): Vital Signs Pulse Resp BP Pulse Ox 05/15/18 13:00 118 H 21 121/79 100 05/15/18 12:45 118 H 22 117/69 99 05/15/18 12:30 112 H 22 104/67 99 05/15/18 12:15 116 H 21 135/68 100 05/15/18 12:00 111 H 21 126/68 98 Intake and Output (Last 8hrs): Intake & Output 05/15/18 05/15/18 05/15/18 06:59 14:59 22:59 Intake Total 100 550 Output Total 2600 Balance 100 -2050 Weight 93 lb Intake: IV 100 550 Left Forearm 450 Oral 0 Output: Gastric Amount 0 Right Nares 0 Urine 2500 Urethral ([place]) 1500 Urine, Voided 1000 Stool 100 - Medications Active Medications: Active Medications Generic Name Dose Route Start Last Admin Trade Name Freq PRN Reason Stop Dose Admin Albuterol/Ipratropium 3 ml 05/12/18 02:00 05/15/18 14:49 Duoneb 3 Mg/0.5 Mg (3 Ml) Ud IH 3 ml [id number] ADRIANA Administration Carvedilol 3.125 mg 05/11/18 10:00 05/15/18 10:31 Coreg PO 3.125 mg BID ADRIANA Administration Diltiazem HCl 180 mg 05/11/18 10:00 05/15/18 10:33 Cardizem Cd PO 180 mg DAILY ADRIANA Administration Heparin Sodium (Porcine) 5,000 units 05/15/18 10:00 05/15/18 10:32 Heparin SC 5,000 units Q12 ADRIANA Administration Protocol Aztreonam 100 mls @ 100 mls/hr 05/12/18 22:00 05/15/18 10:32 Azactam 1 Gm IVPB 05/19/18 22:01 100 mls/hr Q12 ADRIANA Administration Protocol Metronidazole 500 mg in 100 mls @ 100 mls/hr 05/12/18 14:00 05/15/18 14:07 Flagyl IVPB 100 mls/hr Q8 ADRIANA Administration Protocol Doxycycline Hyclate 100 mg/ 100 mls @ 100 mls/hr 05/13/18 12:30 05/15/18 10:30 Sodium Chloride IVPB 05/22/18 12:31 100 mls/hr Q12 ADRIANA Administration Protocol Insulin Human Regular 0 units 05/11/18 11:30 05/15/18 11:36 Humulin R Low SC Not Given ACHS ADRIANA Protocol Montelukast Sodium 10 mg 05/11/18 10:00 05/15/18 10:32 Singulair PO 10 mg DAILY ADRIANA Administration Pantoprazole Sodium 40 mg 05/12/18 14:00 05/15/18 10:30 Protonix Inj IVP 40 mg Q12 ADRIANA Administration Pregabalin 50 mg 05/11/18 10:00 05/15/18 10:32 Lyrica PO 50 mg BID ADRIANA Administration Sitagliptin Phosphate 50 mg 05/11/18 10:00 05/15/18 10:35 Januvia PO Not Given DAILY ADRIANA Vancomycin HCl 125 mg 05/14/18 14:00 05/15/18 14:28 Vancocin 25 Mg/Ml (Oral Use) PO 125 mg QID ADRIANA Administration Protocol Vitamin A 1 ea 05/12/18 10:37 Vitamin A & D Oint Ud Foilpak TOP Q6H PRN Dry skin - Patient Studies Lab Studies: Microbiology Studies 05/12/18 12:30 Blood Culture - Preliminary Blood-Venous NO GROWTH AFTER 3 DAYS 05/12/18 12:00 Blood Culture - Preliminary Blood-Venous NO GROWTH AFTER 3 DAYS Lab Studies 05/15/18 05/15/18 05/15/18 Range/Units 15:00 11:23 07:30 WBC 14.0 H D (4.5-11.0) 10^3/uL RBC 4.03 (3.5-6.1) 10^6/uL Hgb 10.9 L (12.0-16.0) g/dL Hct 35.6 L (36.0-48.0) % MCV 88.3 (80.0-105.0) fl MCH 27.0 (25.0-35.0) pg MCHC 30.6 L (31.0-37.0) g/dl RDW 17.3 H (11.5-14.5) % Plt Count 192 (120.0-450.0) 10^3/uL MPV 12.3 H (7.0-11.0) fl Neut % (Auto) 87.0 H (50.0-68.0) % Lymph % (Auto) 9.1 L (22.0-35.0) % [place] % (Auto) 3.6 (1.0-6.0) % Eos % (Auto) 0.1 L (1.5-5.0) % Baso % (Auto) 0.2 (0.0-3.0) % Lymph # (Auto) 1.3 (1.2-3.4) [place] # (Auto) 0.5 (0.1-0.6) Eos # (Auto) 0.0 (0.0-0.7) Baso # (Auto) 0.03 (0.0-2.0) K/mm3 Absolute Neuts (auto) 12.17 H (1.4-6.5) pCO2 33 L (35-45) mm/Hg pO2 62.0 L (80-100) mm/Hg HCO3 24.0 (21-28) mmol/L ABG pH 7.47 H (7.35-7.45) ABG Total CO2 25.0 (22-28) mmol.L ABG O2 Saturation 95.9 (95-98) % ABG O2 Content 13.7 L (15-23) ML/dl ABG Base Excess 0.7 (-2.0-3.0) mmol/L ABG Hemoglobin 10.6 L (11.7-17.4) g/dL ABG Carboxyhemoglobin 2.9 H (0.5-1.5) % POC ABG HHb (Measured) 3.9 (0-5) % ABG Methemoglobin 1.3 (0.0-3.0) % ABG O2 Capacity 14.3 L (16-24) mL/dl ABG Potassium (3.6-5.2) mmol/L Hgb O2 Saturation 92.0 L (95.0-98.0) % Sodium (132-148) mmol/L Chloride (98-107) mmol/L Glucose (65-105) mg/dl Lactate (0.7-2.1) mmol/L FiO2 28.0 % Inspiratory BiPAP Potassium (3.6-5.0) mmol/L Carbon Dioxide (21-33) mmol/L Anion Gap (10-20) BUN (7-21) mg/dL Creatinine (0.7-1.2) mg/dl Est GFR ( Amer) Est GFR (Non-Af Amer) POC Glucose (mg/dL) (65-110) mg/dL Random Glucose (70-110) mg/dL Calcium (8.4-10.5) mg/dL Magnesium (1.7-2.2) mg/dL Total Bilirubin (0.2-1.3) mg/dL AST (14-36) U/L ALT (7-56) U/L Alkaline Phosphatase (38-126) U/L Total Protein (5.8-8.3) g/dL Albumin (3.0-4.8) g/dL Globulin gm/dL Albumin/Globulin Ratio (1.1-1.8) Arterial Blood Potassium (3.6-5.2) mmol/L Vancomycin Trough 15.4 H* (5.0-10.0) ug/mL 05/15/18 05/15/18 05/14/18 Range/Units 07:30 07:27 21:45 WBC (4.5-11.0) 10^3/uL RBC (3.5-6.1) 10^6/uL Hgb (12.0-16.0) g/dL Hct (36.0-48.0) % MCV (80.0-105.0) fl MCH (25.0-35.0) pg MCHC (31.0-37.0) g/dl RDW (11.5-14.5) % Plt Count (120.0-450.0) 10^3/uL MPV (7.0-11.0) fl Neut % (Auto) (50.0-68.0) % Lymph % (Auto) (22.0-35.0) % [place] % (Auto) (1.0-6.0) % Eos % (Auto) (1.5-5.0) % Baso % (Auto) (0.0-3.0) % Lymph # (Auto) (1.2-3.4) [place] # (Auto) (0.1-0.6) Eos # (Auto) (0.0-0.7) Baso # (Auto) (0.0-2.0) K/mm3 Absolute Neuts (auto) (1.4-6.5) pCO2 (35-45) mm/Hg pO2 (80-100) mm/Hg HCO3 (21-28) mmol/L ABG pH (7.35-7.45) ABG Total CO2 (22-28) mmol.L ABG O2 Saturation (95-98) % ABG O2 Content (15-23) ML/dl ABG Base Excess (-2.0-3.0) mmol/L ABG Hemoglobin (11.7-17.4) g/dL ABG Carboxyhemoglobin (0.5-1.5) % POC ABG HHb (Measured) (0-5) % ABG Methemoglobin (0.0-3.0) % ABG O2 Capacity (16-24) mL/dl ABG Potassium (3.6-5.2) mmol/L Hgb O2 Saturation (95.0-98.0) % Sodium 145 (132-148) mmol/L Chloride 108 H (98-107) mmol/L Glucose (65-105) mg/dl Lactate (0.7-2.1) mmol/L FiO2 % Inspiratory BiPAP Potassium 3.6 (3.6-5.0) mmol/L Carbon Dioxide 25 (21-33) mmol/L Anion Gap 15 (10-20) BUN 92 H (7-21) mg/dL Creatinine 2.6 H (0.7-1.2) mg/dl Est GFR ( Amer) 22 Est GFR (Non-Af Amer) 18 POC Glucose (mg/dL) 196 H 148 H (65-110) mg/dL Random Glucose 177 H (70-110) mg/dL Calcium 9.3 (8.4-10.5) mg/dL Magnesium 2.1 (1.7-2.2) mg/dL Total Bilirubin 0.9 (0.2-1.3) mg/dL AST 35 (14-36) U/L ALT 26 (7-56) U/L Alkaline Phosphatase 78 (38-126) U/L Total Protein 5.9 (5.8-8.3) g/dL Albumin 3.1 (3.0-4.8) g/dL Globulin 2.7 gm/dL Albumin/Globulin Ratio 1.1 (1.1-1.8) Arterial Blood Potassium (3.6-5.2) mmol/L Vancomycin Trough (5.0-10.0) ug/mL 05/14/18 05/14/18 Range/Units 18:07 16:19 WBC (4.5-11.0) 10^3/uL RBC (3.5-6.1) 10^6/uL Hgb (12.0-16.0) g/dL Hct (36.0-48.0) % MCV (80.0-105.0) fl MCH (25.0-35.0) pg MCHC (31.0-37.0) g/dl RDW (11.5-14.5) % Plt Count (120.0-450.0) 10^3/uL MPV (7.0-11.0) fl Neut % (Auto) (50.0-68.0) % Lymph % (Auto) (22.0-35.0) % [place] % (Auto) (1.0-6.0) % Eos % (Auto) (1.5-5.0) % Baso % (Auto) (0.0-3.0) % Lymph # (Auto) (1.2-3.4) [place] # (Auto) (0.1-0.6) Eos # (Auto) (0.0-0.7) Baso # (Auto) (0.0-2.0) K/mm3 Absolute Neuts (auto) (1.4-6.5) pCO2 37 (35-45) mm/Hg pO2 55.0 L (80-100) mm/Hg HCO3 25.1 (21-28) mmol/L ABG pH 7.44 (7.35-7.45) ABG Total CO2 26.2 (22-28) mmol.L ABG O2 Saturation 92.7 L (95-98) % ABG O2 Content (15-23) ML/dl ABG Base Excess 1.1 (-2.0-3.0) mmol/L ABG Hemoglobin (11.7-17.4) g/dL ABG Carboxyhemoglobin (0.5-1.5) % POC ABG HHb (Measured) (0-5) % ABG Methemoglobin (0.0-3.0) % ABG O2 Capacity (16-24) mL/dl ABG Potassium 3.0 L (3.6-5.2) mmol/L Hgb O2 Saturation (95.0-98.0) % Sodium 145.0 (132-148) mmol/L Chloride 112.0 H (98-107) mmol/L Glucose 118 H (65-105) mg/dl Lactate 0.8 (0.7-2.1) mmol/L FiO2 35.0 % Inspiratory BiPAP 12 Potassium (3.6-5.0) mmol/L Carbon Dioxide (21-33) mmol/L Anion Gap (10-20) BUN (7-21) mg/dL Creatinine (0.7-1.2) mg/dl Est GFR ( Amer) Est GFR (Non-Af Amer) POC Glucose (mg/dL) 132 H (65-110) mg/dL Random Glucose (70-110) mg/dL Calcium (8.4-10.5) mg/dL Magnesium (1.7-2.2) mg/dL Total Bilirubin (0.2-1.3) mg/dL AST (14-36) U/L ALT (7-56) U/L Alkaline Phosphatase (38-126) U/L Total Protein (5.8-8.3) g/dL Albumin (3.0-4.8) g/dL Globulin gm/dL Albumin/Globulin Ratio (1.1-1.8) Arterial Blood Potassium 3.0 L (3.6-5.2) mmol/L Vancomycin Trough (5.0-10.0) ug/mL Laboratory Results - last 24 hr 05/14/18 05/14/18 05/14/18 16:19 18:07 21:45 WBC RBC Hgb Hct MCV MCH MCHC RDW Plt Count MPV Neut % (Auto) Lymph % (Auto) [place] % (Auto) Eos % (Auto) Baso % (Auto) Lymph # (Auto) [place] # (Auto) Eos # (Auto) Baso # (Auto) Absolute Neuts (auto) pCO2 37 pO2 55.0 L HCO3 25.1 ABG pH 7.44 ABG Total CO2 26.2 ABG O2 Saturation 92.7 L ABG O2 Content ABG Base Excess 1.1 ABG Hemoglobin ABG Carboxyhemoglobin POC ABG HHb (Measured) ABG Methemoglobin ABG O2 Capacity ABG Potassium 3.0 L Hgb O2 Saturation Sodium 145.0 Chloride 112.0 H Glucose 118 H Lactate 0.8 FiO2 35.0 Inspiratory BiPAP 12 Potassium Carbon Dioxide Anion Gap BUN Creatinine Est GFR ( Amer) Est GFR (Non-Af Amer) POC Glucose (mg/dL) 132 H 148 H Random Glucose Calcium Magnesium Total Bilirubin AST ALT Alkaline Phosphatase Total Protein Albumin Globulin Albumin/Globulin Ratio Arterial Blood Potassium 3.0 L Vancomycin Trough 05/15/18 05/15/18 05/15/18 07:27 07:30 07:30 WBC 14.0 H D RBC 4.03 Hgb 10.9 L Hct 35.6 L MCV 88.3 MCH 27.0 MCHC 30.6 L RDW 17.3 H Plt Count 192 MPV 12.3 H Neut % (Auto) 87.0 H Lymph % (Auto) 9.1 L [place] % (Auto) 3.6 Eos % (Auto) 0.1 L Baso % (Auto) 0.2 Lymph # (Auto) 1.3 [place] # (Auto) 0.5 Eos # (Auto) 0.0 Baso # (Auto) 0.03 Absolute Neuts (auto) 12.17 H pCO2 pO2 HCO3 ABG pH ABG Total CO2 ABG O2 Saturation ABG O2 Content ABG Base Excess ABG Hemoglobin ABG Carboxyhemoglobin POC ABG HHb (Measured) ABG Methemoglobin ABG O2 Capacity ABG Potassium Hgb O2 Saturation Sodium 145 Chloride 108 H Glucose Lactate FiO2 Inspiratory BiPAP Potassium 3.6 Carbon Dioxide 25 Anion Gap 15 BUN 92 H Creatinine 2.6 H Est GFR ( Amer) 22 Est GFR (Non-Af Amer) 18 POC Glucose (mg/dL) 196 H Random Glucose 177 H Calcium 9.3 Magnesium 2.1 Total Bilirubin 0.9 AST 35 ALT 26 Alkaline Phosphatase 78 Total Protein 5.9 Albumin 3.1 Globulin 2.7 Albumin/Globulin Ratio 1.1 Arterial Blood Potassium Vancomycin Trough 05/15/18 05/15/18 11:23 15:00 WBC RBC Hgb Hct MCV MCH MCHC RDW Plt Count MPV Neut % (Auto) Lymph % (Auto) [place] % (Auto) Eos % (Auto) Baso % (Auto) Lymph # (Auto) [place] # (Auto) Eos # (Auto) Baso # (Auto) Absolute Neuts (auto) pCO2 33 L pO2 62.0 L HCO3 24.0 ABG pH 7.47 H ABG Total CO2 25.0 ABG O2 Saturation 95.9 ABG O2 Content 13.7 L ABG Base Excess 0.7 ABG Hemoglobin 10.6 L ABG Carboxyhemoglobin 2.9 H POC ABG HHb (Measured) 3.9 ABG Methemoglobin 1.3 ABG O2 Capacity 14.3 L ABG Potassium Hgb O2 Saturation 92.0 L Sodium Chloride Glucose Lactate FiO2 28.0 Inspiratory BiPAP Potassium Carbon Dioxide Anion Gap BUN Creatinine Est GFR ( Amer) Est GFR (Non-Af Amer) POC Glucose (mg/dL) Random Glucose Calcium Magnesium Total Bilirubin AST ALT Alkaline Phosphatase Total Protein Albumin Globulin Albumin/Globulin Ratio Arterial Blood Potassium Vancomycin Trough 15.4 H* Radiology Impressions: Radiology Impressions Chest X-Ray 05/14/18 20:26 IMPRESSION: NG tube in satisfactory position Chest X-Ray 05/15/18 07:12 IMPRESSION: Possible small left pleural effusion. Limited examination. Nasogastric tube. Critical Care Progress Note - Nutrition Nutrition: Nutrition Category Date Time Status NPO Diet [DIET] Diets 05/11/18 Lunch Ordered Attending/Attestation - Attestation I have personally seen and examined this patient.: Yes I have fully participated in the care of the patient.: Yes I have reviewed all pertinent clinical information: Yes Notes (Text): 05/15/18 15:45 73 yo female with diastolic CHF exacerbation c/w HxRF requiring intubation. Now extubated, off of BPAP, off of precedex, making good urine, no HD as per nephro, mental status improved. GI follow up. spoke with surgery-->no surgical intervention, but Dr. Leary will touch base with GI re: ?colonoscopy. ok to downgrade to tele ccm time 40 min
--- NOTE | 2018-05-15 14:05 | CP.PCM.PCO ---
Physician Communication Note - Physician Communication Note Physician Communication Note: repeat labs, continue IV antibiotics, NGT, rectal tube reeval in am
--- NOTE | 2018-05-15 14:55 | CP.PCM.PN ---
Subjective - Date & Time of Evaluation Date of Evaluation: 05/15/18 Time of Evaluation: 11:40 - Subjective Subjective: No fevers, now extubated, still lethargic. Objective - Vital Signs/Intake and Output Vital Signs (last 24 hours): Temp Pulse Resp BP Pulse Ox 98.4 F 100 H 18 125/72 100 05/14/18 05:00 05/14/18 10:10 05/13/18 08:17 05/14/18 10:10 05/14/18 05:00 Intake and Output: 05/14/18 05/14/18 06:59 18:59 Intake Total 2478 Output Total 3630 Balance -1152 - Medications Medications: Current Medications Albuterol/Ipratropium (Duoneb 3 Mg/0.5 Mg (3 Ml) Ud) 3 ml IH [id number] [facility] Last Admin: 05/14/18 07:20 Dose: 3 ml Carvedilol (Coreg) 3.125 mg PO BID [facility] Last Admin: 05/14/18 10:10 Dose: 3.125 mg Diltiazem HCl (Cardizem Cd) 180 mg PO DAILY [facility] Last Admin: 05/14/18 10:09 Dose: 180 mg Aztreonam (Azactam 1 Gm) 100 mls @ 100 mls/hr IVPB Q12 [facility]; Protocol Stop: 05/19/18 22:01 Last Admin: 05/14/18 10:05 Dose: 100 mls/hr Metronidazole (Flagyl) 500 mg in 100 mls @ 100 mls/hr IVPB Q8 [facility]; Protocol Last Admin: 05/14/18 05:28 Dose: 100 mls/hr Propofol (Diprivan) 1,000 mg in 100 mls @ 2.844 mls/hr IV .Q24H PRN; Protocol PRN Reason: TITRATE PER MD ORDER Last Admin: 05/14/18 06:34 Dose: 35 mcg/kg/min, 19.908 mls/hr Doxycycline Hyclate 100 mg/ (Sodium Chloride) 100 mls @ 100 mls/hr IVPB Q12 [facility]; Protocol Stop: 05/22/18 12:31 Last Admin: 05/14/18 10:11 Dose: 100 mls/hr Dexmedetomidine HCl (Precedex 400mcg/100ml) 400 mcg in 100 mls @ 4.74 mls/hr IV .Q21H6M PRN; Protocol PRN Reason: Agitation Insulin Human Regular (Humulin R Low) 0 units SC ACHS [facility]; Protocol Last Admin: 05/14/18 10:03 Dose: Not Given Montelukast Sodium (Singulair) 10 mg PO DAILY [facility] Last Admin: 05/14/18 10:09 Dose: 10 mg Pantoprazole Sodium (Protonix Inj) 40 mg IVP Q12 [facility] Last Admin: 05/14/18 10:11 Dose: 40 mg Pregabalin (Lyrica) 50 mg PO BID [facility] Last Admin: 05/14/18 10:20 Dose: 50 mg Sitagliptin Phosphate (Januvia) 50 mg PO DAILY [facility] Last Admin: 05/14/18 10:11 Dose: Not Given Vancomycin HCl (Vancomycin Inj) 500 mg GA QID [facility]; Protocol Vancomycin HCl (Vancocin 25 Mg/Ml (Oral Use)) 125 mg PO QID [facility]; Protocol Vitamin A (Vitamin A & D Oint Ud Foilpak) 1 ea TOP Q6H PRN PRN Reason: Dry skin - Labs Labs: 05/14/18 06:30 05/14/18 06:30 PT 18.9 SECONDS (9.4-12.5) H 05/13/18 04:45 INR 1.70 05/13/18 04:45 APTT 39.4 Seconds (26.9-38.3) H 05/12/18 05:30 - Constitutional Appears: Chronically Ill - Head Exam Head Exam: NORMAL INSPECTION - Respiratory Exam Respiratory Exam: Decreased Breath Sounds - Cardiovascular Exam Cardiovascular Exam: +S1, +S2 - GI/Abdominal Exam GI & Abdominal Exam: Soft. absent: Tenderness Assessment and Plan - Assessment and Plan (Free Text) Plan: Assessment severe sepsis with acute on chronic renal failure S/P VRDF due to bilateral HCAP, consider C. diff. colitis consider uremic encephalopathy chronic CHF COPD chronic atrial fibrillation on anticoagulation DVT hypothyroidism chronic renal failure not on dialysis S/P hysterectomy and oophorectomy bilateral knee arthroscopy S/P disectomy Plan continue intermittent IV Vancomycin, Azactam, Flagyl day 4 and Doxycycline; cultures have been negative, urine Legionella is negative; reviewed CXR and CT A/P; Vanco random level yesterday was 19.3 and will get another one today to see when we need to dose IV Vancomycin again continue PO Vancomycin day 2 follow up further plans of Surgery follow up further plans of Renal will continue to monitor clinically
--- NOTE | 2018-05-15 15:37 | PN ---
DATE: 05/15/2018 SUBJECTIVE: The patient is a 73-year-old, seen and examined, was extubated this morning. She is sleepy, but arousable, open eye on verbal command. PHYSICAL EXAMINATION VITAL SIGNS: She is afebrile, pulse 113, respirations 20, and blood pressure 127/50. LUNGS: soft crackle in upper lung region. HEART: S1 and S2, audible. ABDOMEN: Soft and nontender. Nasogastric tube in place. Drained 80 mL this is since 7:00. EXTREMITIES: Bilateral leg, no edema. SCDs on place. NEUROLOGICAL: She is sleepy, but arousable. LABORATORY DATA: WBC 14, hemoglobin 10.9, hematocrit 35.6 and platelet of 192. PT 18.9 and INR 1.70. Chemistry; sodium 145, potassium 3.6, chloride 108, CO2 of 25, BUN 92, creatinine 2.6 and blood sugar of 177. Stool Hemoccult is positive. CT of chest done this morning shows left pleural effusion. ASSESSMENT 1. Status post respiratory failure. 2. Acute on chronic renal insufficiency. 3. Non-insulin dependent diabetes. 4. Sepsis and encephalopathy. PLAN: Currently, the patient is on Azactam, Coreg, diltiazem, doxycycline. She is on metronidazole. She is on DVT prophylaxis. She is on Protonix. Vancomycin p.r.n. been started. At this point, the patient is not alert enough to be fed orally. We will get swallow evaluation, if she fails then we might start her nasogastric feeding. I spoke to the nurse, we will hold nasogastric suction, if she does not get distended, we will start her with Glucerna 30 mL per hours. Delta Duarte MD
--- NOTE | 2018-05-15 20:08 | PN ---
DATE: 05/15/2018 SUBJECTIVE: The patient is currently seen in ICU, bed 6. She will likely be transferred to telemetry once a bed is available. She was extubated yesterday. She is responding to me in one and two word answers. Family is concerned that she has not eaten anything in four days. Her BUN and creatinine continue to stabilize. BUN is down to 92 from a high of 117. Creatinine is down to 2.6 from a high of 4.6. The patient's urine output is excellent. She did not require dialysis. She does have a dialysis/Trialysis catheter in her right groin, which likely could be removed. She remains on empiric antibiotic therapy for possible pneumonia, but her chest x-ray shows no infiltrates. She remains on oral vancomycin for possible colitis, but her C. diff studies were negative. The patient has had no further GI bleeding. MEDICATIONS: Medication list reviewed. The patient is on Azactam, Cardizem, Coreg, doxycycline, DuoNeb, Flagyl, subcu heparin, insulin, Lyrica, Januvia, Protonix, Singulair, oral vancomycin, and vitamin A and D ointment. OBJECTIVE: INTAKE/OUTPUT: Intake is 550, output is 2600. VITAL SIGNS: Blood pressure excellent at 121/79. Heart rate 118, sinus tach. Respiratory rate 21 with an oxygen saturation of 100%. Her temperature was 97.2. HEENT: NG tube in place. Eyes are open. NECK: Supple. No neck vein distention. CHEST: No rales, rhonchi, or wheezing. Slight decreased breath sounds at the bases. CARDIOVASCULAR: Regular rate and rhythm with no S3, no S4, no rub. Positive AI/MR/TR. ABDOMEN: Soft. Bowel sounds normal. No rebound, guarding, or masses. BACK: No appreciable dependent edema. EXTREMITIES: No pitting edema. No cyanosis or clubbing. She has diminished lower extremity pulses bilaterally. NEUROLOGIC: Alert, answering one and two word answers appropriately to questions. She recognizes her family members in the room. Positive Trialysis catheter in her right groin. LABORATORY DATA AND IMAGING: Repeat chest x-ray again shows no pulmonary infiltrates. Labs: CBC; white blood cell count 14 with a hemoglobin of 10.9 and platelet count of 192,000. Blood gas today; pH 7.47 with a pCO2 of 33, pO2 of 62. Chemistry showed a sodium of 145, potassium 3.6, chloride 108 with a CO2 of 25, and BUN is 92, down from a high of 117. Creatinine is 2.6, down from a high of 4.6. Her baseline BUN is in the upper 40 range. Her baseline creatinine is in the low 2 range. Urinalysis showed red blood cells and white blood cells. Negative urine eosinophils. She had a fractional excretion of sodium of less than 1%. Microbiology: All blood cultures are negative. C. diff toxin is negative. Urine cultures are negative. ASSESSMENT: 1. Acute renal failure superimposed on chronic kidney disease stage IV. At present, her creatinine is approaching baseline levels. Her BUN is still twice baseline levels. There was some question about whether or not the patient would need to require dialysis over the past weekend. Because of her excellent urine output and her favorable metabolic profile, dialysis was not initiated. The patient appears to be over the hump. She is diuresing without diuretics. She is entirely stable from a renal standpoint and I expect her BUN to slowly decrease back to her baseline levels. Her creatinine is almost at baseline. Her mental status according to the family is still not at baseline, but significantly improved. 2. History of hypertension. Blood pressure control is acceptable. The patient remains on Cardizem and Coreg. 3. Sinus tachycardia. 4. History of hypothyroidism. The patient's thyroid parameters are within reasonable range. She is currently not hypothyroid and is currently not receiving any thyroid supplements. 5. History of a limited gastrointestinal bleed, possible ileus, possible pneumocystis coli seen on CT scan. The patient still continues to have mild diarrhea. She is empirically being treated for Clostridium difficile colitis, though her Clostridium difficile toxin was negative. The patient had been seen by Gastroenterology. 6. History of diabetes mellitus, currently on insulin. Glucose control is acceptable. 7. 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 The patient is status post fresh frozen plasma for her coagulopathy, which had improved. She remains on subcutaneous heparin. Her last INR was 1.7 with a PT of 18.9. 8. History of moderate pulmonary hypertension, stable. 9. History of chronic obstructive pulmonary disease, stable on inhalation therapy. 10. Status post acute respiratory failure with intubation required to protect her airway. 11. Status post mild hypokalemia. This was cautiously replaced with potassium supplements. 12. Elevated phosphorus level. This has improved. With improvement in her renal parameters, her phosphorus level had fallen from 6 down to 3. 13. Possible healthcare-acquired pneumonia, though her chest x-ray shows no infiltrates. As per Infectious Disease, she remains on a full course of broad-spectrum antibiotic therapy. PLAN: 1. Discussed with the patient's family, the patient's energy analyst, and nursing staff in the ICU. From my standpoint, Trialysis catheter needs to be removed prior to her transfer out of the ICU and that would be fine from my standpoint. There are no plans for dialysis. 2. IV antibiotics and oral antibiotics under the guidance of Infectious Disease. 3. Agree with swallowing evaluation and if possible start nutrition. Otherwise, the patient should receive nutrition either through the NG tube or through TPN. This can be peripheral TPN. 4. No further blood transfusions are necessary at this point in time as her hemoglobin remained stable in the 10-11 range. 5. Agree with possible transfer to telemetry later today. 6. Discussed in great detail with the patient's family. Greater than 35 minutes spent in the care of this patient. Usman Bates MD
[2018-05-16] MEDS: Albuterol-Ipratrop 3 mg / 0.5 (3 ml) UD IH SCH ×4 (01:33→19:54)
--- NOTE | 2018-05-16 04:17 | PN ---
DATE: 05/15/2018 SUBJECTIVE: This patient was seen and evaluated earlier today. The patient was now extubated, comfortable, not in distress. PHYSICAL EXAMINATION: VITAL SIGNS: Temperature is 99.9, blood pressure 126/76, pulse rate 115. HEENT: Atraumatic and anicteric. NECK: The NG tube in place. Supple. HEART: S1, S2 heard. LUNGS: Bilateral air entry present. ABDOMEN: Soft. Bowel sounds are present normally. LABORATORY DATA: Hemoglobin 10.9, hematocrit 35.6, WBC 14, platelet 192. BUN 92, creatinine 2.6. IMPRESSION AND PLAN: 1. This 73-year-old patient admitted with sepsis and pneumonia. CT scan showed right chronic wall edema versus pneumatosis and colonic distention noticed. The patient had been on antibiotics and recent hospitalization. The patient has been having diarrhea. Stool for Clostridium difficile has been negative. Clinical picture is more suggestive of Clostridium difficile colitis rather than colitis. The patient has been empirically placed on oral vancomycin. 2. Pneumonia. Continue antibiotics as per Infectious Disease, on Flagyl, Azactam, and doxycycline. 3. Acute kidney injury on chronic kidney disease. 4. Other problems include; the patient with history atrial fibrillation based on anticoagulation before. History of deep venous thrombosis. The patient has been on nothing by mouth, it may be reasonable to stop on the nasogastric tube feeding. We will continue to closely follow up her care and suggest further recommendation based on the clinical course. Kym Barker MD
[2018-05-16] MEDS: metroNIDAZOLE IV 500 mg/100 ml 500 MG/100 ML BAG IVPB SCH ×3 (05:13→22:22)
[2018-05-16 07:30] LABS: HEMOGLOBIN 11.2 g/dL (12.0-16.0); MEAN CELL VOLUME 89.3 fl (80.0-105.0); MEAN CORPUSCULAR HEMOGLOBIN 27.2 pg (25.0-35.0); MEAN CORPUSCULAR HGB CONC 30.4 g/dl (31.0-37.0); MEAN PLATELET VOLUME 12.4 fl (7.0-11.0); RBC 4.12 10^6/uL (3.5-6.1); RED CELL DISTRIBUTION WIDTH 17.9 % (11.5-14.5); WHITE BLOOD COUNT 17.7 10^3/uL (4.5-11.0)
[2018-05-16 07:54] LABS: ALBUMIN 3.2 g/dL (3.0-4.8); CALCIUM 9.7 mg/dL (8.4-10.5)
[2018-05-16] MEDS: Insulin Reg-LOW-Coverage SC SCH ×4 (08:07→22:23)
[2018-05-16] MEDS ORDERED: Albuterol-Ipratrop 3 mg / 0.5 (3 ml) UD IH PRN (08:43)
[2018-05-16] MEDS: Aztreonam 1 Gm in NS 100mL 100 ML IVPB SCH ×2 (09:31→22:22)
[2018-05-16] MEDS: Vancomycin 25 MG/ML PO SCH ×4 (09:32→22:56)
[2018-05-16] MEDS: diltiaZEM 180 mg/24 Hours CD Cap PO SCH (09:32)
--- NOTE | 2018-05-16 11:24 | RAD ---
Date of service: 05/16/2018 HISTORY: abnormal breath sounds COMPARISON: 05/15/2018 FINDINGS: LUNGS: Bilateral perihilar infiltrates and right lower lobe infiltrate. PLEURA: No significant pleural effusion identified, no pneumothorax apparent. CARDIOVASCULAR: Mild aortic calcification Mild cardiomegaly vascular congestion OSSEOUS STRUCTURES: No significant abnormalities. VISUALIZED UPPER ABDOMEN: Normal. OTHER FINDINGS: Nasogastric tube in satisfactory position IMPRESSION: Bilateral perihilar infiltrates and right lower lobe infiltrate.
--- NOTE | 2018-05-16 12:47 | CP.PCM.PN ---
Subjective - Date & Time of Evaluation Date of Evaluation: 05/16/18 Time of Evaluation: 07:00 - Subjective Subjective: Resident Progress Note for Surgery: Dr. Leary Patient examined at bedside. Patient remained tachycardic overnight with heart rate in 120s. Patient is intubated and sedated. Patient states that overall her pain is improved. NG tube draining bilious output. Patient denies passing flatus. Objective - Vital Signs/Intake and Output Vital Signs (last 24 hours): Temp Pulse Resp BP Pulse Ox 98 F 126 H 23 127/82 99 05/16/18 06:00 05/16/18 09:33 05/16/18 06:00 05/16/18 09:33 05/16/18 06:00 Intake and Output: 05/16/18 05/16/18 06:59 18:59 Intake Total 650 Output Total 625 Balance 25 - Medications Medications: Current Medications Albuterol/Ipratropium (Duoneb 3 Mg/0.5 Mg (3 Ml) Ud) 3 ml IH [id number] [facility] Last Admin: 05/16/18 07:52 Dose: 3 ml Albuterol/Ipratropium (Duoneb 3 Mg/0.5 Mg (3 Ml) Ud) 3 ml IH Q2H PRN PRN Reason: Shortness of Breath Carvedilol (Coreg) 3.125 mg PO BID [facility] Last Admin: 05/16/18 09:33 Dose: 3.125 mg Diltiazem HCl (Cardizem Cd) 180 mg PO DAILY [facility] Last Admin: 05/16/18 09:32 Dose: 180 mg Heparin Sodium (Porcine) (Heparin) 5,000 units SC Q12 [facility]; Protocol Last Admin: 05/16/18 09:32 Dose: 5,000 units Aztreonam (Azactam 1 Gm) 100 mls @ 100 mls/hr IVPB Q12 [facility]; Protocol Stop: 05/19/18 22:01 Last Admin: 05/16/18 09:31 Dose: 100 mls/hr Metronidazole (Flagyl) 500 mg in 100 mls @ 100 mls/hr IVPB Q8 [facility]; Protocol Last Admin: 05/16/18 05:13 Dose: 100 mls/hr Doxycycline Hyclate 100 mg/ (Sodium Chloride) 100 mls @ 100 mls/hr IVPB Q12 [facility]; Protocol Stop: 05/22/18 12:31 Last Admin: 05/16/18 09:34 Dose: 100 mls/hr Insulin Human Regular (Humulin R Low) 0 units SC ACHS [facility]; Protocol Last Admin: 05/16/18 08:07 Dose: Not Given Montelukast Sodium (Singulair) 10 mg PO DAILY [facility] Last Admin: 05/16/18 09:32 Dose: 10 mg Pantoprazole Sodium (Protonix Inj) 40 mg IVP Q12 [facility] Last Admin: 05/16/18 09:32 Dose: 40 mg Pregabalin (Lyrica) 50 mg PO BID [facility] Last Admin: 05/16/18 09:39 Dose: 50 mg Sitagliptin Phosphate (Januvia) 50 mg PO DAILY [facility] Last Admin: 05/16/18 09:39 Dose: 50 mg Vancomycin HCl (Vancocin 25 Mg/Ml (Oral Use)) 125 mg PO QID [facility]; Protocol Last Admin: 05/16/18 09:32 Dose: 125 mg Vitamin A (Vitamin A & D Oint Ud Foilpak) 1 ea TOP Q6H PRN PRN Reason: Dry skin - Labs Labs: 05/16/18 07:00 05/16/18 07:00 PT 18.9 SECONDS (9.4-12.5) H 05/13/18 04:45 INR 1.70 05/13/18 04:45 APTT 39.4 Seconds (26.9-38.3) H 05/12/18 05:30 - Additional Findings Additional findings: - Constitutional Appears: No Acute Distress - Head Exam Head Exam: ATRAUMATIC, NORMOCEPHALIC - Eye Exam Eye Exam: EOMI, Normal appearance. absent: Scleral icterus - ENT Exam ENT Exam: Mucous Membranes Moist - Respiratory Exam Additional comments: Intubated and sedated - Cardiovascular Exam Cardiovascular Exam: Tachycardia, S1 and S2. absent: JVD - GI/Abdominal Exam GI & Abdominal Exam: Soft. absent: Distended, Firm, Guarding, Rigid, Rebound - Extremities Exam Extremities Exam: Normal Inspection. absent: Calf Tenderness - Neurological Exam Additional comments: Following commands. Intubated and sedated. - Skin Skin Exam: Dry, Intact, Normal Color, Warm Assessment and Plan - Assessment and Plan (Free Text) Assessment: 73yo F w CHF, asthma, COPD, afib on coumadin, DVT, hypothyroidism, anemia; Admitted to ICU for AMS, shortness of breath and bilateral leg swelling. Surgery consulted for possible abdominal pain. Plan: - CT scan with no evidence of pneumatosis - medical management as per ICU team - no surgical intervention warranted at this time - f/u GI recs - further recommendations as per Dr. Gibran Steinberg PGY-1
--- NOTE | 2018-05-16 13:12 | CP.PCM.PN ---
Subjective - Date & Time of Evaluation Date of Evaluation: 05/16/18 Time of Evaluation: 11:05 - Subjective Subjective: No fevers, still weak-looking. Objective - Vital Signs/Intake and Output Vital Signs (last 24 hours): Temp Pulse Resp BP Pulse Ox 97.2 F L 118 H 21 121/79 100 05/15/18 08:00 05/15/18 13:00 05/15/18 13:00 05/15/18 13:00 05/15/18 13:00 Intake and Output: 05/15/18 05/15/18 06:59 18:59 Intake Total 178 550 Output Total 2600 Balance 178 -2050 - Medications Medications: Current Medications Albuterol/Ipratropium (Duoneb 3 Mg/0.5 Mg (3 Ml) Ud) 3 ml IH [id number] [facility] Last Admin: 05/15/18 14:49 Dose: 3 ml Carvedilol (Coreg) 3.125 mg PO BID [facility] Last Admin: 05/15/18 10:31 Dose: 3.125 mg Diltiazem HCl (Cardizem Cd) 180 mg PO DAILY [facility] Last Admin: 05/15/18 10:33 Dose: 180 mg Heparin Sodium (Porcine) (Heparin) 5,000 units SC Q12 [facility]; Protocol Last Admin: 05/15/18 10:32 Dose: 5,000 units Aztreonam (Azactam 1 Gm) 100 mls @ 100 mls/hr IVPB Q12 [facility]; Protocol Stop: 05/19/18 22:01 Last Admin: 05/15/18 10:32 Dose: 100 mls/hr Metronidazole (Flagyl) 500 mg in 100 mls @ 100 mls/hr IVPB Q8 [facility]; Protocol Last Admin: 05/15/18 14:07 Dose: 100 mls/hr Propofol (Diprivan) 1,000 mg in 100 mls @ 2.844 mls/hr IV .Q24H PRN; Protocol PRN Reason: TITRATE PER MD ORDER Last Titration: 05/14/18 08:00 Dose: 0 mcg/kg/min, 0 mls/hr Doxycycline Hyclate 100 mg/ (Sodium Chloride) 100 mls @ 100 mls/hr IVPB Q12 [facility]; Protocol Stop: 05/22/18 12:31 Last Admin: 05/15/18 10:30 Dose: 100 mls/hr Dexmedetomidine HCl (Precedex 400mcg/100ml) 400 mcg in 100 mls @ 4.74 mls/hr IV .Q21H6M PRN; Protocol PRN Reason: Agitation Last Titration: 05/15/18 10:26 Dose: Infused Insulin Human Regular (Humulin R Low) 0 units SC ACHS [facility]; Protocol Last Admin: 05/15/18 11:36 Dose: Not Given Montelukast Sodium (Singulair) 10 mg PO DAILY [facility] Last Admin: 05/15/18 10:32 Dose: 10 mg Pantoprazole Sodium (Protonix Inj) 40 mg IVP Q12 [facility] Last Admin: 05/15/18 10:30 Dose: 40 mg Pregabalin (Lyrica) 50 mg PO BID [facility] Last Admin: 05/15/18 10:32 Dose: 50 mg Sitagliptin Phosphate (Januvia) 50 mg PO DAILY [facility] Last Admin: 05/15/18 10:35 Dose: Not Given Vancomycin HCl (Vancocin 25 Mg/Ml (Oral Use)) 125 mg PO QID [facility]; Protocol Last Admin: 05/15/18 14:28 Dose: 125 mg Vitamin A (Vitamin A & D Oint Ud Foilpak) 1 ea TOP Q6H PRN PRN Reason: Dry skin - Labs Labs: 05/15/18 07:30 05/15/18 07:30 PT 18.9 SECONDS (9.4-12.5) H 05/13/18 04:45 INR 1.70 05/13/18 04:45 APTT 39.4 Seconds (26.9-38.3) H 05/12/18 05:30 - Constitutional Appears: Chronically Ill - Head Exam Head Exam: NORMAL INSPECTION - Respiratory Exam Respiratory Exam: Decreased Breath Sounds - Cardiovascular Exam Cardiovascular Exam: +S1, +S2 - GI/Abdominal Exam GI & Abdominal Exam: Soft. absent: Tenderness Assessment and Plan - Assessment and Plan (Free Text) Plan: Assessment severe sepsis with acute on chronic renal failure S/P VRDF due to bilateral HCAP, consider C. diff. colitis consider uremic encephalopathy chronic CHF COPD chronic atrial fibrillation on anticoagulation DVT hypothyroidism chronic renal failure not on dialysis S/P hysterectomy and oophorectomy bilateral knee arthroscopy S/P disectomy Plan continue intermittent IV Vancomycin, Azactam, Flagyl day 5 and Doxycycline; cultures have been negative, urine Legionella is negative; reviewed CXR and CT A/P; Vanco random level still at good level at 15.4 and will repeat tomorrow continue PO Vancomycin day 3 follow up further plans of Surgery follow up further plans of Renal will continue to monitor clinically
--- NOTE | 2018-05-16 16:15 | CP.PCM.PCO ---
Physician Communication Note - Physician Communication Note Physician Communication Note: Pain gone/more alert/May need c olonoscopy(bleeding-infection etiology)
--- NOTE | 2018-05-16 17:19 | PN ---
DATE: 05/16/2018 SUBJECTIVE: The patient is 73 years old, seen and examined, doing well better than before, was extubated, more awake and alert, able to communicate. Nasogastric tube still in. PHYSICAL EXAMINATION VITAL SIGNS: She is afebrile. Pulse 112, respirations 23 and blood pressure 127/82. LUNGS: Bilateral fair airflow. No rhonchi or crackles. HEART: S1 and S2, tachycardic. ABDOMEN: Soft and nontender. No rebound. No guarding. NEUROLOGIC: The patient is awake and alert, able to communicate. LABORATORY DATA: WBC 17.7, hemoglobin 11.2, hematocrit 36, and platelets 199. PT 18.9, INR 1.70. Chemistry: Sodium 150, potassium 3.2, chloride 113, CO2 of 29, BUN 89, creatinine 2.3, blood sugar of 154. Blood cultures are negative. X-ray chest was done that shows bilateral perihilar infiltrate and right lower lobe infiltrate. ASSESSMENT 1. Status post sepsis. 2. Acute on chronic renal failure. 3. Bilateral perihilar infiltrate. 4. Right lower lobe infiltrate. 5. Anemia, status post blood transfusion. PLAN: Her nasogastric tube will be discontinued. We will get swallow evaluation and start her on clear liquid if tolerated. Currently, she is on p.o. vancomycin. Her mental status has definitely improved, so we will continue her on metronidazole. She is on doxycycline and Azactam. Delta Duarte MD
--- NOTE | 2018-05-16 18:36 | PN ---
DATE: 05/16/2018 CARDIOLOGY FOLLOWUP SUBJECTIVE: The patient is extubated. She is mildly short of breath at rest. PHYSICAL EXAMINATION: VITAL SIGNS: Blood pressure 127/82 and heart rate is 110, sinus tachycardia. NECK: Negative JVD. LUNGS: Decreased breath sounds bilaterally. HEART: Reveal S1 and S2. EXTREMITIES: Without change. LABORATORY DATA: White count is 17,000 and hemoglobin is 11.2. BUN and creatinine is 89 and 2.3. Glucose is 127. IMPRESSION: 1. Respiratory failure. 2. Renal insufficiency. 3. Chronic obstructive pulmonary disease. 4. Sinus tachycardia. 5. Deep venous thrombosis. 6. Sepsis. PLAN: Given these findings, the patient is not on dialysis, still considered not necessary by Nephrology. Joseph Berger MD
--- NOTE | 2018-05-16 19:14 | PN ---
DATE: 05/16/2018 SUBJECTIVE: The patient is seen in the ICU. She is lying in bed. She is awake. She is alert. She is oriented x2. She denies any pain at present. She denies any chest tightness. She denies any shortness of breath. PHYSICAL EXAMINATION: GENERAL: Elderly lady lying in bed in the ICU. VITAL SIGNS: Blood pressure 127/82, heart rate 126, respiratory rate 23, temperature 98. HEENT: Normocephalic, atraumatic, positive pallor. NECK: Supple. No JVD. CARDIOPULMONARY: S1 and S2, regular rate and rhythm. No murmur. No rub. LUNGS: Bilateral equal entry, bilateral rhonchi, prolonged expiration, bilateral wheeze. ABDOMEN: Distended, soft, nontender, bowel sounds present. EXTREMITIES: Chronic stasis changes, wrinkling of the skin, trace edema. INTAKE AND OUTPUT: 15,100/4225. LABORATORY DATA: WBC 17.7, hemoglobin 11, hematocrit 37, platelets 199. Sodium 150, potassium 3.2, chloride 113, CO2 29, BUN 89, creatinine 2.3, glucose 127, calcium 9.7, phosphorus 3.0, magnesium 2.2, albumin 3.0. Vancomycin trough level 15.4 yesterday. Chest x-ray, bilateral perihilar infiltrates and right lower lid lower lobe infiltrate. CURRENT MEDICATIONS: Azactam 1 g every 12, Cardizem 180, Coreg 3.125 b.i.d., doxycycline 100 every 12, DuoNeb, Flagyl 500 every 8, heparin, insulin, Januvia 50, Lyrica 50 b.i.d., Protonix 40 IV every 12, Singulair 10, vancomycin 125 q.i.d. ASSESSMENT: 1. Acute kidney injury superimposed on chronic disease stage III/IV, renal parameters slowly improving. 2. Hypokalemia. 3. History of hypertension. 4. Sinus tachycardia. 5. Gastrointestinal bleed, possible ileus,? Pneumocystis . 4. Iot-oevcuoz-ougxmkaww diabetes mellitus. 5. History of deep venous thrombosis. 6. Moderate pulmonary hypertension. 7. Chronic obstructive pulmonary disease. 8. Status post respiratory failure. 9. Hyperphosphatemia, resolved. 10. Bilateral pneumonia, multilobar pneumonia. PLAN: 1. Continue antibiotics as per ID recommendations. 2. Replace potassium. 3. Check magnesium levels. Yulia Allan MD
[2018-05-17] MEDS: Albuterol-Ipratrop 3 mg / 0.5 (3 ml) UD IH SCH ×5 (01:13→20:44)
[2018-05-17] MEDS: metroNIDAZOLE IV 500 mg/100 ml 500 MG/100 ML BAG IVPB SCH ×3 (05:40→21:54)
[2018-05-17 06:54] LABS: HEMOGLOBIN 10.8 g/dL (12.0-16.0); MEAN CELL VOLUME 90.8 fl (80.0-105.0); MEAN CORPUSCULAR HEMOGLOBIN 26.9 pg (25.0-35.0); MEAN CORPUSCULAR HGB CONC 29.7 g/dl (31.0-37.0); MEAN PLATELET VOLUME 11.4 fl (7.0-11.0); RBC 4.01 10^6/uL (3.5-6.1); RED CELL DISTRIBUTION WIDTH 18.2 % (11.5-14.5); WHITE BLOOD COUNT 15.1 10^3/uL (4.5-11.0)
[2018-05-17 07:10] LABS: ALB/GLOB RATIO 1.1 (1.1-1.8); CALCIUM 9.5 mg/dL (8.4-10.5)
[2018-05-17] MEDS: Insulin Reg-LOW-Coverage SC SCH ×4 (08:13→22:23)
[2018-05-17] MEDS: Vancomycin 25 MG/ML PO SCH ×4 (10:34→22:01)
[2018-05-17] MEDS: Aztreonam 1 Gm in NS 100mL 100 ML IVPB SCH ×2 (10:34→21:54)
[2018-05-17] MEDS: diltiaZEM 180 mg/24 Hours CD Cap PO SCH (10:35)
--- NOTE | 2018-05-17 12:58 | CP.PCM.PN ---
Subjective - Date & Time of Evaluation Date of Evaluation: 05/17/18 Time of Evaluation: 09:55 - Subjective Subjective: A little more awake today, abdominal discomfort is a little less, not in distress in bed but still feels weak. Objective - Vital Signs/Intake and Output Vital Signs (last 24 hours): Temp Pulse Resp BP Pulse Ox 98 F 126 H 23 127/82 99 05/16/18 06:00 05/16/18 09:33 05/16/18 06:00 05/16/18 09:33 05/16/18 06:00 Intake and Output: 05/16/18 05/16/18 06:59 18:59 Intake Total 650 Output Total 625 Balance 25 - Medications Medications: Current Medications Albuterol/Ipratropium (Duoneb 3 Mg/0.5 Mg (3 Ml) Ud) 3 ml IH [id number] [facility] Last Admin: 05/16/18 07:52 Dose: 3 ml Albuterol/Ipratropium (Duoneb 3 Mg/0.5 Mg (3 Ml) Ud) 3 ml IH Q2H PRN PRN Reason: Shortness of Breath Carvedilol (Coreg) 3.125 mg PO BID [facility] Last Admin: 05/16/18 09:33 Dose: 3.125 mg Diltiazem HCl (Cardizem Cd) 180 mg PO DAILY [facility] Last Admin: 05/16/18 09:32 Dose: 180 mg Heparin Sodium (Porcine) (Heparin) 5,000 units SC Q12 [facility]; Protocol Last Admin: 05/16/18 09:32 Dose: 5,000 units Aztreonam (Azactam 1 Gm) 100 mls @ 100 mls/hr IVPB Q12 [facility]; Protocol Stop: 05/19/18 22:01 Last Admin: 05/16/18 09:31 Dose: 100 mls/hr Metronidazole (Flagyl) 500 mg in 100 mls @ 100 mls/hr IVPB Q8 [facility]; Protocol Last Admin: 05/16/18 05:13 Dose: 100 mls/hr Doxycycline Hyclate 100 mg/ (Sodium Chloride) 100 mls @ 100 mls/hr IVPB Q12 [facility]; Protocol Stop: 05/22/18 12:31 Last Admin: 05/16/18 09:34 Dose: 100 mls/hr Insulin Human Regular (Humulin R Low) 0 units SC ACHS [facility]; Protocol Last Admin: 05/16/18 08:07 Dose: Not Given Montelukast Sodium (Singulair) 10 mg PO DAILY [facility] Last Admin: 05/16/18 09:32 Dose: 10 mg Pantoprazole Sodium (Protonix Inj) 40 mg IVP Q12 [facility] Last Admin: 05/16/18 09:32 Dose: 40 mg Pregabalin (Lyrica) 50 mg PO BID [facility] Last Admin: 05/16/18 09:39 Dose: 50 mg Sitagliptin Phosphate (Januvia) 50 mg PO DAILY [facility] Last Admin: 05/16/18 09:39 Dose: 50 mg Vancomycin HCl (Vancocin 25 Mg/Ml (Oral Use)) 125 mg PO QID [facility]; Protocol Last Admin: 05/16/18 09:32 Dose: 125 mg Vitamin A (Vitamin A & D Oint Ud Foilpak) 1 ea TOP Q6H PRN PRN Reason: Dry skin - Labs Labs: 05/16/18 07:00 05/16/18 07:00 PT 18.9 SECONDS (9.4-12.5) H 05/13/18 04:45 INR 1.70 05/13/18 04:45 APTT 39.4 Seconds (26.9-38.3) H 05/12/18 05:30 - Constitutional Appears: Chronically Ill - Head Exam Head Exam: NORMAL INSPECTION - ENT Exam ENT Exam: Mucous Membranes Moist - Neck Exam Neck Exam: absent: Meningismus - Respiratory Exam Respiratory Exam: Decreased Breath Sounds - Cardiovascular Exam Cardiovascular Exam: +S1, +S2 - GI/Abdominal Exam GI & Abdominal Exam: Soft. absent: Tenderness Assessment and Plan - Assessment and Plan (Free Text) Plan: Assessment severe sepsis with acute on chronic renal failure S/P VRDF due to bilateral HCAP, consider C. diff. colitis on top of possible ischemic colitis consider uremic encephalopathy chronic CHF COPD chronic atrial fibrillation on anticoagulation DVT hypothyroidism chronic renal failure not on dialysis S/P hysterectomy and oophorectomy bilateral knee arthroscopy S/P disectomy Plan continue intermittent IV Vancomycin, Azactam, Flagyl day 6 and Doxycycline; cultures have been negative, urine Legionella is negative; reviewed CXR and CT A/P; Vanco random level 7.9 and will give a dose of IV Vancomycin today and will repeat tomorrow continue PO Vancomycin day 4 follow up further plans of Surgery - discussed with Dr. Leary and conservative approach for now follow up further plans of Renal will continue to monitor clinically
--- NOTE | 2018-05-17 14:39 | PN ---
DATE: 05/17/2018 SUBJECTIVE: The patient is a 73 years old, seen and examined, doing very well, eating and tolerating her food. Fully awake and alert, communicative, having intelligent conversation. PHYSICAL EXAMINATION VITAL SIGNS: She is afebrile, pulse , respirations 20, blood pressure 126/66. LUNGS: Soft crackle in upper lung region. HEART: S1 and S2 audible. ABDOMEN: Soft, nontender. No rebound. No guarding. NEUROLOGICAL: She is awake, alert, oriented, able to communicate. She is extremely weak. EXTREMITIES: Bilateral leg +1 edema. LABORATORY DATA: WBC 15.1, hemoglobin 10.8, hematocrit 36.4, and platelets 157. PT 18.9, INR 1.70. Chemistry; sodium 150, potassium 3.3, chloride 116, CO2 of 30, BUN 78, creatinine 2.2, blood sugar of 214. Blood cultures and urine cultures are negative. Stool for Clostridium difficile is negative. ASSESSMENT: 1. Status post acute renal failure. 2. Status post sepsis. 3. Bilateral infiltrate. 4. Hypertension. 5. History of cavernous sinus thrombosis. 6. Coagulopathy secondary to sepsis. PLAN: We will encourage p.o. feeding and p.o. fluid. Continue current antibiotics. Monitor her blood sugar. Follow up H and H. Encourage physical therapy, probably the patient is going to need subacute rehab. I do not think she is candidate for LTAC. She is getting out of her acute problems. She should be followed by her Renal doctor's and follow up her electrolytes. Delta Duarte MD
--- NOTE | 2018-05-17 17:37 | PN ---
DATE: 05/17/[address] Joseph Berger. SUBJECTIVE: The patient is currently comfortable on nasal O2. She is in sinus tachycardia with frequent . No reported melena this morning and the patient denies any chest pain. PHYSICAL EXAMINATION VITAL SIGNS: Blood pressure 120/66, heart rate 130, temperature 97.6, respirations 26. HEENT: Normocephalic. CHEST: Absent breath sounds over the bases. HEART: S1 and S2 regular. ABDOMEN: Soft. EXTREMITIES: Trace edema. LABORATORY DATA: Today's hemoglobin and hematocrit are 10.8 and 36.2, white count 15.1, platelet count 157,000. The SMA-7; sodium 150, potassium 3.3, chloride 116, CO2 of 30, glucose 119, BUN 78, creatinine 2.2. INR from 4 days ago was 1.7. Today's chest x-ray revealed both underlying cardiomegaly and mild to moderate CHF. Venous Doppler of lower extremity, no evidence of DVT. Head CT scan without contrast, no acute findings. CT scan of the abdomen and pelvis revealed distended air-filled right colon containing air and fluid with peripheral adherent stool along the huffman. Findings are not felt to represent pneumatosis coli. No evidence of portal vein air. Transverse and proximal descending colon were also distended with air. Patchy ground-glass opacities seen throughout the upper and lower lobes, more dense consolidation/atelectasis changes present in both lung bases, left greater than right. EKG on admission revealed sinus rhythm with first degree AV block, LVH with repolarization, consider old lateral OH. In the most recent echo in April last month revealed mildly impaired systolic function with septal hypokinesis and mild pulmonary hypertension. Recent stress test last month was performed; however, the nuclear results are still pending. ASSESSMENT: 1. Congestive heart failure. 2. Colonic dilatation. 3. Status post Coumadin toxicity. 4. History of deep venous thrombosis in the past, most recently venous Doppler was negative. 5. Acute renal insufficiency. 6. Hypokalemia and hypernatremia. 7. Bilateral pneumonia. RECOMMENDATIONS: Continue current Azactam at 1 g every 12 hours, continue Cardizem CD 180 mg once a day, Coreg 3.125 mg twice a day, doxycycline 100 mg intravenous twice a day, albuterol inhaler every 6 hours, Flagyl 500 mg every 8 hours, subcutaneous heparin 5000 units intravenously every 12 hours, twice a day, oral vanco at 125 mg q.i.d. The patient has received total 40 mEq of intravenous potassium chloride replacement. The case was discussed with Dr. Leary, the surgeon. Cam Cao MD
--- NOTE | 2018-05-17 20:06 | PN ---
DATE: 05/17/2018 SUBJECTIVE: The patient is seen lying in bed in the ICU. She is awake, she is alert. She is oriented x3. She recognizes me. She reports she is not in any pain. She denies any shortness of breath. She reports that she is feeling better. She denies any nausea or vomiting. PHYSICAL EXAMINATION: GENERAL: Elderly lady, lying in bed. VITAL SIGNS: Blood pressure 120/66, heart rate 117, respiratory rate 26, temperature 99.9, T-max is 100.2. HEENT: Normocephalic, atraumatic, positive pallor. NECK: Supple, no JVD. LUNGS: Bilateral equal entry, bilateral rhonchi, equal expansion. CARDIAC: S1 and S2, regular rate and rhythm. No murmur, no rub. ABDOMEN: Obese, distended, soft, nontender, bowel sounds present. EXTREMITIES: No lower extremity edema. INTAKE AND OUTPUT: 100/1530. LABORATORY DATA: WBC 15, hemoglobin 10.8, hematocrit 36, platelets 157. Sodium 150, potassium 3.3, chloride 116, CO2 of 30, BUN 78, creatinine 2.2, glucose 119, calcium 9.5, magnesium 2.1, albumin 3, corrected calcium is 10.2. Vancomycin trough level is 7.9. Blood cultures, no growth. Urine culture, no growth. CURRENT MEDICATIONS: Azactam 1 g every 12 hours, Cardizem CD 180, Coreg 3.125 b.i.d., doxycycline 100 every 12 hours, DuoNeb, Flagyl 500 every 8 hours, Januvia 50, Lyrica 50 b.i.d., Protonix 40 IV every 12 hours, Singulair 10, vancomycin 125 p.o. four times a day, vancomycin 1.25 g once today. ASSESSMENT: 1. Resolving acute kidney injury, underlying chronic kidney disease stage III/IV. 2. Status post respiratory failure. 3. Multilobar pneumonia. 4. Hypernatremia. 5. Hypokalemia. 6. Anemia, chronic kidney disease plus gastrointestinal blood loss. 7. History of chronic obstructive pulmonary disease. 8. History of deep venous thrombosis. 9. Moderate pulmonary hypertension. 10. Hypothyroidism. 11. Hypertension. PLAN: 1. Free water orally. 2. Replace potassium aggressively. 3. Push p.o. intake. 4. Continue antibiotics as per ID recommendations, dose for creatinine clearance 10-30 mL/minute. 5. Continue current antihypertensives. 6. Okay to remove Trialysis catheter. No indication for renal replacement therapy. 7. Monitor WBC count. 8. Repeat blood cultures. Case discussed with ICU staff at length, case discussed with ICU team, case discussed with Dr. Duarte, more than 35 minutes spent in the care of this critically ill patient. Yulia Allan MD
[2018-05-17] MEDS ORDERED: Acetaminophen 160 mg/5 ml UD PO PRN (22:50)
[2018-05-17] MEDS: Acetaminophen 650mg/20.3ml solution UD PO PRN (23:24)
[2018-05-18] MEDS: Albuterol-Ipratrop 3 mg / 0.5 (3 ml) UD IH SCH ×4 (02:45→21:08)
[2018-05-18] MEDS: metroNIDAZOLE IV 500 mg/100 ml 500 MG/100 ML BAG IVPB SCH ×3 (05:24→22:38)
[2018-05-18 07:16] LABS: HEMOGLOBIN 9.1 g/dL (12.0-16.0); MEAN CELL VOLUME 91.5 fl (80.0-105.0); MEAN CORPUSCULAR HEMOGLOBIN 26.8 pg (25.0-35.0); MEAN CORPUSCULAR HGB CONC 29.3 g/dl (31.0-37.0); RBC 3.4 10^6/uL (3.5-6.1); RED CELL DISTRIBUTION WIDTH 18.1 % (11.5-14.5); WHITE BLOOD COUNT 12.4 10^3/uL (4.5-11.0)
[2018-05-18 07:34] LABS: ALBUMIN 2.6 g/dL (3.0-4.8); CALCIUM 8.7 mg/dL (8.4-10.5)
[2018-05-18] MEDS: Insulin Reg-LOW-Coverage SC SCH ×4 (08:02→21:45)
--- NOTE | 2018-05-18 08:07 | CP.PCM.PCO ---
Physician Communication Note - Physician Communication Note Physician Communication Note: No further surgical plans-OK TO D/C to LTACH
[2018-05-18] MEDS: diltiaZEM 180 mg/24 Hours CD Cap PO SCH (11:02)
[2018-05-18] MEDS: Aztreonam 1 Gm in NS 100mL 100 ML IVPB SCH ×2 (11:03→21:34)
[2018-05-18] MEDS: Vancomycin 25 MG/ML PO SCH ×4 (11:06→23:35)
[2018-05-18] MEDS ORDERED: Vancomycin 1.5 GM in Sodium Chloride 0.9% 500 ML IVPB ONE (12:44)
--- NOTE | 2018-05-18 12:46 | CP.PCM.PN ---
Subjective - Date & Time of Evaluation Date of Evaluation: 05/18/18 Time of Evaluation: 10:45 - Subjective Subjective: Patient is more awake today, had low grade fever overnight, but feeling better, no abdominal pain, breathing a little better. Objective - Vital Signs/Intake and Output Vital Signs (last 24 hours): Temp Pulse Resp BP Pulse Ox 69.1 F L 117 H 26 H 120/66 90 L 05/17/18 05:59 05/17/18 10:36 05/17/18 05:59 05/17/18 10:36 05/17/18 05:59 Intake and Output: 05/17/18 05/17/18 06:59 18:59 Intake Total 1000 Output Total 1530 Balance -530 - Medications Medications: Current Medications Albuterol/Ipratropium (Duoneb 3 Mg/0.5 Mg (3 Ml) Ud) 3 ml IH [id number] [facility] Last Admin: 05/17/18 07:08 Dose: 3 ml Albuterol/Ipratropium (Duoneb 3 Mg/0.5 Mg (3 Ml) Ud) 3 ml IH Q2H PRN PRN Reason: Shortness of Breath Carvedilol (Coreg) 3.125 mg PO BID [facility] Last Admin: 05/17/18 10:36 Dose: 3.125 mg Diltiazem HCl (Cardizem Cd) 180 mg PO DAILY [facility] Last Admin: 05/17/18 10:35 Dose: 180 mg Heparin Sodium (Porcine) (Heparin) 5,000 units SC Q12 [facility]; Protocol Last Admin: 05/17/18 10:35 Dose: 5,000 units Aztreonam (Azactam 1 Gm) 100 mls @ 100 mls/hr IVPB Q12 [facility]; Protocol Stop: 05/19/18 22:01 Last Admin: 05/17/18 10:34 Dose: 100 mls/hr Metronidazole (Flagyl) 500 mg in 100 mls @ 100 mls/hr IVPB Q8 [facility]; Protocol Last Admin: 05/17/18 05:40 Dose: 100 mls/hr Doxycycline Hyclate 100 mg/ (Sodium Chloride) 100 mls @ 100 mls/hr IVPB Q12 [facility]; Protocol Stop: 05/22/18 12:31 Last Admin: 05/17/18 10:34 Dose: 100 mls/hr Potassium Chloride (Potassium Chloride 20 Meq/100 Ml) 20 meq in 100 mls @ 50 mls/hr IVPB ONCE ONE Stop: 05/17/18 14:40 Vancomycin HCl 1.25 gm/ Sodium (Chloride) 500 mls @ 167 mls/hr IVPB ONCE ONE; Protocol Stop: 05/17/18 15:55 Insulin Human Regular (Humulin R Low) 0 units SC ACHS [facility]; Protocol Last Admin: 05/17/18 08:13 Dose: Not Given Montelukast Sodium (Singulair) 10 mg PO DAILY [facility] Last Admin: 05/17/18 10:35 Dose: 10 mg Pantoprazole Sodium (Protonix Inj) 40 mg IVP Q12 [facility] Last Admin: 05/17/18 10:35 Dose: 40 mg Pregabalin (Lyrica) 50 mg PO BID [facility] Last Admin: 05/17/18 10:33 Dose: 50 mg Sitagliptin Phosphate (Januvia) 50 mg PO DAILY [facility] Last Admin: 05/17/18 10:33 Dose: 50 mg Vancomycin HCl (Vancocin 25 Mg/Ml (Oral Use)) 125 mg PO QID [facility]; Protocol Last Admin: 05/17/18 10:34 Dose: 125 mg Vitamin A (Vitamin A & D Oint Ud Foilpak) 1 ea TOP Q6H PRN PRN Reason: Dry skin - Labs Labs: 05/17/18 06:10 05/17/18 06:10 PT 18.9 SECONDS (9.4-12.5) H 05/13/18 04:45 INR 1.70 05/13/18 04:45 APTT 39.4 Seconds (26.9-38.3) H 05/12/18 05:30 - Constitutional Appears: Chronically Ill - Head Exam Head Exam: NORMAL INSPECTION - Neck Exam Neck Exam: absent: Meningismus - Respiratory Exam Respiratory Exam: Decreased Breath Sounds - Cardiovascular Exam Cardiovascular Exam: +S1, +S2 - GI/Abdominal Exam GI & Abdominal Exam: Soft. absent: Tenderness Assessment and Plan - Assessment and Plan (Free Text) Plan: Assessment severe sepsis with acute on chronic renal failure S/P VRDF due to bilateral HCAP, consider C. diff. colitis on top of possible ischemic colitis consider uremic encephalopathy chronic CHF COPD chronic atrial fibrillation on anticoagulation DVT hypothyroidism chronic renal failure not on dialysis S/P hysterectomy and oophorectomy bilateral knee arthroscopy S/P disectomy Plan continue intermittent IV Vancomycin, Azactam, Flagyl day 7 and Doxycycline; cultures have been negative, urine Legionella is negative; reviewed CXR and CT A/P; will get Vanco random level tomorrow continue PO Vancomycin day 5 follow up further plans of Surgery - discussed with Dr. Leary and conservative approach for now follow up further plans of Renal will continue to monitor clinically
--- NOTE | 2018-05-18 13:48 | CP.PCM.PCO ---
Physician Communication Note - Physician Communication Note Physician Communication Note: starting Lasix PO, Coumadin, cont. antibiotics, repeat labs and CXR in am
--- NOTE | 2018-05-18 15:14 | PN ---
DATE: 05/18/2018 SUBJECTIVE: The patient is 81 years old, seen and examined, doing very well, fully awake, alert, oriented, communicative as per nurse. Eating very well. She finished her whole dinner last night, so did she finish her breakfast this morning although she did not like eggs. Complained of generalized weakness. No cough, no congestion. PHYSICAL EXAMINATION: VITAL SIGNS: She has temperature 100.4, pulse 105, respirations 20, blood pressure 114/48. LUNGS: Bilateral soft upper lung crackles. HEART: S1, S2. Audible. ABDOMEN: Soft, obese, nontender, no rebound, no guarding. NEUROLOGIC: She is awake, alert, oriented, communicative. EXTREMITIES: Bilateral legs, no edema. LABORATORY DATA: WBC 12.4, hemoglobin 9.1, hematocrit . Chemistry: Sodium 145, potassium 4, chloride 114, CO2 of 30, BUN 71, creatinine 2.1, blood sugar of 108. Blood cultures are negative. Chest x-ray bilateral perihilar infiltrate and right lower lobe infiltrate. ASSESSMENT: 1. Status post sepsis. 2. Status post . 3. Bilateral pulmonary infiltrate. 4. Anemia. PLAN: Currently, the patient is on p.o. vancomycin as per ID. She is on DVT prophylaxis. She is on metronidazole and she is on doxycycline and Azactam as per ID. We will continue to monitor her CBC and CMP. The patient can be transferred to remote tele. Delta Duarte MD
--- NOTE | 2018-05-18 16:35 | PN ---
DATE: 05/18/2018 SUBJECTIVE: The patient denies chest pain at this time. PHYSICAL EXAMINATION VITAL SIGNS: Blood pressure 114/48, heart rate 105, and respirations 20. HEENT: Pale conjunctivae. CHEST: Absent breath sounds over the bases. HEART: S1 and S2, regular. EXTREMITIES: 1+ pitting edema. LABORATORY DATA: Today's hemoglobin and hematocrit 9.1 and 31.1, white count 12.4, and platelet count 134,000. SMA-7: Sodium 140, potassium 4.0, chloride 114, CO2 of 30, glucose 100, BUN 71, and creatinine 2.1. Blood cultures are negative after 5 days. C. diff antigen and toxin are negative. ASSESSMENT 1. Congestive heart failure. 2. dilatation. 3. Status post Coumadin toxicity. 4. Acute renal insufficiency. 5. Bilateral pneumonia. RECOMMENDATIONS: Continue current Azactam at 1 g every 12 hours, continue Cardizem CD at 180 mg daily, Coreg 3.125 mg twice a day, Coumadin started at 5 mg. Today's INR is 1.7. Continue IV Flagyl 500 mg every 8 hours, oral Lasix 20 mg twice a day, IV Protonix 40 mg every 12 hours, oral vancomycin 125 mg q.i.d. Cam Cao MD
--- NOTE | 2018-05-18 19:46 | PN ---
DATE: 05/18/2018 SUBJECTIVE: The patient is seen in the ICU. She is awake, she is alert, and she is comfortable. She still appears somewhat lethargic. Son and sister are at bedside. She denies any chest pain. She denies any shortness of breath, although she appears somewhat dyspneic. PHYSICAL EXAMINATION: GENERAL: Elderly lady lying in bed in the ICU. VITAL SIGNS: Blood pressure 130/68, heart rate 112, respiratory rate 31, temperature 99.7, and T-max is 100. HEENT: Normocephalic and atraumatic. Positive pallor. NECK: Supple. No JVD, LUNGS: Bilateral equal air entry, bilateral rhonchi, expiratory wheeze. CARDIAC: S1 and S2, regular rate and rhythm. No murmur. No rub. ABDOMEN: Obese, distended, soft, and nontender. Bowel sounds present. EXTREMITIES: Wrinkling of the skin, 1+ pitting edema of the lower extremities. INTAKE AND OUTPUT: 1700/1575. LABORATORY DATA: WBC 12, hemoglobin 9, hematocrit 31, and platelets 134. Sodium 145, potassium 4, chloride 114, CO2 of 30, BUN 71, creatinine 2.1, glucose 100, calcium 8.7, and magnesium 2. AST 28 and ALT 19. Blood cultures, no growth. Urine culture, no growth. CURRENT MEDICATIONS: Azactam 1 g every 12 hours, Cardizem CD 180, Coreg 3.125 b.i.d., Coumadin 5, doxycycline 100 every 12 hours, Flagyl 500 every 8 hours, insulin, Januvia 50, Lyrica 50 b.i.d., Protonix 40 IV every 12 hours, Singulair, Tylenol, vancomycin 125 p.o. q.i.d., and vancomycin 1.5 g given this morning. ASSESSMENT: 1. Status post severe sepsis, multiorgan dysfunction, respiratory failure. 2. Status post ventilator-dependent respiratory failure, multilobar pneumonia. 3. Acute kidney injury superimposed on chronic kidney disease stage IV, nicely resolving. 4. Severe anemia, multifactorial, anemia of chronic kidney disease plus gastrointestinal blood loss. 5. Hypertension. 6. History of deep venous thrombosis. 7. Moderate pulmonary hypertension. 8. Hypothyroidism. 9. Hypernatremia. 10. Hypokalemia, resolved. PLAN: 1. Restart Lasix p.o. 40 b.i.d. 2. Push p.o. free fluids. 3. Continue current antihypertensives. 4. Continue empiric antibiotics as per ID recommendations. 5. Reculture? 6. Physical therapy. 7. Clinically improved. Yulia Allan MD
--- NOTE | 2018-05-18 22:18 | CON ---
DATE OF CONSULTATION: 05/11/2018 REASON FOR CONSULTATION: Acute kidney injury, altered mental status. HISTORY OF PRESENTING ILLNESS: A 73-year-old lady known to me from prior hospital evaluation and outpatient followup. The patient was brought to the emergency room because of increased lower extremity edema, shortness of breath. The patient was initially admitted to telemetry. Subsequently, she was transferred to the ICU this morning because of worsening mental status, shortness of breath. She is currently seen in the ICU. She is obtunded. Not following any commands. She is just moaning. She appears to be in respiratory distress. Her hemoglobin this morning has dropped to 7.8. She came in with a hemoglobin of 9.2. Also BUN and creatinine were 113/4.7. Consultation is requested for acute kidney injury/altered mental status. PAST MEDICAL/SURGICAL HISTORY: Hypertension, CHF, pulmonary hypertension, COPD, NIDDM, chronic kidney disease stage 4, anemia of chronic kidney disease, history of DVT, hypothyroidism. FAMILY HISTORY: Noncontributory. SOCIAL HISTORY: No smoking, no alcohol use, no IV drug abuse. MEDICATIONS AT HOME: Prevacid 30, Coumadin 9, Singulair 10, Cardizem 180, Zocor 40, Januvia 50, Lyrica 50 b.i.d., prednisone 20 mg for 5 days, Lasix 40 b.i.d., Uloric 40, carvedilol 10 mg daily. ALLERGIES: POLLEN and PENICILLIN. REVIEW OF SYSTEMS: Unavailable as the patient is obtunded, minimally responsive. PHYSICAL EXAMINATION: GENERAL: Elderly lady, lying in bed in the ICU. VITAL SIGNS: Blood pressure 124/65, heart rate 77, temperature 98.2. HEENT: Normocephalic, atraumatic, positive pallor. NECK: Supple, no JVD. LUNGS: Bilateral rhonchi, distant breath sounds, decreased breath sounds at the bases. CARDIAC: S1 and S2, regular rate and rhythm, no murmur, no rub. ABDOMEN: Distended, soft, bowel sounds present. EXTREMITIES: 2+ pitting edema of the lower extremities. INTAKE AND OUTPUT: Not charted. LABORATORY DATA: WBC 7.2, hemoglobin 9.2, hematocrit 28.8, platelets 215,000. INR 9.5. Sodium 130, potassium 4.0, chloride 92, CO2 of 19, BUN 103, creatinine 4.8, glucose 321. BNP 7960. Chest x-ray: Compressive atelectasis in both lungs and also markedly distended air-filled bowel loops. CURRENT MEDICATIONS: Carvedilol 3.125 b.i.d., Cardizem CD 180, Singulair, Lyrica 50 b.i.d., Januvia 50 daily. ASSESSMENT: 1. Acute kidney injury superimposed on chronic disease stage 4. 2. Respiratory failure. 3. Altered mental status. 4. Uqkxn-ha-zeoiqwn anemia. 5. Coagulopathy. 6. History of hypertension. 7. History of [id number] diabetes mellitus. 8. History of deep vein thrombosis, on anticoagulation. 9. Congestive heart failure/cardiomyopathy/pulmonary hypertension. 10. Chronic obstructive pulmonary disease. PLAN: 1. Etiology of acute kidney injury appears to be multifactorial. In light of her coagulopathy and anemia, GI bleed should be considered high in the differential diagnosis. 2. Stool occults x3. 3. Monitor hemoglobin and hematocrit closely. 4. Fluid challenge. 5. Monitor urine output closely. 6. No indication for renal replacement therapy right now. 7. Case discussed at length with ICU resident, ICU attending, Dr. Reeves, Dr. Duarte. More than 35 minutes were spent in the care of this critically ill patient. Yulia Allan MD [email or web address]
[2018-05-19] MEDS: Albuterol-Ipratrop 3 mg / 0.5 (3 ml) UD IH SCH ×4 (02:08→20:02)
[2018-05-19] MEDS: metroNIDAZOLE IV 500 mg/100 ml 500 MG/100 ML BAG IVPB SCH ×3 (05:42→21:08)
[2018-05-19] MEDS: Insulin Reg-LOW-Coverage SC SCH ×4 (08:00→22:48)
[2018-05-19 08:16] LABS: HEMOGLOBIN 9.5 g/dL (12.0-16.0); MEAN CELL VOLUME 91.8 fl (80.0-105.0); MEAN CORPUSCULAR HEMOGLOBIN 26.8 pg (25.0-35.0); MEAN CORPUSCULAR HGB CONC 29.1 g/dl (31.0-37.0); MEAN PLATELET VOLUME 12.5 fl (7.0-11.0); RBC 3.55 10^6/uL (3.5-6.1); RED CELL DISTRIBUTION WIDTH 17.8 % (11.5-14.5); WHITE BLOOD COUNT 13.9 10^3/uL (4.5-11.0)
[2018-05-19 08:23] LABS: INR 2.35; PARTIAL THROMBOPLASTIN TIME 40.1 Seconds (26.9-38.3); PROTHROMBIN TIME 26.5 SECONDS (9.4-12.5)
[2018-05-19 08:32] LABS: ALBUMIN 2.7 g/dL (3.0-4.8); CALCIUM 8.9 mg/dL (8.4-10.5)
--- NOTE | 2018-05-19 09:16 | RAD ---
Date of service: 05/19/2018 HISTORY: reeval COMPARISON: 05/16/2018 FINDINGS: LUNGS: There is an increasing left perihilar and left upper lobe infiltrate. Minimal infiltrate at the right lung base. PLEURA: No significant pleural effusion identified, no pneumothorax apparent. CARDIOVASCULAR: No aortic atherosclerotic calcification present. Mild cardiomegaly no pulmonary vascular congestion. OSSEOUS STRUCTURES: No significant abnormalities. VISUALIZED UPPER ABDOMEN: Normal. OTHER FINDINGS: None. IMPRESSION: There is an increasing left perihilar and left upper lobe infiltrate. Minimal infiltrate at the right lung base.
[2018-05-19] MEDS: diltiaZEM 180 mg/24 Hours CD Cap PO SCH (09:40)
[2018-05-19] MEDS: Aztreonam 1 Gm in NS 100mL 100 ML IVPB SCH ×2 (09:42→23:38)
[2018-05-19] MEDS: Vancomycin 25 MG/ML PO SCH ×4 (09:43→22:31)
--- NOTE | 2018-05-19 20:39 | PN ---
DATE: 05/19/2018 SUBJECTIVE: Patient is currently in telemetry. She has mild shortness of breath, but denies chest pain. PHYSICAL EXAMINATION: VITAL SIGNS: Blood pressure 121/69, heart rate 95, temperature 98.8, and earlier the heart rate was 119. HEENT: Pale conjunctiva. CHEST: Absent breath sounds over the bases. HEART: S1 and S2 regular. EXTREMITIES: Pitting edema 2+. LABORATORY DATA: Hemoglobin and hematocrit 9.5 and 32.6, white count 15.9, and platelet count 25,000. Today's SMA-7; sodium 144, potassium 4.2, chloride 114, CO2 of 26, glucose 87, BUN 59, and creatinine 1.7. Chest x-ray revealed cardiomegaly and dense alveolar infiltrate involving the left middle lung zone with prominent bronchovascular markings bilaterally. Official report to the chest x-ray stated there was increasing left perihilar and left upper lobe infiltrate, minimal infiltrate in the right lung base. ASSESSMENT: 1. Congestive heart failure. 2. Status post Coumadin toxicity. 3. Improving renal insufficiency. 4. Pneumonia. 5. Colonic dilatation. 6. Uncontrolled diabetes mellitus. RECOMMENDATIONS: Continue Azactam 1 g every 12 hours, continue Cardizem CD 180 mg once a day, and Coreg 3.125 mg once a day. The patient will receive Coumadin 2 mg today. Her INR as of today was 2.35. Continue doxycycline 100 mg every 12 hours, albuterol inhaler, IV Flagyl 500 mg every 8 hours, and oral Lasix 40 mg twice a day. Cam Cao MD
--- NOTE | 2018-05-19 21:22 | PN ---
DATE: 05/19/2018 SUBJECTIVE: The patient is seen earlier today in room 270, bed 1. No fevers and no chills. Uneventful night. OBJECTIVE: VITAL SIGNS: Temperature is 98, blood pressure is 120/60, respiratory rate of 18. HEENT: Unremarkable. NECK: Supple. LUNGS: Have decreased breath sounds. HEART: Normal S1, S2. ABDOMEN: Soft, nontender. LABORATORY EXAMINATION: Reveals a white count of 13,900, hemoglobin of 9, BUN of 59, creatinine of 1.7. Urinalysis is noted and vanco trough level of 15.4. Microbiology reveals the blood cultures are no growth. The patient had a chest x-ray today and showed increasing left perihilar and left upper lobe infiltrate, minimal infiltrate at the right base. Review of orders reveals the patient to be on aztreonam, doxycycline, intermittent vancomycin. The patient is also on Flagyl. ASSESSMENT AND PLAN: This is a 73-year-old female with severe sepsis and [id number] renal failure and status post ventilator dependant respiratory failure due to bilateral healthcare-associated pneumonia, Clostridium difficile and top of possible ischemic colitis and the patient with uremic encephalopathy, chronic congestive heart failure, chronic obstructive pulmonary disease, hypothyroidism, chronic atrial fibrillation, on intermittent vancomycin, Azactam, Flagyl day #8 and on doxycycline. Thus far the cultures have been negative, on p.o. vancomycin. Stool for Clostridium difficile is still pending. Review of orders reveals the patient's p.o. vancomycin was dropped off. We will reorder the vancomycin p.o. and we will reorder the stool for Clostridium difficile. Gavin Alvarez MD
--- NOTE | 2018-05-20 00:11 | PN ---
DATE: 05/19/2018 SUBJECTIVE: The patient is seen, lying in bed. She is awake. She is alert. She is comfortable. She does not appear to be in any kind of distress. PHYSICAL EXAMINATION: GENERAL: Elderly male lying in bed. VITAL SIGNS: Blood pressure 147/78, heart rate 84, respiratory rate 18, temperature 98.6. HEENT: Normocephalic, atraumatic, positive pallor. NECK: Supple, no JVD. LUNGS: Bilateral rhonchi, bilateral equal air entry. CARDIAC: S1 and S2, regular rate and rhythm, no murmur, no rub. ABDOMEN: Obese, distended, soft, nontender, bowel sounds present. EXTREMITIES: No lower extremity edema. INTAKE AND OUTPUT: 1560/2800. LABORATORY DATA: WBC 13.9, hemoglobin 9.5, hematocrit 33, platelets 135. Sodium 144, potassium 4.2, chloride 114, CO2 of 26, BUN 59, creatinine 1.7, glucose 87, calcium 8.9, magnesium 1.9. Vanco random 16. CURRENT MEDICATIONS: Azactam 1 g every 12 hours, Cardizem 180, Coreg 3.125 b.i.d., Coumadin 2 mg, doxycycline 100 every 12 hours, Flagyl 500 every 8 hours, Januvia 50, Lasix 40 b.i.d. p.o., Lyrica 50, Protonix 40 IV every 12 hours, Singulair, Tylenol, p.o. vancomycin 250 four times a day. ASSESSMENT: 1. Acute kidney injury, resolving. 2. Stable underlying chronic kidney disease stage 4. 3. Status post severe sepsis, respiratory failure, multiorgan dysfunction, multilobar pneumonia. 4. Gastrointestinal blood loss. 5. History of deep vein thrombosis. 6. History of congestive heart failure, cardiomyopathy, pulmonary hypertension. PLAN: 1. Continue current management. 2. Keep O's greater than I's. 3. Continue p.o. Lasix. 4. Continue antibiotics as per ID recommendations. 5. Physical therapy. Yulia Allan MD
[2018-05-20] MEDS: Albuterol-Ipratrop 3 mg / 0.5 (3 ml) UD IH SCH ×4 (01:23→20:12)
[2018-05-20] MEDS: metroNIDAZOLE IV 500 mg/100 ml 500 MG/100 ML BAG IVPB SCH (06:13)
[2018-05-20 07:51] LABS: INR 2.41; PROTHROMBIN TIME 27.2 SECONDS (9.4-12.5)
[2018-05-20 07:52] LABS: HEMOGLOBIN 8.6 g/dL (12.0-16.0); MEAN CELL VOLUME 91.7 fl (80.0-105.0); MEAN CORPUSCULAR HEMOGLOBIN 27.4 pg (25.0-35.0); MEAN CORPUSCULAR HGB CONC 29.9 g/dl (31.0-37.0); MEAN PLATELET VOLUME 12.1 fl (7.0-11.0); RBC 3.14 10^6/uL (3.5-6.1); RED CELL DISTRIBUTION WIDTH 17.8 % (11.5-14.5); WHITE BLOOD COUNT 11.1 10^3/uL (4.5-11.0)
[2018-05-20 08:11] LABS: ALBUMIN 2.4 g/dL (3.0-4.8); CALCIUM 8.6 mg/dL (8.4-10.5)
[2018-05-20] MEDS: Linezolid 600 mg in D5W 300 ml 600 MG/300 ML BAG IVPB SCH ×2 (09:57→21:38)
[2018-05-20] MEDS: Vancomycin 25 MG/ML PO SCH ×4 (09:58→21:38)
[2018-05-20] MEDS: diltiaZEM 180 mg/24 Hours CD Cap PO SCH (09:59)
[2018-05-20] MEDS: Insulin Reg-LOW-Coverage SC SCH ×4 (10:01→22:05)
--- NOTE | 2018-05-20 14:16 | PN ---
DATE: 05/20/2018 SUBJECTIVE: The patient has no complaints of any chest pain. No shortness of breath. She states her breathing is better. PHYSICAL EXAMINATION: VITAL SIGNS: Temperature 98.2, pulse of 87, blood pressure is 122/69, and respirations 18. GENERAL: The patient is lying in bed, flat, comfortable. HEENT: No oral lesion. Anicteric sclerae. Moist mucosa. NECK: No JVD, adenopathy, or thyromegaly. CARDIOVASCULAR: S1 and S2, regular. No murmurs, rubs, or gallops. LUNGS: Clear to auscultation bilaterally. No wheeze, rales, or rhonchi. ABDOMEN: Bowel sounds are positive, soft, nontender and nondistended. EXTREMITIES: no cyanosis, clubbing or edema. LABORATORY DATA: White count 11.1, hemoglobin 8.6, creatinine 1.7. ASSESSMENT: 1. Sepsis. 2. Anemia, chronic. 3. Acute kidney injury, resolved. 4. Chronic kidney disease, stage 4. 5. Pulmonary hypertension. 6. Healthcare-associated pneumonia. 7. Sepsis, improving. 8. Diabetes type 2. PLAN: The patient is on Cardizem. She is going to continue on carvedilol. She is on Coumadin. Her INR is therapeutic at 2.4. She is on Januvia for her diabetes. She is on Lasix daily. She is on Lyrica. She is going to continue with vancomycin. She currently is on a dysphagia-modified diet. Kirby Navarrete MD
--- NOTE | 2018-05-20 15:13 | PN ---
DATE: 05/20/2018 SUBJECTIVE: The patient denies chest pain and she does not appears to be in any respiratory distress. PHYSICAL EXAMINATION: VITAL SIGNS: Blood pressure 115/64, heart rate 91, temperature 98.6. The patient is in sinus rhythm or mild sinus tachycardia on the monitor. HEENT: Pale conjunctiva. CHEST: Clear. HEART: S1 and S2 regular. EXTREMITIES: 1+ petting edema. LABORATORY DATA: Hemoglobin and hematocrit 8.6 and 28.8, white count 11.1, and platelet count 124,000. Today's BUN and creatinine and 50 and 1.7 respectively, glucose 79. ASSESSMENT: 1. Congestive heart failure. 2. Improving renal insufficiency. 3. Pneumonia. 4. Diabetes mellitus. 5. Status post Coumadin toxicity. Today's INR 2.41 and the patient will receive 2 mg of Coumadin today. Cam Cao MD
--- NOTE | 2018-05-20 16:04 | CP.PCM.PN ---
Subjective - Date & Time of Evaluation Date of Evaluation: 05/20/18 Time of Evaluation: 09:35 - Subjective Subjective: Comfortable, no fevers. Objective - Vital Signs/Intake and Output Vital Signs (last 24 hours): Temp Pulse Resp BP Pulse Ox 98.2 F 87 18 123/69 98 05/20/18 06:00 05/20/18 06:00 05/20/18 06:00 05/20/18 06:00 05/20/18 06:00 Intake and Output: 05/20/18 05/20/18 06:59 18:59 Intake Total 1320 Output Total 1300 Balance 20 - Medications Medications: Current Medications Acetaminophen (Tylenol 650mg/20.3ml Solution Ud) 650 mg PO Q4H PRN PRN Reason: FOR TEMP > 100.4 Last Admin: 05/17/18 23:24 Dose: 650 mg Albuterol/Ipratropium (Duoneb 3 Mg/0.5 Mg (3 Ml) Ud) 3 ml IH [id number] [facility] Last Admin: 05/20/18 07:40 Dose: 3 ml Albuterol/Ipratropium (Duoneb 3 Mg/0.5 Mg (3 Ml) Ud) 3 ml IH Q2H PRN PRN Reason: Shortness of Breath Carvedilol (Coreg) 3.125 mg PO BID [facility] Last Admin: 05/19/18 18:27 Dose: 3.125 mg Diltiazem HCl (Cardizem Cd) 180 mg PO DAILY [facility] Last Admin: 05/19/18 09:40 Dose: 180 mg Doxycycline Hyclate (Doryx) 100 mg PO Q12 [facility]; Protocol Furosemide (Lasix) 40 mg PO BID [facility] Last Admin: 05/19/18 18:27 Dose: 40 mg Linezolid (Zyvox 600mg/300ml D5w) 600 mg in 300 mls @ 200 mls/hr IVPB Q12 [facility]; Protocol Stop: 05/27/18 10:01 Insulin Human Regular (Humulin R Low) 0 units SC ACHS [facility]; Protocol Last Admin: 05/19/18 22:48 Dose: Not Given Metronidazole (Flagyl) 500 mg PO Q8 [facility]; Protocol Montelukast Sodium (Singulair) 10 mg PO HS [facility] Last Admin: 05/19/18 21:09 Dose: 10 mg Pantoprazole Sodium (Protonix Inj) 40 mg IVP Q12 [facility] Last Admin: 05/19/18 21:08 Dose: 40 mg Pregabalin (Lyrica) 50 mg PO BID [facility] Last Admin: 05/19/18 18:28 Dose: 50 mg Sitagliptin Phosphate (Januvia) 50 mg PO DAILY [facility] Last Admin: 05/19/18 09:40 Dose: 50 mg Vancomycin HCl (Vancocin 25 Mg/Ml (Oral Use)) 250 mg PO QID [facility]; Protocol Stop: 05/26/18 18:01 Last Admin: 05/19/18 22:31 Dose: 250 mg Vitamin A (Vitamin A & D Oint Ud Foilpak) 1 ea TOP Q6H PRN PRN Reason: Dry skin Last Admin: 05/19/18 21:09 Dose: 1 ea Warfarin Sodium (Coumadin) 2 mg PO 1800 [facility]; Protocol Stop: 05/21/18 05:00 Last Admin: 05/19/18 18:26 Dose: 2 mg - Labs Labs: 05/20/18 07:00 05/20/18 07:00 PT 27.2 SECONDS (9.4-12.5) H 05/20/18 07:00 INR 2.41 05/20/18 07:00 APTT 40.1 Seconds (26.9-38.3) H 05/19/18 07:36 - Constitutional Appears: Chronically Ill - Head Exam Head Exam: NORMAL INSPECTION - Respiratory Exam Respiratory Exam: Decreased Breath Sounds - Cardiovascular Exam Cardiovascular Exam: +S1, +S2 - GI/Abdominal Exam GI & Abdominal Exam: Soft. absent: Tenderness Assessment and Plan - Assessment and Plan (Free Text) Plan: Assessment severe sepsis with acute on chronic renal failure S/P VRDF due to bilateral HCAP, consider C. diff. colitis on top of possible ischemic colitis consider uremic encephalopathy chronic CHF COPD chronic atrial fibrillation on anticoagulation DVT hypothyroidism chronic renal failure not on dialysis S/P hysterectomy and oophorectomy bilateral knee arthroscopy S/P disectomy Plan continue Azactam, Flagyl day 9 and Doxycycline and added Zyvox since repesat CXR from yesterday showed worsening of left sided infitlrates; repeat cultures have been negative, urine Legionella is negative; reviewed CXR and CT A/P; will get Vanco random level tomorrow continue PO Vancomycin day 7 follow up further plans of Surgery - discussed with Dr. Leary and conservative approach for now follow up further plans of Renal will continue to monitor clinically
[2018-05-20] MEDS: Aztreonam 1 Gm in NS 100mL 100 ML IVPB SCH (21:50)
[2018-05-21] MEDS: Albuterol-Ipratrop 3 mg / 0.5 (3 ml) UD IH SCH ×4 (01:26→19:59)
[2018-05-21] MEDS: Aztreonam 1 Gm in NS 100mL 100 ML IVPB SCH ×3 (05:05→21:33)
[2018-05-21] MEDS: Acetaminophen 650mg/20.3ml solution UD PO PRN (05:49)
[2018-05-21 06:32] LABS: INR 2.49; PROTHROMBIN TIME 28.1 SECONDS (9.4-12.5)
[2018-05-21] MEDS: Insulin Reg-LOW-Coverage SC SCH ×4 (08:00→23:02)
[2018-05-21 08:12] LABS: BASO # 0.01 K/mm3 (0.0-2.0); BASO % 0.1 % (0.0-3.0); EOS # 0.1 (0.0-0.7); HEMOGLOBIN 8.6 g/dL (12.0-16.0); LYMPH # 1.3 (1.2-3.4); LYMPH % 12.7 % (22.0-35.0); MEAN CELL VOLUME 92.1 fl (80.0-105.0); MEAN CORPUSCULAR HGB CONC 29.4 g/dl (31.0-37.0); MEAN PLATELET VOLUME 12.6 fl (7.0-11.0); MONO # 0.5 (0.1-0.6); MONO % 4.8 % (1.0-6.0); RBC 3.18 10^6/uL (3.5-6.1); RED CELL DISTRIBUTION WIDTH 17.8 % (11.5-14.5); WHITE BLOOD COUNT 10.5 10^3/uL (4.5-11.0)
[2018-05-21] MEDS ORDERED: Darbepoetin Alfa 100 mcg/ml Inj SC ONE (08:29)
--- NOTE | 2018-05-21 09:03 | PN ---
DATE: 05/19/2018 SUBJECTIVE: The patient is 73-year-old, seen and examined, doing much better, fully awake, alert and oriented, eating very well, finish all her breakfast. No nausea or vomiting. PHYSICAL EXAMINATION: VITAL SIGNS: She is afebrile, pulse 97, respirations 20 and blood pressure 138/70. LUNGS: Bilateral fair airflow. No rhonchi or crackle. HEART: S1 and S2, audible. ABDOMEN: Soft and nontender. No rebound. No guarding. NEUROLOGICAL: The patient is awake, alert oriented and communicative. EXTREMITIES: Bilateral leg no edema. LABORATORY DATA: WBC is 13.9, hemoglobin 9.5, hematocrit 32.6 and platelet 135. PT 26.5 and INR 2.35. Chemistry; sodium 144, potassium 4.2, chloride 114, CO2 of 26, BUN 59, creatinine 1.7 and blood sugar of 87. X-ray chest was done that shows increasing left perihilar and left upper lobe infiltrate minimal infiltrate at the right lung base. ASSESSMENT: 1. Status post acute renal failure, resolving. 2. Bilateral pneumonia, improving. 3. Altered mental status, improved. 4. History of hypertension. 5. History of coagulopathy. 6. Anemia, status post multiple blood transfusion. PLAN: Currently the patient is on Azactam and diltiazem and Coreg. We will give her 2 mg of Coumadin today, followup PT and INR in a.m. Advise the patient to do bedside therapy whenever she has time and she need aggressive physical therapy. Awaiting physical therapy evaluation. Followup PT and INR in a.m., out of bed to chair. Case discussed with the patient's nurse. Delta Duarte MD
[2018-05-21 09:23] LABS: ALB/GLOB RATIO 0.9 (1.1-1.8); ALBUMIN 2.4 g/dL (3.0-4.8); CALCIUM 8.9 mg/dL (8.4-10.5)
--- NOTE | 2018-05-21 09:28 | PN ---
DATE: 05/21/2018 SUBJECTIVE: She is comfortable in bed, in no acute distress. No shortness of breath. No chest pain. No fever. No cough with expectoration. Hemoglobin is low at 8.6 g/dL; on admission, it was 11.2. She was admitted with sepsis and acute renal failure. Renal functions have been improving. REVIEW OF SYSTEMS: As per HPI. Rest of 12-point review of system reviewed and negative. PHYSICAL EXAMINATION GENERAL: Comfortable in bed in no acute distress. VITAL SIGNS: Temperature 98.7, heart rate 87 per minute, blood pressure 120/69, and respiratory rate 18 per minute. HEENT: Pallor positive. NECK: No lymphadenopathy. CHEST: Air entry present equal bilaterally. No added sound. CARDIOVASCULAR: S1 and S2 normal. No murmur. No gallop. ABDOMEN: Soft and nontender. No hepatosplenomegaly. EXTREMITIES: 1+ edema. LABORATORY DATA: Hemoglobin 8.6, white count 10.5 and platelet 129. Sodium 141. potassium 4 and creatinine 1.7. MEDICATIONS: Tylenol 650 mg every 4 hours p.r.n., DuoNeb, Azactam, Coreg 3.125 mg p.o. b.i.d., diltiazem 180 mg daily, doxycycline 100 mg every 12 hours, Lasix 40 mg b.i.d., insulin, linezolid, Protonix, Januvia and vancomycin 250 mg q.i.d. ASSESSMENT: 1. Acute renal failure. 2. Chronic anemia related to chronic kidney disease. 3. Hypercoagulable state. 4. History of deep venous thrombosis and pulmonary embolism. 5. Diabetes mellitus type 2. PLAN: We will give 1 dose of Aranesp 100 mg subcutaneous today. She was started on Coumadin 2 mg. INR is 2.4. We can give 1 mg Coumadin daily and monitor PT/INR closely. She was admitted with coagulopathy. Thank you Dr. Duarte for allowing us to participate in Ms. Dudley's care. Nayeli Vela MD
[2018-05-21] MEDS: Linezolid 600 mg in D5W 300 ml 600 MG/300 ML BAG IVPB SCH ×2 (10:38→21:36)
[2018-05-21] MEDS: Vancomycin 25 MG/ML PO SCH ×4 (10:39→23:09)
[2018-05-21] MEDS: diltiaZEM 180 mg/24 Hours CD Cap PO SCH (10:41)
--- NOTE | 2018-05-21 12:42 | RAD ---
Date of service: 05/21/2018 HISTORY: follow up on left sided infiltrates COMPARISON: 05/19/2018 FINDINGS: LUNGS: Bilateral perihilar infiltrates left greater than right. No significant change PLEURA: No significant pleural effusion identified, no pneumothorax apparent. CARDIOVASCULAR: No aortic atherosclerotic calcification present. Normal cardiac size. Vascular congestion OSSEOUS STRUCTURES: No significant abnormalities. VISUALIZED UPPER ABDOMEN: Normal. OTHER FINDINGS: None. IMPRESSION: Bilateral perihilar infiltrates left greater than right. No significant change
--- NOTE | 2018-05-21 13:40 | CP.PCM.PCO ---
Physician Communication Note - Physician Communication Note Physician Communication Note: repeat venous duplex, zyvox added, coumadin decreased, reeval in am
--- NOTE | 2018-05-21 13:43 | PN ---
DATE: 05/21/2018 SUBJECTIVE: The patient is 73 years old, seen and examined. Fully awake, alert, and oriented; able to have intelligent conversation. Denies any chest pain. No shortness of breath. Does complain of generalized weakness. Eating and tolerating. PHYSICAL EXAMINATION: VITAL SIGNS: She is afebrile, pulse 84, respiration 18, and blood pressure 121/68. LUNGS: Bilateral fair airflow; decreased at bases; few soft crackles posteriorly. HEART: S1 and S2 audible. ABDOMEN: Soft and nontender. No rebound. No guarding. NEUROLOGIC: The patient is awake, alert, oriented and communicative. LABORATORY DATA: WBC 10.5, hemoglobin 8.6, hematocrit 29.3 and platelet 129. PT 28.1 and INR 2.49. Chemistry; sodium 139, potassium 4.1, chloride 110, CO2 of 28, BUN 45, creatinine 1.6, blood sugar of 166. Stool for Hemoccult is positive. Legionella titers are negative. Had x-ray of chest done, shows increasing infiltrate. ASSESSMENT: 1. Status post sepsis, status post acute renal failure, resolving. 2. Acute on chronic anemia. 3. Pulmonary hypertension. 4. Bilateral pneumonia. 5. Noninsulin-dependent diabetes. 6. Deconditioning and difficulty walking. PLAN: The patient is overall doing lot better. Her overall intake has improved. Currently she is on Azactam, Coreg. She is on Coumadin, she will be given 1 mg today. She is on doxycycline. We will continue nebulizer treatment. Continue metronidazole. She is on Lasix, we will continue that. Continue Singulair and p.o. vancomycin. The patient's stool C. diff is negative. We will continue p.o. vancomycin and discontinue metronidazole, and she has been started on Zyvox b.i.d. We will reevaluate in a.m. and make disposition plan for subacute rehab probably same time since the patient lives close to that . Delta Duarte MD
--- NOTE | 2018-05-21 13:46 | CP.PCM.PN ---
Subjective - Date & Time of Evaluation Date of Evaluation: 05/21/18 Time of Evaluation: 11:10 - Subjective Subjective: Patient is more awake and feeling better, no fevers, abdominal pain is improved, no SOB at rest. Objective - Vital Signs/Intake and Output Vital Signs (last 24 hours): Temp Pulse Resp BP Pulse Ox 98.1 F 80 20 110/64 99 05/21/18 12:00 05/21/18 12:00 05/21/18 12:00 05/21/18 12:00 05/21/18 00:00 Intake and Output: 05/21/18 05/21/18 06:59 18:59 Intake Total 1050 Output Total 475 Balance 575 - Medications Medications: Current Medications Acetaminophen (Tylenol 650mg/20.3ml Solution Ud) 650 mg PO Q4H PRN PRN Reason: FOR TEMP > 100.4 Last Admin: 05/21/18 05:49 Dose: 650 mg Albuterol/Ipratropium (Duoneb 3 Mg/0.5 Mg (3 Ml) Ud) 3 ml IH [id number] [facility] Last Admin: 05/21/18 07:23 Dose: 3 ml Albuterol/Ipratropium (Duoneb 3 Mg/0.5 Mg (3 Ml) Ud) 3 ml IH Q2H PRN PRN Reason: Shortness of Breath Carvedilol (Coreg) 3.125 mg PO BID [facility] Last Admin: 05/21/18 10:40 Dose: 3.125 mg Diltiazem HCl (Cardizem Cd) 180 mg PO DAILY [facility] Last Admin: 05/21/18 10:41 Dose: 180 mg Doxycycline Hyclate (Doryx) 100 mg PO Q12 [facility]; Protocol Last Admin: 05/21/18 10:41 Dose: 100 mg Furosemide (Lasix) 40 mg PO BID [facility] Last Admin: 05/21/18 10:40 Dose: 40 mg Linezolid (Zyvox 600mg/300ml D5w) 600 mg in 300 mls @ 200 mls/hr IVPB Q12 [facility]; Protocol Stop: 05/27/18 10:01 Last Admin: 05/21/18 10:38 Dose: 200 mls/hr Aztreonam (Azactam 1 Gm) 100 mls @ 100 mls/hr IVPB Q8 [facility]; Protocol Stop: 05/27/18 22:01 Last Admin: 05/21/18 05:05 Dose: 100 mls/hr Insulin Human Regular (Humulin R Low) 0 units SC ACHS [facility]; Protocol Last Admin: 05/21/18 11:44 Dose: 1 u Montelukast Sodium (Singulair) 10 mg PO HS [facility] Last Admin: 05/20/18 21:53 Dose: 10 mg Pantoprazole Sodium (Protonix Inj) 40 mg IVP Q12 [facility] Last Admin: 05/21/18 10:39 Dose: 40 mg Pregabalin (Lyrica) 50 mg PO BID [facility] Last Admin: 05/21/18 10:40 Dose: 50 mg Sitagliptin Phosphate (Januvia) 50 mg PO DAILY [facility] Last Admin: 05/21/18 10:40 Dose: 50 mg Vancomycin HCl (Vancocin 25 Mg/Ml (Oral Use)) 250 mg PO QID [facility]; Protocol Stop: 05/26/18 18:01 Last Admin: 05/21/18 10:39 Dose: 250 mg Vitamin A (Vitamin A & D Oint Ud Foilpak) 1 ea TOP Q6H PRN PRN Reason: Dry skin Last Admin: 05/19/18 21:09 Dose: 1 ea Warfarin Sodium (Coumadin) 1 mg PO 1800 [facility]; Protocol - Labs Labs: 05/21/18 08:00 05/21/18 08:00 PT 28.1 SECONDS (9.4-12.5) H 05/21/18 06:10 INR 2.49 05/21/18 06:10 APTT 40.1 Seconds (26.9-38.3) H 05/19/18 07:36 - Constitutional Appears: Chronically Ill - Head Exam Head Exam: NORMAL INSPECTION - Neck Exam Neck Exam: absent: Meningismus - Respiratory Exam Respiratory Exam: Decreased Breath Sounds - Cardiovascular Exam Cardiovascular Exam: +S1, +S2 - GI/Abdominal Exam GI & Abdominal Exam: Soft. absent: Tenderness Assessment and Plan - Assessment and Plan (Free Text) Plan: Assessment severe sepsis with acute on chronic renal failure S/P VRDF due to bilateral HCAP, consider C. diff. colitis on top of possible ischemic colitis consider uremic encephalopathy chronic CHF COPD chronic atrial fibrillation on anticoagulation DVT hypothyroidism chronic renal failure not on dialysis S/P hysterectomy and oophorectomy bilateral knee arthroscopy S/P disectomy Plan continue Azactam, Flagyl day 10 and Doxycycline and added Zyvox since repeat CXR from 2 days ago showed worsening of left sided infitlrates; repeat cultures have been negative, urine Legionella is negative; reviewed CXR and CT A/P; will get Vanco random level tomorrow continue PO Vancomycin day 8 of 10 days follow up further plans of Surgery - discussed with Dr. Leary and conservative approach for now follow up further plans of Renal will continue to monitor clinically
--- NOTE | 2018-05-21 14:20 | CP.PCM.PN ---
<Damien Martinez - Last Filed: 05/21/18 14:20> Subjective - Date & Time of Evaluation Date of Evaluation: 05/21/18 Time of Evaluation: 14:18 - Subjective Subjective: GI: Dr. Barker Pt seen and examined. Resting comfortably in bed. Tolerating diet. No N/V. Normal BM. No abd pain. Objective - Vital Signs/Intake and Output Vital Signs (last 24 hours): Temp Pulse Resp BP Pulse Ox 98.1 F 80 20 110/64 99 05/21/18 12:00 05/21/18 12:00 05/21/18 12:00 05/21/18 12:00 05/21/18 00:00 Intake and Output: 05/21/18 05/21/18 06:59 18:59 Intake Total 1050 Output Total 475 Balance 575 - Medications Medications: Current Medications Acetaminophen (Tylenol 650mg/20.3ml Solution Ud) 650 mg PO Q4H PRN PRN Reason: FOR TEMP > 100.4 Last Admin: 05/21/18 05:49 Dose: 650 mg Albuterol/Ipratropium (Duoneb 3 Mg/0.5 Mg (3 Ml) Ud) 3 ml IH [id number] [facility] Last Admin: 05/21/18 14:00 Dose: Not Given Albuterol/Ipratropium (Duoneb 3 Mg/0.5 Mg (3 Ml) Ud) 3 ml IH Q2H PRN PRN Reason: Shortness of Breath Carvedilol (Coreg) 3.125 mg PO BID [facility] Last Admin: 05/21/18 10:40 Dose: 3.125 mg Diltiazem HCl (Cardizem Cd) 180 mg PO DAILY [facility] Last Admin: 05/21/18 10:41 Dose: 180 mg Doxycycline Hyclate (Doryx) 100 mg PO Q12 [facility]; Protocol Last Admin: 05/21/18 10:41 Dose: 100 mg Furosemide (Lasix) 40 mg PO BID [facility] Last Admin: 05/21/18 10:40 Dose: 40 mg Linezolid (Zyvox 600mg/300ml D5w) 600 mg in 300 mls @ 200 mls/hr IVPB Q12 [facility]; Protocol Stop: 05/27/18 10:01 Last Admin: 05/21/18 10:38 Dose: 200 mls/hr Aztreonam (Azactam 1 Gm) 100 mls @ 100 mls/hr IVPB Q8 [facility]; Protocol Stop: 05/27/18 22:01 Last Admin: 05/21/18 05:05 Dose: 100 mls/hr Insulin Human Regular (Humulin R Low) 0 units SC ACHS [facility]; Protocol Last Admin: 05/21/18 11:44 Dose: 1 u Montelukast Sodium (Singulair) 10 mg PO HS [facility] Last Admin: 05/20/18 21:53 Dose: 10 mg Pantoprazole Sodium (Protonix Inj) 40 mg IVP Q12 [facility] Last Admin: 05/21/18 10:39 Dose: 40 mg Pregabalin (Lyrica) 50 mg PO BID [facility] Last Admin: 05/21/18 10:40 Dose: 50 mg Sitagliptin Phosphate (Januvia) 50 mg PO DAILY [facility] Last Admin: 05/21/18 10:40 Dose: 50 mg Vancomycin HCl (Vancocin 25 Mg/Ml (Oral Use)) 250 mg PO QID [facility]; Protocol Stop: 05/26/18 18:01 Last Admin: 05/21/18 10:39 Dose: 250 mg Vitamin A (Vitamin A & D Oint Ud Foilpak) 1 ea TOP Q6H PRN PRN Reason: Dry skin Last Admin: 05/19/18 21:09 Dose: 1 ea Warfarin Sodium (Coumadin) 1 mg PO 1800 [facility]; Protocol - Labs Labs: 05/21/18 08:00 05/21/18 08:00 PT 28.1 SECONDS (9.4-12.5) H 05/21/18 06:10 INR 2.49 05/21/18 06:10 APTT 40.1 Seconds (26.9-38.3) H 05/19/18 07:36 - Constitutional Appears: Non-toxic, No Acute Distress - Head Exam Head Exam: ATRAUMATIC, NORMOCEPHALIC - Eye Exam Eye Exam: EOMI - ENT Exam ENT Exam: Mucous Membranes Moist - Neck Exam Neck Exam: Full ROM - Respiratory Exam Respiratory Exam: NORMAL BREATHING PATTERN. absent: Accessory Muscle Use, R espiratory Distress - GI/Abdominal Exam GI & Abdominal Exam: Soft. absent: Distended, Firm, Guarding, Rigid, Tenderness, Rebound - Neurological Exam Neurological Exam: Alert, Awake, Oriented x3 Assessment and Plan - Assessment and Plan (Free Text) Assessment: 73F w. ischemic vs. C. diff colitis, resolving -c/w abx per ID -diet as tolerated -no plans for further intervention at this time -will continue to follow -d/w attending Michelle PGY4 <Kym Barker V - Last Filed: 05/21/18 22:47> Objective - Vital Signs/Intake and Output Vital Signs (last 24 hours): Temp Pulse Resp BP Pulse Ox 97.7 F 84 20 120/68 99 05/21/18 18:25 05/21/18 18:25 05/21/18 18:25 05/21/18 18:25 05/21/18 00:00 Intake and Output: 05/21/18 05/22/18 18:59 06:59 Intake Total 1640 Balance 1640 - Medications Medications: Current Medications Acetaminophen (Tylenol 650mg/20.3ml Solution Ud) 650 mg PO Q4H PRN PRN Reason: FOR TEMP > 100.4 Last Admin: 05/21/18 05:49 Dose: 650 mg Albuterol/Ipratropium (Duoneb 3 Mg/0.5 Mg (3 Ml) Ud) 3 ml IH [id number] [facility] Last Admin: 05/21/18 19:59 Dose: 3 ml Albuterol/Ipratropium (Duoneb 3 Mg/0.5 Mg (3 Ml) Ud) 3 ml IH Q2H PRN PRN Reason: Shortness of Breath Carvedilol (Coreg) 3.125 mg PO BID [facility] Last Admin: 05/21/18 18:17 Dose: 3.125 mg Diltiazem HCl (Cardizem Cd) 180 mg PO DAILY [facility] Last Admin: 05/21/18 10:41 Dose: 180 mg Doxycycline Hyclate (Doryx) 100 mg PO Q12 [facility]; Protocol Last Admin: 05/21/18 21:34 Dose: 100 mg Furosemide (Lasix) 40 mg PO BID [facility] Last Admin: 05/21/18 18:16 Dose: 40 mg Linezolid (Zyvox 600mg/300ml D5w) 600 mg in 300 mls @ 200 mls/hr IVPB Q12 [facility]; Protocol Stop: 05/27/18 10:01 Last Admin: 05/21/18 21:36 Dose: 200 mls/hr Aztreonam (Azactam 1 Gm) 100 mls @ 100 mls/hr IVPB Q8 [facility]; Protocol Stop: 05/27/18 22:01 Last Admin: 05/21/18 21:33 Dose: 100 mls/hr Iron Sucrose 200 mg/ Sodium (Chloride) 110 mls @ 110 mls/hr IVPB DAILY [facility] Stop: 05/25/18 10:59 Last Admin: 05/21/18 16:33 Dose: 110 mls/hr Insulin Human Regular (Humulin R Low) 0 units SC ACHS [facility]; Protocol Last Admin: 05/21/18 16:33 Dose: 1 u Montelukast Sodium (Singulair) 10 mg PO HS [facility] Last Admin: 05/21/18 21:46 Dose: 10 mg Pantoprazole Sodium (Protonix Inj) 40 mg IVP Q12 [facility] Last Admin: 05/21/18 21:35 Dose: 40 mg Pregabalin (Lyrica) 50 mg PO BID [facility] Last Admin: 05/21/18 18:17 Dose: 50 mg Sitagliptin Phosphate (Januvia) 50 mg PO DAILY [facility] Last Admin: 05/21/18 10:40 Dose: 50 mg Vancomycin HCl (Vancocin 25 Mg/Ml (Oral Use)) 250 mg PO QID [facility]; Protocol Stop: 05/26/18 18:01 Last Admin: 05/21/18 18:18 Dose: 250 mg Vitamin A (Vitamin A & D Oint Ud Foilpak) 1 ea TOP Q6H PRN PRN Reason: Dry skin Last Admin: 05/19/18 21:09 Dose: 1 ea Warfarin Sodium (Coumadin) 1 mg PO 1800 [facility]; Protocol Last Admin: 05/21/18 18:17 Dose: 1 mg - Labs Labs: 05/21/18 08:00 05/21/18 08:00 PT 28.1 SECONDS (9.4-12.5) H 05/21/18 06:10 INR 2.49 05/21/18 06:10 APTT 40.1 Seconds (26.9-38.3) H 05/19/18 07:36 Attending/Attestation - Attestation I have personally seen and examined this patient.: Yes I have fully participated in the care of the patient.: Yes I have reviewed all pertinent clinical information, including history, physical exam and plan: Yes Notes (Text): This is an addendum to GI followup report dictated by the Resident. The patient was seen and evaluated earlier. Medical records, lab studies, imagings were re viewed. Last 24 hours events reviewed. Agreed with the above treatment plan as outlined in Resident 's notes with the addition of the following 05/21/18 22:45
[2018-05-21] MEDS ORDERED: Darbepoetin Alfa 60 mcg/ml Inj SC ONE (14:48)
--- NOTE | 2018-05-21 15:24 | PN ---
DATE: 05/21/2018 SUBJECTIVE: The patient denies chest pain. PHYSICAL EXAMINATION: VITAL SIGNS: Blood pressure 110/64, heart rate 80, temperature 98.1, respirations 20. HEENT: Pale conjunctivae. CHEST: Diminished breath sounds over the bases. HEART: S1 and S2 regular. ABDOMEN: Soft. EXTREMITIES: Worsening of the leg edema. LABORATORY DATA: Hematocrit and hematocrit 8.6 and 29.3, white count and platelet count are within normal limits. Today's BUN and creatinine are 45 and 1.6 respectively. Today's chest x-ray revealed bilateral [id number] hilar congestion, small left pleural effusion. Official report stated bilateral perihilar infiltrate, left greater than right, no significant changes. Blood cultures negative after 3 days. ASSESSMENT: 1. Bilateral pneumonia. 2. Improving renal insufficiency. 3. Paroxysmal atrial fibrillation. 4. Mildly depressed left ventricle systolic function. 5. Mild pulmonary hypertension. 6. Rule out deep vein thrombosis. RECOMMENDATIONS: Continue Cardizem at 180 mg daily Coreg 3.125 mg twice a day. The patient receives Coumadin at a dose of 1 mg today. Her INR today is 2.49. Continue Lasix 40 mg intravenous twice a day. Continue oral vancomycin 250 mg four times a day and IV Zyvox at 600 mg every 12 hours. Repeat venous Doppler of lower extremities. Cam Cao MD
--- NOTE | 2018-05-21 18:28 | US ---
HISTORY: Leg pain and swelling. Evaluate for DVT PHYSICIAN(S): Joseph Espinoza MD. TECHNIQUE: Duplex sonography and color-flow Doppler with graded compression were used to evaluate the deep venous systems of both lower extremities. The exam is limited by body habitus and edema. The tibial veins are not well seen FINDINGS: The visualized deep venous systems of both lower extremities are sonographically normal and compressible. Normal wave forms and augmentation are seen. There is no sonographic evidence for deep venous thrombosis in the visualized segments of both lower extremities. IMPRESSION: No sonographic evidence for deep venous thrombosis in the visualized segments of both lower extremities. Limited study
--- NOTE | 2018-05-21 18:46 | PN ---
DATE: 05/21/2018 SUBJECTIVE: The patient is seen lying in bed. She is awake. She is alert. She is comfortable. She reports she is feeling much better. She denies any pain. She denies any shortness of breath. PHYSICAL EXAMINATION: GENERAL: Elderly lady lying in bed. VITAL SIGNS: Blood pressure 110/64, heart rate 80, respiratory rate 20, and temperature 98.1. HEENT: Normocephalic and atraumatic. Positive pallor. NECK: Supple. No JVD. LUNGS: Bilateral equal air entry, bilateral equal expansion. CARDIAC: S1 and S2. Regular rate and rhythm. No murmur. No rub. ABDOMEN: Soft, nondistended, and nontender. Bowel sounds present. EXTREMITIES: No lower extremity edema. INTAKE AND OUTPUT: 2428/995. LABORATORY DATA: WBC 10.5, hemoglobin 8.6, hematocrit 29, and platelets 129. Sodium 139, potassium 4.1, chloride 110, CO2 of 28, BUN 45, creatinine 1.6, glucose 89, calcium 8.9, albumin 2.4, and globulins 2.6. Cultures all negative. CURRENT MEDICATIONS: Azactam 1 g every 8 hours, Cardizem 180, Coreg 3.125 b.i.d., Coumadin, doxycycline 100 every 12 hours, insulin, Januvia 50, Lasix 40 p.o. b.i.d., Lyrica 50 b.i.d., Protonix, Singulair, Tylenol, p.o. vancomycin 250 q.i.d., and Zyvox 600 every 12 hours. ASSESSMENT: 1. Status post severe sepsis, multiorgan dysfunction, respiratory failure. 2. Multilobar pneumonia. 3. Acute kidney injury superimposed on chronic kidney disease stage III/IV, resolved acute kidney injury. 4. Severe anemia. 5. Altered mental status in the setting of severe sepsis, now they are back to baseline. 6. Noninsulin-dependent diabetes mellitus. 7. Hypertension. 8. Congestive heart failure/cardiomyopathy/pulmonary hypertension. 9. Chronic obstructive pulmonary disease. PLAN: 1. LUI all resolved, renal parameters at baseline in fact better than baseline. 2. Continue antibiotics as per ID recommendations. 3. Monitor H and H. 4. Avoid nephrotoxins. 5. Start Venofer 200 mg IV piggyback daily x5 doses, Aranesp 60 mcg subcu x1 dose. 6. Continue Lasix 40 b.i.d. 7. Monitor daily weights. 8. Physical therapy. Yulia Allan MD
[2018-05-22] MEDS: Albuterol-Ipratrop 3 mg / 0.5 (3 ml) UD IH SCH ×4 (01:46→21:07)
[2018-05-22] MEDS: Aztreonam 1 Gm in NS 100mL 100 ML IVPB SCH ×3 (05:18→22:08)
[2018-05-22 07:09] LABS: BASO # 0.02 K/mm3 (0.0-2.0); BASO % 0.2 % (0.0-3.0); EOS # 0.1 (0.0-0.7); EOS % 1.1 % (1.5-5.0); LYMPH # 1.2 (1.2-3.4); LYMPH % 11.8 % (22.0-35.0); MEAN CELL VOLUME 91.2 fl (80.0-105.0); MEAN CORPUSCULAR HEMOGLOBIN 26.5 pg (25.0-35.0); MEAN CORPUSCULAR HGB CONC 29.1 g/dl (31.0-37.0); MONO # 0.4 (0.1-0.6); MONO % 4.2 % (1.0-6.0); RBC 3.39 10^6/uL (3.5-6.1); RED CELL DISTRIBUTION WIDTH 17.7 % (11.5-14.5); WHITE BLOOD COUNT 10.4 10^3/uL (4.5-11.0)
[2018-05-22 07:12] LABS: INR 2.58; PROTHROMBIN TIME 29.2 SECONDS (9.4-12.5)
[2018-05-22 07:28] LABS: ALB/GLOB RATIO 0.9 (1.1-1.8); ALBUMIN 2.4 g/dL (3.0-4.8); CALCIUM 8.8 mg/dL (8.4-10.5)
[2018-05-22] MEDS: Insulin Reg-LOW-Coverage SC SCH ×4 (08:30→22:22)
--- NOTE | 2018-05-22 08:41 | RAD ---
Date of service: 05/22/2018 HISTORY: reeval COMPARISON: 05/21/2018 FINDINGS: LUNGS: Perihilar infiltrate. Improved left upper lobe pneumonia. PLEURA: No significant pleural effusion identified, no pneumothorax apparent. CARDIOVASCULAR: Aortic calcification Normal cardiac size. Moderate vascular congestion OSSEOUS STRUCTURES: No significant abnormalities. VISUALIZED UPPER ABDOMEN: Normal. OTHER FINDINGS: None. IMPRESSION: Perihilar infiltrate. Improved left upper lobe pneumonia.
--- NOTE | 2018-05-22 09:37 | PN ---
DATE: 05/22/2018 SUBJECTIVE: She is comfortable in bed, in no acute distress. She is improved. Renal function is improved. She was admitted with sepsis. Hemoglobin has improved today 9, yesterday it was 8.6. She is currently on Coumadin 1 mg daily. INR is therapeutic 2.5. REVIEW OF SYSTEMS: As per HPI. Rest of 12-point review of systems reviewed and negative. PHYSICAL EXAMINATION GENERAL: Comfortable in bed, in no acute distress. VITAL SIGNS: Temperature 98.5, heart rate 80 per minute, blood pressure 130/60 and respiratory rate 18 per minute. HEENT: Pallor positive. NECK: No lymphadenopathy. CHEST: Air entry present, equal bilaterally. No added sound. CARDIOVASCULAR: S1 and S2, normal. No murmur. No gallop. ABDOMEN: Soft, nontender and obese. No hepatosplenomegaly. EXTREMITIES: 1+ edema bilateral. LABORATORY DATA: White count 10.4, hemoglobin 9, hematocrit 30.9 and platelet 140. Sodium 140, potassium 4 and creatinine 1.6. MEDICATIONS: Tylenol 650 mg every 4 hour p.r.n., DuoNeb every 3 hours, Azactam, Coreg 3.125 mg b.i.d., diltiazem 180 mg daily, doxycycline 100 mg every 12 hours, Lasix, insulin, iron 110 mg daily, Zyvox, Protonix, Lyrica 50 mg p.o. t.i.d., Januvia 50 mg daily, vancomycin p.o. q.i.d. and Coumadin 1 mg daily. ASSESSMENT: 1. Acute on chronic renal disease. 2. Acute on chronic anemia. 3. Hypercoagulable state. 4. History of deep venous thrombosis and pulmonary embolism. 5. Diabetes mellitus type 2. PLAN: She is therapeutic on Coumadin 1 mg daily. We will recommend continue 1 mg daily. Renal function is improved. Currently on IV iron. Hemoglobin is stable 9 g/dL. Currently being treated with IV antibiotics. Sepsis improved. improved. Condition is stable. Thank you Dr. Duarte for allowing us to participate in Ms. Dudley's care. Nayeli Vela MD
[2018-05-22] MEDS: diltiaZEM 180 mg/24 Hours CD Cap PO SCH (10:27)
[2018-05-22] MEDS: Vancomycin 25 MG/ML PO SCH ×4 (10:28→22:09)
[2018-05-22] MEDS: Linezolid 600 mg in D5W 300 ml 600 MG/300 ML BAG IVPB SCH ×2 (10:30→22:24)
--- NOTE | 2018-05-22 11:50 | CP.PCM.PCO ---
Physician Communication Note - Physician Communication Note Physician Communication Note: pabon D/C, Bladder scan q6H for possible DC to [facility] 05/23
--- NOTE | 2018-05-22 12:16 | PN ---
DATE: 05/22/2018 CARDIOLOGY FOLLOWUP HISTORY: The patient is resting comfortably in bed without shortness of breath. PHYSICAL EXAMINATION VITAL SIGNS: Blood pressure 120/65, heart rates in the 80s. NECK: Negative JVD. LUNGS: Decreased breath sounds. HEART: Reveals S1, S2. EXTREMITIES: Without change. LABORATORY DATA: Hemoglobin is 9. Chemistries: BUN and creatinine 35 and 1.6, INR is 2.58. IMPRESSION 1. Paroxysmal atrial fibrillation. 2. Resolution of congestive heart failure. 3. Bilateral pneumonia. 4. Mild pulmonary hypertension. 5. Renal insufficiency. Given these findings, the patient's AFib is well controlled on p.o. Cardizem as well as oral Coumadin. We will continue to adjust her anticoagulation regimen. Joseph Berger MD
--- NOTE | 2018-05-22 14:39 | CP.PCM.PN ---
Subjective - Date & Time of Evaluation Date of Evaluation: 05/22/18 Time of Evaluation: 09:30 - Subjective Subjective: No fevers, not in distress. Objective - Vital Signs/Intake and Output Vital Signs (last 24 hours): Temp Pulse Resp BP Pulse Ox 98.1 F 80 20 110/64 99 05/21/18 12:00 05/21/18 12:00 05/21/18 12:00 05/21/18 12:00 05/21/18 00:00 Intake and Output: 05/21/18 05/21/18 06:59 18:59 Intake Total 1050 Output Total 475 Balance 575 - Medications Medications: Current Medications Acetaminophen (Tylenol 650mg/20.3ml Solution Ud) 650 mg PO Q4H PRN PRN Reason: FOR TEMP > 100.4 Last Admin: 05/21/18 05:49 Dose: 650 mg Albuterol/Ipratropium (Duoneb 3 Mg/0.5 Mg (3 Ml) Ud) 3 ml IH [id number] [facility] Last Admin: 05/21/18 07:23 Dose: 3 ml Albuterol/Ipratropium (Duoneb 3 Mg/0.5 Mg (3 Ml) Ud) 3 ml IH Q2H PRN PRN Reason: Shortness of Breath Carvedilol (Coreg) 3.125 mg PO BID [facility] Last Admin: 05/21/18 10:40 Dose: 3.125 mg Diltiazem HCl (Cardizem Cd) 180 mg PO DAILY [facility] Last Admin: 05/21/18 10:41 Dose: 180 mg Doxycycline Hyclate (Doryx) 100 mg PO Q12 [facility]; Protocol Last Admin: 05/21/18 10:41 Dose: 100 mg Furosemide (Lasix) 40 mg PO BID [facility] Last Admin: 05/21/18 10:40 Dose: 40 mg Linezolid (Zyvox 600mg/300ml D5w) 600 mg in 300 mls @ 200 mls/hr IVPB Q12 [facility]; Protocol Stop: 05/27/18 10:01 Last Admin: 05/21/18 10:38 Dose: 200 mls/hr Aztreonam (Azactam 1 Gm) 100 mls @ 100 mls/hr IVPB Q8 [facility]; Protocol Stop: 05/27/18 22:01 Last Admin: 05/21/18 05:05 Dose: 100 mls/hr Insulin Human Regular (Humulin R Low) 0 units SC ACHS [facility]; Protocol Last Admin: 05/21/18 11:44 Dose: 1 u Montelukast Sodium (Singulair) 10 mg PO HS [facility] Last Admin: 05/20/18 21:53 Dose: 10 mg Pantoprazole Sodium (Protonix Inj) 40 mg IVP Q12 [facility] Last Admin: 05/21/18 10:39 Dose: 40 mg Pregabalin (Lyrica) 50 mg PO BID [facility] Last Admin: 05/21/18 10:40 Dose: 50 mg Sitagliptin Phosphate (Januvia) 50 mg PO DAILY [facility] Last Admin: 05/21/18 10:40 Dose: 50 mg Vancomycin HCl (Vancocin 25 Mg/Ml (Oral Use)) 250 mg PO QID [facility]; Protocol Stop: 05/26/18 18:01 Last Admin: 05/21/18 10:39 Dose: 250 mg Vitamin A (Vitamin A & D Oint Ud Foilpak) 1 ea TOP Q6H PRN PRN Reason: Dry skin Last Admin: 05/19/18 21:09 Dose: 1 ea Warfarin Sodium (Coumadin) 1 mg PO 1800 [facility]; Protocol - Labs Labs: 05/21/18 08:00 05/21/18 08:00 PT 28.1 SECONDS (9.4-12.5) H 05/21/18 06:10 INR 2.49 05/21/18 06:10 APTT 40.1 Seconds (26.9-38.3) H 05/19/18 07:36 - Constitutional Appears: Chronically Ill - Head Exam Head Exam: NORMAL INSPECTION - Respiratory Exam Respiratory Exam: Decreased Breath Sounds - Cardiovascular Exam Cardiovascular Exam: +S1, +S2 - GI/Abdominal Exam GI & Abdominal Exam: Soft. absent: Tenderness Assessment and Plan - Assessment and Plan (Free Text) Plan: Assessment severe sepsis with acute on chronic renal failure S/P VRDF due to bilateral HCAP, consider C. diff. colitis on top of possible ischemic colitis consider uremic encephalopathy chronic CHF COPD chronic atrial fibrillation on anticoagulation DVT hypothyroidism chronic renal failure not on dialysis S/P hysterectomy and oophorectomy bilateral knee arthroscopy S/P disectomy Plan continue Azactam, Flagyl day 11 and Doxycycline and added Zyvox since repeat CXR from 3 days ago showed worsening of left sided infitlrates; repeat cultures have been negative, urine Legionella is negative; reviewed CXR and CT A/P; will recommend 3-4 more days of antibiotics continue PO Vancomycin day 9 of 10 days follow up further plans of Surgery - discussed with Dr. Leary and salo goode approach for now follow up further plans of Renal will continue to monitor clinically while the patient is in the hospital
--- NOTE | 2018-05-22 14:56 | PN ---
DATE: 05/22/2018 SUBJECTIVE: The patient is currently seen on telemetry. She is sitting up in a chair. She is eating. She continues to have some lower extremity edema and remains on diuretic therapy. Her BUN and creatinine are at her absolute best levels with a BUN of 35 and a creatinine of 1.6. According to her family, she is scheduled to go to [facility] either later today or tomorrow. MEDICATIONS: Medication list reviewed. The patient is on Azactam, diltiazem, Coreg, Coumadin, doxycycline, DuoNeb, sliding scale insulin, IV iron, Januvia, p.o. Lasix, Lyrica, Protonix, Singulair, Tylenol, oral vancomycin, vitamin A and D ointment, and Zyvox. OBJECTIVE INTAKE/OUTPUT: Intake is 1640, output is 650. VITAL SIGNS: Blood pressure 144/83, pulse of 107, temperature is 98.3 with a respiratory rate of 18. Pulse ox is 99%. HEENT: Shows her to be normocephalic, atraumatic. Conjunctivae are pale. Sclerae are nonicteric. NECK: Supple. No neck vein distention. CHEST: Clear to auscultation and percussion. No rales, rhonchi or wheezing. CARDIOVASCULAR: Shows a regular rate and rhythm. No S3, no S4, no rub. Positive AI/MR/TR. ABDOMEN: Soft. Bowel sounds normal. No rebound, guarding or masses. EXTREMITIES: Show 1+ pitting edema of her lower extremity bilaterally. Diminished lower extremity pulses secondary to edema. NEUROLOGIC: Shows her to be alert and oriented. LABORATORY DATA AND IMAGING: CBC; white blood cell count today 10.4, hemoglobin stable 9.0, platelet count is 140,000. Coags, PT of 29.2 with an INR of 2.58 on chronic anticoagulation. Chemistries; BUN 35 with a creatinine of 1.6, potassium and sodium are normal. Glucose is 81, repeat is 130. Calcium is 8.8, magnesium 1.7. Last phosphorus level was normal at 3.0. Albumin level remains low at 2.4. Microbiology, stool for C. diff was negative on 05/21. All blood cultures and urine cultures are negative. ASSESSMENT 1. Acute renal failure, significantly improved. The patient is actually below baseline levels. She does have a history of chronic kidney disease, stage III/IV. Baseline creatinine had been in the low 2 range, it is currently at 1.6. She is entirely stable from a renal standpoint, and from my standpoint, it is okay to continue to use diuretic therapy for treatment of her lower extremity edema. Even if she has a slight increase in her BUN and creatinine, she still will remain within her baseline range. 2. History of hypertension, blood pressure control is acceptable. The patient will continue on present medications. 3. History of hypothyroidism. The patient's thyroid parameters were normal and she is currently not receiving any thyroid supplements. 4. Status post a limited gastrointestinal bleed. This is in the setting of possible ileus. This appears to have resolved. The patient has been cleared by GI. She does continue on oral vancomycin for possible Clostridium difficile colitis, though her Clostridium difficile toxins were negative x2. 5. History of diabetes mellitus. The patient remains on sliding scale insulin. Glucose control is acceptable. 6. 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 The patient is currently on Coumadin with excellent PT/INR levels. 7. History of moderate pulmonary hypertension, stable. 8. History of chronic obstructive pulmonary disease, stable on inhalation therapy and Singulair. 9. Status post secondary hyperparathyroidism, this is resolved with improvement in her renal parameters. 10. Healthcare-acquired pneumonia. The patient will complete a course of antibiotic therapy. All cultures were negative. PLAN 1. Discussed with the patient's son and the patient. The patient may continue diuretic therapy for treatment of her lower extremity edema. 2. Complete course of antibiotic therapy under the guidance of Infectious Disease. 3. Encourage oral intake. 4. The patient is actually below her baseline BUN and creatinine levels, so there is no issue with receiving diuretic therapy for treatment of her lower extremity edema. They also encourage the patient and her family to make certain that the patient elevates legs as much as possible and minimizes sodium intake in her diet when she goes to subacute rehab. Usman Bates MD
--- NOTE | 2018-05-22 17:51 | PN ---
DATE: 05/22/2018 SUBJECTIVE: The patient is 73 years old, seen and examined. Fully awake, alert, and oriented, saturating and tolerating. PHYSICAL EXAMINATION: VITAL SIGNS: She is afebrile, pulse 107, respiration 20, and blood pressure 144/83. LUNGS: Few respiratory rhonchi posteriorly and crackles at bases. HEART: S1 and S2 audible. ABDOMEN: Soft and nontender. No rebound. No guarding. NEUROLOGIC: She is awake, alert, oriented and communicative, has generalized weakness. GENITOURINARY: Molina is draining clear urine. No hematuria. EXTREMITIES: Bilateral legs +2 edema. LABORATORY DATA: WBC 10.4, hemoglobin 9.0, hematocrit 30.9 and platelet of 140. PT 29.2 and INR 2.58. Chemistry; sodium 140, potassium 4, chloride 110, CO2 of 29, BUN 35, creatinine 1.6, blood sugar of 130. ASSESSMENT: 1. Status post sepsis, status post acute renal failure. 2. Bilateral infiltrates. 3. Anemia, requiring blood transfusion. 4. History of coagulopathy. PLAN: We will continue the patient on Azactam. She is on Cardizem. She is on Coreg. Give her 1 mg of Coumadin today. We will maintain her on doxycycline and Zyvox. She is on nebulizer treatment. She is getting iron supplement IV only for today. Monitor her blood sugar. Her Flagyl has been discontinued. We will talk to ID if we need to maintain her on p.o. vancomycin. We will DC Molina catheter to watch her for urine retention and if the patient remains stable, we will make a difference in plan in a.m. at the same time. We will have followup with the patient. Delta Duarte MD
[2018-05-23] MEDS: Acetaminophen 650mg/20.3ml solution UD PO PRN (00:49)
[2018-05-23] MEDS ORDERED: Metoprolol 1 mg/ml Inj IVP ONE (01:10)
--- NOTE | 2018-05-23 01:26 | CP.PCM.PN ---
<Dinesh Torres - Last Filed: 05/23/18 01:11> Subjective - Date & Time of Evaluation Date of Evaluation: 05/23/18 Time of Evaluation: 01:12 - Subjective Subjective: Patient is a 73 yo F with PMH of CHF, asthma, COPD, paroxysmal afib on coumadin, DVT, hypothyroidism, anemia originally admitted for to ICU for AMS 2/2 sepsis. Ongoing evaluation for colitis. I was called to assess patient with persistent tachycardia in the 110's, SBP in the 120's. On the monitor the patient appears to be irregular with occasional PAC's. Patient is currently being treated for paroxysmal atrial fibrillation. Currently, patient is asymptomatic. Denied CP, SOB, n/v/d, abdominal pain, fever, chills, PINO, or dizziness. Clinical exam unremarkable. - Stat EKG ordered showed sinus tachycardia at 113 - Medications reviewed; patient on Cardizem for rate control and Coumadin due to elevated [id number] - Lopressor 5 mg IVP x1 - Patient discussed with Dr. Andrea Objective - Vital Signs/Intake and Output Vital Signs (last 24 hours): Temp Pulse Resp BP Pulse Ox 98.7 F 93 H 20 130/76 99 05/22/18 18:02 05/22/18 22:00 05/22/18 18:02 05/22/18 18:27 05/22/18 04:00 Intake and Output: 05/22/18 05/23/18 18:59 06:59 Intake Total 900 Output Total 300 Balance 600 - Medications Medications: Current Medications Acetaminophen (Tylenol 650mg/20.3ml Solution Ud) 650 mg PO Q4H PRN PRN Reason: FOR TEMP > 100.4 Last Admin: 05/23/18 00:49 Dose: 650 mg Albuterol/Ipratropium (Duoneb 3 Mg/0.5 Mg (3 Ml) Ud) 3 ml IH [id number] [facility] Last Admin: 05/22/18 21:07 Dose: 3 ml Albuterol/Ipratropium (Duoneb 3 Mg/0.5 Mg (3 Ml) Ud) 3 ml IH Q2H PRN PRN Reason: Shortness of Breath Carvedilol (Coreg) 3.125 mg PO BID [facility] Last Admin: 05/22/18 18:26 Dose: 3.125 mg Diltiazem HCl (Cardizem Cd) 180 mg PO DAILY [facility] Last Admin: 05/22/18 10:27 Dose: 180 mg Doxycycline Hyclate (Doryx) 100 mg PO Q12 [facility]; Protocol Last Admin: 05/22/18 22:24 Dose: 100 mg Furosemide (Lasix) 40 mg PO BID [facility] Last Admin: 05/22/18 18:27 Dose: 40 mg Linezolid (Zyvox 600mg/300ml D5w) 600 mg in 300 mls @ 200 mls/hr IVPB Q12 [facility]; Protocol Stop: 05/27/18 10:01 Last Admin: 05/22/18 22:24 Dose: 200 mls/hr Aztreonam (Azactam 1 Gm) 100 mls @ 100 mls/hr IVPB Q8 [facility]; Protocol Stop: 05/27/18 22:01 Last Admin: 05/22/18 22:08 Dose: 100 mls/hr Iron Sucrose 200 mg/ Sodium (Chloride) 110 mls @ 110 mls/hr IVPB DAILY [facility] Stop: 05/25/18 10:59 Last Admin: 05/22/18 10:30 Dose: 110 mls/hr Insulin Human Regular (Humulin R Low) 0 units SC ACHS [facility]; Protocol Last Admin: 05/22/18 22:22 Dose: Not Given Metoprolol Tartrate (Lopressor) 5 mg IVP ONCE ONE Stop: 05/23/18 01:11 Montelukast Sodium (Singulair) 10 mg PO HS [facility] Last Admin: 05/22/18 22:08 Dose: 10 mg Pantoprazole Sodium (Protonix Inj) 40 mg IVP Q12 [facility] Last Admin: 05/22/18 22:08 Dose: 40 mg Pregabalin (Lyrica) 50 mg PO BID [facility] Last Admin: 05/22/18 18:27 Dose: 50 mg Sitagliptin Phosphate (Januvia) 50 mg PO DAILY [facility] Last Admin: 05/22/18 10:27 Dose: 50 mg Vancomycin HCl (Vancocin 25 Mg/Ml (Oral Use)) 250 mg PO QID [facility]; Protocol Stop: 05/26/18 18:01 Last Admin: 05/22/18 22:09 Dose: 250 mg Vitamin A (Vitamin A & D Oint Ud Foilpak) 1 ea TOP Q6H PRN PRN Reason: Dry skin Last Admin: 05/19/18 21:09 Dose: 1 ea Warfarin Sodium (Coumadin) 1 mg PO 1800 [facility]; Protocol Last Admin: 05/22/18 18:26 Dose: 1 mg - Labs Labs: 05/22/18 06:30 05/22/18 06:30 PT 29.2 SECONDS (9.4-12.5) H 05/22/18 06:30 INR 2.58 05/22/18 06:30 APTT 40.1 Seconds (26.9-38.3) H 05/19/18 07:36 <Bety Andrea - Last Filed: 05/23/18 01:33> Objective - Vital Signs/Intake and Output Vital Signs (last 24 hours): Temp Pulse Resp BP Pulse Ox 98.7 F 117 H 20 129/76 99 05/22/18 18:02 05/23/18 01:20 05/22/18 18:02 05/23/18 01:20 05/22/18 04:00 Intake and Output: 05/22/18 05/23/18 18:59 06:59 Intake Total 900 Output Total 300 Balance 600 - Medications Medications: Current Medications Acetaminophen (Tylenol 650mg/20.3ml Solution Ud) 650 mg PO Q4H PRN PRN Reason: FOR TEMP > 100.4 Last Admin: 05/23/18 00:49 Dose: 650 mg Albuterol/Ipratropium (Duoneb 3 Mg/0.5 Mg (3 Ml) Ud) 3 ml IH [id number] [facility] Last Admin: 05/22/18 21:07 Dose: 3 ml Albuterol/Ipratropium (Duoneb 3 Mg/0.5 Mg (3 Ml) Ud) 3 ml IH Q2H PRN PRN Reason: Shortness of Breath Carvedilol (Coreg) 3.125 mg PO BID [facility] Last Admin: 05/22/18 18:26 Dose: 3.125 mg Diltiazem HCl (Cardizem Cd) 180 mg PO DAILY [facility] Last Admin: 05/22/18 10:27 Dose: 180 mg Doxycycline Hyclate (Doryx) 100 mg PO Q12 [facility]; Protocol Last Admin: 05/22/18 22:24 Dose: 100 mg Furosemide (Lasix) 40 mg PO BID [facility] Last Admin: 05/22/18 18:27 Dose: 40 mg Linezolid (Zyvox 600mg/300ml D5w) 600 mg in 300 mls @ 200 mls/hr IVPB Q12 [facility]; Protocol Stop: 05/27/18 10:01 Last Admin: 05/22/18 22:24 Dose: 200 mls/hr Aztreonam (Azactam 1 Gm) 100 mls @ 100 mls/hr IVPB Q8 [facility]; Protocol Stop: 05/27/18 22:01 Last Admin: 05/22/18 22:08 Dose: 100 mls/hr Iron Sucrose 200 mg/ Sodium (Chloride) 110 mls @ 110 mls/hr IVPB DAILY [facility] Stop: 05/25/18 10:59 Last Admin: 05/22/18 10:30 Dose: 110 mls/hr Insulin Human Regular (Humulin R Low) 0 units SC ACHS [facility]; Protocol Last Admin: 05/22/18 22:22 Dose: Not Given Montelukast Sodium (Singulair) 10 mg PO HS [facility] Last Admin: 05/22/18 22:08 Dose: 10 mg Pantoprazole Sodium (Protonix Inj) 40 mg IVP Q12 [facility] Last Admin: 05/22/18 22:08 Dose: 40 mg Pregabalin (Lyrica) 50 mg PO BID [facility] Last Admin: 05/22/18 18:27 Dose: 50 mg Sitagliptin Phosphate (Januvia) 50 mg PO DAILY [facility] Last Admin: 05/22/18 10:27 Dose: 50 mg Vancomycin HCl (Vancocin 25 Mg/Ml (Oral Use)) 250 mg PO QID [facility]; Protocol Stop: 05/26/18 18:01 Last Admin: 05/22/18 22:09 Dose: 250 mg Vitamin A (Vitamin A & D Oint Ud Foilpak) 1 ea TOP Q6H PRN PRN Reason: Dry skin Last Admin: 05/19/18 21:09 Dose: 1 ea Warfarin Sodium (Coumadin) 1 mg PO 1800 [facility]; Protocol Last Admin: 05/22/18 18:26 Dose: 1 mg - Labs Labs: 05/22/18 06:30 05/22/18 06:30 PT 29.2 SECONDS (9.4-12.5) H 05/22/18 06:30 INR 2.58 05/22/18 06:30 APTT 40.1 Seconds (26.9-38.3) H 05/19/18 07:36 Attending/Attestation - Attestation I have personally seen and examined this patient.: Yes I have fully participated in the care of the patient.: Yes I have reviewed all pertinent clinical information, including history, physical exam and plan: Yes Notes (Text): 05/23/18 01:31 Pt seen with the resident,discussed plan of treatment,agree with orders placed.
[2018-05-23] MEDS: Albuterol-Ipratrop 3 mg / 0.5 (3 ml) UD IH SCH ×3 (03:00→13:33)
[2018-05-23] MEDS: Aztreonam 1 Gm in NS 100mL 100 ML IVPB SCH ×2 (05:22→13:36)
[2018-05-23 06:25] VITALS: O2SAT 100
[2018-05-23 07:09] LABS: BASO # 0.03 K/mm3 (0.0-2.0); BASO % 0.3 % (0.0-3.0); EOS # 0.1 (0.0-0.7); EOS % 1.2 % (1.5-5.0); HEMOGLOBIN 8.5 g/dL (12.0-16.0); LYMPH # 1.6 (1.2-3.4); LYMPH % 13.3 % (22.0-35.0); MEAN CELL VOLUME 91.4 fl (80.0-105.0); MEAN CORPUSCULAR HEMOGLOBIN 27.1 pg (25.0-35.0); MEAN CORPUSCULAR HGB CONC 29.6 g/dl (31.0-37.0); MEAN PLATELET VOLUME 11.8 fl (7.0-11.0); MONO # 0.5 (0.1-0.6); MONO % 4.1 % (1.0-6.0); RBC 3.14 10^6/uL (3.5-6.1); RED CELL DISTRIBUTION WIDTH 17.9 % (11.5-14.5); WHITE BLOOD COUNT 11.9 10^3/uL (4.5-11.0)
[2018-05-23 07:15] LABS: INR 2.45; PROTHROMBIN TIME 27.7 SECONDS (9.4-12.5)
[2018-05-23 08:04] LABS: ALB/GLOB RATIO 0.9 (1.1-1.8); ALBUMIN 2.3 g/dL (3.0-4.8)
[2018-05-23] MEDS: Insulin Reg-LOW-Coverage SC SCH ×2 (08:30→12:30)
[2018-05-23] MEDS: diltiaZEM 180 mg/24 Hours CD Cap PO SCH (09:25)
[2018-05-23] MEDS: Vancomycin 25 MG/ML PO SCH ×2 (09:27→13:37)
[2018-05-23] MEDS: Linezolid 600 mg in D5W 300 ml 600 MG/300 ML BAG IVPB SCH (09:30)
[2018-05-23] MEDS ORDERED: Magnesium Oxide 400 mg Tab UD PO SCH (10:00)
--- NOTE | 2018-05-23 10:08 | CARD ---
APPROVED REPORT Date of service: 05/23/2018 EKG Measurement Heart [id number] <Conclusion> Sinus tachycardia with first degree AV block Minimal voltage criteria for LVH, may be normal variant Inferior infarct, age undetermined Anterolateral infarct, age undetermined Abnormal ECG
[2018-05-23] MEDS ORDERED: metOLazone 2.5 MG TAB PO SCH (12:00)
[2018-05-23 12:11] VITALS: BP 114/74; PULSE 102; RESP 20; TEMP 98.4
--- NOTE | 2018-05-23 12:47 | CP.PCM.PN ---
Subjective - Date & Time of Evaluation Date of Evaluation: 05/23/18 Time of Evaluation: 10:10 - Subjective Subjective: Had an episode of tachyarrhythmia but is now controlled with meds and patient is currently comfortable in bed, not short of breath at rest, no fevers. Objective - Vital Signs/Intake and Output Vital Signs (last 24 hours): Temp Pulse Resp BP Pulse Ox 98.4 F 102 H 20 114/74 100 05/23/18 12:00 05/23/18 12:00 05/23/18 12:00 05/23/18 12:00 05/23/18 06:00 Intake and Output: 05/23/18 05/23/18 06:59 18:59 Intake Total 1520 Output Total 400 Balance 1120 - Medications Medications: Current Medications Acetaminophen (Tylenol 650mg/20.3ml Solution Ud) 650 mg PO Q4H PRN PRN Reason: FOR TEMP > 100.4 Last Admin: 05/23/18 00:49 Dose: 650 mg Albuterol/Ipratropium (Duoneb 3 Mg/0.5 Mg (3 Ml) Ud) 3 ml IH [id number] [facility] Last Admin: 05/23/18 07:36 Dose: 3 ml Albuterol/Ipratropium (Duoneb 3 Mg/0.5 Mg (3 Ml) Ud) 3 ml IH Q2H PRN PRN Reason: Shortness of Breath Carvedilol (Coreg) 3.125 mg PO BID [facility] Last Admin: 05/23/18 09:25 Dose: 3.125 mg Diltiazem HCl (Cardizem Cd) 180 mg PO DAILY [facility] Last Admin: 05/23/18 09:25 Dose: 180 mg Doxycycline Hyclate (Doryx) 100 mg PO Q12 [facility]; Protocol Last Admin: 05/23/18 09:25 Dose: 100 mg Furosemide (Lasix) 40 mg PO BID [facility] Last Admin: 05/23/18 09:25 Dose: 40 mg Linezolid (Zyvox 600mg/300ml D5w) 600 mg in 300 mls @ 200 mls/hr IVPB Q12 [facility]; Protocol Stop: 05/27/18 10:01 Last Admin: 05/23/18 09:30 Dose: 200 mls/hr Aztreonam (Azactam 1 Gm) 100 mls @ 100 mls/hr IVPB Q8 [facility]; Protocol Stop: 05/27/18 22:01 Last Admin: 05/23/18 05:22 Dose: 100 mls/hr Iron Sucrose 200 mg/ Sodium (Chloride) 110 mls @ 110 mls/hr IVPB DAILY [facility] Stop: 05/25/18 10:59 Last Admin: 05/23/18 09:44 Dose: 110 mls/hr Metronidazole (Flagyl) 500 mg in 100 mls @ 100 mls/hr IVPB Q8 [facility]; Protocol Insulin Human Regular (Humulin R Low) 0 units SC ACHS [facility]; Protocol Last Admin: 05/23/18 08:30 Dose: Not Given Magnesium Oxide (Mag-Ox) 400 mg PO BID [facility] Last Admin: 05/23/18 09:25 Dose: 400 mg Metolazone (Zaroxolyn) 2.5 mg PO DAILY [facility] Last Admin: 05/23/18 11:57 Dose: 2.5 mg Montelukast Sodium (Singulair) 10 mg PO HS [facility] Last Admin: 05/22/18 22:08 Dose: 10 mg Pantoprazole Sodium (Protonix Inj) 40 mg IVP Q12 [facility] Last Admin: 05/23/18 09:30 Dose: 40 mg Pregabalin (Lyrica) 50 mg PO BID [facility] Last Admin: 05/23/18 09:25 Dose: 50 mg Sitagliptin Phosphate (Januvia) 50 mg PO DAILY [facility] Last Admin: 05/23/18 09:26 Dose: 50 mg Vancomycin HCl (Vancocin 25 Mg/Ml (Oral Use)) 250 mg PO QID [facility]; Protocol Stop: 05/26/18 18:01 Last Admin: 05/23/18 09:27 Dose: 250 mg Vitamin A (Vitamin A & D Oint Ud Foilpak) 1 ea TOP Q6H PRN PRN Reason: Dry skin Last Admin: 05/19/18 21:09 Dose: 1 ea Warfarin Sodium (Coumadin) 1 mg PO 1800 [facility]; Protocol Last Admin: 05/22/18 18:26 Dose: 1 mg - Labs Labs: 05/23/18 07:00 05/23/18 07:00 PT 27.7 SECONDS (9.4-12.5) H 05/23/18 07:00 INR 2.45 05/23/18 07:00 APTT 40.1 Seconds (26.9-38.3) H 05/19/18 07:36 - Constitutional Appears: Chronically Ill - Head Exam Head Exam: NORMAL INSPECTION - Respiratory Exam Respiratory Exam: Decreased Breath Sounds - Cardiovascular Exam Cardiovascular Exam: +S1, +S2 - GI/Abdominal Exam GI & Abdominal Exam: Soft. absent: Tenderness Assessment and Plan - Assessment and Plan (Free Text) Plan: Assessment severe sepsis with acute on chronic renal failure S/P VRDF due to bilateral HCAP, consider C. diff. colitis on top of possible ischemic colitis, clinically improving consider uremic encephalopathy chronic CHF COPD chronic atrial fibrillation on anticoagulation DVT hypothyroidism chronic renal failure not on dialysis S/P hysterectomy and oophorectomy bilateral knee arthroscopy S/P disectomy Plan continue Azactam, Flagyl day 12 and Doxycycline and added Zyvox since repeat CXR from 3 days ago showed worsening of left sided infitlrates; repeat cultures have been negative, urine Legionella is negative; reviewed CXR and CT A/P; will recommend 2-3 more days of antibiotics continue PO Vancomycin day 10 of 10 days follow up further plans of Surgery - discussed with Dr. Leary and cons ervative approach for now follow up further plans of Renal will continue to monitor clinically while the patient is in the hospital
[2018-05-23] MEDS ORDERED: metroNIDAZOLE IV 500 mg/100 ml 500 MG/100 ML BAG IVPB SCH (14:00)
--- NOTE | 2018-05-23 15:16 | PN ---
DATE: 05/23/2018 SUBJECTIVE: The patient is seen lying in bed. She is awake, she is alert. She is comfortable. She appears mildly dyspneic. PHYSICAL EXAMINATION: GENERAL: Elderly lady lying in bed. VITAL SIGNS: Blood pressure 114/74, heart rate 102, respiratory rate 20 and temperature 98.4. HEENT: Normocephalic, atraumatic and positive pallor. NECK: Supple, no JVD. LUNGS: Bilateral equal air entry, bilateral rhonchi, decreased air entry at bases. CARDIAC: S1 and S2, regular rate and rhythm, no murmur, no rub. ABDOMEN: Obese, distended, soft, nontender, bowel sounds present. EXTREMITIES: 2+ pitting edema of the lower extremities. INTAKE AND OUTPUT: 1520/400? LABORATORY DATA: WBC 11.9, hemoglobin 8.5, hematocrit 28.7 and platelets 162. Sodium 140, potassium 4.0, chloride 110, CO2 of 29, BUN 29, creatinine 1.6, glucose 80, calcium 9.0, magnesium 1.6 and albumin 2.3. CURRENT MEDICATIONS: Azactam 1 g every 8 hours, Cardizem 180, Coreg 3.125 b.i.d., Coumadin, doxycycline 100 every 12 hours, Flagyl 500 every 8 hours, Venofer 200 g IV piggyback daily total of five bags ordered, Januvia 50, Lasix 40 p.o. b.i.d., Lyrica 50 b.i.d., mag oxide 400 b.i.d., Protonix, Singulair, Tylenol, vancomycin and Zyvox. ASSESSMENT: 1. Resolved acute kidney injury. 2. Underlying chronic kidney disease stage IV. 3. Status post severe sepsis. 4. Status post severe anemia, Gastrointestinal blood loss, anemia of chronic kidney disease. 5. Noninsulin-dependent diabetes mellitus. 6. Congestive heart failure, cardiomyopathy. 7. Chronic obstructive pulmonary disease. PLAN: 1. Add Zaroxolyn 2.5 mg daily, the patient is swollen again. 2. Continue Lasix 40 b.i.d. 3. Will need outpatient EFRAÍN. 4. Continue antibiotics as per ID recommendations. 5. Blood pressure is somewhat low, monitor pressure closely. Yulia Allan MD [facility] # [id number]
--- NOTE | 2018-05-24 02:19 | DS ---
HISTORY OF PRESENT ILLNESS: The patient is 73-year-old, seen and examined. Fully awake, alert, oriented and communicative. Eating and tolerating. Foleys are removed yesterday, voiding urine. PHYSICAL EXAMINATION: VITAL SIGNS: She is afebrile. Pulse 109, respiration 18 and blood pressure 122/62. LUNGS: Bilateral fair airflow. No rhonchi or crackle. HEART: S1 and S2, audible. ABDOMEN: Soft and nontender. No rebound. No guarding. NEUROLOGIC: The patient is awake, alert, oriented and able to communicate. LABORATORY DATA: WBC 11.9, hemoglobin 8.5, hematocrit 28.7 and platelet 162. PT 27.7 and INR 2.45. Chemistry; sodium 140, potassium 4.0, chloride 110, CO2 of 29, BUN 29, creatinine 1.6 and blood sugar of 130. ASSESSMENT: 1. Status post acute renal failure. 2. Status post altered mental status. 3. Status post sepsis that improved. 4. Bilateral anemia, improving. 5. Acute on chronic renal failure, improved. 6. Non-insulin dependant diabetes. 7. Cavernous sinus thrombosis. PLAN: The patient is doing well. She is afebrile. Fully awake and alert. Need subacute rehab. We will be discharge and transferred to [facility]. Delta Duarte MD
--- NOTE | 2018-05-24 06:38 | PN ---
DATE: 05/23/2018 CARDIOLOGY FOLLOWUP SUBJECTIVE: The patient is awake without dyspnea. PHYSICAL EXAMINATION: VITAL SIGNS: Blood pressure 114/74, heart rate is sinus tachycardia at 100. NECK: Negative JVD. LUNGS: Decreased breath sounds. HEART: S1, S2. EXTREMITIES: Without change. LABORATORY DATA: Hemoglobin is 8.5. Chemistries, BUN and creatinine are 29 and 1.6 with a glucose of 130. IMPRESSION: 1. Paroxysmal atrial fibrillation, the patient is currently in normal sinus rhythm. 2. Resolution of congestive heart failure. 3. Bilateral pneumonia. 4. Mild pulmonary hypertension. 5. Renal insufficiency. Given these findings, we will continue the patient on p.o. Cardizem as well as Coumadin for paroxysmal atrial fibrillation. Joseph Berger MD
== END 2018-05-23 16:30 | DRG 291 ==
LOC: ED 22:19 → ERH 05-11 00:37 → 2RNO 05-11 02:18 → ICU 05-11 12:22 → 2RSO 05-18 20:35
PROVIDERS: ADMIT Internal Medicine; ATTEND Internal Medicine
PROC: 30233K1 Transfusion of Nonautologous Frozen Plasma into Peripheral Vein, Percutaneous Approach (ICD-10-PCS; 2018-05-11)
PROC: 0T9B70Z Drainage of Bladder with Drainage Device, Via Natural or Artificial Opening (ICD-10-PCS; 2018-05-11)
PROC: 30233N1 Transfusion of Nonautologous Red Blood Cells into Peripheral Vein, Percutaneous Approach (ICD-10-PCS; 2018-05-12)
PROC: 5A1945Z Respiratory Ventilation, 24-96 Consecutive Hours (ICD-10-PCS; principal; 2018-05-13)
PROC: 0BH18EZ Insertion of Endotracheal Airway into Trachea, Via Natural or Artificial Opening Endoscopic (ICD-10-PCS; 2018-05-13)
PROC: 06HY33Z Insertion of Infusion Device into Lower Vein, Percutaneous Approach (ICD-10-PCS; 2018-05-13)
PROC: B54BZZA Ultrasonography of Right Lower Extremity Veins, Guidance (ICD-10-PCS; 2018-05-13)
PROC: 5A09357 Assistance with Respiratory Ventilation, Less than 24 Consecutive Hours, Continuous Positive Airway Pressure (ICD-10-PCS; 2018-05-14)
PROC: 05H633Z Insertion of Infusion Device into Left Subclavian Vein, Percutaneous Approach (ICD-10-PCS; 2018-05-16)
PROC: B54NZZA Ultrasonography of Left Upper Extremity Veins, Guidance (ICD-10-PCS; 2018-05-16)
DX: I13.0 Hypertensive heart and chronic kidney disease with heart failure and stage 1 through stage 4 chronic kidney disease, or unspecified chronic kidney disease (principal); A41.9 Sepsis, unspecified organism; I50.31 Acute diastolic (congestive) heart failure; J18.9 Pneumonia, unspecified organism; J96.01 Acute respiratory failure with hypoxia; R65.20 Severe sepsis without septic shock; N17.9 Acute kidney failure, unspecified; D68.9 Coagulation defect, unspecified; K56.7 Ileus, unspecified; K92.2 Gastrointestinal hemorrhage, unspecified; A04.72 Enterocolitis due to Clostridium difficile, not specified as recurrent; E87.0 Hyperosmolality and hypernatremia; D68.59 Other primary thrombophilia; J44.0 Chronic obstructive pulmonary disease with (acute) lower respiratory infection; G93.40 Encephalopathy, unspecified; N25.81 Secondary hyperparathyroidism of renal origin; N18.4 Chronic kidney disease, stage 4 (severe); I42.9 Cardiomyopathy, unspecified; E03.9 Hypothyroidism, unspecified; D63.1 Anemia in chronic kidney disease; M79.89 Other specified soft tissue disorders; E11.22 Type 2 diabetes mellitus with diabetic chronic kidney disease; E87.6 Hypokalemia; I48.2 Chronic atrial fibrillation; Y95 Nosocomial condition; D50.0 Iron deficiency anemia secondary to blood loss (chronic); E11.65 Type 2 diabetes mellitus with hyperglycemia; I27.20 Pulmonary hypertension, unspecified; E83.39 Other disorders of phosphorus metabolism; I48.0 Paroxysmal atrial fibrillation; Z79.84 Long term (current) use of oral hypoglycemic drugs; Z86.718 Personal history of other venous thrombosis and embolism; Z87.891 Personal history of nicotine dependence; Z79.01 Long term (current) use of anticoagulants; Z86.69 Personal history of other diseases of the nervous system and sense organs